=== PATIENT | male | born 1945 | race Caucasian/White ===

== ENCOUNTER 2018-01-09 19:43 | Emergency (ER) | payer MEDICARE, OTHER ==
[2018-01-09] MEDS ORDERED: Ketorolac 60 MG/2 ML SDV IM ONE (20:02)
--- NOTE | 2018-01-09 20:10 | EDM.PDOC ---
ED HPI GENERAL MEDICAL PROBLEM - General Chief Complaint: Back Pain or Injury Stated Complaint: SEVERE BACK PAIN Time Seen by Provider: 01/09/18 19:55 Source of Information: Reports: Patient History Limitations: Reports: No Limitations - History of Present Illness INITIAL COMMENTS - FREE TEXT/NARRATIVE: HISTORY AND PHYSICAL: History of present illness: Patient is a 72-year-old male who presents to the emergency room today with complaints of pain to the left gluteus that radiates down the back I. He states approximately 3 days ago he was loading a truck and the next morning he had pain in the left buttock that radiates down the posterior left thigh and stops above the knee. Denies any falls, trauma or injury. Has been using a heating pack and ibuprofen without much relief. Denies any urinary or fecal incontinence. Denies any numbness or tingling to his distal extremities. He has been ambulatory without difficulty. Review of systems: As per history of present illness and below otherwise all systems reviewed and negative. Past medical history: As per history of present illness and as reviewed below otherwise noncontributory. Surgical history: As per history of present illness and as reviewed below otherwise noncontributory. Social history: No reported history of drug or alcohol abuse. Family history: As per history of present illness and as reviewed below otherwise noncontributory. Physical exam: General: Well-developed and well-nourished 72-year-old male. Alert and oriented. Nontoxic appearing and in no acute distress. HEENT: Atraumatic, normocephalic, pupils equal and reactive bilaterally, negative for conjunctival pallor or scleral icterus, mucous membranes moist, throat clear, neck supple, nontender, trachea midline. No drooling or trismus noted. No meningeal signs Lungs: Clear to auscultation, breath sounds equal bilaterally, chest nontender. Heart: S1S2, regular rate and rhythm without overt murmur Abdomen: Soft, nondistended, nontender. Negative for masses or hepatosplenomegaly. Negative for costovertebral tenderness. Pelvis: Stable nontender. Genitourinary: Deferred. Rectal: Deferred. Skin: Intact, warm, dry. No lesions or rashes noted. C-spine/Back: Pinpoint vertebral tenderness upon palpation. No crepitus, step- offs or obvious deformities. Patient is ambulatory and able to walk on heels and toes. No urinary or fecal incontinence. Denies any numbness or tingling to his distal extremities. Extremities: Atraumatic, negative for cords or calf pain. Neurovascular unremarkable. Neuro: Awake, alert, oriented. Cranial nerves II through XII unremarkable. Cerebellum unremarkable. Motor and sensory unremarkable throughout. Exam nonfocal. Notes: Does not have a ride from the ER, will give Toradol IM. States he has no problems with NSAIDS. Prescription for Cataflam and Flexeril given. Medication education was provided. Signs and symptoms that would prompt him to return to the emergency room were reviewed and discussed. Patient is agreeable to plan of care. He denies any further questions or concerns at this time. Diagnostics: [] Therapeutics: Toradol Impression: Sciatica, left Plan: 1. Please take the medications as prescribed. Gentle stretching and heat. The flexeril (cyclobenzabrine) may cause drowsiness, so do not take when needing to drive or function outside of the house. 2. Follow-up with your primary caregiver in the next 1-2 days. Return to the ED as needed and as discussed. Definitive disposition and diagnosis as appropriate pending reevaluation and review of above. - Related Data Allergies Allergy/AdvReac Type Severity Reaction Status Date / Time indomethacin [From Indocin] Allergy Cannot Verified 01/09/18 19:45 Remember indomethacin sodium Allergy Cannot Verified 01/09/18 19:45 [From Indocin] Remember Penicillins Allergy Hives Verified 01/09/18 19:45 Home Meds: Home Meds Aspirin 81 mg PO DAILY 01/09/18 [History] Aspirin [Sallie Advanced] 1 tab PO DAILY 01/09/18 [History] Cholecalciferol (Vitamin D3) [D3-2000] 1 tab PO DAILY 01/09/18 [History] Eplerenone [Inspra] 50 mg PO BID 01/09/18 [History] Flaxseed Oil [Flaxseed] 1,400 mg PO DAILY 01/09/18 [History] Indapamide 1.25 mg PO DAILY 01/09/18 [History] Levothyroxine 137 mcg PO DAILY 01/09/18 [History] Magnesium 250 mg PO DAILY 01/09/18 [History] Melatonin 1 tab PO DAILY 01/09/18 [History] Potassium Bicarb/Potassium Chl [Potassium Chloride] 20 meq PO DAILY 01/09/18 [ History] Prevagen 1 tab PO DAILY 01/09/18 [History] Terazosin HCl [Terazosin] 10 mg PO DAILY 01/09/18 [History] levETIRAcetam [Spritam] 1,000 mg PO BID 01/09/18 [History] Past Medical History HEENT History: Reports: None Cardiovascular History: Reports: None Respiratory History: Reports: None Gastrointestinal History: Reports: None Genitourinary History: Reports: None Musculoskeletal History: Reports: None Neurological History: Reports: None Psychiatric History: Reports: None Endocrine/Metabolic History: Reports: None Hematologic History: Reports: None Immunologic History: Reports: None Oncologic (Cancer) History: Reports: None Dermatologic History: Reports: None - Infectious Disease History Infectious Disease History: Reports: Shingles - Past Surgical History Head Surgeries/Procedures: Reports: None HEENT Surgical History: Reports: None Cardiovascular Surgical History: Reports: None Respiratory Surgical History: Reports: None GI Surgical History: Reports: Hernia Repair/Other Male Surgical History: Reports: None Endocrine Surgical History: Reports: None Neurological Surgical History: Reports: None Musculoskeletal Surgical History: Reports: Other (See Below) Other Musculoskeletal Surgeries/Procedures:: neck fusion Oncologic Surgical History: Reports: None Dermatological Surgical History: Reports: None Social & Family History - Family History Family Medical History: Noncontributory - Tobacco Use Smoking Status *Q: Never Smoker Second Hand Smoke Exposure: No - Caffeine Use Caffeine Use: Reports: None - Recreational Drug Use Recreational Drug Use: No ED ROS GENERAL - Review of Systems Review Of Systems: ROS reveals no pertinent complaints other than HPI. ED EXAM,LOWER BACK PAIN/INJURY - Physical Exam Exam: See Below (See dictation) Course - Vital Signs Last Recorded V/S: Last Vital Signs Temp 97.8 F 01/09/18 19:56 Pulse 71 01/09/18 19:56 Resp 18 01/09/18 19:56 BP 179/96 H 01/09/18 19:56 Pulse Ox 98 01/09/18 19:56 - Orders/Labs/Meds Meds: Medications Discontinued Medications Generic Name Dose Route Start Last Admin Trade Name Freq PRN Reason Stop Dose Admin Ketorolac Tromethamine 60 mg 01/09/18 20:02 Toradol IM 01/09/18 20:03 ONETIME ONE Departure - Departure Time of Disposition: 20:10 Disposition: Home, Self-Care 01 Clinical Impression: Sciatica Qualifiers: Laterality: left Qualified Code(s): M54.32 - Sciatica, left side - Discharge Information Instructions: Sciatica, [id number] Referrals: PCP,None [Primary Care Provider] - Additional Instructions: The following information is given to patients seen in the emergency department who are being discharged to home. This information is to outline your options for follow-up care. We provide all patients seen in our emergency department with a follow-up referral. The need for follow-up, as well as the timing and circumstances, are variable depending upon the specifics of your emergency department visit. If you don't have a primary care physician on staff, we will provide you with a referral. We always advise you to contact your personal physician following an emergency department visit to inform them of the circumstance of the visit and for follow-up with them and/or the need for any referrals to a consulting specialist. The emergency department will also refer you to a specialist when appropriate. This referral assures that you have the opportunity for follow-up care with a specialist. All of these measure are taken in an effort to provide you with optimal care, which includes your follow-up. Under all circumstances we always encourage you to contact your private physician who remains a resource for coordinating your care. When calling for follow-up care, please make the office aware that this follow-up is from your recent emergency room visit. If for any reason you are refused follow-up, please contact the [facility] Emergency Department at and asked to speak to the emergency department charge nurse. [facility] [address] [place] [id number] 1. Please take the medications as prescribed. Gentle stretching and heat. The flexeril (cyclobenzabrine) may cause drowsiness, so do not take when needing to drive or function outside of the house. 2. Follow-up with your primary caregiver in the next 1-2 days. Return to the ED as needed and as discussed.
[2018-01-09 20:52] VITALS: BP 165/95
== END 2018-01-09 20:25 | disposition home or self-care (01) ==
LOC: MW.ED 19:43
DX: M54.32 Sciatica, left side (principal); Z79.899 Other long term (current) drug therapy; Z88.8 Allergy status to other drugs, medicaments and biological substances; Z88.0 Allergy status to penicillin; Z79.82 Long term (current) use of aspirin
CPT/HCPCS: 96372; 99283; J1885

== ENCOUNTER 2019-07-17 11:24 | Emergency (ER) | payer MEDICARE, OTHER ==
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
--- NOTE | 2019-07-17 12:50 | CR ---
Right shoulder: 3 views of the right shoulder were obtained. Comparison: Prior shoulder study. Spurring is noted off the glenoid. Mild joint space narrowing is also noted within the glenohumeral joint. Previous shoulder surgery is noted. No acute fracture, dislocation or other bony abnormality is seen. Impression: 1. Degenerative change within the glenohumeral joint as described above. 2. Previous surgery. 3. Nothing acute is seen. Diagnostic code #2 This report was dictated in [place] Standard Time
[2019-07-17 14:21] VITALS: BP 161/59; PULSE 45
== END 2019-07-17 14:05 | disposition home or self-care (01) ==
LOC: MW.ED 11:24
DX: S43.401A Unspecified sprain of right shoulder joint, initial encounter (principal); Z79.82 Long term (current) use of aspirin; Z79.899 Other long term (current) drug therapy; W00.0XXA Fall on same level due to ice and snow, initial encounter
CPT/HCPCS: 73030-26-RT; 73030-RT; 99282; 99283-25

== ENCOUNTER 2020-02-03 15:11 | Inpatient (IN) | payer MEDICARE, OTHER ==
[2020-02-03] MEDS ORDERED: Sodium Chloride 0.9% 2.5 ML Syringe FLUSH PRN (15:21)
[2020-02-03] MEDS ORDERED: Sodium Chloride 0.9% 10 ML Syringe FLUSH PRN (15:21)
[2020-02-03 16:34] LABS: CARBON DIOXIDE,CO2 27.3 mmol/L (21.0-32.0); POTASSIUM,K 3.3 mmol/L (3.5-5.1)
[2020-02-03] MEDS ORDERED: Furosemide 40 MG/4 ML VIAL IVPUSH ONE (16:47)
[2020-02-03] MEDS ORDERED: Potassium Chloride 10% 20 MEQ/15 ML Soln 30 ML UD Cup PO ONE (16:48)
[2020-02-03] MEDS ORDERED: Magnesium Sulfate/Water 2 GM in Premix Bag 1 BAG IV ONE (16:48)
--- NOTE | 2020-02-03 17:12 | EDM.PDOC ---
ED HPI GENERAL MEDICAL PROBLEM - General Chief Complaint: Respiratory Problem Stated Complaint: SHORTNESS OF BREATHE Time Seen by Provider: 02/03/20 15:12 Source of Information: Reports: Patient, Old Records History Limitations: Reports: No Limitations - History of Present Illness INITIAL COMMENTS - FREE TEXT/NARRATIVE: 75-year-old male with a past medical history of BPH, hypothyroidism presenting with chest discomfort and shortness of breath. Patient was directed to the emergency department by his chairperson anesthesiology. He reports a 2-week history of worsening resting dyspnea and intermittent chest discomfort along with new lower extremity edema. He was seen by his chairperson anesthesiology who was concerned about new onset systolic heart failure. The patient had an echocardiogram performed this morning which has not yet been read. He had chest x-rays obtained this morning which are concerning for possible pneumonia in the left lung base and also for mild CHF. ABIs were obtained of the ankles which were normal. The patient's chairperson anesthesiology was concerned that the patient needed diuresis so he directed the patient to the ER. Here in the emergency department, the patient complains of mild shortness of breath along with leg swelling. He is not having any chest discomfort at this time. He has no known history of myocardial infarction or congestive heart failure. No history of pulmonary disease. He denies fever, chills, cough, hemoptysis, unilateral lower extremity pain, recent vomiting. ROS: A 10-point review of systems was negative, except as noted in the HPI (or in the ROS section of this note). Past medical history: Reviewed, no additional pertinent history. Surgical history: Reviewed in system, no additional pertinent history. Social history: Reviewed in system, no additional pertinent history. Family history: Reviewed in system, no additional pertinent history. PHYSICAL EXAM Vital signs reviewed. Nursing notes reviewed. Constitutional: Awake, alert, non-distressed. Head: Normocephalic, atraumatic. Eyes: EOMI, conjunctiva normal, no discharge, no scleral icterus. Ears, Nose, Throat: External ears and nose normal, moist oral mucosa. Cardiovascular: Tachycardic, irregularly irregular 2+ radial pulse, capillary refill less than 2 seconds. Pitting edema of the bilateral lower extremities. Pulmonary: Mildly tachypneic, normal work of breathing, no accessory muscle use. Diminished lung sounds at bases. Speaking in full sentences. Abdomen/GI: Soft, nontender, nondistended, no guarding or rigidity, no masses. Musculoskeletal: No deformities. Integumentary: Appropriate color for ethnicity, warm, dry, no pallor or jaundice, no rash. Neurologic: Alert, answering questions appropriately, normal speech, no facial droop, moving all extremities well. Psychiatric: Appropriate mood and affect, normal thought process. - Related Data Allergies Allergy/AdvReac Type Severity Reaction Status Date / Time No Known Allergies Allergy Verified 02/03/20 15:24 Home Meds: Home Meds Aspirin 81 mg PO DAILY 01/09/18 [History] Aspirin [Sallie Advanced] 1 tab PO DAILY 01/09/18 [History] Cholecalciferol (Vitamin D3) [D3-2000] 1 tab PO DAILY 01/09/18 [History] Eplerenone [Inspra] 50 mg PO BID 01/09/18 [History] Flaxseed Oil [Flaxseed] 1,400 mg PO DAILY 01/09/18 [History] Indapamide 1.25 mg PO DAILY 01/09/18 [History] Levothyroxine 137 mcg PO DAILY 01/09/18 [History] Magnesium 250 mg PO DAILY 01/09/18 [History] Melatonin 1 tab PO DAILY 01/09/18 [History] Potassium Bicarb/Potassium Chl [Potassium Chloride] 20 meq PO DAILY 01/09/18 [History] Prevagen 1 tab PO DAILY 01/09/18 [History] Terazosin HCl [Terazosin] 10 mg PO DAILY 01/09/18 [History] levETIRAcetam [Spritam] 1,000 mg PO BID 01/09/18 [History] Past Medical History HEENT History: Reports: None Cardiovascular History: Reports: None Respiratory History: Reports: None Gastrointestinal History: Reports: None Genitourinary History: Reports: None Musculoskeletal History: Reports: None Neurological History: Reports: None Psychiatric History: Reports: None Endocrine/Metabolic History: Reports: None Hematologic History: Reports: None Immunologic History: Reports: None Oncologic (Cancer) History: Reports: None Dermatologic History: Reports: None - Infectious Disease History Infectious Disease History: Reports: Chicken Pox - Past Surgical History Head Surgeries/Procedures: Reports: None HEENT Surgical History: Reports: None Cardiovascular Surgical History: Reports: None Respiratory Surgical History: Reports: None GI Surgical History: Reports: Hernia Repair/Other Male Surgical History: Reports: None Endocrine Surgical History: Reports: None Neurological Surgical History: Reports: None Musculoskeletal Surgical History: Reports: Other (See Below) Other Musculoskeletal Surgeries/Procedures:: neck fusion Oncologic Surgical History: Reports: None Dermatological Surgical History: Reports: None Social & Family History - Family History Family Medical History: Noncontributory - Tobacco Use Smoking Status *Q: Never Smoker Second Hand Smoke Exposure: No - Caffeine Use Caffeine Use: Reports: None - Alcohol Use Days Per Week of Alcohol Use: 3 Number of Drinks Per Day: 1 Total Drinks Per Week: 3 - Recreational Drug Use Recreational Drug Use: No ED ROS GENERAL - Review of Systems Review Of Systems: See Below ED EXAM, GENERAL - Physical Exam Exam: See Below EKG INTERPRETATION EKG Interpretation Comments: 12-Lead ECG Interpretation Acquired: 4:05 PM Rhythm: Atrial fibrillation with rapid ventricular response Rate: 110 bpm Dieterich: Normal Intervals: Prolonged QT interval at 559 ms by manual calculation Ectopy: Unifocal PVCs Ischemic Changes: Mild, nondiagnostic ST segment depression in leads V5 and 6 less than 1 mm. RV Strain: No obvious RV strain pattern. ST Segments/T-Waves: No notable changes Course - Vital Signs Text/Narrative:: 75-year-old male with shortness of breath and intermittent chest pain for 2 weeks. Differential includes systolic heart failure, acute coronary syndrome, pneumonia, pulmonary embolism, pneumothorax, viral syndrome, anemia, arrhythmia, etc. Twelve-lead EKG shows atrial fibrillation with rapid ventricular response, ventricular response varying from 90-125. No complaints of palpitations or chest discomfort at this moment to require rate control. Reviewed chest x-rays from this morning, showing mild pulmonary edema. Labs include negative troponin, mild renal insufficiency with a creatinine of 1.4. Mild hypokalemia 3.3. BNP elevated at 902. Appears volume overloaded on exam with pitting lower extremity edema, diminished lung sounds at the bases. IV access established, given a dose of IV furosemide along with IV magnesium sulfate and p.o. potassium. Given resting tachycardia, increased work of breathing, tachypnea, will favor admission to the hospital for new onset systolic heart failure. I spoke with the hospitalist Dr. Jensen Whalen who agrees to admit. Last Recorded V/S: Last Vital Signs Temp 36.7 C 02/03/20 15:16 Pulse 70 02/03/20 17:03 Resp 17 02/03/20 17:03 BP 132/86 02/03/20 17:03 Pulse Ox 96 02/03/20 17:03 - Orders/Labs/Meds Orders: Active Orders 24 hr Category Date Time Status Admission Status [Patient Status] [ADT] Stat ADT 02/03/20 16:54 Active Cardiac Monitoring [RC] . DIRECTED Care 02/03/20 15:21 Active EKG 12 Lead [EKG Documentation Completion] [RC] STAT Care 02/03/20 15:21 Active Oxygen Therapy Adult [Oxygen Therapy, ED] [RC] Care 02/03/20 16:49 Active ASDIRECTED Pulse Oximetry [RC] ASDIRECTED Care 02/03/20 15:21 Active CORONAVIRUS COVID-19 PCR PHL Stat Lab 02/03/20 16:55 Ordered Magnesium Sulfate/Water [Magnesium Sulfate in Water Med 02/03/20 16:48 Active Premix] 2 gm Premix Bag 1 bag IV ONETIME Sodium Chloride 0.9% [Saline Flush] Med 02/03/20 15:21 Active 10 ml FLUSH ASDIRECTED PRN Sodium Chloride 0.9% [Saline Flush] Med 02/03/20 15:21 Active 2.5 ml FLUSH ASDIRECTED PRN Saline Lock Insert [OM.PC] Stat Oth 02/03/20 15:21 Ordered Medication Orders Magnesium Sulfate 2 gm/ Premix 50 mls @ 50 mls/hr IV ONETIME ONE Stop: 02/03/20 17:47 Last Admin: 02/03/20 17:03 Dose: 50 mls/hr Documented by: GROTALI Sodium Chloride (Saline Flush) 2.5 ml FLUSH ASDIRECTED PRN PRN Reason: Keep Vein Open Last Admin: 02/03/20 17:00 Dose: 2.5 ml Documented by: GROTALI Sodium Chloride (Saline Flush) 10 ml FLUSH ASDIRECTED PRN PRN Reason: Keep Vein Open Last Admin: 02/03/20 17:00 Dose: 10 ml Documented by: FLIP Labs: Laboratory Tests 02/03/20 02/03/20 02/03/20 Range/Units 15:35 15:35 15:35 WBC 10.76 (4.0-11.0) K/uL RBC 4.55 (4.50-5.90) M/uL Hgb 14.6 (13.0-17.0) g/dL Hct 42.8 (38.0-50.0) % MCV 94.1 (80.0-98.0) fL MCH 32.1 H (27.0-32.0) pg MCHC 34.1 (31.0-37.0) g/dL RDW Std Deviation 44.0 (28.0-62.0) fl RDW Coeff of Mike 13 (11.0-15.0) % Plt Count 201 (150-400) K/uL MPV 10.50 (7.40-12.00) fL Neut % (Auto) 77.5 (48.0-80.0) % Lymph % (Auto) 13.4 L (16.0-40.0) % [place] % (Auto) 7.5 (0.0-15.0) % Eos % (Auto) 1.3 (0.0-7.0) % Baso % (Auto) 0.3 (0.0-1.5) % Neut # (Auto) 8.3 H (1.4-5.7) K/uL Lymph # (Auto) 1.4 (0.6-2.4) K/uL [place] # (Auto) 0.8 (0.0-0.8) K/uL Eos # (Auto) 0.1 (0.0-0.7) K/uL Baso # (Auto) 0.0 (0.0-0.1) K/uL Nucleated RBC % 0.0 /100WBC Nucleated RBCs # 0 K/uL Sodium 142 (136-148) mmol/L Potassium 3.3 L (3.5-5.1) mmol/L Chloride 103 (98-107) mmol/L Carbon Dioxide 27.3 (21.0-32.0) mmol/L BUN 32 H (7.0-18.0) mg/dL Creatinine 1.4 H (0.8-1.3) mg/dL Est Cr Clr Drug Dosing 48.50 mL/min Estimated GFR (MDRD) 49.1 ml/min Glucose 110 H (74-106) mg/dL Calcium 9.1 (8.5-10.1) mg/dL Magnesium (1.8-2.4) mg/dL Total Bilirubin 1.3 H (0.2-1.0) mg/dL AST 35 (15-37) IU/L ALT 32 (14-63) IU/L Alkaline Phosphatase 75 (46-116) U/L Troponin I 0.052 (0.000-0.056) ng/mL B-Natriuretic Peptide 902 H (<100) PG/ML Total Protein 7.2 (6.4-8.2) g/dL Albumin 3.8 (3.4-5.0) g/dL Globulin 3.4 (2.6-4.0) g/dL Albumin/Globulin Ratio 1.1 (0.9-1.6) 02/03/20 Range/Units 15:35 WBC (4.0-11.0) K/uL RBC (4.50-5.90) M/uL Hgb (13.0-17.0) g/dL Hct (38.0-50.0) % MCV (80.0-98.0) fL MCH (27.0-32.0) pg MCHC (31.0-37.0) g/dL RDW Std Deviation (28.0-62.0) fl RDW Coeff of Mike (11.0-15.0) % Plt Count (150-400) K/uL MPV (7.40-12.00) fL Neut % (Auto) (48.0-80.0) % Lymph % (Auto) (16.0-40.0) % [place] % (Auto) (0.0-15.0) % Eos % (Auto) (0.0-7.0) % Baso % (Auto) (0.0-1.5) % Neut # (Auto) (1.4-5.7) K/uL Lymph # (Auto) (0.6-2.4) K/uL [place] # (Auto) (0.0-0.8) K/uL Eos # (Auto) (0.0-0.7) K/uL Baso # (Auto) (0.0-0.1) K/uL Nucleated RBC % /100WBC Nucleated RBCs # K/uL Sodium (136-148) mmol/L Potassium (3.5-5.1) mmol/L Chloride (98-107) mmol/L Carbon Dioxide (21.0-32.0) mmol/L BUN (7.0-18.0) mg/dL Creatinine (0.8-1.3) mg/dL Est Cr Clr Drug Dosing mL/min Estimated GFR (MDRD) ml/min Glucose (74-106) mg/dL Calcium (8.5-10.1) mg/dL Magnesium 1.8 (1.8-2.4) mg/dL Total Bilirubin (0.2-1.0) mg/dL AST (15-37) IU/L ALT (14-63) IU/L Alkaline Phosphatase (46-116) U/L Troponin I (0.000-0.056) ng/mL B-Natriuretic Peptide (<100) PG/ML Total Protein (6.4-8.2) g/dL Albumin (3.4-5.0) g/dL Globulin (2.6-4.0) g/dL Albumin/Globulin Ratio (0.9-1.6) Meds: Medications Generic Name Dose Route Start Last Admin Trade Name Freq PRN Reason Stop Dose Admin Magnesium Sulfate 2 gm/ Premix 50 mls @ 50 mls/hr 02/03/20 16:48 02/03/20 17:03 IV 02/03/20 17:47 50 mls/hr ONETIME ONE Administration Sodium Chloride 2.5 ml 02/03/20 15:21 02/03/20 17:00 Saline Flush FLUSH 2.5 ml ASDIRECTED PRN Administration Keep Vein Open Sodium Chloride 10 ml 02/03/20 15:21 02/03/20 17:00 Saline Flush FLUSH 10 ml ASDIRECTED PRN Administration Keep Vein Open Discontinued Medications Generic Name Dose Route Start Last Admin Trade Name Freq PRN Reason Stop Dose Admin Furosemide 40 mg 02/03/20 16:47 02/03/20 17:00 Lasix IVPUSH 02/03/20 16:48 40 mg NOW ONE Administration Potassium Chloride 60 meq 02/03/20 16:48 02/03/20 16:59 Potassium Chloride PO 02/03/20 16:49 60 meq ONETIME ONE Administration Departure - Departure Time of Disposition: 17:11 Disposition: Admitted As Inpatient 64 Condition: Good Clinical Impression: Congestive heart failure (CHF) - Discharge Information Referrals: PCP,None [Primary Care Provider] - Sepsis Event Note (ED) - Evaluation Sepsis Screening Result: No Definite Risk - Focused Exam Vital Signs: Vital Signs Temp Pulse Resp BP Pulse Ox 02/03/20 17:03 70 17 132/86 96 02/03/20 15:16 36.7 C 112 H 24 H 143/90 H 94 L - My Orders Last 24 Hours: My Active Orders 02/03/20 15:21 Cardiac Monitoring [RC] . DIRECTED EKG 12 Lead [EKG Documentation Completion] [RC] STAT Pulse Oximetry [RC] ASDIRECTED Sodium Chloride 0.9% [Saline Flush] 10 ml FLUSH ASDIRECTED PRN Sodium Chloride 0.9% [Saline Flush] 2.5 ml FLUSH ASDIRECTED PRN Saline Lock Insert [OM.PC] Stat 02/03/20 16:48 Magnesium Sulfate/Water [Magnesium Sulfate in Water Premix] 2 gm Premix Bag 1 bag IV ONETIME 02/03/20 16:49 Oxygen Therapy Adult [Oxygen Therapy, ED] [RC] ASDIRECTED 02/03/20 16:54 Admission Status [Patient Status] [ADT] Stat 02/03/20 16:55 CORONAVIRUS COVID-19 PCR PHL Stat - Assessment/Plan Last 24 Hours: My Active Orders 02/03/20 15:21 Cardiac Monitoring [RC] . DIRECTED EKG 12 Lead [EKG Documentation Completion] [RC] STAT Pulse Oximetry [RC] ASDIRECTED Sodium Chloride 0.9% [Saline Flush] 10 ml FLUSH ASDIRECTED PRN Sodium Chloride 0.9% [Saline Flush] 2.5 ml FLUSH ASDIRECTED PRN Saline Lock Insert [OM.PC] Stat 02/03/20 16:48 Magnesium Sulfate/Water [Magnesium Sulfate in Water Premix] 2 gm Premix Bag 1 bag IV ONETIME 02/03/20 16:49 Oxygen Therapy Adult [Oxygen Therapy, ED] [RC] ASDIRECTED 02/03/20 16:54 Admission Status [Patient Status] [ADT] Stat 02/03/20 16:55 CORONAVIRUS COVID-19 PCR PHL Stat
[2020-02-03] MEDS ORDERED: Acetaminophen 325 MG Tab PO PRN (17:59)
[2020-02-03] MEDS ORDERED: Heparin Sodium 5,000 Units/ML Vial SUBCUT SCH (18:00)
--- NOTE | 2020-02-03 18:05 | PCM.HP.2 ---
H&P History of Present Illness - General Date of Service: 02/03/20 Admit Problem/Dx: Admission Diagnosis/Problem Admission Diagnosis/Problem Heart failure Source of Information: Patient History Limitations: Reports: No Limitations - History of Present Illness Initial Comments - Free Text/Narative: 75-year-old male presents complaining of SOB and leg swelling for the past 2-3 weeks. He has a PMH of hypothyroidism and BPH. Patient reports that he had worsening shortness of breath today and was told by his raw finish mill operator to go to the ER as he may need medicine to help get fluid off. He has noted weight gain of about 13 lbs over the past 1 month. He also reports shortness of breath when lying down and will wake up gasping for air on occasion. Patient also reports occasional chest pain when he has shortness of breath. He reports having an ECHO and CXR this morning. ECHO currently pending. Patient denies having any fevers, blurry vision, sore throat, cough, chills, nausea, vomiting, diarrhea, numbness or tingling in extremities. In the ER, CMP revealed mild hypokalemia and creatinine of 1.4. Troponin was negative. BNP > 900. COVID19 test negative. EKG showed atrial fibrillation. Patient given dose of IV lasix 40 mg x1, IV KCl and IV magnesium. Patient admitted for further evaluation and treatment. - Related Data Allergies/Adverse Reactions: Allergies Allergy/AdvReac Type Severity Reaction Status Date / Time No Known Allergies Allergy Verified 02/03/20 18:53 Home Medications: Home Meds Aspirin 81 mg PO DAILY 01/09/18 [History] Aspirin [Sallie Advanced] 1 tab PO BEDTIME 01/09/18 [History] Cholecalciferol (Vitamin D3) [D3-2000] 1 tab PO DAILY 01/09/18 [History] Eplerenone [Inspra] 50 mg PO BID 01/09/18 [History] Flaxseed Oil [Flaxseed] 1,400 mg PO DAILY 01/09/18 [History] Indapamide 1.25 mg PO DAILY 01/09/18 [History] Levothyroxine 137 mcg PO DAILY 01/09/18 [History] Magnesium 250 mg PO DAILY 01/09/18 [History] Melatonin 1 tab PO DAILY 01/09/18 [History] Potassium Bicarb/Potassium Chl [Potassium Chloride] 20 meq PO DAILY 01/09/18 [History] Prevagen 1 tab PO DAILY 01/09/18 [History] Terazosin HCl [Terazosin] 10 mg PO DAILY 01/09/18 [History] levETIRAcetam [Spritam] 1,000 mg PO BID 01/09/18 [History] Past Medical History HEENT History: Reports: None Cardiovascular History: Reports: None Respiratory History: Reports: None Gastrointestinal History: Reports: None Genitourinary History: Reports: None Musculoskeletal History: Reports: None Neurological History: Reports: None Psychiatric History: Reports: None Endocrine/Metabolic History: Reports: None Hematologic History: Reports: None Immunologic History: Reports: None Oncologic (Cancer) History: Reports: None Dermatologic History: Reports: None - Infectious Disease History Infectious Disease History: Reports: Chicken Pox - Past Surgical History Head Surgeries/Procedures: Reports: None HEENT Surgical History: Reports: None Cardiovascular Surgical History: Reports: None Respiratory Surgical History: Reports: None GI Surgical History: Reports: Hernia Repair/Other Male Surgical History: Reports: None Endocrine Surgical History: Reports: None Neurological Surgical History: Reports: None Musculoskeletal Surgical History: Reports: Other (See Below) Other Musculoskeletal Surgeries/Procedures:: neck fusion Oncologic Surgical History: Reports: None Dermatological Surgical History: Reports: None Social & Family History - Family History Family Medical History: Noncontributory - Tobacco Use Smoking Status *Q: Never Smoker Second Hand Smoke Exposure: No - Caffeine Use Caffeine Use: Reports: None - Alcohol Use Days Per Week of Alcohol Use: 3 Number of Drinks Per Day: 1 Total Drinks Per Week: 3 - Recreational Drug Use Recreational Drug Use: No H&P Review of Systems - Review of Systems: Review Of Systems: Comprehensive ROS is negative, except as noted in HPI. Exam - Exam Exam: See Below - Vital Signs Vital Signs: Last Vital Signs Temp 36.7 C 02/03/20 15:16 Pulse 70 02/03/20 17:03 Resp 17 02/03/20 17:03 BP 132/86 02/03/20 17:03 Pulse Ox 96 02/03/20 17:03 Weight: 93.894 kg - Exam General: Alert, Oriented, Cooperative HEENT: Conjunctiva Clear, Hearing Intact, Posterior Pharynx Clear, Pupils Equal Neck: Supple, Trachea Midline Lungs: Normal Respiratory Effort, Other (mild crackles in bases b/l) GI/Abdominal Exam: Normal Bowel Sounds, Soft, Non-Tender, Distended Extremities: Other (1+ pitting edema b/l) Skin: Warm, Dry, Intact Neurological: Cranial Nerves Intact, Strength Equal Bilateral, Normal Speech, Normal Tone Neuro Extensive - Mental Status: Alert, Oriented x3, Normal Mood/Affect Psychiatric: Alert, Normal Affect, Normal Mood - Patient Data Lab Results Last 24 hrs: Laboratory Results - last 24 hr 02/03/20 02/03/20 02/03/20 Range/Units 15:35 15:35 15:35 WBC 10.76 (4.0-11.0) K/uL RBC 4.55 (4.50-5.90) M/uL Hgb 14.6 (13.0-17.0) g/dL Hct 42.8 (38.0-50.0) % MCV 94.1 (80.0-98.0) fL MCH 32.1 H (27.0-32.0) pg MCHC 34.1 (31.0-37.0) g/dL RDW Std Deviation 44.0 (28.0-62.0) fl RDW Coeff of Mike 13 (11.0-15.0) % Plt Count 201 (150-400) K/uL MPV 10.50 (7.40-12.00) fL Neut % (Auto) 77.5 (48.0-80.0) % Lymph % (Auto) 13.4 L (16.0-40.0) % [place] % (Auto) 7.5 (0.0-15.0) % Eos % (Auto) 1.3 (0.0-7.0) % Baso % (Auto) 0.3 (0.0-1.5) % Neut # (Auto) 8.3 H (1.4-5.7) K/uL Lymph # (Auto) 1.4 (0.6-2.4) K/uL [place] # (Auto) 0.8 (0.0-0.8) K/uL Eos # (Auto) 0.1 (0.0-0.7) K/uL Baso # (Auto) 0.0 (0.0-0.1) K/uL Nucleated RBC % 0.0 /100WBC Nucleated RBCs # 0 K/uL Sodium 142 (136-148) mmol/L Potassium 3.3 L (3.5-5.1) mmol/L Chloride 103 (98-107) mmol/L Carbon Dioxide 27.3 (21.0-32.0) mmol/L BUN 32 H (7.0-18.0) mg/dL Creatinine 1.4 H (0.8-1.3) mg/dL Est Cr Clr Drug Dosing 48.50 mL/min Estimated GFR (MDRD) 49.1 ml/min Glucose 110 H (74-106) mg/dL Calcium 9.1 (8.5-10.1) mg/dL Magnesium (1.8-2.4) mg/dL Total Bilirubin 1.3 H (0.2-1.0) mg/dL AST 35 (15-37) IU/L ALT 32 (14-63) IU/L Alkaline Phosphatase 75 (46-116) U/L Troponin I 0.052 (0.000-0.056) ng/mL B-Natriuretic Peptide 902 H (<100) PG/ML Total Protein 7.2 (6.4-8.2) g/dL Albumin 3.8 (3.4-5.0) g/dL Globulin 3.4 (2.6-4.0) g/dL Albumin/Globulin Ratio 1.1 (0.9-1.6) COVID-19 (QUINTIN) (NEGATIVE) 02/03/20 02/03/20 Range/Units 15:35 17:15 WBC (4.0-11.0) K/uL RBC (4.50-5.90) M/uL Hgb (13.0-17.0) g/dL Hct (38.0-50.0) % MCV (80.0-98.0) fL MCH (27.0-32.0) pg MCHC (31.0-37.0) g/dL RDW Std Deviation (28.0-62.0) fl RDW Coeff of Mike (11.0-15.0) % Plt Count (150-400) K/uL MPV (7.40-12.00) fL Neut % (Auto) (48.0-80.0) % Lymph % (Auto) (16.0-40.0) % [place] % (Auto) (0.0-15.0) % Eos % (Auto) (0.0-7.0) % Baso % (Auto) (0.0-1.5) % Neut # (Auto) (1.4-5.7) K/uL Lymph # (Auto) (0.6-2.4) K/uL [place] # (Auto) (0.0-0.8) K/uL Eos # (Auto) (0.0-0.7) K/uL Baso # (Auto) (0.0-0.1) K/uL Nucleated RBC % /100WBC Nucleated RBCs # K/uL Sodium (136-148) mmol/L Potassium (3.5-5.1) mmol/L Chloride (98-107) mmol/L Carbon Dioxide (21.0-32.0) mmol/L BUN (7.0-18.0) mg/dL Creatinine (0.8-1.3) mg/dL Est Cr Clr Drug Dosing mL/min Estimated GFR (MDRD) ml/min Glucose (74-106) mg/dL Calcium (8.5-10.1) mg/dL Magnesium 1.8 (1.8-2.4) mg/dL Total Bilirubin (0.2-1.0) mg/dL AST (15-37) IU/L ALT (14-63) IU/L Alkaline Phosphatase (46-116) U/L Troponin I (0.000-0.056) ng/mL B-Natriuretic Peptide (<100) PG/ML Total Protein (6.4-8.2) g/dL Albumin (3.4-5.0) g/dL Globulin (2.6-4.0) g/dL Albumin/Globulin Ratio (0.9-1.6) COVID-19 (QUINTIN) NEGATIVE (NEGATIVE) Result Diagrams: 02/03/20 15:35 02/03/20 15:35 Sepsis Event Note - Evaluation Sepsis Screening Result: No Definite Risk - Focused Exam Vital Signs: Vital Signs Temp Pulse Resp BP Pulse Ox 02/03/20 17:03 70 17 132/86 96 02/03/20 15:16 36.7 C 112 H 24 H 143/90 H 94 L Date Exam was Performed: 02/03/20 Time Exam was Performed: 19:14 Problem List Initiated/Reviewed/Updated: Yes Orders Last 24hrs: Active Orders 24 hr Category Date Time Status Admission Status [Patient Status] [ADT] Stat ADT 02/03/20 16:54 Active Cardiac Monitoring [RC] . DIRECTED Care 02/03/20 15:21 Active Daily Weight [Height and Weight] [RC] DAILY Care 02/03/20 18:03 Ordered EKG 12 Lead [EKG Documentation Completion] [RC] STAT Care 02/03/20 15:21 Active Intake and Output Strict [RC] ASDIRECTED Care 02/03/20 18:04 Ordered Oxygen Therapy Adult [Oxygen Therapy, ED] [RC] Care 02/03/20 16:49 Active ASDIRECTED Oxygen Therapy [RC] PRN Care 02/03/20 17:59 Ordered Pulse Oximetry [RC] ASDIRECTED Care 02/03/20 15:21 Active Up ad Emy [RC] ASDIRECTED Care 02/03/20 17:59 Ordered VTE/DVT Education [RC] PER UNIT ROUTINE Care 02/03/20 17:59 Ordered Vital Signs [RC] Q4H Care 02/03/20 17:59 Ordered Fluid Restriction [DIET] Diet 02/03/20 Lunch Ordered Heart Healthy Diet [DIET] Diet 02/03/20 Lunch Active Low Salt [Sodium Restricted Diet] [DIET] Diet 02/03/20 Lunch Ordered Acetaminophen [Tylenol] Med 02/03/20 17:59 Ordered 650 mg PO Q4H PRN Heparin Sodium Med 02/03/20 18:00 Ordered 5,000 units SUBCUT Q8H Sodium Chloride 0.9% [Saline Flush] Med 02/03/20 15:21 Active 10 ml FLUSH ASDIRECTED PRN Sodium Chloride 0.9% [Saline Flush] Med 02/03/20 15:21 Active 2.5 ml FLUSH ASDIRECTED PRN Saline Lock Insert [OM.PC] Stat Oth 02/03/20 15:21 Ordered Resuscitation Status Routine Resus Stat 02/03/20 17:59 Ordered Medication Orders Acetaminophen (Tylenol) 650 mg PO Q4H PRN PRN Reason: Pain (Mild 1-3)/fever Heparin Sodium (Porcine) (Heparin Sodium) 5,000 units SUBCUT Q8H SASHA Sodium Chloride (Saline Flush) 2.5 ml FLUSH ASDIRECTED PRN PRN Reason: Keep Vein Open Last Admin: 02/03/20 17:00 Dose: 2.5 ml Documented by: FLIP Sodium Chloride (Saline Flush) 10 ml FLUSH ASDIRECTED PRN PRN Reason: Keep Vein Open Last Admin: 02/03/20 17:00 Dose: 10 ml Documented by: FLIP Assessment/Plan Comment:: Assessment and Plan: 1. New-onset CHF exacerbation: - Admit to med/surg floor. CXR showed pulmonary edema. ECHO currently pending. Will diurese with IV lasix 40 mg BID. Will trend troponins q6h x3. Strict I's and O's, daily standing weights, fluid restriction < 2L per day and low salt diet < 2 g per day. 2. Atrial fibrillation, rate controlled: - Patient on telemetry. Will discuss starting anti-coagulation as CHADSVASC sc ore is at least 5. 3. Acute kidney injury: - Will continue to monitor. 4. Hypokalemia, mild: - Repleted in ER. Will recheck with AM labs and replete as necessary. 5. DVT prophylaxis: heparin for now. 6. Past medical history of hypothyroidism and BPH: - Continue home medications.
[2020-02-03] MEDS ORDERED: Diltiazem 25 MG/5 ML SDV IVPUSH PRN (19:46)
[2020-02-03] MEDS: levETIRAcetam 500 MG Tab PO SCH (21:18)
[2020-02-03] MEDS ORDERED: Melatonin 3 MG Tab PO PRN ×3 (21:25→22:19)
[2020-02-03] MEDS ORDERED: Aspirin 325 MG Tab.EC PO ONE (21:59)
--- NOTE | 2020-02-03 22:12 | PCM.SN.2 ---
- Free Text/Narrative Note: Patient's second troponin bumped to 0.063. Patient denies any chest pain. Reports shortness of breath has improved. Patient did have an episode of a.fib with RVR in the 150s. Will transfer to ICU for closer monitoring of heart rate.
[2020-02-04 04:04] LABS: CARBON DIOXIDE,CO2 32.2 mmol/L (21.0-32.0); POTASSIUM,K 3.1 mmol/L (3.5-5.1)
[2020-02-04] MEDS ORDERED: Potassium Chloride 20 MEQ Tab.ER PO ONE (06:51)
[2020-02-04] MEDS ORDERED: Acetaminophen/HYDROcodone 325-5 MG Tab PO PRN (07:59)
--- NOTE | 2020-02-04 08:58 | PCM.PN ---
- General Info Date of Service: 02/04/20 Subjective Update: Patient reports breathing and leg swelling much improved this morning. Tolerating diet well and urinating. - Patient Data Vitals - Most Recent: Last Vital Signs Temp 36.4 C 02/03/20 23:20 Pulse 89 02/04/20 01:00 Resp 21 H 02/04/20 08:00 BP 136/95 H 02/04/20 08:00 Pulse Ox 96 02/04/20 08:00 Weight - Most Recent: 90 kg I&O - Last 24 Hours: Intake & Output 02/03/20 02/04/20 02/04/20 22:59 06:59 14:59 Intake Total 700 Output Total 1600 Balance -900 Lab Results Last 24 Hours: Laboratory Results - last 24 hr 02/03/20 02/03/20 02/03/20 Range/Units 15:35 15:35 15:35 WBC 10.76 (4.0-11.0) K/uL RBC 4.55 (4.50-5.90) M/uL Hgb 14.6 (13.0-17.0) g/dL Hct 42.8 (38.0-50.0) % MCV 94.1 (80.0-98.0) fL MCH 32.1 H (27.0-32.0) pg MCHC 34.1 (31.0-37.0) g/dL RDW Std Deviation 44.0 (28.0-62.0) fl RDW Coeff of Mike 13 (11.0-15.0) % Plt Count 201 (150-400) K/uL MPV 10.50 (7.40-12.00) fL Neut % (Auto) 77.5 (48.0-80.0) % Lymph % (Auto) 13.4 L (16.0-40.0) % [place] % (Auto) 7.5 (0.0-15.0) % Eos % (Auto) 1.3 (0.0-7.0) % Baso % (Auto) 0.3 (0.0-1.5) % Neut # (Auto) 8.3 H (1.4-5.7) K/uL Lymph # (Auto) 1.4 (0.6-2.4) K/uL Reynolds # (Auto) 0.8 (0.0-0.8) K/uL Eos # (Auto) 0.1 (0.0-0.7) K/uL Baso # (Auto) 0.0 (0.0-0.1) K/uL Nucleated RBC % 0.0 /100WBC Nucleated RBCs # 0 K/uL Sodium 142 (136-148) mmol/L Potassium 3.3 L (3.5-5.1) mmol/L Chloride 103 (98-107) mmol/L Carbon Dioxide 27.3 (21.0-32.0) mmol/L BUN 32 H (7.0-18.0) mg/dL Creatinine 1.4 H (0.8-1.3) mg/dL Est Cr Clr Drug Dosing 48.50 mL/min Estimated GFR (MDRD) 49.1 ml/min Glucose 110 H (74-106) mg/dL Calcium 9.1 (8.5-10.1) mg/dL Phosphorus (2.6-4.7) mg/dL Magnesium (1.8-2.4) mg/dL Total Bilirubin 1.3 H (0.2-1.0) mg/dL AST 35 (15-37) IU/L ALT 32 (14-63) IU/L Alkaline Phosphatase 75 (46-116) U/L Troponin I 0.052 (0.000-0.056) ng/mL B-Natriuretic Peptide 902 H (<100) PG/ML Total Protein 7.2 (6.4-8.2) g/dL Albumin 3.8 (3.4-5.0) g/dL Globulin 3.4 (2.6-4.0) g/dL Albumin/Globulin Ratio 1.1 (0.9-1.6) TSH 3rd Generation (0.36-3.74) uIU/mL Urine Color Urine Appearance Urine pH (5.0-8.0) Ur Specific [place] (1.001-1.035) Urine Protein (NEGATIVE) mg/dL Urine Glucose (UA) (NEGATIVE) mg/dL Urine Ketones (NEGATIVE) mg/dL Urine Occult Blood (NEGATIVE) Urine Nitrite (NEGATIVE) Urine Bilirubin (NEGATIVE) Urine Urobilinogen (<2.0) EU/dL Ur Leukocyte Esterase (NEGATIVE) Urine RBC (0-2/HPF) Urine WBC (0-5/HPF) Ur Epithelial Cells (NONE-FEW) Amorphous Sediment (NEGATIVE) Urine Bacteria (NEGATIVE) Urine Mucus (NONE-MOD) COVID-19 (QUINTIN) (NEGATIVE) 02/03/20 02/03/20 02/03/20 Range/Units 15:35 17:15 20:22 WBC (4.0-11.0) K/uL RBC (4.50-5.90) M/uL Hgb (13.0-17.0) g/dL Hct (38.0-50.0) % MCV (80.0-98.0) fL MCH (27.0-32.0) pg MCHC (31.0-37.0) g/dL RDW Std Deviation (28.0-62.0) fl RDW Coeff of Mike (11.0-15.0) % Plt Count (150-400) K/uL MPV (7.40-12.00) fL Neut % (Auto) (48.0-80.0) % Lymph % (Auto) (16.0-40.0) % [place] % (Auto) (0.0-15.0) % Eos % (Auto) (0.0-7.0) % Baso % (Auto) (0.0-1.5) % Neut # (Auto) (1.4-5.7) K/uL Lymph # (Auto) (0.6-2.4) K/uL [place] # (Auto) (0.0-0.8) K/uL Eos # (Auto) (0.0-0.7) K/uL Baso # (Auto) (0.0-0.1) K/uL Nucleated RBC % /100WBC Nucleated RBCs # K/uL Sodium (136-148) mmol/L Potassium (3.5-5.1) mmol/L Chloride (98-107) mmol/L Carbon Dioxide (21.0-32.0) mmol/L BUN (7.0-18.0) mg/dL Creatinine (0.8-1.3) mg/dL Est Cr Clr Drug Dosing mL/min Estimated GFR (MDRD) ml/min Glucose (74-106) mg/dL Calcium (8.5-10.1) mg/dL Phosphorus (2.6-4.7) mg/dL Magnesium 1.8 (1.8-2.4) mg/dL Total Bilirubin (0.2-1.0) mg/dL AST (15-37) IU/L ALT (14-63) IU/L Alkaline Phosphatase (46-116) U/L Troponin I (0.000-0.056) ng/mL B-Natriuretic Peptide (<100) PG/ML Total Protein (6.4-8.2) g/dL Albumin (3.4-5.0) g/dL Globulin (2.6-4.0) g/dL Albumin/Globulin Ratio (0.9-1.6) TSH 3rd Generation (0.36-3.74) uIU/mL Urine Color YELLOW Urine Appearance CLEAR Urine pH 6.0 (5.0-8.0) Ur Specific [place] 1.015 (1.001-1.035) Urine Protein NEGATIVE (NEGATIVE) mg/dL Urine Glucose (UA) NEGATIVE (NEGATIVE) mg/dL Urine Ketones NEGATIVE (NEGATIVE) mg/dL Urine Occult Blood SMALL H (NEGATIVE) Urine Nitrite NEGATIVE (NEGATIVE) Urine Bilirubin NEGATIVE (NEGATIVE) Urine Urobilinogen 0.2 (<2.0) EU/dL Ur Leukocyte Esterase NEGATIVE (NEGATIVE) Urine RBC 0-2 (0-2/HPF) Urine WBC 0-1 (0-5/HPF) Ur Epithelial Cells NOT SEEN (NONE-FEW) Amorphous Sediment RARE (NEGATIVE) Urine Bacteria RARE (NEGATIVE) Urine Mucus RARE (NONE-MOD) COVID-19 (QUINTIN) NEGATIVE (NEGATIVE) 02/03/20 02/04/20 02/04/20 Range/Units 21:26 03:28 03:28 WBC 9.75 (4.0-11.0) K/uL RBC 4.45 L (4.50-5.90) M/uL Hgb 14.4 (13.0-17.0) g/dL Hct 41.9 (38.0-50.0) % MCV 94.2 (80.0-98.0) fL MCH 32.4 H (27.0-32.0) pg MCHC 34.4 (31.0-37.0) g/dL RDW Std Deviation 43.7 (28.0-62.0) fl RDW Coeff of Mike 13 (11.0-15.0) % Plt Count 210 (150-400) K/uL MPV 10.60 (7.40-12.00) fL Neut % (Auto) 69.8 (48.0-80.0) % Lymph % (Auto) 18.4 (16.0-40.0) % [place] % (Auto) 8.5 (0.0-15.0) % Eos % (Auto) 2.9 (0.0-7.0) % Baso % (Auto) 0.4 (0.0-1.5) % Neut # (Auto) 6.8 H (1.4-5.7) K/uL Lymph # (Auto) 1.8 (0.6-2.4) K/uL [place] # (Auto) 0.8 (0.0-0.8) K/uL Eos # (Auto) 0.3 (0.0-0.7) K/uL Baso # (Auto) 0.0 (0.0-0.1) K/uL Nucleated RBC % 0.0 /100WBC Nucleated RBCs # 0 K/uL Sodium 142 (136-148) mmol/L Potassium 3.1 L (3.5-5.1) mmol/L Chloride 103 (98-107) mmol/L Carbon Dioxide 32.2 H (21.0-32.0) mmol/L BUN 30 H (7.0-18.0) mg/dL Creatinine 1.4 H (0.8-1.3) mg/dL Est Cr Clr Drug Dosing 48.50 mL/min Estimated GFR (MDRD) 49.1 ml/min Glucose 93 (74-106) mg/dL Calcium 8.7 (8.5-10.1) mg/dL Phosphorus 4.2 (2.6-4.7) mg/dL Magnesium 2.1 (1.8-2.4) mg/dL Total Bilirubin 1.3 H (0.2-1.0) mg/dL AST 29 (15-37) IU/L ALT 31 (14-63) IU/L Alkaline Phosphatase 73 (46-116) U/L Troponin I 0.063 H* (0.000-0.056) ng/mL B-Natriuretic Peptide (<100) PG/ML Total Protein 6.9 (6.4-8.2) g/dL Albumin 3.5 (3.4-5.0) g/dL Globulin 3.4 (2.6-4.0) g/dL Albumin/Globulin Ratio 1.0 (0.9-1.6) TSH 3rd Generation 3.93 H (0.36-3.74) uIU/mL Urine Color Urine Appearance Urine pH (5.0-8.0) Ur Specific [place] (1.001-1.035) Urine Protein (NEGATIVE) mg/dL Urine Glucose (UA) (NEGATIVE) mg/dL Urine Ketones (NEGATIVE) mg/dL Urine Occult Blood (NEGATIVE) Urine Nitrite (NEGATIVE) Urine Bilirubin (NEGATIVE) Urine Urobilinogen (<2.0) EU/dL Ur Leukocyte Esterase (NEGATIVE) Urine RBC (0-2/HPF) Urine WBC (0-5/HPF) Ur Epithelial Cells (NONE-FEW) Amorphous Sediment (NEGATIVE) Urine Bacteria (NEGATIVE) Urine Mucus (NONE-MOD) COVID-19 (QUINTIN) (NEGATIVE) 02/04/20 Range/Units 03:28 WBC (4.0-11.0) K/uL RBC (4.50-5.90) M/uL Hgb (13.0-17.0) g/dL Hct (38.0-50.0) % MCV (80.0-98.0) fL MCH (27.0-32.0) pg MCHC (31.0-37.0) g/dL RDW Std Deviation (28.0-62.0) fl RDW Coeff of Mike (11.0-15.0) % Plt Count (150-400) K/uL MPV (7.40-12.00) fL Neut % (Auto) (48.0-80.0) % Lymph % (Auto) (16.0-40.0) % [place] % (Auto) (0.0-15.0) % Eos % (Auto) (0.0-7.0) % Baso % (Auto) (0.0-1.5) % Neut # (Auto) (1.4-5.7) K/uL Lymph # (Auto) (0.6-2.4) K/uL [place] # (Auto) (0.0-0.8) K/uL Eos # (Auto) (0.0-0.7) K/uL Baso # (Auto) (0.0-0.1) K/uL Nucleated RBC % /100WBC Nucleated RBCs # K/uL Sodium (136-148) mmol/L Potassium (3.5-5.1) mmol/L Chloride (98-107) mmol/L Carbon Dioxide (21.0-32.0) mmol/L BUN (7.0-18.0) mg/dL Creatinine (0.8-1.3) mg/dL Est Cr Clr Drug Dosing mL/min Estimated GFR (MDRD) ml/min Glucose (74-106) mg/dL Calcium (8.5-10.1) mg/dL Phosphorus (2.6-4.7) mg/dL Magnesium (1.8-2.4) mg/dL Total Bilirubin (0.2-1.0) mg/dL AST (15-37) IU/L ALT (14-63) IU/L Alkaline Phosphatase (46-116) U/L Troponin I 0.083 H* (0.000-0.056) ng/mL B-Natriuretic Peptide (<100) PG/ML Total Protein (6.4-8.2) g/dL Albumin (3.4-5.0) g/dL Globulin (2.6-4.0) g/dL Albumin/Globulin Ratio (0.9-1.6) TSH 3rd Generation (0.36-3.74) uIU/mL Urine Color Urine Appearance Urine pH (5.0-8.0) Ur Specific [place] (1.001-1.035) Urine Protein (NEGATIVE) mg/dL Urine Glucose (UA) (NEGATIVE) mg/dL Urine Ketones (NEGATIVE) mg/dL Urine Occult Blood (NEGATIVE) Urine Nitrite (NEGATIVE) Urine Bilirubin (NEGATIVE) Urine Urobilinogen (<2.0) EU/dL Ur Leukocyte Esterase (NEGATIVE) Urine RBC (0-2/HPF) Urine WBC (0-5/HPF) Ur Epithelial Cells (NONE-FEW) Amorphous Sediment (NEGATIVE) Urine Bacteria (NEGATIVE) Urine Mucus (NONE-MOD) COVID-19 (QUINTIN) (NEGATIVE) Med Orders - Current: Current Medications Acetaminophen (Tylenol) 650 mg PO Q4H PRN PRN Reason: Pain (Mild 1-3)/fever Hydrocodone Bitart/Acetaminophen ([place] 325-5 Mg) 1 tab PO Q6HR PRN PRN Reason: Pain Apixaban (Eliquis) 5 mg PO BID [facility] Aspirin (Aspirin) 81 mg PO DAILY [facility] Cholecalciferol (Vitamin D3) 50 mcg PO DAILY [facility] Diltiazem HCl (Diltiazem) 10 mg IVPUSH Q3H PRN PRN Reason: HR above 100 Furosemide (Lasix) 60 mg IVPUSH BID [facility] Gabapentin (Neurontin) 300 mg PO BEDTIME [facility] Indapamide (Indapamide) 1.25 mg PO DAILY [facility] Levetiracetam (Keppra) 1,000 mg PO BID [facility] Last Admin: 02/03/20 21:18 Dose: 1,000 mg Documented by: Levothyroxine Sodium (Levothyroxine) 112 mcg PO DAILY [facility] Levothyroxine Sodium (Levothyroxine) 25 mcg PO DAILY [facility] Losartan Potassium (Cozaar) 100 mg PO DAILY [facility] Magnesium Oxide (Magnesium Oxide) 400 mg PO DAILY [facility] Melatonin (Melatonin) 9 mg PO BEDTIME PRN PRN Reason: Sleep Last Admin: 02/03/20 22:39 Dose: 9 mg Documented by: Metoprolol Succinate (Toprol Xl) 25 mg PO BEDTIME [facility] Eplerenone [Inspra] (50 Mg) 1 each PO BID [facility] Potassium Chloride (Klor-Con M20) 40 meq PO DAILY [facility] Sodium Chloride (Saline Flush) 2.5 ml FLUSH ASDIRECTED PRN PRN Reason: Keep Vein Open Last Admin: 02/03/20 17:00 Dose: 2.5 ml Documented by: Sodium Chloride (Saline Flush) 10 ml FLUSH ASDIRECTED PRN PRN Reason: Keep Vein Open Last Admin: 02/03/20 17:00 Dose: 10 ml Documented by: Terazosin HCl (Hytrin) 10 mg PO DAILY [facility] Discontinued Medications Aspirin (Ecotrin) 325 mg PO ONETIME ONE Stop: 02/03/20 22:00 Last Admin: 02/03/20 22:15 Dose: 325 mg Documented by: Furosemide (Lasix) 40 mg IVPUSH NOW ONE Stop: 02/03/20 16:48 Last Admin: 02/03/20 17:00 Dose: 40 mg Documented by: Furosemide (Lasix) 40 mg IVPUSH BID [facility] Heparin Sodium (Porcine) (Heparin Sodium) 5,000 units SUBCUT Q8H [facility] Last Admin: 02/03/20 18:50 Dose: 5,000 units Documented by: Magnesium Sulfate 2 gm/ Premix 50 mls @ 50 mls/hr IV ONETIME ONE Stop: 02/03/20 17:47 Last Admin: 02/03/20 17:03 Dose: 50 mls/hr Documented by: Losartan Potassium (Cozaar) 12.5 mg PO DAILY [facility] Melatonin (Melatonin) 20 mg PO BEDTIME PRN PRN Reason: Sleep Melatonin (Melatonin) 18 mg PO BEDTIME PRN PRN Reason: Sleep Non-Formulary Medication (Flaxseed Oil) 1,400 mg PO DAILY [facility] Non-Formulary Medication (Prevagen) 1 tab PO DAILY [facility] Potassium Chloride (Potassium Chloride) 60 meq PO ONETIME ONE Stop: 02/03/20 16:49 Last Admin: 02/03/20 16:59 Dose: 60 meq Documented by: Potassium Chloride (Klor-Con M20) 20 meq PO ONETIME ONE Stop: 02/04/20 06:52 Last Admin: 02/04/20 07:17 Dose: 20 meq Documented by: - Exam General: Alert, Oriented, Cooperative, No Acute Distress Lungs: Clear to Auscultation, Normal Respiratory Effort Cardiovascular: Irregular Rhythm GI/Abdominal Exam: Normal Bowel Sounds, Soft, No Distention, Distended Extremities: Other (trace pitting edema b/l) Skin: Warm, Dry, Intact Sepsis Event Note - Evaluation Sepsis Screening Result: No Definite Risk - Focused Exam Vital Signs: Vital Signs Temp Pulse Resp BP Pulse Ox 02/04/20 08:00 21 H 136/95 H 96 02/04/20 07:00 21 H 147/95 H 95 02/04/20 06:00 15 146/96 H 96 02/04/20 05:00 19 147/91 H 97 02/04/20 04:00 21 H 146/85 H 94 L 02/04/20 03:00 20 139/86 95 02/04/20 02:00 21 H 146/93 H 95 02/04/20 01:00 89 20 153/96 H 97 02/04/20 00:00 76 18 145/91 H 97 02/03/20 23:20 36.4 C 88 21 H 142/94 H 95 Date Exam was Performed: 02/04/20 Time Exam was Performed: 11:46 - Problem List Review Problem List Initiated/Reviewed/Updated: Yes - My Orders Last 24 Hours: My Active Orders 02/03/20 Lunch Fluid Restriction [DIET] Heart Healthy Diet [DIET] Low Salt [Sodium Restricted Diet] [DIET] 02/03/20 17:59 Oxygen Therapy [RC] PRN Up ad Emy [RC] ASDIRECTED VTE/DVT Education [RC] PER UNIT ROUTINE Vital Signs [RC] Q1H Acetaminophen [Tylenol] 650 mg PO Q4H PRN Resuscitation Status Routine 02/03/20 18:03 Daily Weight [Height and Weight] [RC] DAILY 02/03/20 18:04 Intake and Output Strict [RC] Q12H 02/03/20 18:30 Telemetry Monitoring [Cardiac Monitoring] [RC] Q8H 02/03/20 19:21 Obtain Past Medical Record [OM.PC] Routine 02/03/20 21:00 Patient's Own Medication [Ptom] 1 each PO BID levETIRAcetam [Keppra] 1,000 mg PO BID 02/04/20 09:00 Levothyroxine 112 mcg PO DAILY Levothyroxine 25 mcg PO DAILY Terazosin [Hytrin] 10 mg PO DAILY - Plan Plan:: Assessment and Plan: 1. New-onset CHF exacerbation: - Per cardiology, will increase to IV lasix 60 mg BID. Patient stable, will downgrade to med/surg. - Strict I's and O's, daily standing weights, fluid restriction < 2L per day and low salt diet < 2 g per day. - CXR showed pulmonary edema. ECHO currently pending. 2. Atrial fibrillation, rate controlled: - Patient on telemetry. Per cardiology, start PO Eliquis 5 mg BID for anti- coagulation and metoprolol succinate 25 mg qd. 3. Elevated troponin likely secondary to #2, downtrending: - Troponin bumped to 0.063, 0.083 and repeat this morning was 0.061. Patient denies having any chest pain or SOB at this time. 4. Acute kidney injury: - Will continue to monitor. 5. Hypokalemia: - Patient given PO KCl this AM. Will continue to monitor. 6. DVT prophylaxis: patient on Eliquis. 7. Past medical history of hypothyroidism and BPH: - Continue home medications.
[2020-02-04] MEDS: Furosemide 40 MG/4 ML VIAL IVPUSH SCH ×2 (08:59→20:32)
[2020-02-04] MEDS ORDERED: Levothyroxine 112 MCG Tab PO SCH (09:00)
[2020-02-04] MEDS ORDERED: FLAXSEED OIL 1400 MG PO SCH (09:00)
[2020-02-04] MEDS ORDERED: Levothyroxine 25 MCG Tab PO SCH (09:00)
[2020-02-04] MEDS ORDERED: Furosemide 40 MG/4 ML VIAL IVPUSH SCH (09:00)
[2020-02-04] MEDS ORDERED: PREVAGEN PO SCH (09:00)
[2020-02-04] MEDS ORDERED: Losartan 50 MG Tab PO SCH (09:00)
[2020-02-04] MEDS ORDERED: Non-Formulary Medication 1 Each (Melatonin [Melatonin] 1 TAB) PO SCH (09:00)
[2020-02-04] MEDS: levETIRAcetam 500 MG Tab PO SCH ×2 (09:02→20:31)
[2020-02-04] MEDS: Potassium Chloride 20 MEQ Tab.ER PO SCH (09:03)
[2020-02-04] MEDS: Losartan 50 MG Tab PO SCH (09:03)
[2020-02-04] MEDS: Magnesium Oxide 400 MG Tab PO SCH (09:03)
[2020-02-04] MEDS: Apixaban 5 MG Tab PO SCH ×2 (09:04→20:32)
[2020-02-04] MEDS: Aspirin 81 MG Tab.Chew PO SCH (09:04)
[2020-02-04] MEDS: Cholecalciferol (Vitamin D3) 25 MCG Tab PO SCH (09:05)
[2020-02-04] MEDS: Eplerenone [Inspra] 50 MG PO SCH ×2 (09:14→20:33)
[2020-02-04] MEDS: Terazosin 5 MG Cap PO SCH (10:37)
[2020-02-04] MEDS ORDERED: Gabapentin 300 MG Cap PO SCH (21:00)
[2020-02-04] MEDS ORDERED: Metoprolol Succinate 25 MG Tab.ER PO SCH (21:00)
[2020-02-05 06:32] LABS: CARBON DIOXIDE,CO2 35.4 mmol/L (21.0-32.0); POTASSIUM,K 2.8 mmol/L (3.5-5.1)
[2020-02-05] MEDS ORDERED: Levothyroxine 112 MCG Tab PO SCH (07:30)
[2020-02-05] MEDS ORDERED: Levothyroxine 25 MCG Tab PO SCH (07:30)
[2020-02-05] MEDS: Furosemide 40 MG/4 ML VIAL IVPUSH SCH (08:25)
[2020-02-05] MEDS ORDERED: Potassium Chloride 20 MEQ Tab.ER PO ONE ×3 (08:26→13:31)
[2020-02-05] MEDS: Potassium Chloride 20 MEQ Tab.ER PO SCH (08:46)
[2020-02-05] MEDS: Losartan 50 MG Tab PO SCH (08:46)
[2020-02-05] MEDS: levETIRAcetam 500 MG Tab PO SCH (08:47)
[2020-02-05] MEDS: Aspirin 81 MG Tab.Chew PO SCH (08:47)
[2020-02-05] MEDS: Apixaban 5 MG Tab PO SCH (08:47)
[2020-02-05] MEDS: Magnesium Oxide 400 MG Tab PO SCH (08:47)
[2020-02-05] MEDS: Cholecalciferol (Vitamin D3) 25 MCG Tab PO SCH (08:48)
[2020-02-05] MEDS: Eplerenone [Inspra] 50 MG PO SCH (08:49)
[2020-02-05] MEDS: Terazosin 5 MG Cap PO SCH (09:54)
--- NOTE | 2020-02-05 11:04 | PCM.DCSUM1 ---
Discharge Summary - Hospital Course HPI Initial Comments: 75-year-old male presents complaining of SOB and leg swelling for the past 2-3 weeks. He has a PMH of hypothyroidism and BPH. Patient reports that he had worsening shortness of breath today and was told by his [employer]isher [employer] to go to the ER as he may need medicine to help get fluid off. He has noted weight gain of about 13 lbs over the past 1 month. He also reports shortness of breath when lying down and will wake up gasping for air on occasion. Patient also reports occasional chest pain when he has shortness of breath. He reports having an ECHO and CXR this morning. ECHO currently pending. Patient denies having any fevers, blurry vision, sore throat, cough, chills, nausea, vomiting, diarrhea, numbness or tingling in extremities. In the ER, CMP revealed mild hypokalemia and creatinine of 1.4. Troponin was negative. BNP > 900. COVID19 test negative. EKG showed atrial fibrillation. Patient given dose of IV lasix 40 mg x1, IV KCl and IV magnesium. Patient admitted for further evaluation and treatment. - Discharge Data Discharge Date: 02/06/20 Discharge Disposition: Home, Self-Care 01 Condition: Good - Referral to Home Health Primary Care Physician: PCP None - Patient Summary/Data Hospital Course: 75 yo male admitted for new onset congestive heart failure and atrial fibr illation with RVR. He was treated with IV lasix and prn IV diltiazem. He did have marked improvement in his dyspnea. Dr. Delgado was consulted and added PO metoprolol XL at night. Potassium was given for hypokalemia. He was started on Eliquis for stroke prevention. He was weened off supplemental oxygen. He was discharged home to have follow up with Dr. Delgado. - Patient Instructions Diet: Heart Healthy Diet, Low Sodium, Fluid Restriction Other/Special Instructions: Daily weights - Discharge Plan Prescriptions/Med Rec: Apixaban [Eliquis] 5 mg PO BID #60 tablet Furosemide [Lasix] 40 mg PO DAILY #30 tablet Metoprolol Succinate [Toprol XL] 25 mg PO BEDTIME #30 tab.er Home Medications: Home Meds Aspirin 81 mg PO DAILY 01/09/18 [History] Cholecalciferol (Vitamin D3) [D3-2000] 1 tab PO DAILY 01/09/18 [History] Eplerenone [Inspra] 50 mg PO BID 01/09/18 [History] Flaxseed Oil [Flaxseed] 1,400 mg PO DAILY 01/09/18 [History] Indapamide 1.25 mg PO DAILY 01/09/18 [History] Levothyroxine 137 mcg PO DAILY 01/09/18 [History] Magnesium 250 mg PO DAILY 01/09/18 [History] Melatonin 20 mg PO DAILY 01/09/18 [History] Prevagen 1 tab PO DAILY 01/09/18 [History] Terazosin HCl [Terazosin] 10 mg PO DAILY 01/09/18 [History] levETIRAcetam [Spritam] 1,000 mg PO BID 01/09/18 [History] Gabapentin [Neurontin] 1 cap PO BEDTIME 02/03/20 [History] Hydrocodone/Acetaminophen [Hydrocodone-Acetamin 5-325 mg] 1 tab PO Q6HR PRN 02/03/20 [History] Losartan [Cozaar] 1 tab PO DAILY 02/03/20 [History] Apixaban [Eliquis] 5 mg PO BID #60 tablet 02/05/20 [Rx] Furosemide [Lasix] 40 mg PO DAILY #30 tablet 02/05/20 [Rx] Metoprolol Succinate [Toprol XL] 25 mg PO BEDTIME #30 tab.er 02/05/20 [Rx] Potassium Chloride [Klor-Con M20] 20 meq PO BID tab.er 02/05/20 [Rx] Patient Handouts: Furosemide tablets, Metoprolol extended-release tablets, Heart Failure, Self Care, [id number], Fluid Restriction, Apixaban oral tablets Referrals: Chyna Woody MD [Physician] - Bryant Mccauley MD [Ordering Only Provider] - - Discharge Summary/Plan Comment DC Time >30 min.: No - Patient Data Vitals - Most Recent: Last Vital Signs Temp 37.0 C 02/05/20 08:00 Pulse 79 02/05/20 09:53 Resp 16 02/05/20 08:00 BP 114/72 02/05/20 09:54 Pulse Ox 91 L 02/05/20 08:00 Weight - Most Recent: 86.092 kg I&O - Last 24 hours: Intake & Output 02/04/20 02/05/20 02/05/20 22:59 06:59 14:59 Intake Total 650 760 Output Total 7226 6297 Balance -4545 -6306 Lab Results - Last 24 hrs: Laboratory Results - last 24 hr 02/05/20 02/05/20 02/05/20 Range/Units 05:55 05:55 05:55 WBC 9.96 (4.0-11.0) K/uL RBC 4.62 (4.50-5.90) M/uL Hgb 14.6 (13.0-17.0) g/dL Hct 43.7 (38.0-50.0) % MCV 94.6 (80.0-98.0) fL MCH 31.6 (27.0-32.0) pg MCHC 33.4 (31.0-37.0) g/dL RDW Std Deviation 43.8 (28.0-62.0) fl RDW Coeff of Mike 13 (11.0-15.0) % Plt Count 219 (150-400) K/uL MPV 10.30 (7.40-12.00) fL Neut % (Auto) 68.7 (48.0-80.0) % Lymph % (Auto) 17.7 (16.0-40.0) % [place] % (Auto) 10.4 (0.0-15.0) % Eos % (Auto) 2.7 (0.0-7.0) % Baso % (Auto) 0.5 (0.0-1.5) % Neut # (Auto) 6.8 H (1.4-5.7) K/uL Lymph # (Auto) 1.8 (0.6-2.4) K/uL [place] # (Auto) 1.0 H (0.0-0.8) K/uL Eos # (Auto) 0.3 (0.0-0.7) K/uL Baso # (Auto) 0.1 (0.0-0.1) K/uL Nucleated RBC % 0.0 /100WBC Nucleated RBCs # 0 K/uL Sodium 143 (136-148) mmol/L Potassium 2.8 L (3.5-5.1) mmol/L Chloride 100 (98-107) mmol/L Carbon Dioxide 35.4 H (21.0-32.0) mmol/L BUN 29 H (7.0-18.0) mg/dL Creatinine 1.6 H (0.8-1.3) mg/dL Est Cr Clr Drug Dosing 42.44 mL/min Estimated GFR (MDRD) 42.1 ml/min Glucose 91 (74-106) mg/dL Calcium 8.3 L (8.5-10.1) mg/dL Magnesium 1.9 (1.8-2.4) mg/dL Total Bilirubin 1.7 H (0.2-1.0) mg/dL AST 23 (15-37) IU/L ALT 24 (14-63) IU/L Alkaline Phosphatase 73 (46-116) U/L Total Protein 6.9 (6.4-8.2) g/dL Albumin 3.3 L (3.4-5.0) g/dL Globulin 3.6 (2.6-4.0) g/dL Albumin/Globulin Ratio 0.9 (0.9-1.6) Med Orders - Current: Current Medications Acetaminophen (Tylenol) 650 mg PO Q4H PRN PRN Reason: Pain (Mild 1-3)/fever Hydrocodone Bitart/Acetaminophen ([place] 325-5 Mg) 1 tab PO Q6HR PRN PRN Reason: Pain Apixaban (Eliquis) 5 mg PO BID [facility] Last Admin: 02/05/20 08:47 Dose: 5 mg Documented by: Aspirin (Aspirin) 81 mg PO DAILY [facility] Last Admin: 02/05/20 08:47 Dose: 81 mg Documented by: Cholecalciferol (Vitamin D3) 50 mcg PO DAILY [facility] Last Admin: 02/05/20 08:48 Dose: 50 mcg Documented by: Diltiazem HCl (Diltiazem) 10 mg IVPUSH Q3H PRN PRN Reason: HR above 100 Last Admin: 02/04/20 13:35 Dose: 10 mg Documented by: Furosemide (Lasix) 60 mg IVPUSH BID [facility] Last Admin: 02/05/20 08:25 Dose: Not Given Documented by: Gabapentin (Neurontin) 300 mg PO BEDTIME [facility] Last Admin: 02/04/20 20:31 Dose: 300 mg Documented by: Indapamide (Indapamide) 1.25 mg PO DAILY [facility] Last Admin: 02/05/20 08:48 Dose: 1.25 mg Documented by: Levetiracetam (Keppra) 1,000 mg PO BID [facility] Last Admin: 02/05/20 08:47 Dose: 1,000 mg Documented by: Levothyroxine Sodium (Levothyroxine) 112 mcg PO ACBREAKFAST [facility] Last Admin: 02/05/20 08:48 Dose: 112 mcg Documented by: Levothyroxine Sodium (Levothyroxine) 25 mcg PO ACBREAKFAST [facility] Last Admin: 02/05/20 08:47 Dose: 25 mcg Documented by: Losartan Potassium (Cozaar) 100 mg PO DAILY [facility] Last Admin: 02/05/20 08:46 Dose: 100 mg Documented by: Magnesium Oxide (Magnesium Oxide) 400 mg PO DAILY [facility] Last Admin: 02/05/20 08:47 Dose: 400 mg Documented by: Melatonin (Melatonin) 9 mg PO BEDTIME PRN PRN Reason: Sleep Last Admin: 02/03/20 22:39 Dose: 9 mg Documented by: Metoprolol Succinate (Toprol Xl) 25 mg PO BEDTIME [facility] Last Admin: 02/04/20 20:31 Dose: 25 mg Documented by: Eplerenone [Inspra] (50 Mg) 1 each PO BID [facility] Last Admin: 02/05/20 08:49 Dose: Not Given Documented by: Potassium Chloride (Klor-Con M20) 40 meq PO DAILY [facility] Last Admin: 02/05/20 08:46 Dose: 40 meq Documented by: Sodium Chloride (Saline Flush) 2.5 ml FLUSH ASDIRECTED PRN PRN Reason: Keep Vein Open Last Admin: 02/03/20 17:00 Dose: 2.5 ml Documented by: Sodium Chloride (Saline Flush) 10 ml FLUSH ASDIRECTED PRN PRN Reason: Keep Vein Open Last Admin: 02/03/20 17:00 Dose: 10 ml Documented by: Terazosin HCl (Hytrin) 10 mg PO DAILY [facility] Last Admin: 02/05/20 09:54 Dose: 10 mg Documented by: Discontinued Medications Aspirin (Ecotrin) 325 mg PO ONETIME ONE Stop: 02/03/20 22:00 Last Admin: 02/03/20 22:15 Dose: 325 mg Documented by: Furosemide (Lasix) 40 mg IVPUSH NOW ONE Stop: 02/03/20 16:48 Last Admin: 02/03/20 17:00 Dose: 40 mg Documented by: Furosemide (Lasix) 40 mg IVPUSH BID [facility] Heparin Sodium (Porcine) (Heparin Sodium) 5,000 units SUBCUT Q8H [facility] Last Admin: 02/03/20 18:50 Dose: 5,000 units Documented by: Magnesium Sulfate 2 gm/ Premix 50 mls @ 50 mls/hr IV ONETIME ONE Stop: 02/03/20 17:47 Last Admin: 02/03/20 17:03 Dose: 50 mls/hr Documented by: Levothyroxine Sodium (Levothyroxine) 112 mcg PO DAILY [facility] Last Admin: 02/04/20 09:05 Dose: 112 mcg Documented by: Levothyroxine Sodium (Levothyroxine) 25 mcg PO DAILY [facility] Last Admin: 02/04/20 09:04 Dose: 25 mcg Documented by: Losartan Potassium (Cozaar) 12.5 mg PO DAILY [facility] Melatonin (Melatonin) 20 mg PO BEDTIME PRN PRN Reason: Sleep Melatonin (Melatonin) 18 mg PO BEDTIME PRN PRN Reason: Sleep Non-Formulary Medication (Flaxseed Oil) 1,400 mg PO DAILY [facility] Non-Formulary Medication (Prevagen) 1 tab PO DAILY [facility] Potassium Chloride (Potassium Chloride) 60 meq PO ONETIME ONE Stop: 02/03/20 16:49 Last Admin: 02/03/20 16:59 Dose: 60 meq Documented by: Potassium Chloride (Klor-Con M20) 20 meq PO ONETIME ONE Stop: 02/04/20 06:52 Last Admin: 02/04/20 07:17 Dose: 20 meq Documented by: Potassium Chloride (Klor-Con M20) 20 meq PO ONETIME ONE Stop: 02/05/20 08:27 Last Admin: 02/05/20 08:46 Dose: 20 meq Documented by: Potassium Chloride (Klor-Con M20) 20 meq PO ONETIME ONE Stop: 02/05/20 10:57
[2020-02-05 12:53] VITALS: BP 128/77; PULSE 92
[2020-02-05 13:27] LABS: CARBON DIOXIDE,CO2 33.5 mmol/L (21.0-32.0); POTASSIUM,K 3.1 mmol/L (3.5-5.1)
--- NOTE | 2020-02-06 14:46 | CONS ---
DATE OF CONSULTATION: 02/04/2020 DATE OF : 1945 PRIMARY CARE PHYSICIAN: None PCP REASON FOR CONSULTATION: Heart failure. HISTORY OF PRESENT ILLNESS: This is a 75-year-old male with history of hypertension, high cholesterol, hypothyroidism, CAT using CPAP machine, BPH. I saw him 4 days ago because of shortness of breath. He also had a history of primary hyperaldosteronism. I saw him 4 days ago because of shortness of breath and new onset of atrial fibrillation. He was found to have decompensated heart failure. I started him on p.o. Lasix 40 mg once a day; however, today, he called into the office that his breathing has been getting worse. I recommended to him to come to the hospital. He got admitted and he was treated with IV diuretics with IV Lasix 40 mg twice a day. He already got 1 dose, and so far overnight he has made urine of 2000 mL so far, and he felt better in terms of breathing, and leg swelling went down. His echocardiogram also show mildly reduced LV ejection fraction possibly 40% to 45%. PAST MEDICAL HISTORY: Including hypertension, BPH, hypothyroidism, history of seizure. ALLERGIES: No known drug allergy. FAMILY HISTORY: Father had history of CAD. SOCIAL HISTORY: Never a smoker. Occasional alcohol use. No drug use. CURRENT MEDICATIONS: Diltiazem 10 mg IV p.r.n., Keppra 1000 mg b.i.d., Hytrin 10 mg p.o. daily, levothyroxine 112 mcg p.o. daily, levothyroxine 112 mcg once a day, eplerenone (Inspra) 50 mg b.i.d. PHYSICAL EXAMINATION: VITAL SIGNS: His blood pressure is initially 140/90, heart rate of 70 to 80, O2 saturation is 95 on 2 L, temperature is 98. HEENT: Mildly JVD positive. HEART: Normal S1, S2. No murmur. Totally irregular. LUNGS: Minimal crackles bilaterally. Decreased breath sounds. ABDOMEN: Soft, nontender. Bowel sounds are present. No hepatosplenomegaly. EXTREMITIES: Legs, very trace edema, improving. INVESTIGATIONS: CBC showed WBC of 10, hematocrit of 42, hemoglobin of 14, platelets 201. Sodium 142, potassium 3.3, chloride 103, bicarb 27, BUN 32, creatinine 1.4. Liver function tests normal. BNP 902 and TSH is 3.9. Troponin was 0.05, 0.06, 0.08. Echocardiogram, mildly reduced ejection fraction, LVEF 40% to 45%. ASSESSMENT AND PLAN: This is a 75-year-old male with history of hypertension, hyperlipidemia, primary hyperaldosteronism, BPH, sleep apnea using CPAP, presented to hospital with decompensated systolic heart failure. I would like to recommend to increase the Lasix to 60 mg IV b.i.d. With high blood pressure, we will start him on losartan 12.5 mg once a day, and will start on the beta-patricia for heart rate control and heart failure later this evening, Toprol-XL 12.5 mg once a day. Strict I's and O's, cardiac diet. He will need a stress test. He also needs to be on the blood thinner. I will also follow the patient the next day. JOHN / CALVIN /[id number]
== END 2020-02-05 15:45 | disposition home or self-care (01) | DRG 292 ==
LOC: MW.ED 15:11 → MW.MS 16:54 → MW.ICU 22:54 → MW.MS 02-04 13:29
PROVIDERS: ADMIT Internal Medicine; ATTEND Internal Medicine
DX: I50.9 Heart failure, unspecified (principal); I11.0 Hypertensive heart disease with heart failure; N17.9 Acute kidney failure, unspecified; I50.23 Acute on chronic systolic (congestive) heart failure; I48.91 Unspecified atrial fibrillation; E03.9 Hypothyroidism, unspecified; N40.0 Benign prostatic hyperplasia without lower urinary tract symptoms; E87.6 Hypokalemia; Z20.828 Contact with and (suspected) exposure to other viral communicable diseases; G47.33 Obstructive sleep apnea (adult) (pediatric); E26.9 Hyperaldosteronism, unspecified; E78.00 Pure hypercholesterolemia, unspecified; Z79.82 Long term (current) use of aspirin; Z79.899 Other long term (current) drug therapy; Z79.890 Hormone replacement therapy; Z99.81 Dependence on supplemental oxygen
CPT/HCPCS: 36415; 80048; 80053; 81001; 83735; 83880; 84100; 84443; 84484; 85025; 93005; 99283; 99285-25; A9270-GY; J1644; J1940; J3475; J3490; U0002

== ENCOUNTER 2020-03-11 04:41 | Observation (INO) | payer MEDICARE, OTHER ==
[2020-03-11] MEDS ORDERED: Sodium Chloride 0.9% 10 ML Syringe FLUSH PRN (04:45)
[2020-03-11] MEDS ORDERED: Sodium Chloride 0.9% 2.5 ML Syringe FLUSH PRN (04:45)
--- NOTE | 2020-03-11 05:06 | EDM.PDOC ---
ED HPI GENERAL MEDICAL PROBLEM - General Chief Complaint: Respiratory Problem Stated Complaint: SHORTNESS OF BREATH Time Seen by Provider: 03/11/20 04:44 Source of Information: Reports: Patient, Old Records History Limitations: Reports: No Limitations - History of Present Illness INITIAL COMMENTS - FREE TEXT/NARRATIVE: 75-year-old male with past medical history of congestive heart failure, atrial fibrillation on Eliquis, CAT on CPAP, hypertension, hypothyroidism presenting with shortness of breath. Patient woke up with shortness of breath around 2:00 this morning while trying to sleep. He states that he was in his normal state of health when he went to bed. He denies any chest discomfort, back pain, or abdominal pain. Denies any recent cough, fever, hemoptysis. Does complain of some lower extremity edema which she states is at his baseline. Denies any recent weight gain or increase in peripheral edema. Does complain of several weeks of dyspnea on exertion. Recent hospitalization in February 2020 for new onset congestive heart failure and atrial fibrillation with RVR, requiring diltiazem and IV diuresis. Myocardial perfusion study on 02/17/2020 showed enlarged LV cavity with LVEF 22%, possible old inferior wall infarction, no evidence of reversible ischemia. Patient denies history of venous thromboembolism, lower extremity pain or swelling, hemoptysis, recent surgery or immobilization or long travel, history of active malignancy, or hormonal medication/product usage. ROS: A 10-point review of systems was negative, except as noted in the HPI (or in the ROS section of this note). Past medical history: Reviewed, no additional pertinent history. Surgical history: Reviewed in system, no additional pertinent history. Social history: Reviewed in system, no additional pertinent history. Family history: Reviewed in system, no additional pertinent history. PHYSICAL EXAM Vital signs reviewed. Nursing notes reviewed. Constitutional: Awake, alert, non-distressed. Head: Normocephalic, atraumatic. Eyes: EOMI, conjunctiva normal, no discharge, no scleral icterus. Ears, Nose, Throat: External ears and nose normal, moist oral mucosa. Cardiovascular: Irregularly irregular, 2+ radial pulses bilaterally, capillary refill less than 2 seconds. 1+ edema to the bilateral lower extremities. Pulmonary: Mildly labored work of breathing, no accessory muscle use. CTA BL. Abdomen/GI: Soft, nontender, nondistended, no guarding or rigidity, no masses. Musculoskeletal: No deformities. Integumentary: Appropriate color for ethnicity, warm, dry, no pallor or jaundice, no rash. Neurologic: Alert, answering questions appropriately, normal speech, no facial droop, moving all extremities well. Psychiatric: Appropriate mood and affect, normal thought process. - Related Data Allergies Allergy/AdvReac Type Severity Reaction Status Date / Time No Known Allergies Allergy Verified 03/11/20 07:43 Home Meds: Home Meds Cholecalciferol (Vitamin D3) [D3-2000] 1 tab PO DAILY 01/09/18 [History] Eplerenone [Inspra] 50 mg PO BID 01/09/18 [History] Flaxseed Oil [Flaxseed] 1,400 mg PO DAILY 01/09/18 [History] Indapamide 1.25 mg PO DAILY 01/09/18 [History] Levothyroxine 137 mcg PO DAILY 01/09/18 [History] Magnesium 250 mg PO DAILY 01/09/18 [History] Melatonin 20 mg PO DAILY 01/09/18 [History] Prevagen 1 tab PO DAILY 01/09/18 [History] Terazosin HCl [Terazosin] 10 mg PO DAILY 01/09/18 [History] levETIRAcetam [Spritam] 1,000 mg PO BID 01/09/18 [History] Gabapentin [Neurontin] 1 cap PO BEDTIME 02/03/20 [History] Hydrocodone/Acetaminophen [Hydrocodone-Acetamin 5-325 mg] 1 tab PO Q6HR PRN 02/03/20 [History] Losartan [Cozaar] 1 tab PO DAILY 02/03/20 [History] Apixaban [Eliquis] 5 mg PO BID #60 tablet 02/05/20 [Rx] Furosemide [Lasix] 40 mg PO DAILY #30 tablet 02/05/20 [Rx] Metoprolol Succinate [Toprol XL] 25 mg PO BEDTIME #30 tab.er 02/05/20 [Rx] Potassium Chloride [Klor-Con M20] 20 meq PO BID tab.er 02/05/20 [Rx] Past Medical History HEENT History: Reports: None Cardiovascular History: Reports: None Respiratory History: Reports: Sleep Apnea Other Respiratory History: CPAP Gastrointestinal History: Reports: None Genitourinary History: Reports: BPH Musculoskeletal History: Reports: None Neurological History: Reports: Seizure Psychiatric History: Reports: None Endocrine/Metabolic History: Reports: None Insulin Pump Model and Rope Rider: None Hematologic History: Reports: None Immunologic History: Reports: None Oncologic (Cancer) History: Reports: None Dermatologic History: Reports: None - Infectious Disease History Infectious Disease History: Reports: None - Past Surgical History Head Surgeries/Procedures: Reports: None HEENT Surgical History: Reports: None Cardiovascular Surgical History: Reports: None Respiratory Surgical History: Reports: None GI Surgical History: Reports: Hernia Repair/Other Endocrine Surgical History: Reports: None Musculoskeletal Surgical History: Reports: Other (See Below) Other Musculoskeletal Surgeries/Procedures:: neck fusion Oncologic Surgical History: Reports: None Dermatological Surgical History: Reports: None Social & Family History - Family History Family Medical History: Noncontributory - Tobacco Use Smoking Status *Q: Never Smoker - Caffeine Use Caffeine Use: Reports: None - Recreational Drug Use Recreational Drug Use: No ED ROS GENERAL - Review of Systems Review Of Systems: See Below ED EXAM, GENERAL - Physical Exam Exam: See Below EKG INTERPRETATION EKG Interpretation Comments: 12-Lead ECG Interpretation Acquired: 4:38 AM Rhythm: Atrial fibrillation with rapid ventricular response Rate: 103/min Conger: Normal Intervals: Normal Ectopy: None Ischemic Changes: None apparent RV Strain: No obvious RV strain pattern. ST Segments/T-Waves: T wave inversions in lead aVL, previously seen Interpretation: Compared to 02/03/2020, no notable changes. No acute ischemia. Course - Vital Signs Text/Narrative:: Patient hemodynamically stable, afebrile, well-appearing, looks nontoxic. Differential diagnosis includes but is not limited to: CHF, ACS, PE, pneumonia, pneumothorax, asthma exacerbation, COPD exacerbation, pleural effusion, pericardial effusion, pericarditis, viral URI, influenza, bronchitis, airway foreign body, anxiety state, and many others. Twelve-lead ECG shows atrial fibrillation with RVR at a rate of 95-105. No acute ischemic pattern appreciated. Labs show elevated BNP along with prerenal acute kidney injury pattern. Negative troponin. Normal electrolytes and cell lines. 2 view chest x-ray series appears to show B-lines and cardiomegaly, no pulmonary infiltrate or pneumothorax. Low suspicion for acute coronary syndrome or pulmonary embolism given lack of ECG or biomarker evidence of coronary ischemia. No RV strain pattern, no chest discomfort. Suspect mild CHF exacerbation. Given 40 mg of IV furosemide, 1 L of lactated Ringer's, and 50 mg of p.o. metoprolol tartrate. We will plan to admit to observation status for ongoing work-up and treatment. I discussed with the hospitalist Dr. Mcneal who agrees to admit to observation. Last Recorded V/S: Last Vital Signs Temp 36.1 C 03/11/20 07:35 Pulse 89 03/11/20 07:35 Resp 18 03/11/20 07:35 BP 114/75 03/11/20 07:35 Pulse Ox 98 03/11/20 07:35 - Orders/Labs/Meds Orders: Active Orders 24 hr Category Date Time Status Sodium Chloride 0.9% [Saline Flush] Med 03/11/20 04:45 Active 10 ml FLUSH ASDIRECTED PRN Sodium Chloride 0.9% [Saline Flush] Med 03/11/20 04:45 Active 2.5 ml FLUSH ASDIRECTED PRN Saline Lock Insert [OM.PC] Stat Oth 03/11/20 04:45 Ordered Medication Orders Furosemide (Lasix) 40 mg IVPUSH BIDDIURETIC SASHA Metoprolol Succinate (Toprol Xl) 25 mg PO BEDTIME SASHA Sodium Chloride (Saline Flush) 2.5 ml FLUSH ASDIRECTED PRN PRN Reason: Keep Vein Open Sodium Chloride (Saline Flush) 10 ml FLUSH ASDIRECTED PRN PRN Reason: Keep Vein Open Labs: Laboratory Tests 03/11/20 03/11/20 03/11/20 Range/Units 04:45 04:45 04:45 WBC 8.32 (4.0-11.0) K/uL RBC 4.76 (4.50-5.90) M/uL Hgb 15.4 (13.0-17.0) g/dL Hct 46.1 (38.0-50.0) % MCV 96.8 (80.0-98.0) fL MCH 32.4 H (27.0-32.0) pg MCHC 33.4 (31.0-37.0) g/dL RDW Std Deviation 44.8 (28.0-62.0) fl RDW Coeff of Mike 13 (11.0-15.0) % Plt Count 164 (150-400) K/uL MPV 11.30 (7.40-12.00) fL Neut % (Auto) 77.1 (48.0-80.0) % Lymph % (Auto) 15.7 L (16.0-40.0) % Sully % (Auto) 5.0 (0.0-15.0) % Eos % (Auto) 1.7 (0.0-7.0) % Baso % (Auto) 0.5 (0.0-1.5) % Neut # (Auto) 6.4 H (1.4-5.7) K/uL Lymph # (Auto) 1.3 (0.6-2.4) K/uL Sully # (Auto) 0.4 (0.0-0.8) K/uL Eos # (Auto) 0.1 (0.0-0.7) K/uL Baso # (Auto) 0.0 (0.0-0.1) K/uL Nucleated RBC % 0.0 /100WBC Nucleated RBCs # 0 K/uL VBG pH (7.31-7.41) VBG pCO2 (35-45) mmHG VBG pO2 (30-40) mmHG VBG HCO3 (22-30) mEq/L VBG Total CO2 (41-51) mmol/L VBG Base Excess (-3.0-3.0) Sodium 142 (136-148) mmol/L Potassium 3.6 (3.5-5.1) mmol/L Chloride 101 (98-107) mmol/L Carbon Dioxide 29.9 (21.0-32.0) mmol/L BUN 61 H (7.0-18.0) mg/dL Creatinine 2.2 H (0.8-1.3) mg/dL Est Cr Clr Drug Dosing 30.86 mL/min Estimated GFR (MDRD) 29.2 ml/min Glucose 140 H (74-106) mg/dL Calcium 9.0 (8.5-10.1) mg/dL Phosphorus (2.6-4.7) mg/dL Magnesium (1.8-2.4) mg/dL Total Bilirubin 0.9 (0.2-1.0) mg/dL AST 48 H (15-37) IU/L ALT 39 (14-63) IU/L Alkaline Phosphatase 86 (46-116) U/L Troponin I < 0.050 (0.000-0.056) ng/mL B-Natriuretic Peptide 560 H (<100) PG/ML Total Protein 7.3 (6.4-8.2) g/dL Albumin 4.0 (3.4-5.0) g/dL Globulin 3.3 (2.6-4.0) g/dL Albumin/Globulin Ratio 1.2 (0.9-1.6) SARS Virus RNA (PCR) (NEGATIVE) 03/11/20 03/11/20 03/11/20 Range/Units 04:45 04:45 05:30 WBC (4.0-11.0) K/uL RBC (4.50-5.90) M/uL Hgb (13.0-17.0) g/dL Hct (38.0-50.0) % MCV (80.0-98.0) fL MCH (27.0-32.0) pg MCHC (31.0-37.0) g/dL RDW Std Deviation (28.0-62.0) fl RDW Coeff of Mike (11.0-15.0) % Plt Count (150-400) K/uL MPV (7.40-12.00) fL Neut % (Auto) (48.0-80.0) % Lymph % (Auto) (16.0-40.0) % Sully % (Auto) (0.0-15.0) % Eos % (Auto) (0.0-7.0) % Baso % (Auto) (0.0-1.5) % Neut # (Auto) (1.4-5.7) K/uL Lymph # (Auto) (0.6-2.4) K/uL Sully # (Auto) (0.0-0.8) K/uL Eos # (Auto) (0.0-0.7) K/uL Baso # (Auto) (0.0-0.1) K/uL Nucleated RBC % /100WBC Nucleated RBCs # K/uL VBG pH 7.39 (7.31-7.41) VBG pCO2 52 H (35-45) mmHG VBG pO2 22 L (30-40) mmHG VBG HCO3 31 H (22-30) mEq/L VBG Total CO2 28 L (41-51) mmol/L VBG Base Excess 4.9 H (-3.0-3.0) Sodium (136-148) mmol/L Potassium (3.5-5.1) mmol/L Chloride (98-107) mmol/L Carbon Dioxide (21.0-32.0) mmol/L BUN (7.0-18.0) mg/dL Creatinine (0.8-1.3) mg/dL Est Cr Clr Drug Dosing mL/min Estimated GFR (MDRD) ml/min Glucose (74-106) mg/dL Calcium (8.5-10.1) mg/dL Phosphorus 3.9 (2.6-4.7) mg/dL Magnesium 2.4 (1.8-2.4) mg/dL Total Bilirubin (0.2-1.0) mg/dL AST (15-37) IU/L ALT (14-63) IU/L Alkaline Phosphatase (46-116) U/L Troponin I (0.000-0.056) ng/mL B-Natriuretic Peptide (<100) PG/ML Total Protein (6.4-8.2) g/dL Albumin (3.4-5.0) g/dL Globulin (2.6-4.0) g/dL Albumin/Globulin Ratio (0.9-1.6) SARS Virus RNA (PCR) NEGATIVE (NEGATIVE) Meds: Medications Generic Name Dose Route Start Last Admin Trade Name Freq PRN Reason Stop Dose Admin Furosemide 40 mg 03/11/20 10:00 Lasix IVPUSH BIDDIURETIC SASHA Metoprolol Succinate 25 mg 03/11/20 21:00 Toprol Xl PO BEDTIME SASHA Sodium Chloride 2.5 ml 03/11/20 04:45 Saline Flush FLUSH ASDIRECTED PRN Keep Vein Open Sodium Chloride 10 ml 03/11/20 04:45 Saline Flush FLUSH ASDIRECTED PRN Keep Vein Open Discontinued Medications Generic Name Dose Route Start Last Admin Trade Name Freq PRN Reason Stop Dose Admin Furosemide 40 mg 03/11/20 05:50 03/11/20 05:56 Lasix IVPUSH 03/11/20 05:51 40 mg NOW ONE Administration Furosemide Confirm 03/11/20 05:50 03/11/20 05:57 Lasix Administered 03/11/20 05:51 Not Given Dose 40 mg .ROUTE .STK-MED ONE Lactated Ringer's 1,000 mls @ 999 mls/hr 03/11/20 05:32 03/11/20 05:56 Ringers, Lactated IV 03/11/20 06:32 999 mls/hr .BOLUS ONE Administration Furosemide 40 mg/ Sodium 54 mls @ 100 mls/hr 03/11/20 05:32 03/11/20 05:56 Chloride IV 03/11/20 06:04 Not Given ONETIME ONE Metoprolol Tartrate 50 mg 03/11/20 05:33 03/11/20 05:56 Lopressor PO 03/11/20 05:34 50 mg ONETIME ONE Administration Departure - Departure Time of Disposition: 05:35 Disposition: Refer to Observation Condition: Good Clinical Impression: Acute kidney injury Acute exacerbation of congestive heart failure Qualifiers: Heart failure type: systolic Qualified Code(s): I50.23 - Acute on chronic systolic (congestive) heart failure - Discharge Information Sepsis Event Note (ED) - Evaluation Sepsis Screening Result: No Definite Risk - Focused Exam Vital Signs: Vital Signs Temp Pulse Resp BP Pulse Ox 03/11/20 04:45 36.3 C 78 20 121/89 96 - My Orders Last 24 Hours: My Active Orders 03/11/20 04:45 Sodium Chloride 0.9% [Saline Flush] 10 ml FLUSH ASDIRECTED PRN Sodium Chloride 0.9% [Saline Flush] 2.5 ml FLUSH ASDIRECTED PRN Saline Lock Insert [OM.PC] Stat - Assessment/Plan Last 24 Hours: My Active Orders 03/11/20 04:45 Sodium Chloride 0.9% [Saline Flush] 10 ml FLUSH ASDIRECTED PRN Sodium Chloride 0.9% [Saline Flush] 2.5 ml FLUSH ASDIRECTED PRN Saline Lock Insert [OM.PC] Stat
[2020-03-11 05:16] LABS: BLOOD UREA NITROGEN,BUN 61 mg/dL (7.0-18.0); CARBON DIOXIDE,CO2 29.9 mmol/L (21.0-32.0); CHLORIDE,CL 101 mmol/L (98-107); GLUCOSE RANDOM 140 mg/dL (74-106); POTASSIUM,K 3.6 mmol/L (3.5-5.1); SODIUM,NA 142 mmol/L (136-148)
[2020-03-11] MEDS ORDERED: Lactated Ringers 1,000 ML IV ONE (05:32)
[2020-03-11] MEDS ORDERED: Furosemide 40 MG in Sodium Chloride 0.9% 50 ML IV ONE (05:32)
[2020-03-11] MEDS ORDERED: Metoprolol Tartrate 50 MG Tab PO ONE (05:33)
[2020-03-11] MEDS ORDERED: Furosemide 40 MG/4 ML VIAL IVPUSH ONE (05:50)
[2020-03-11] MEDS ORDERED: Furosemide 40 MG/4 ML VIAL ONE (05:50)
--- NOTE | 2020-03-11 07:28 | CR ---
INDICATION: Dyspnea. TECHNIQUE: Two-view chest. COMPARISON: 02/03/2020. IMPRESSION: Jovanna B lines at the bases with vascular prominence and cardiomegaly suggesting some interstitial edema. Pleural effusions are decreased since the previous exam with trace fluid at the posterior costophrenic sulci. No new consolidation. No pneumothorax. Dictated by Jamison Calabrese MD @ Mar 11 2020 7:26AM Signed by Dr. Jamison Calabrese @ Mar 11 2020 7:27AM
[2020-03-11] MEDS: Furosemide 40 MG/4 ML VIAL IVPUSH SCH ×2 (09:59→14:04)
[2020-03-11] MEDS ORDERED: Acetaminophen/HYDROcodone 325-5 MG Tab PO PRN (11:40)
--- NOTE | 2020-03-11 12:24 | PCM.HP.2 ---
H&P History of Present Illness - General Date of Service: 03/11/20 Admit Problem/Dx: Admission Diagnosis/Problem Admission Diagnosis/Problem Congestive heart failure - History of Present Illness Initial Comments - Free Text/Narative: 75-year-old male with past medical history of congestive heart failure, atrial f ibrillation on Eliquis, CAT on CPAP, hypertension, hypothyroidism presenting with shortness of breath. that woke him up from sleep at around 2:00 this morning while trying to sleep. sitting up made it slightly better. He states that he was in his normal state of health when he went to bed. He denies any chest discomfort, back pain, or abdominal pain. Denies any fever, hemoptysis. Does complain of some lower extremity edema which she states is at his baseline. Denies any recent weight gain or increase in peripheral edema. Does complain of several weeks of dyspnea on exertion and cough. Patient denies history of venous thromboembolism, lower extremity pain or swelling, hemoptysis, recent surgery or immobilization or long travel, history of active malignancy, or hormonal medication/product usage. Patient was recently admitted in February 2020 for new onset congestive heart failure and atrial fibrillation with RVR, requiring diltiazem and IV diuresis. Myocardial perfusion study on 02/17/2020 showed enlarged LV cavity with LVEF 22%, possible old inferior wall infarction, no evidence of reversible ischemia. Patient was supposed to get an angiogram but so far hasn't been able to schedule it. In the ER Twelve-lead ECG shows atrial fibrillation with RVR at a rate of 95- 105. No acute ischemic pattern appreciated. Labs show elevated BNP and acute kidney injury, troponin was Negative. 2 view chest x-ray series appears to show B-lines and cardiomegaly, no pulmonary infiltrate or pneumothorax. Received 40 mg of IV furosemide, 1 L of lactated Ringer's, and 50 mg of p.o. metoprolol tartrate. Patient was admitted for further management. - Related Data Allergies/Adverse Reactions: Allergies Allergy/AdvReac Type Severity Reaction Status Date / Time No Known Allergies Allergy Verified 03/11/20 07:43 Home Medications: Home Meds Cholecalciferol (Vitamin D3) [D3-2000] 1 tab PO DAILY 01/09/18 [History] Eplerenone [Inspra] 50 mg PO BID 01/09/18 [History] Flaxseed Oil [Flaxseed] 1,400 mg PO DAILY 01/09/18 [History] Indapamide 1.25 mg PO DAILY 01/09/18 [History] Levothyroxine 137 mcg PO DAILY 01/09/18 [History] Magnesium 250 mg PO DAILY 01/09/18 [History] Melatonin 20 mg PO DAILY 01/09/18 [History] Prevagen 1 tab PO DAILY 01/09/18 [History] Terazosin HCl [Terazosin] 10 mg PO DAILY 01/09/18 [History] levETIRAcetam [Spritam] 1,000 mg PO BID 01/09/18 [History] Gabapentin [Neurontin] 1 cap PO BEDTIME 02/03/20 [History] Hydrocodone/Acetaminophen [Hydrocodone-Acetamin 5-325 mg] 1 tab PO Q6HR PRN 02/03/20 [History] Losartan [Cozaar] 1 tab PO DAILY 02/03/20 [History] Apixaban [Eliquis] 5 mg PO BID #60 tablet 02/05/20 [Rx] Furosemide [Lasix] 40 mg PO DAILY #30 tablet 02/05/20 [Rx] Metoprolol Succinate [Toprol XL] 25 mg PO BEDTIME #30 tab.er 02/05/20 [Rx] Potassium Chloride [Klor-Con M20] 20 meq PO BID tab.er 02/05/20 [Rx] Past Medical History HEENT History: Reports: None Cardiovascular History: Reports: None Respiratory History: Reports: Sleep Apnea Other Respiratory History: CPAP Gastrointestinal History: Reports: None Genitourinary History: Reports: BPH Musculoskeletal History: Reports: None Neurological History: Reports: Seizure Psychiatric History: Reports: None Endocrine/Metabolic History: Reports: None Insulin Pump Model and Spinner Open End: None Hematologic History: Reports: None Immunologic History: Reports: None Oncologic (Cancer) History: Reports: None Dermatologic History: Reports: None - Infectious Disease History Infectious Disease History: Reports: None - Past Surgical History Head Surgeries/Procedures: Reports: None HEENT Surgical History: Reports: None Cardiovascular Surgical History: Reports: None Respiratory Surgical History: Reports: None GI Surgical History: Reports: Hernia Repair/Other Endocrine Surgical History: Reports: None Musculoskeletal Surgical History: Reports: Other (See Below) Other Musculoskeletal Surgeries/Procedures:: neck fusion Oncologic Surgical History: Reports: None Dermatological Surgical History: Reports: None Social & Family History - Family History Family Medical History: Noncontributory - Tobacco Use Smoking Status *Q: Never Smoker - Caffeine Use Caffeine Use: Reports: None - Recreational Drug Use Recreational Drug Use: No H&P Review of Systems - Review of Systems: Review Of Systems: See Below General: Reports: Fatigue. Denies: Fever, Chills, Malaise, Weakness Pulmonary: Reports: Shortness of Breath, Cough. Denies: Wheezing, Pleuritic Chest Pain, Sputum, Hemoptysis Cardiovascular: Reports: Dyspnea on Exertion, Orthopnea, PND, Edema. Denies: Chest Pain, Palpitations, Lightheadedness, Syncope, Blood Pressure Problem Gastrointestinal: Denies: Abdominal Pain, Anorexia, Black Stool, Bloody Stool Genitourinary: Denies: Frequency, Burning, Pain, Urgency Musculoskeletal: Denies: Neck Pain, Shoulder Pain, Arm Pain, Back Pain Skin: Denies: Cyanosis, Jaundice, Mottled, Pallor Psychiatric: Denies: Confusion, Depression, Mood Lability, Anxiety Neurological: Denies: Confusion, Dizziness, Headache, Numbness Hematologic/Lymphatic: Denies: Anemia, Easy Bleeding, Easy Bruising, Swollen Glands Exam - Exam Exam: See Below - Vital Signs Vital Signs: Last Vital Signs Temp 36.7 C 03/11/20 12:00 Pulse 72 03/11/20 12:00 Resp 14 03/11/20 12:00 BP 117/84 03/11/20 12:00 Pulse Ox 96 03/11/20 12:00 Weight: 91.943 kg - Exam Quality Assessment: Supplemental Oxygen General: Alert, Oriented HEENT: Conjunctiva Clear Neck: Supple Lungs: Normal Respiratory Effort, Crackles, Rales Cardiovascular: Regular Rate, Normal S1, Normal S2, Irregular Rhythm GI/Abdominal Exam: Normal Bowel Sounds, Soft, Non-Tender, No Organomegaly Extremities: Normal Inspection, Normal Range of Motion, Pedal Edema (1+) - Patient Data Lab Results Last 24 hrs: Laboratory Results - last 24 hr 03/11/20 03/11/20 03/11/20 Range/Units 04:45 04:45 04:45 WBC 8.32 (4.0-11.0) K/uL RBC 4.76 (4.50-5.90) M/uL Hgb 15.4 (13.0-17.0) g/dL Hct 46.1 (38.0-50.0) % MCV 96.8 (80.0-98.0) fL MCH 32.4 H (27.0-32.0) pg MCHC 33.4 (31.0-37.0) g/dL RDW Std Deviation 44.8 (28.0-62.0) fl RDW Coeff of Mike 13 (11.0-15.0) % Plt Count 164 (150-400) K/uL MPV 11.30 (7.40-12.00) fL Neut % (Auto) 77.1 (48.0-80.0) % Lymph % (Auto) 15.7 L (16.0-40.0) % Terrell % (Auto) 5.0 (0.0-15.0) % Eos % (Auto) 1.7 (0.0-7.0) % Baso % (Auto) 0.5 (0.0-1.5) % Neut # (Auto) 6.4 H (1.4-5.7) K/uL Lymph # (Auto) 1.3 (0.6-2.4) K/uL Terrell # (Auto) 0.4 (0.0-0.8) K/uL Eos # (Auto) 0.1 (0.0-0.7) K/uL Baso # (Auto) 0.0 (0.0-0.1) K/uL Nucleated RBC % 0.0 /100WBC Nucleated RBCs # 0 K/uL VBG pH (7.31-7.41) VBG pCO2 (35-45) mmHG VBG pO2 (30-40) mmHG VBG HCO3 (22-30) mEq/L VBG Total CO2 (41-51) mmol/L VBG Base Excess (-3.0-3.0) Sodium 142 (136-148) mmol/L Potassium 3.6 (3.5-5.1) mmol/L Chloride 101 (98-107) mmol/L Carbon Dioxide 29.9 (21.0-32.0) mmol/L BUN 61 H (7.0-18.0) mg/dL Creatinine 2.2 H (0.8-1.3) mg/dL Est Cr Clr Drug Dosing 30.86 mL/min Estimated GFR (MDRD) 29.2 ml/min Glucose 140 H (74-106) mg/dL Calcium 9.0 (8.5-10.1) mg/dL Phosphorus (2.6-4.7) mg/dL Magnesium (1.8-2.4) mg/dL Total Bilirubin 0.9 (0.2-1.0) mg/dL AST 48 H (15-37) IU/L ALT 39 (14-63) IU/L Alkaline Phosphatase 86 (46-116) U/L Troponin I < 0.050 (0.000-0.056) ng/mL B-Natriuretic Peptide 560 H (<100) PG/ML Total Protein 7.3 (6.4-8.2) g/dL Albumin 4.0 (3.4-5.0) g/dL Globulin 3.3 (2.6-4.0) g/dL Albumin/Globulin Ratio 1.2 (0.9-1.6) SARS Virus RNA (PCR) (NEGATIVE) 03/11/20 03/11/20 03/11/20 Range/Units 04:45 04:45 05:30 WBC (4.0-11.0) K/uL RBC (4.50-5.90) M/uL Hgb (13.0-17.0) g/dL Hct (38.0-50.0) % MCV (80.0-98.0) fL MCH (27.0-32.0) pg MCHC (31.0-37.0) g/dL RDW Std Deviation (28.0-62.0) fl RDW Coeff of Mike (11.0-15.0) % Plt Count (150-400) K/uL MPV (7.40-12.00) fL Neut % (Auto) (48.0-80.0) % Lymph % (Auto) (16.0-40.0) % Terrell % (Auto) (0.0-15.0) % Eos % (Auto) (0.0-7.0) % Baso % (Auto) (0.0-1.5) % Neut # (Auto) (1.4-5.7) K/uL Lymph # (Auto) (0.6-2.4) K/uL Terrell # (Auto) (0.0-0.8) K/uL Eos # (Auto) (0.0-0.7) K/uL Baso # (Auto) (0.0-0.1) K/uL Nucleated RBC % /100WBC Nucleated RBCs # K/uL VBG pH 7.39 (7.31-7.41) VBG pCO2 52 H (35-45) mmHG VBG pO2 22 L (30-40) mmHG VBG HCO3 31 H (22-30) mEq/L VBG Total CO2 28 L (41-51) mmol/L VBG Base Excess 4.9 H (-3.0-3.0) Sodium (136-148) mmol/L Potassium (3.5-5.1) mmol/L Chloride (98-107) mmol/L Carbon Dioxide (21.0-32.0) mmol/L BUN (7.0-18.0) mg/dL Creatinine (0.8-1.3) mg/dL Est Cr Clr Drug Dosing mL/min Estimated GFR (MDRD) ml/min Glucose (74-106) mg/dL Calcium (8.5-10.1) mg/dL Phosphorus 3.9 (2.6-4.7) mg/dL Magnesium 2.4 (1.8-2.4) mg/dL Total Bilirubin (0.2-1.0) mg/dL AST (15-37) IU/L ALT (14-63) IU/L Alkaline Phosphatase (46-116) U/L Troponin I (0.000-0.056) ng/mL B-Natriuretic Peptide (<100) PG/ML Total Protein (6.4-8.2) g/dL Albumin (3.4-5.0) g/dL Globulin (2.6-4.0) g/dL Albumin/Globulin Ratio (0.9-1.6) SARS Virus RNA (PCR) NEGATIVE (NEGATIVE) Result Diagrams: 03/11/20 04:45 03/11/20 04:45 Sepsis Event Note - Evaluation Sepsis Screening Result: No Definite Risk - Focused Exam Vital Signs: Vital Signs Temp Pulse Pulse Resp BP BP Pulse Ox 03/11/20 12:00 36.7 C 72 14 117/84 96 03/11/20 07:35 36.1 C 89 18 114/75 98 03/11/20 05:56 82 121/71 03/11/20 05:45 35.9 C L 75 18 /71 99 03/11/20 04:45 36.3 C 78 20 121/89 96 - Problem List (1) Acute exacerbation of congestive heart failure SNOMED Code(s): 003729063, 15538402468521 ICD Code: I50.9 - HEART FAILURE, UNSPECIFIED Status: Acute Current Visit: Yes Qualifiers: Heart failure type: systolic Qualified Code(s): I50.23 - Acute on chronic systolic (congestive) heart failure (2) Acute kidney injury SNOMED Code(s): 82079519, 68606630 ICD Code: N17.9 - ACUTE KIDNEY FAILURE, UNSPECIFIED Status: Acute Current Visit: Yes (3) CAT (obstructive sleep apnea) SNOMED Code(s): 10384715 ICD Code: G47.33 - OBSTRUCTIVE SLEEP APNEA (ADULT) (PEDIATRIC) Status: Acute Current Visit: Yes Problem List Initiated/Reviewed/Updated: Yes Orders Last 24hrs: Active Orders 24 hr Category Date Time Status Patient Status [ADT] Routine ADT 03/11/20 05:35 Active Ambulate [RC] ASDIRECTED Care 03/11/20 06:03 Active Antiembolic Devices [RC] PER UNIT ROUTINE Care 03/11/20 06:03 Active Daily Weight [Height and Weight] [RC] DAILY Care 03/11/20 11:40 Active Intake and Output Strict [RC] Q12H Care 03/11/20 11:40 Active Oxygen Therapy Adult [Oxygen Therapy] [RC] ASDIRECTED Care 03/11/20 06:02 Active Telemetry Monitoring [Cardiac Monitoring] [RC] . Care 03/11/20 05:34 Active DIRECTED Vital Signs [RC] Q4H Care 03/11/20 08:00 Active Fluid Restriction [DIET] Diet 03/11/20 Dinner Active Heart Healthy Diet [DIET] Diet 03/11/20 Breakfast Active Echo Comp wo Cont [US] Routine Exams 03/11/20 06:08 Ordered BASIC METABOLIC PANEL,BMP [CHEM] Routine Lab 03/11/20 17:00 Ordered Acetaminophen/HYDROcodone [[place] 325-5 MG] Med 03/11/20 11:40 Active 1 tab PO Q6HR PRN Apixaban [Eliquis] Med 03/11/20 21:00 Active 5 mg PO BID Furosemide [Lasix] Med 03/11/20 10:00 Active 40 mg IVPUSH BIDDIURETIC Gabapentin [Neurontin] Med 03/11/20 21:00 Active 300 mg PO BEDTIME Levothyroxine Med 03/12/20 07:30 Active 137 mcg PO ACBREAKFAST Metoprolol Succinate [Toprol XL] Med 03/11/20 21:00 Active 25 mg PO BEDTIME Sodium Chloride 0.9% [Saline Flush] Med 03/11/20 04:45 Active 10 ml FLUSH ASDIRECTED PRN Sodium Chloride 0.9% [Saline Flush] Med 03/11/20 04:45 Active 2.5 ml FLUSH ASDIRECTED PRN Terazosin [Hytrin] Med 03/12/20 09:00 Active 10 mg PO DAILY levETIRAcetam [Keppra] Med 03/11/20 21:00 Active 1,000 mg PO BID SCD [Sequential Compression Device] [OM.PC] Routine Oth 03/11/20 06:03 Ordered Saline Lock Insert [OM.PC] Stat Oth 03/11/20 04:45 Ordered Medication Orders Hydrocodone Bitart/Acetaminophen ([place] 325-5 Mg) 1 tab PO Q6HR PRN PRN Reason: Pain Apixaban (Eliquis) 5 mg PO BID SASHA Furosemide (Lasix) 40 mg IVPUSH BIDDIURETIC SASHA Last Admin: 03/11/20 09:59 Dose: 40 mg Documented by: SEMICHR Gabapentin (Neurontin) 300 mg PO BEDTIME SASHA Levetiracetam (Keppra) 1,000 mg PO BID SASHA Levothyroxine Sodium 112 mcg/ (Levothyroxine Sodium 25 mcg) 137 mcg PO ACBREAKFAST SASHA Metoprolol Succinate (Toprol Xl) 25 mg PO BEDTIME SASHA Sodium Chloride (Saline Flush) 2.5 ml FLUSH ASDIRECTED PRN PRN Reason: Keep Vein Open Sodium Chloride (Saline Flush) 10 ml FLUSH ASDIRECTED PRN PRN Reason: Keep Vein Open Terazosin HCl (Hytrin) 10 mg PO DAILY [facility] Assessment/Plan Comment:: 75 y/o M admitted for Acute over chronic heart failure, LENO Received Lasix in ER Cont IV Lasix, Cont home Meds Fluid restriction Ins and outs Received IV fluids in ER for LENO, recheck BMP in evening Monitor and replete electrolytes cont to trend troponin Cont tele SCD for Dvt ppx Cont AC for A-fib
[2020-03-11] MEDS ORDERED: Potassium Chloride 10% 20 MEQ/15 ML Soln 30 ML UD Cup PO ONE (13:05)
[2020-03-11] MEDS ORDERED: LORazepam 2 MG/ML SDV IVPUSH ONE (16:00)
[2020-03-11 17:23] LABS: CARBON DIOXIDE,CO2 30.3 mmol/L (21.0-32.0); POTASSIUM,K 3.6 mmol/L (3.5-5.1)
[2020-03-11] MEDS: Metoprolol Succinate 25 MG Tab.ER PO SCH (20:15)
[2020-03-11] MEDS: levETIRAcetam 500 MG Tab PO SCH (20:15)
[2020-03-11] MEDS: Apixaban 5 MG Tab PO SCH (20:15)
[2020-03-11] MEDS: Gabapentin 300 MG Cap PO SCH (20:15)
[2020-03-11] MEDS ORDERED: Melatonin 3 MG Tab PO ONE (22:59)
[2020-03-12 06:34] LABS: CARBON DIOXIDE,CO2 30.6 mmol/L (21.0-32.0); POTASSIUM,K 4.2 mmol/L (3.5-5.1)
[2020-03-12] MEDS: Furosemide 40 MG/4 ML VIAL IVPUSH SCH ×2 (08:29→13:44)
[2020-03-12] MEDS: Apixaban 5 MG Tab PO SCH ×2 (08:29→20:40)
[2020-03-12] MEDS: levETIRAcetam 500 MG Tab PO SCH ×2 (08:29→20:39)
[2020-03-12] MEDS ORDERED: Levothyroxine 112 MCG Tab PO SCH (09:00)
[2020-03-12] MEDS: Terazosin 5 MG Cap PO SCH (09:18)
--- NOTE | 2020-03-12 11:49 | PCM.PN ---
<Joshua Post - Last Filed: 03/12/20 11:44> - General Info Date of Service: 03/12/20 Subjective Update: Patient states that he did not sleep well overnight. Patient still states that he has shortness of breath but denies chest pain. No fever, no chill, no nausea. Patient would like to go home today but was advised to stay for one more night. - Review of Systems General: Reports: Weakness, Fatigue. Denies: Fever, Chills HEENT: Denies: Headaches Pulmonary: Reports: Shortness of Breath. Denies: Pleuritic Chest Pain, Cough Cardiovascular: Reports: Dyspnea on Exertion, Orthopnea, Edema. Denies: Chest Pain, Palpitations Gastrointestinal: Denies: Abdominal Pain, Diarrhea, Nausea Neurological: Denies: Confusion, Dizziness, Headache - Patient Data Vitals - Most Recent: Last Vital Signs Temp 98.7 F 03/12/20 07:15 Pulse 66 03/12/20 07:15 Resp 17 03/12/20 07:15 BP 120/75 03/12/20 09:18 Pulse Ox 91 L 03/12/20 07:15 Weight - Most Recent: 90.991 kg I&O - Last 24 Hours: Intake & Output 03/11/20 03/12/20 03/12/20 22:59 06:59 14:59 Intake Total 530 420 Output Total 1050 520 Balance -520 -100 Lab Results Last 24 Hours: Laboratory Results - last 24 hr 03/11/20 03/12/20 03/12/20 Range/Units 17:02 05:30 05:30 WBC 7.77 (4.0-11.0) K/uL RBC 4.76 (4.50-5.90) M/uL Hgb 15.3 (13.0-17.0) g/dL Hct 46.1 (38.0-50.0) % MCV 96.8 (80.0-98.0) fL MCH 32.1 H (27.0-32.0) pg MCHC 33.2 (31.0-37.0) g/dL RDW Std Deviation 45.0 (28.0-62.0) fl RDW Coeff of Mike 13 (11.0-15.0) % Plt Count 144 L (150-400) K/uL MPV 11.20 (7.40-12.00) fL Neut % (Auto) 66.5 (48.0-80.0) % Lymph % (Auto) 25.0 (16.0-40.0) % Cocke % (Auto) 6.2 (0.0-15.0) % Eos % (Auto) 1.8 (0.0-7.0) % Baso % (Auto) 0.5 (0.0-1.5) % Neut # (Auto) 5.2 (1.4-5.7) K/uL Lymph # (Auto) 1.9 (0.6-2.4) K/uL Cocke # (Auto) 0.5 (0.0-0.8) K/uL Eos # (Auto) 0.1 (0.0-0.7) K/uL Baso # (Auto) 0.0 (0.0-0.1) K/uL Nucleated RBC % 0.0 /100WBC Nucleated RBCs # 0 K/uL Sodium 141 144 (136-148) mmol/L Potassium 3.6 4.2 (3.5-5.1) mmol/L Chloride 102 103 (98-107) mmol/L Carbon Dioxide 30.3 30.6 (21.0-32.0) mmol/L BUN 61 H 61 H (7.0-18.0) mg/dL Creatinine 2.1 H 2.1 H (0.8-1.3) mg/dL Est Cr Clr Drug Dosing 32.33 32.33 mL/min Estimated GFR (MDRD) 30.8 30.8 ml/min Glucose 102 115 H (74-106) mg/dL Calcium 8.9 9.7 (8.5-10.1) mg/dL Phosphorus 4.0 (2.6-4.7) mg/dL Magnesium 2.4 (1.8-2.4) mg/dL Med Orders - Current: Current Medications Hydrocodone Bitart/Acetaminophen ([place] 325-5 Mg) 1 tab PO Q6HR PRN PRN Reason: Pain Apixaban (Eliquis) 5 mg PO BID [facility] Last Admin: 03/12/20 08:29 Dose: 5 mg Documented by: Furosemide (Lasix) 60 mg IVPUSH BIDDIURETIC [facility] Gabapentin (Neurontin) 300 mg PO BEDTIME [facility] Last Admin: 03/11/20 20:15 Dose: 300 mg Documented by: Levetiracetam (Keppra) 1,000 mg PO BID [facility] Last Admin: 03/12/20 08:29 Dose: 1,000 mg Documented by: Levothyroxine Sodium 112 mcg/ (Levothyroxine Sodium 25 mcg) 137 mcg PO ACBREAKFAST [facility] Last Admin: 03/12/20 07:34 Dose: 137 mcg Documented by: Metoprolol Succinate (Toprol Xl) 25 mg PO BEDTIME [facility] Last Admin: 03/11/20 20:15 Dose: 25 mg Documented by: Sodium Chloride (Saline Flush) 2.5 ml FLUSH ASDIRECTED PRN PRN Reason: Keep Vein Open Sodium Chloride (Saline Flush) 10 ml FLUSH ASDIRECTED PRN PRN Reason: Keep Vein Open Terazosin HCl (Hytrin) 10 mg PO DAILY [facility] Last Admin: 03/12/20 09:18 Dose: 10 mg Documented by: Discontinued Medications Furosemide (Lasix) 40 mg IVPUSH NOW ONE Stop: 03/11/20 05:51 Last Admin: 03/11/20 05:56 Dose: 40 mg Documented by: Furosemide (Lasix) Confirm Administered Dose 40 mg .ROUTE .STK-MED ONE Stop: 03/11/20 05:51 Last Admin: 03/11/20 05:57 Dose: Not Given Documented by: Furosemide (Lasix) 40 mg IVPUSH BIDDIURETIC [facility] Last Admin: 03/12/20 08:29 Dose: 40 mg Documented by: Lactated Ringer's (Ringers, Lactated) 1,000 mls @ 999 mls/hr IV .BOLUS ONE Stop: 03/11/20 06:32 Last Admin: 03/11/20 05:56 Dose: 999 mls/hr Documented by: Furosemide 40 mg/ Sodium (Chloride) 54 mls @ 100 mls/hr IV ONETIME ONE Stop: 03/11/20 06:04 Last Admin: 03/11/20 05:56 Dose: Not Given Documented by: Lorazepam (Ativan) 1 mg IVPUSH ONETIME ONE Stop: 03/11/20 16:01 Last Admin: 03/11/20 16:23 Dose: 1 mg Documented by: Melatonin (Melatonin) 9 mg PO ONETIME ONE Stop: 03/11/20 23:00 Last Admin: 03/11/20 23:11 Dose: 9 mg Documented by: Metoprolol Tartrate (Lopressor) 50 mg PO ONETIME ONE Stop: 03/11/20 05:34 Last Admin: 03/11/20 05:56 Dose: 50 mg Documented by: Potassium Chloride (Potassium Chloride) 20 meq PO ONETIME ONE Stop: 03/11/20 13:06 Last Admin: 03/11/20 14:04 Dose: 20 meq Documented by: - Exam General: Alert, Oriented HEENT: EOMI Lungs: Crackles (More prominent in right lower lobe). No: Normal Respiratory Effort Cardiovascular: Regular Rate, Irregular Rhythm GI/Abdominal Exam: Soft, Non-Tender, No Distention Extremities: Normal Range of Motion, Pedal Edema Sepsis Event Note - Evaluation Sepsis Screening Result: No Definite Risk - Focused Exam Vital Signs: Vital Signs Temp Pulse Resp BP BP Pulse Ox 03/12/20 09:18 120/75 03/12/20 07:15 98.7 F 66 17 120/75 91 L 03/12/20 04:08 97.9 F 81 16 125/78 93 L - Problem List Review Problem List Initiated/Reviewed/Updated: Yes - My Orders Last 24 Hours: My Active Orders 03/12/20 11:08 Code Status [Resuscitation Status] Routine 03/13/20 05:11 BASIC METABOLIC PANEL,BMP [CHEM] AM CBC WITH AUTO DIFF [HEME] AM MAGNESIUM [CHEM] AM - Plan Plan:: Assessment/Plan: CHF: 60mg BID IV Lasix, Fluid restricted diet (1800ml), Strict I&O, Telemetry, Mg above 2, K+ above 4, AM BMP's. Will trend BNP every other day to assess CHF. Repeat echo as LVEF was noted to be 22%. A-FIB Eliquis 5mg BID, Metoprolol 25mg daily Hypothyroidism- 137mcg Levothyroxine daily HTN: Metoprolol 25mg daily CAT: CPAP, RT to adjust settings as needed as patient is not aware of his current home settings <Zahraa Mcneal - Last Filed: 03/14/20 12:43> - General Info Subjective Update: I have seen and evaluated the patient and agree with the residents note unless specified in my note - Patient Data Vitals - Most Recent: Last Vital Signs Temp 36.9 C 09/09/20 08:00 Pulse 90 03/14/20 10:29 Resp 18 03/14/20 08:00 BP 119/80 03/14/20 10:30 Pulse Ox 93 L 03/14/20 08:00 I&O - Last 24 Hours: Intake & Output 03/13/20 03/14/20 03/14/20 22:59 06:59 14:59 Intake Total 400 1800 Output Total 800 950 Balance -400 850 Lab Results Last 24 Hours: Laboratory Results - last 24 hr 03/13/20 03/14/20 03/14/20 Range/Units 13:06 06:14 06:14 WBC 7.41 (4.0-11.0) K/uL RBC 4.71 (4.50-5.90) M/uL Hgb 14.9 (13.0-17.0) g/dL Hct 44.8 (38.0-50.0) % MCV 95.1 (80.0-98.0) fL MCH 31.6 (27.0-32.0) pg MCHC 33.3 (31.0-37.0) g/dL RDW Std Deviation 43.4 (28.0-62.0) fl RDW Coeff of Mike 13 (11.0-15.0) % Plt Count 143 L (150-400) K/uL MPV 10.60 (7.40-12.00) fL Neut % (Auto) 61.7 (48.0-80.0) % Lymph % (Auto) 27.1 (16.0-40.0) % Cocke % (Auto) 7.3 (0.0-15.0) % Eos % (Auto) 3.4 (0.0-7.0) % Baso % (Auto) 0.5 (0.0-1.5) % Neut # (Auto) 4.6 (1.4-5.7) K/uL Lymph # (Auto) 2.0 (0.6-2.4) K/uL Cocke # (Auto) 0.5 (0.0-0.8) K/uL Eos # (Auto) 0.3 (0.0-0.7) K/uL Baso # (Auto) 0.0 (0.0-0.1) K/uL Nucleated RBC % 0.0 /100WBC Nucleated RBCs # 0 K/uL Sodium 145 145 (136-148) mmol/L Potassium 3.4 L 2.9 L (3.5-5.1) mmol/L Chloride 102 102 (98-107) mmol/L Carbon Dioxide 34.3 H 36.6 H (21.0-32.0) mmol/L BUN 50 H 41 H (7.0-18.0) mg/dL Creatinine 1.7 H 1.6 H (0.8-1.3) mg/dL Est Cr Clr Drug Dosing 39.94 42.44 mL/min Estimated GFR (MDRD) 39.3 42.1 ml/min Glucose 103 96 (74-106) mg/dL Calcium 9.4 9.3 (8.5-10.1) mg/dL Magnesium 2.0 (1.8-2.4) mg/dL Med Orders - Current: Current Medications Hydrocodone Bitart/Acetaminophen ([place] 325-5 Mg) 1 tab PO Q6HR PRN PRN Reason: Pain Furosemide (Lasix) 60 mg IVPUSH BIDDIURETIC [facility] Last Admin: 03/14/20 08:22 Dose: 60 mg Documented by: Gabapentin (Neurontin) 300 mg PO BEDTIME [facility] Last Admin: 03/13/20 21:39 Dose: 300 mg Documented by: Sodium Chloride (Normal Saline) 250 mls @ 50 mls/hr IV ASDIRECTED [facility] Potassium Chloride 40 meq/ (Premix) 100 mls @ 25 mls/hr IV ONETIME ONE Stop: 03/14/20 14:48 Last Admin: 03/14/20 12:15 Dose: 25 mls/hr Documented by: Levetiracetam (Keppra) 1,000 mg PO BID [facility] Last Admin: 03/14/20 08:23 Dose: 1,000 mg Documented by: Levothyroxine Sodium 112 mcg/ (Levothyroxine Sodium 25 mcg) 137 mcg PO ACBREAKFAST [facility] Last Admin: 03/14/20 06:44 Dose: 137 mcg Documented by: Losartan Potassium (Cozaar) 25 mg PO DAILY [facility] Last Admin: 03/14/20 08:21 Dose: 25 mg Documented by: Metoprolol Succinate (Toprol Xl) 50 mg PO DAILY [facility] Last Admin: 03/14/20 10:29 Dose: 50 mg Documented by: Potassium Chloride (Klor-Con M20) 20 meq PO BID [facility] Last Admin: 03/14/20 10:31 Dose: Not Given Documented by: Sodium Chloride (Saline Flush) 2.5 ml FLUSH ASDIRECTED PRN PRN Reason: Keep Vein Open Sodium Chloride (Saline Flush) 10 ml FLUSH ASDIRECTED PRN PRN Reason: Keep Vein Open Terazosin HCl (Hytrin) 10 mg PO DAILY [facility] Last Admin: 03/14/20 10:30 Dose: 10 mg Documented by: Discontinued Medications Apixaban (Eliquis) 5 mg PO BID [facility] Last Admin: 03/13/20 08:42 Dose: 5 mg Documented by: Apixaban (Eliquis) 5 mg PO ONETIME ONE Stop: 03/13/20 19:26 Furosemide (Lasix) 40 mg IVPUSH NOW ONE Stop: 03/11/20 05:51 Last Admin: 03/11/20 05:56 Dose: 40 mg Documented by: Furosemide (Lasix) Confirm Administered Dose 40 mg .ROUTE .STK-MED ONE Stop: 03/11/20 05:51 Last Admin: 03/11/20 05:57 Dose: Not Given Documented by: Furosemide (Lasix) 40 mg IVPUSH BIDDIURETIC [facility] Last Admin: 03/12/20 08:29 Dose: 40 mg Documented by: Furosemide (Lasix) 40 mg IVPUSH DAILY ONE Stop: 03/14/20 12:01 Last Admin: 03/14/20 12:12 Dose: 40 mg Documented by: Lactated Ringer's (Ringers, Lactated) 1,000 mls @ 999 mls/hr IV .BOLUS ONE Stop: 03/11/20 06:32 Last Admin: 03/11/20 05:56 Dose: 999 mls/hr Documented by: Furosemide 40 mg/ Sodium (Chloride) 54 mls @ 100 mls/hr IV ONETIME ONE Stop: 03/11/20 06:04 Last Admin: 03/11/20 05:56 Dose: Not Given Documented by: Potassium Chloride 40 meq/ (Premix) 100 mls @ 25 mls/hr IV ONETIME ONE Stop: 03/13/20 12:44 Last Admin: 03/13/20 09:43 Dose: 25 mls/hr Documented by: Sodium Chloride (Normal Saline) 500 mls @ 50 mls/hr IV ASDIRECTED [facility] Furosemide 40 mg/ Sodium (Chloride) 54 mls @ 100 mls/hr IV ONETIME ONE Stop: 03/14/20 12:32 Lorazepam (Ativan) 1 mg IVPUSH ONETIME ONE Stop: 03/11/20 16:01 Last Admin: 03/11/20 16:23 Dose: 1 mg Documented by: Melatonin (Melatonin) 9 mg PO ONETIME ONE Stop: 03/11/20 23:00 Last Admin: 03/11/20 23:11 Dose: 9 mg Documented by: Metoprolol Succinate (Toprol Xl) 25 mg PO BEDTIME [facility] Last Admin: 03/13/20 21:39 Dose: 25 mg Documented by: Metoprolol Succinate (Toprol Xl) 25 mg PO BID [facility] Metoprolol Tartrate (Lopressor) 50 mg PO ONETIME ONE Stop: 03/11/20 05:34 Last Admin: 03/11/20 05:56 Dose: 50 mg Documented by: Potassium Chloride (Potassium Chloride) 20 meq PO ONETIME ONE Stop: 03/11/20 13:06 Last Admin: 03/11/20 14:04 Dose: 20 meq Documented by: Potassium Chloride (Klor-Con M20) 40 meq PO ONETIME ONE Stop: 03/13/20 07:36 Last Admin: 03/13/20 08:42 Dose: 40 meq Documented by: Potassium Chloride (Klor-Con M20) 40 meq PO ONETIME ONE Stop: 03/14/20 07:58 Last Admin: 03/14/20 08:22 Dose: 40 meq Documented by: Sepsis Event Note - Focused Exam Vital Signs: Vital Signs Temp Pulse Pulse Resp BP BP Pulse Ox 03/14/20 10:30 119/80 03/14/20 10:29 90 119/88 03/14/20 08:21 119/88 03/14/20 08:00 36.9 C 90 18 116/88 93 L 03/14/20 04:00 36.4 C 77 18 126/90 93 L - Problem List & Annotations (1) Acute exacerbation of congestive heart failure SNOMED Code(s): 333027434, 25391283809044 Code(s): I50.9 - HEART FAILURE, UNSPECIFIED Status: Acute Current Visit: Yes Qualifiers: Heart failure type: systolic Qualified Code(s): I50.23 - Acute on chronic systolic (congestive) heart failure (2) Acute kidney injury SNOMED Code(s): 92132436, 46975271 Code(s): N17.9 - ACUTE KIDNEY FAILURE, UNSPECIFIED Status: Acute Current Visit: Yes (3) CAT (obstructive sleep apnea) SNOMED Code(s): 03290483 Code(s): G47.33 - OBSTRUCTIVE SLEEP APNEA (ADULT) (PEDIATRIC) Status: Acute Current Visit: Yes
[2020-03-12] MEDS: Metoprolol Succinate 25 MG Tab.ER PO SCH (20:40)
[2020-03-12] MEDS: Gabapentin 300 MG Cap PO SCH (20:40)
[2020-03-13 05:59] LABS: CARBON DIOXIDE,CO2 33.9 mmol/L (21.0-32.0); POTASSIUM,K 2.6 mmol/L (3.5-5.1)
[2020-03-13] MEDS ORDERED: Potassium Chloride 20 MEQ Tab.ER PO ONE (07:35)
[2020-03-13] MEDS: levETIRAcetam 500 MG Tab PO SCH ×2 (08:42→21:39)
[2020-03-13] MEDS: Apixaban 5 MG Tab PO SCH (08:42)
[2020-03-13] MEDS ORDERED: Potassium Chloride Riders 40 MEQ in Premix Bag 1 BAG IV ONE (08:45)
[2020-03-13] MEDS ORDERED: Sodium Chloride 0.9% 500 ML IV SCH (09:00)
[2020-03-13] MEDS ORDERED: Sodium Chloride 0.9% 250 ML IV SCH (09:00)
[2020-03-13] MEDS: Terazosin 5 MG Cap PO SCH (11:14)
[2020-03-13] MEDS: Furosemide 40 MG/4 ML VIAL IVPUSH SCH ×2 (11:17→16:59)
[2020-03-13 13:30] LABS: CARBON DIOXIDE,CO2 34.3 mmol/L (21.0-32.0); POTASSIUM,K 3.4 mmol/L (3.5-5.1)
--- NOTE | 2020-03-13 16:41 | PCM.PN ---
<Joshua Post - Last Filed: 03/13/20 17:22> - General Info Date of Service: 03/13/20 - Review of Systems General: Denies: Fever, Weakness HEENT: Denies: Dysphasia, Visual Changes Pulmonary: Denies: Shortness of Breath, Pleuritic Chest Pain, Cough Cardiovascular: Denies: Chest Pain, Lightheadedness Gastrointestinal: Denies: Abdominal Pain, Decreased Appetite, Diarrhea Musculoskeletal: Denies: Back Pain Neurological: Denies: Confusion, Dizziness, Headache - Patient Data Vitals - Most Recent: Last Vital Signs Temp 97.2 F 03/13/20 16:00 Pulse 64 03/13/20 16:00 Resp 20 03/13/20 16:00 BP 125/86 03/13/20 16:00 Pulse Ox 95 03/13/20 16:00 Weight - Most Recent: 88.768 kg I&O - Last 24 Hours: Intake & Output 03/13/20 03/13/20 03/13/20 06:59 14:59 22:59 Intake Total 700 Output Total 840 Balance -140 Lab Results Last 24 Hours: Laboratory Results - last 24 hr 03/13/20 03/13/20 03/13/20 Range/Units 04:57 04:57 04:57 WBC 6.95 (4.0-11.0) K/uL RBC 4.57 (4.50-5.90) M/uL Hgb 14.7 (13.0-17.0) g/dL Hct 43.2 (38.0-50.0) % MCV 94.5 (80.0-98.0) fL MCH 32.2 H (27.0-32.0) pg MCHC 34.0 (31.0-37.0) g/dL RDW Std Deviation 43.2 (28.0-62.0) fl RDW Coeff of Mike 13 (11.0-15.0) % Plt Count 137 L (150-400) K/uL MPV 11.20 (7.40-12.00) fL Neut % (Auto) 67.9 (48.0-80.0) % Lymph % (Auto) 23.7 (16.0-40.0) % [place] % (Auto) 5.8 (0.0-15.0) % Eos % (Auto) 2.3 (0.0-7.0) % Baso % (Auto) 0.3 (0.0-1.5) % Neut # (Auto) 4.7 (1.4-5.7) K/uL Lymph # (Auto) 1.7 (0.6-2.4) K/uL [place] # (Auto) 0.4 (0.0-0.8) K/uL Eos # (Auto) 0.2 (0.0-0.7) K/uL Baso # (Auto) 0.0 (0.0-0.1) K/uL Nucleated RBC % 0.0 /100WBC Nucleated RBCs # 0 K/uL Sodium 145 (136-148) mmol/L Potassium 2.6 L (3.5-5.1) mmol/L Chloride 101 (98-107) mmol/L Carbon Dioxide 33.9 H (21.0-32.0) mmol/L BUN 49 H (7.0-18.0) mg/dL Creatinine 1.8 H (0.8-1.3) mg/dL Est Cr Clr Drug Dosing 37.72 mL/min Estimated GFR (MDRD) 36.8 ml/min Glucose 100 (74-106) mg/dL Calcium 9.2 (8.5-10.1) mg/dL Magnesium 2.0 (1.8-2.4) mg/dL B-Natriuretic Peptide 1312 H (<100) PG/ML 03/13/20 Range/Units 13:06 WBC (4.0-11.0) K/uL RBC (4.50-5.90) M/uL Hgb (13.0-17.0) g/dL Hct (38.0-50.0) % MCV (80.0-98.0) fL MCH (27.0-32.0) pg MCHC (31.0-37.0) g/dL RDW Std Deviation (28.0-62.0) fl RDW Coeff of Mike (11.0-15.0) % Plt Count (150-400) K/uL MPV (7.40-12.00) fL Neut % (Auto) (48.0-80.0) % Lymph % (Auto) (16.0-40.0) % [place] % (Auto) (0.0-15.0) % Eos % (Auto) (0.0-7.0) % Baso % (Auto) (0.0-1.5) % Neut # (Auto) (1.4-5.7) K/uL Lymph # (Auto) (0.6-2.4) K/uL [place] # (Auto) (0.0-0.8) K/uL Eos # (Auto) (0.0-0.7) K/uL Baso # (Auto) (0.0-0.1) K/uL Nucleated RBC % /100WBC Nucleated RBCs # K/uL Sodium 145 (136-148) mmol/L Potassium 3.4 L (3.5-5.1) mmol/L Chloride 102 (98-107) mmol/L Carbon Dioxide 34.3 H (21.0-32.0) mmol/L BUN 50 H (7.0-18.0) mg/dL Creatinine 1.7 H (0.8-1.3) mg/dL Est Cr Clr Drug Dosing 39.94 mL/min Estimated GFR (MDRD) 39.3 ml/min Glucose 103 (74-106) mg/dL Calcium 9.4 (8.5-10.1) mg/dL Magnesium (1.8-2.4) mg/dL B-Natriuretic Peptide (<100) PG/ML Med Orders - Current: Current Medications Hydrocodone Bitart/Acetaminophen ([place] 325-5 Mg) 1 tab PO Q6HR PRN PRN Reason: Pain Apixaban (Eliquis) 5 mg PO BID [facility] Last Admin: 03/13/20 08:42 Dose: 5 mg Documented by: Furosemide (Lasix) 60 mg IVPUSH BIDDIURETIC [facility] Last Admin: 03/13/20 11:17 Dose: 60 mg Documented by: Gabapentin (Neurontin) 300 mg PO BEDTIME [facility] Last Admin: 03/12/20 20:40 Dose: 300 mg Documented by: Sodium Chloride (Normal Saline) 250 mls @ 50 mls/hr IV ASDIRECTED [facility] Levetiracetam (Keppra) 1,000 mg PO BID [facility] Last Admin: 03/13/20 08:42 Dose: 1,000 mg Documented by: Levothyroxine Sodium 112 mcg/ (Levothyroxine Sodium 25 mcg) 137 mcg PO ACBREAKFAST [facility] Last Admin: 03/13/20 06:31 Dose: 137 mcg Documented by: Metoprolol Succinate (Toprol Xl) 25 mg PO BEDTIME [facility] Last Admin: 03/12/20 20:40 Dose: 25 mg Documented by: Potassium Chloride (Klor-Con M20) 20 meq PO BID [facility] Sodium Chloride (Saline Flush) 2.5 ml FLUSH ASDIRECTED PRN PRN Reason: Keep Vein Open Sodium Chloride (Saline Flush) 10 ml FLUSH ASDIRECTED PRN PRN Reason: Keep Vein Open Terazosin HCl (Hytrin) 10 mg PO DAILY [facility] Last Admin: 03/13/20 11:14 Dose: 10 mg Documented by: Discontinued Medications Furosemide (Lasix) 40 mg IVPUSH NOW ONE Stop: 03/11/20 05:51 Last Admin: 03/11/20 05:56 Dose: 40 mg Documented by: Furosemide (Lasix) Confirm Administered Dose 40 mg .ROUTE .STK-MED ONE Stop: 03/11/20 05:51 Last Admin: 03/11/20 05:57 Dose: Not Given Documented by: Furosemide (Lasix) 40 mg IVPUSH BIDDIURETIC [facility] Last Admin: 03/12/20 08:29 Dose: 40 mg Documented by: Lactated Ringer's (Ringers, Lactated) 1,000 mls @ 999 mls/hr IV .BOLUS ONE Stop: 03/11/20 06:32 Last Admin: 03/11/20 05:56 Dose: 999 mls/hr Documented by: Furosemide 40 mg/ Sodium (Chloride) 54 mls @ 100 mls/hr IV ONETIME ONE Stop: 03/11/20 06:04 Last Admin: 03/11/20 05:56 Dose: Not Given Documented by: Potassium Chloride 40 meq/ (Premix) 100 mls @ 25 mls/hr IV ONETIME ONE Stop: 03/13/20 12:44 Last Admin: 03/13/20 09:43 Dose: 25 mls/hr Documented by: Sodium Chloride (Normal Saline) 500 mls @ 50 mls/hr IV ASDIRECTED [facility] Lorazepam (Ativan) 1 mg IVPUSH ONETIME ONE Stop: 03/11/20 16:01 Last Admin: 03/11/20 16:23 Dose: 1 mg Documented by: Melatonin (Melatonin) 9 mg PO ONETIME ONE Stop: 03/11/20 23:00 Last Admin: 03/11/20 23:11 Dose: 9 mg Documented by: Metoprolol Tartrate (Lopressor) 50 mg PO ONETIME ONE Stop: 03/11/20 05:34 Last Admin: 03/11/20 05:56 Dose: 50 mg Documented by: Potassium Chloride (Potassium Chloride) 20 meq PO ONETIME ONE Stop: 03/11/20 13:06 Last Admin: 03/11/20 14:04 Dose: 20 meq Documented by: Potassium Chloride (Klor-Con M20) 40 meq PO ONETIME ONE Stop: 03/13/20 07:36 Last Admin: 03/13/20 08:42 Dose: 40 meq Documented by: - Exam General: Alert, Oriented, Cooperative HEENT: EOMI Lungs: Decreased Breath Sounds, Crackles. No: Wheezing Cardiovascular: Regular Rate, Irregular Rhythm GI/Abdominal Exam: Soft, Non-Tender, No Distention Extremities: Normal Range of Motion, Pedal Edema Sepsis Event Note - Evaluation Sepsis Screening Result: No Definite Risk - Focused Exam Vital Signs: Vital Signs Temp Pulse Resp BP BP Pulse Ox 03/13/20 16:00 97.2 F 64 20 125/86 95 03/13/20 11:14 131/89 03/13/20 11:00 98.1 F 114 H 16 131/81 93 L - Problem List Review Problem List Initiated/Reviewed/Updated: Yes - My Orders Last 24 Hours: My Active Orders 03/13/20 09:00 Sodium Chloride 0.9% [Normal Saline] 250 ml IV ASDIRECTED 03/13/20 21:00 Potassium Chloride [Klor-Con M20] 20 meq PO BID 03/14/20 05:11 BASIC METABOLIC PANEL,BMP [CHEM] Routine CBC WITH AUTO DIFF [HEME] Routine MAGNESIUM [CHEM] Routine - Plan Plan:: Assessment/Plan: CHF: 60mg BID IV Lasix, Fluid restricted diet (1800ml), Strict I&O, Telemetry, Mg above 2, K+ above 4, AM BMP's. Will trend BNP every other day to assess CHF. Patient is schedule for a coronary angiogram 03-16-2020. Patient status has improved with diuresis. Losartan resumed at 25mg daily. Will increase as necessary as patients Systolic BP have been in the 120-130 range. A-FIB Eliquis 5mg BID, Metoprolol 25mg daily Hypothyroidism- 137mcg Levothyroxine daily HTN: Metoprolol 25mg daily, Losartan 25mg daily CAT: Patient is not comfortable using CPAP. States that he feels comfortable with N/C oxygen and sleeping in a recliner at night. <Zahraa Mcneal - Last Filed: 03/14/20 12:57> - Patient Data Vitals - Most Recent: Last Vital Signs Temp 36.9 C 03/14/20 08:00 Pulse 90 03/14/20 10:29 Resp 18 03/14/20 08:00 BP 119/80 03/14/20 10:30 Pulse Ox 93 L 03/14/20 08:00 I&O - Last 24 Hours: Intake & Output 03/13/20 03/14/20 03/14/20 22:59 06:59 14:59 Intake Total 400 1800 Output Total 800 950 Balance -400 850 Lab Results Last 24 Hours: Laboratory Results - last 24 hr 03/13/20 03/14/20 03/14/20 Range/Units 13:06 06:14 06:14 WBC 7.41 (4.0-11.0) K/uL RBC 4.71 (4.50-5.90) M/uL Hgb 14.9 (13.0-17.0) g/dL Hct 44.8 (38.0-50.0) % MCV 95.1 (80.0-98.0) fL MCH 31.6 (27.0-32.0) pg MCHC 33.3 (31.0-37.0) g/dL RDW Std Deviation 43.4 (28.0-62.0) fl RDW Coeff of Mike 13 (11.0-15.0) % Plt Count 143 L (150-400) K/uL MPV 10.60 (7.40-12.00) fL Neut % (Auto) 61.7 (48.0-80.0) % Lymph % (Auto) 27.1 (16.0-40.0) % [place] % (Auto) 7.3 (0.0-15.0) % Eos % (Auto) 3.4 (0.0-7.0) % Baso % (Auto) 0.5 (0.0-1.5) % Neut # (Auto) 4.6 (1.4-5.7) K/uL Lymph # (Auto) 2.0 (0.6-2.4) K/uL [place] # (Auto) 0.5 (0.0-0.8) K/uL Eos # (Auto) 0.3 (0.0-0.7) K/uL Baso # (Auto) 0.0 (0.0-0.1) K/uL Nucleated RBC % 0.0 /100WBC Nucleated RBCs # 0 K/uL Sodium 145 145 (136-148) mmol/L Potassium 3.4 L 2.9 L (3.5-5.1) mmol/L Chloride 102 102 (98-107) mmol/L Carbon Dioxide 34.3 H 36.6 H (21.0-32.0) mmol/L BUN 50 H 41 H (7.0-18.0) mg/dL Creatinine 1.7 H 1.6 H (0.8-1.3) mg/dL Est Cr Clr Drug Dosing 39.94 42.44 mL/min Estimated GFR (MDRD) 39.3 42.1 ml/min Glucose 103 96 (74-106) mg/dL Calcium 9.4 9.3 (8.5-10.1) mg/dL Magnesium 2.0 (1.8-2.4) mg/dL Med Orders - Current: Current Medications Hydrocodone Bitart/Acetaminophen ([place] 325-5 Mg) 1 tab PO Q6HR PRN PRN Reason: Pain Furosemide (Lasix) 60 mg IVPUSH BIDDIURETIC [facility] Last Admin: 03/14/20 08:22 Dose: 60 mg Documented by: Gabapentin (Neurontin) 300 mg PO BEDTIME [facility] Last Admin: 03/13/20 21:39 Dose: 300 mg Documented by: Sodium Chloride (Normal Saline) 250 mls @ 50 mls/hr IV ASDIRECTED [facility] Potassium Chloride 40 meq/ (Premix) 100 mls @ 25 mls/hr IV ONETIME ONE Stop: 03/14/20 14:48 Last Admin: 03/14/20 12:15 Dose: 25 mls/hr Documented by: Levetiracetam (Keppra) 1,000 mg PO BID [facility] Last Admin: 03/14/20 08:23 Dose: 1,000 mg Documented by: Levothyroxine Sodium 112 mcg/ (Levothyroxine Sodium 25 mcg) 137 mcg PO ACBREAKFAST [facility] Last Admin: 03/14/20 06:44 Dose: 137 mcg Documented by: Losartan Potassium (Cozaar) 25 mg PO DAILY [facility] Last Admin: 03/14/20 08:21 Dose: 25 mg Documented by: Metoprolol Succinate (Toprol Xl) 50 mg PO DAILY [facility] Last Admin: 03/14/20 10:29 Dose: 50 mg Documented by: Potassium Chloride (Klor-Con M20) 20 meq PO BID [facility] Last Admin: 03/14/20 10:31 Dose: Not Given Documented by: Sodium Chloride (Saline Flush) 2.5 ml FLUSH ASDIRECTED PRN PRN Reason: Keep Vein Open Sodium Chloride (Saline Flush) 10 ml FLUSH ASDIRECTED PRN PRN Reason: Keep Vein Open Terazosin HCl (Hytrin) 10 mg PO DAILY [facility] Last Admin: 03/14/20 10:30 Dose: 10 mg Documented by: Discontinued Medications Apixaban (Eliquis) 5 mg PO BID [facility] Last Admin: 03/13/20 08:42 Dose: 5 mg Documented by: Apixaban (Eliquis) 5 mg PO ONETIME ONE Stop: 03/13/20 19:26 Furosemide (Lasix) 40 mg IVPUSH NOW ONE Stop: 03/11/20 05:51 Last Admin: 03/11/20 05:56 Dose: 40 mg Documented by: Furosemide (Lasix) Confirm Administered Dose 40 mg .ROUTE .STK-MED ONE Stop: 03/11/20 05:51 Last Admin: 03/11/20 05:57 Dose: Not Given Documented by: Furosemide (Lasix) 40 mg IVPUSH BIDDIURETIC [facility] Last Admin: 03/12/20 08:29 Dose: 40 mg Documented by: Furosemide (Lasix) 40 mg IVPUSH DAILY ONE Stop: 03/14/20 12:01 Last Admin: 03/14/20 12:12 Dose: 40 mg Documented by: Lactated Ringer's (Ringers, Lactated) 1,000 mls @ 999 mls/hr IV .BOLUS ONE Stop: 03/11/20 06:32 Last Admin: 03/11/20 05:56 Dose: 999 mls/hr Documented by: Furosemide 40 mg/ Sodium (Chloride) 54 mls @ 100 mls/hr IV ONETIME ONE Stop: 03/11/20 06:04 Last Admin: 03/11/20 05:56 Dose: Not Given Documented by: Potassium Chloride 40 meq/ (Premix) 100 mls @ 25 mls/hr IV ONETIME ONE Stop: 03/13/20 12:44 Last Admin: 03/13/20 09:43 Dose: 25 mls/hr Documented by: Sodium Chloride (Normal Saline) 500 mls @ 50 mls/hr IV ASDIRECTED [facility] Furosemide 40 mg/ Sodium (Chloride) 54 mls @ 100 mls/hr IV ONETIME ONE Stop: 03/14/20 12:32 Lorazepam (Ativan) 1 mg IVPUSH ONETIME ONE Stop: 03/11/20 16:01 Last Admin: 03/11/20 16:23 Dose: 1 mg Documented by: Melatonin (Melatonin) 9 mg PO ONETIME ONE Stop: 03/11/20 23:00 Last Admin: 03/11/20 23:11 Dose: 9 mg Documented by: Metoprolol Succinate (Toprol Xl) 25 mg PO BEDTIME [facility] Last Admin: 03/13/20 21:39 Dose: 25 mg Documented by: Metoprolol Succinate (Toprol Xl) 25 mg PO BID [facility] Metoprolol Tartrate (Lopressor) 50 mg PO ONETIME ONE Stop: 03/11/20 05:34 Last Admin: 03/11/20 05:56 Dose: 50 mg Documented by: Potassium Chloride (Potassium Chloride) 20 meq PO ONETIME ONE Stop: 03/11/20 13:06 Last Admin: 03/11/20 14:04 Dose: 20 meq Documented by: Potassium Chloride (Klor-Con M20) 40 meq PO ONETIME ONE Stop: 03/13/20 07:36 Last Admin: 03/13/20 08:42 Dose: 40 meq Documented by: Potassium Chloride (Klor-Con M20) 40 meq PO ONETIME ONE Stop: 03/14/20 07:58 Last Admin: 03/14/20 08:22 Dose: 40 meq Documented by: Sepsis Event Note - Focused Exam Vital Signs: Vital Signs Temp Pulse Pulse Resp BP BP Pulse Ox 03/14/20 10:30 119/80 03/14/20 10:29 90 119/88 03/14/20 08:21 119/88 03/14/20 08:00 36.9 C 90 18 116/88 93 L 03/14/20 04:00 36.4 C 77 18 126/90 93 L - Problem List & Annotations (1) Acute exacerbation of congestive heart failure SNOMED Code(s): 513578436, 69489191427019 Code(s): I50.9 - HEART FAILURE, UNSPECIFIED Status: Acute Current Visit: Yes Qualifiers: Heart failure type: systolic Qualified Code(s): I50.23 - Acute on chronic systolic (congestive) heart failure (2) Acute kidney injury SNOMED Code(s): 02112064, 92415169 Code(s): N17.9 - ACUTE KIDNEY FAILURE, UNSPECIFIED Status: Acute Current Visit: Yes (3) CAT (obstructive sleep apnea) SNOMED Code(s): 52369784 Code(s): G47.33 - OBSTRUCTIVE SLEEP APNEA (ADULT) (PEDIATRIC) Status: Acute Current Visit: Yes - Plan Plan:: I have seen and evaluated the patient and agree with the residents note unless specified in my note
--- NOTE | 2020-03-13 17:29 | PCM.SN.2 ---
<Joshua Post - Last Filed: 03/13/20 17:24> - Free Text/Narrative Note: Attempt was made to transfer patient for an urgent Coronary Angiogram as patient has new onset CHF, alternating Tachycardia and bradycardia episodes, A-Fib history. Attempts were made to transfer patient to [facility] but they did not have available beds. Another attempt was made to transfer to [facility] but patient was not accepted by cardiology as they did not feel patients status warranted an immediate transfer. Recommendation was made to continue to diuresis patient and schedule angiogram as an outpatient GABE. <Zahraa Mcneal - Last Filed: 03/14/20 12:56> - Free Text/Narrative Note: I have seen and evaluated the patient and agree with the residents note unless specified in my note
[2020-03-13] MEDS ORDERED: Apixaban 5 MG Tab PO ONE (19:25)
[2020-03-13] MEDS: Losartan 50 MG Tab PO SCH (19:49)
[2020-03-13] MEDS: Metoprolol Succinate 25 MG Tab.ER PO SCH (21:39)
[2020-03-13] MEDS: Gabapentin 300 MG Cap PO SCH (21:39)
[2020-03-13] MEDS: Potassium Chloride 20 MEQ Tab.ER PO SCH (21:39)
[2020-03-14 06:57] LABS: CARBON DIOXIDE,CO2 36.6 mmol/L (21.0-32.0); POTASSIUM,K 2.9 mmol/L (3.5-5.1)
[2020-03-14] MEDS ORDERED: Potassium Chloride 20 MEQ Tab.ER PO ONE (07:57)
[2020-03-14] MEDS: Losartan 50 MG Tab PO SCH (08:21)
[2020-03-14] MEDS: Furosemide 40 MG/4 ML VIAL IVPUSH SCH ×2 (08:22→15:06)
[2020-03-14] MEDS: levETIRAcetam 500 MG Tab PO SCH (08:23)
[2020-03-14] MEDS ORDERED: Metoprolol Succinate 50 MG Tab.ER PO SCH (09:00)
[2020-03-14] MEDS ORDERED: Metoprolol Succinate 25 MG Tab.ER PO SCH (09:00)
[2020-03-14] MEDS: Terazosin 5 MG Cap PO SCH (10:30)
[2020-03-14] MEDS: Potassium Chloride 20 MEQ Tab.ER PO SCH (10:31)
[2020-03-14] MEDS ORDERED: Potassium Chloride Riders 40 MEQ in Premix Bag 1 BAG IV ONE (10:49)
[2020-03-14] MEDS ORDERED: Furosemide 40 MG/4 ML VIAL IVPUSH ONE (12:00)
[2020-03-14] MEDS ORDERED: Furosemide 40 MG in Sodium Chloride 0.9% 50 ML IV ONE (12:00)
--- NOTE | 2020-03-14 12:48 | PCM.DCSUM1 ---
Discharge Summary - Hospital Course Free Text/Narrative:: 75-year-old male admitted to the medical floor for CHF exacerbation. Patient has a past medical history of congestive heart failure, atrial fibrillation on Eliquis, CAT on CPAP, hypertension, hypothyroidism. Patient was admitted in February 2020 for new onset congestive heart failure and atrial fibrillation with RVR. Patient had an echo during admission which revealed a LVEF of 15% and a BNP of 1312. Patient was treated with aggressive IV lasix, placed on a Fluid restricted diet (1800ml), continued on losartan, metoprolol, eliquis. Patient has been scheduled for a coronary angiogram on 03-16-2020. Patient status has improved with diuresis. Denies SOB, chest pain, chest pressure, nausea, fever, chills on discharge. On discharge patient advised to resume all home medications. Patient should be on 50mg Metoprolol daily. Losartan dose reduced to 50mg daily as patient was having hypotensive episodes during admission. PCP may titrate up if needed. Eliquis held prior to angiogram procedure and patient may resume eliquis after angiogram. - Discharge Data Discharge Date: 03/14/20 Discharge Disposition: Home, Self-Care 01 Condition: Stable - Referral to Home Health Primary Care Physician: Bryant Mccauley MD - Patient Instructions Diet: Usual Diet as Tolerated Fluid Restriction: 1500 mL Driving: Do Not Drive Showering/Bathing: May Shower Notify Provider of: Fever, Increased Pain, Swelling and Redness, Nausea and/or Vomiting Other/Special Instructions: Patient to resume all home medications. Losartan dose reduced to 50mg due to patient having bouts of hypotension duiring admission, can increase based on primary care recommendation. Metoprolol dose should be 50mg Daily. Eliquis to be held until angiogram procedure on 03-16-2020. Patient may resume eliquis as previouslly prescribed after procedure. - Discharge Plan Prescriptions/Med Rec: Losartan [Cozaar] 25 mg PO DAILY 90 Days #90 tablet Eplerenone [Inspra] 50 mg PO BID 90 Days #180 Potassium Chloride [Klor-Con M20] 20 meq PO BID 90 Days #180 tab.er Furosemide [Lasix] 40 mg PO BID 90 Days #180 tablet Metoprolol Succinate [Toprol XL 50mg] 50 mg PO DAILY 90 Days #90 tab.er Home Medications: Home Meds Cholecalciferol (Vitamin D3) [D3-2000] 1 tab PO DAILY 01/09/18 [History] Flaxseed Oil [Flaxseed] 1,400 mg PO DAILY 01/09/18 [History] Levothyroxine 137 mcg PO DAILY 01/09/18 [History] Magnesium 250 mg PO DAILY 01/09/18 [History] Melatonin 20 mg PO BEDTIME 01/09/18 [History] Prevagen 1 tab PO DAILY 01/09/18 [History] Terazosin HCl [Terazosin] 10 mg PO DAILY 01/09/18 [History] levETIRAcetam [Spritam] 1,000 mg PO BID 01/09/18 [History] Gabapentin [Neurontin] 1 cap PO BEDTIME 02/03/20 [History] Apixaban [Eliquis] 5 mg PO BID #60 tablet 02/05/20 [Rx] Eplerenone [Inspra] 50 mg PO BID 90 Days #180 03/14/20 [Rx] Furosemide [Lasix] 40 mg PO BID 90 Days #180 tablet 03/14/20 [Rx] Losartan [Cozaar] 25 mg PO DAILY 90 Days #90 tablet 03/14/20 [Rx] Metoprolol Succinate [Toprol XL 50mg] 50 mg PO DAILY 90 Days #90 tab.er 03/14/20 [Rx] Potassium Chloride [Klor-Con M20] 20 meq PO BID 90 Days #180 tab.er 03/14/20 [Rx] Patient Handouts: Acute Kidney Injury, Adult, Furosemide tablets, Metoprolol extended-release tablets, Losartan tablets, Heart Failure, Self Care, [id number], Potassium Phosphate oral tablets, Eplerenone tablets, Nonspecific Chest Pain, Adult, [id number], Living With Heart Failure Referrals: Chyna Woody MD [Physician] - 04/11/20 9:00 am Bryant Mccauley MD [Primary Care Provider] - 03/21/20 7:45 am - Discharge Summary/Plan Comment DC Time >30 min.: Yes (reviewed medications and follow up care) - General Info Date of Service: 03/14/20 Subjective Update: Patient denies SOB, chest pain, orthopnea, fever, chills, nausea. States that his legs are less swollen. - Review of Systems General: Denies: Fever, Weakness HEENT: Denies: Dysphasia, Headaches Pulmonary: Denies: Shortness of Breath, Pleuritic Chest Pain, Cough Cardiovascular: Reports: Dyspnea on Exertion, Edema. Denies: Chest Pain, Palpitations Gastrointestinal: Denies: Abdominal Pain, Decreased Appetite, Diarrhea Musculoskeletal: Denies: Back Pain Neurological: Denies: Confusion, Dizziness - Patient Data Vitals - Most Recent: Last Vital Signs Temp 98.4 F 03/14/20 08:00 Pulse 90 03/14/20 10:29 Resp 18 03/14/20 08:00 BP 119/80 03/14/20 10:30 Pulse Ox 93 L 03/14/20 08:00 Weight - Most Recent: 194 lb 9.6 oz I&O - Last 24 hours: Intake & Output 03/13/20 03/14/20 03/14/20 22:59 06:59 14:59 Intake Total 400 1800 Output Total 800 950 Balance -400 850 Lab Results - Last 24 hrs: Laboratory Results - last 24 hr 03/13/20 03/14/20 03/14/20 Range/Units 13:06 06:14 06:14 WBC 7.41 (4.0-11.0) K/uL RBC 4.71 (4.50-5.90) M/uL Hgb 14.9 (13.0-17.0) g/dL Hct 44.8 (38.0-50.0) % MCV 95.1 (80.0-98.0) fL MCH 31.6 (27.0-32.0) pg MCHC 33.3 (31.0-37.0) g/dL RDW Std Deviation 43.4 (28.0-62.0) fl RDW Coeff of Mike 13 (11.0-15.0) % Plt Count 143 L (150-400) K/uL MPV 10.60 (7.40-12.00) fL Neut % (Auto) 61.7 (48.0-80.0) % Lymph % (Auto) 27.1 (16.0-40.0) % [place] % (Auto) 7.3 (0.0-15.0) % Eos % (Auto) 3.4 (0.0-7.0) % Baso % (Auto) 0.5 (0.0-1.5) % Neut # (Auto) 4.6 (1.4-5.7) K/uL Lymph # (Auto) 2.0 (0.6-2.4) K/uL [place] # (Auto) 0.5 (0.0-0.8) K/uL Eos # (Auto) 0.3 (0.0-0.7) K/uL Baso # (Auto) 0.0 (0.0-0.1) K/uL Nucleated RBC % 0.0 /100WBC Nucleated RBCs # 0 K/uL Sodium 145 145 (136-148) mmol/L Potassium 3.4 L 2.9 L (3.5-5.1) mmol/L Chloride 102 102 (98-107) mmol/L Carbon Dioxide 34.3 H 36.6 H (21.0-32.0) mmol/L BUN 50 H 41 H (7.0-18.0) mg/dL Creatinine 1.7 H 1.6 H (0.8-1.3) mg/dL Est Cr Clr Drug Dosing 39.94 42.44 mL/min Estimated GFR (MDRD) 39.3 42.1 ml/min Glucose 103 96 (74-106) mg/dL Calcium 9.4 9.3 (8.5-10.1) mg/dL Magnesium 2.0 (1.8-2.4) mg/dL Med Orders - Current: Current Medications Hydrocodone Bitart/Acetaminophen ([place] 325-5 Mg) 1 tab PO Q6HR PRN PRN Reason: Pain Furosemide (Lasix) 60 mg IVPUSH BIDDIURETIC [facility] Last Admin: 03/14/20 08:22 Dose: 60 mg Documented by: Gabapentin (Neurontin) 300 mg PO BEDTIME [facility] Last Admin: 03/13/20 21:39 Dose: 300 mg Documented by: Sodium Chloride (Normal Saline) 250 mls @ 50 mls/hr IV ASDIRECTED [facility] Potassium Chloride 40 meq/ (Premix) 100 mls @ 25 mls/hr IV ONETIME ONE Stop: 03/14/20 14:48 Last Admin: 03/14/20 12:15 Dose: 25 mls/hr Documented by: Levetiracetam (Keppra) 1,000 mg PO BID [facility] Last Admin: 03/14/20 08:23 Dose: 1,000 mg Documented by: Levothyroxine Sodium 112 mcg/ (Levothyroxine Sodium 25 mcg) 137 mcg PO ACBREAKFAST [facility] Last Admin: 03/14/20 06:44 Dose: 137 mcg Documented by: Losartan Potassium (Cozaar) 25 mg PO DAILY [facility] Last Admin: 03/14/20 08:21 Dose: 25 mg Documented by: Metoprolol Succinate (Toprol Xl) 50 mg PO DAILY [facility] Last Admin: 03/14/20 10:29 Dose: 50 mg Documented by: Potassium Chloride (Klor-Con M20) 20 meq PO BID [facility] Last Admin: 03/14/20 10:31 Dose: Not Given Documented by: Sodium Chloride (Saline Flush) 2.5 ml FLUSH ASDIRECTED PRN PRN Reason: Keep Vein Open Sodium Chloride (Saline Flush) 10 ml FLUSH ASDIRECTED PRN PRN Reason: Keep Vein Open Terazosin HCl (Hytrin) 10 mg PO DAILY [facility] Last Admin: 03/14/20 10:30 Dose: 10 mg Documented by: Discontinued Medications Apixaban (Eliquis) 5 mg PO BID [facility] Last Admin: 03/13/20 08:42 Dose: 5 mg Documented by: Apixaban (Eliquis) 5 mg PO ONETIME ONE Stop: 03/13/20 19:26 Furosemide (Lasix) 40 mg IVPUSH NOW ONE Stop: 03/11/20 05:51 Last Admin: 03/11/20 05:56 Dose: 40 mg Documented by: Furosemide (Lasix) Confirm Administered Dose 40 mg .ROUTE .STK-MED ONE Stop: 03/11/20 05:51 Last Admin: 03/11/20 05:57 Dose: Not Given Documented by: Furosemide (Lasix) 40 mg IVPUSH BIDDIURETIC [facility] Last Admin: 03/12/20 08:29 Dose: 40 mg Documented by: Furosemide (Lasix) 40 mg IVPUSH DAILY ONE Stop: 03/14/20 12:01 Last Admin: 03/14/20 12:12 Dose: 40 mg Documented by: Lactated Ringer's (Ringers, Lactated) 1,000 mls @ 999 mls/hr IV .BOLUS ONE Stop: 03/11/20 06:32 Last Admin: 03/11/20 05:56 Dose: 999 mls/hr Documented by: Furosemide 40 mg/ Sodium (Chloride) 54 mls @ 100 mls/hr IV ONETIME ONE Stop: 03/11/20 06:04 Last Admin: 03/11/20 05:56 Dose: Not Given Documented by: Potassium Chloride 40 meq/ (Premix) 100 mls @ 25 mls/hr IV ONETIME ONE Stop: 03/13/20 12:44 Last Admin: 03/13/20 09:43 Dose: 25 mls/hr Documented by: Sodium Chloride (Normal Saline) 500 mls @ 50 mls/hr IV ASDIRECTED [facility] Furosemide 40 mg/ Sodium (Chloride) 54 mls @ 100 mls/hr IV ONETIME ONE Stop: 03/14/20 12:32 Lorazepam (Ativan) 1 mg IVPUSH ONETIME ONE Stop: 03/11/20 16:01 Last Admin: 03/11/20 16:23 Dose: 1 mg Documented by: Melatonin (Melatonin) 9 mg PO ONETIME ONE Stop: 03/11/20 23:00 Last Admin: 03/11/20 23:11 Dose: 9 mg Documented by: Metoprolol Succinate (Toprol Xl) 25 mg PO BEDTIME [facility] Last Admin: 03/13/20 21:39 Dose: 25 mg Documented by: Metoprolol Succinate (Toprol Xl) 25 mg PO BID [facility] Metoprolol Tartrate (Lopressor) 50 mg PO ONETIME ONE Stop: 03/11/20 05:34 Last Admin: 03/11/20 05:56 Dose: 50 mg Documented by: Potassium Chloride (Potassium Chloride) 20 meq PO ONETIME ONE Stop: 03/11/20 13:06 Last Admin: 03/11/20 14:04 Dose: 20 meq Documented by: Potassium Chloride (Klor-Con M20) 40 meq PO ONETIME ONE Stop: 03/13/20 07:36 Last Admin: 03/13/20 08:42 Dose: 40 meq Documented by: Potassium Chloride (Klor-Con M20) 40 meq PO ONETIME ONE Stop: 03/14/20 07:58 Last Admin: 03/14/20 08:22 Dose: 40 meq Documented by: - Exam General: Reports: Alert, Oriented, Cooperative HEENT: Reports: EOMI Lungs: Reports: Clear to Auscultation, Normal Respiratory Effort. Denies: Crackles, Wheezing Cardiovascular: Reports: Regular Rate, Irregular Rhythm GI/Abdominal Exam: Soft, Non-Tender, No Distention Back Exam: Reports: Normal Inspection Extremities: Normal Range of Motion Skin: Reports: Warm, Dry Neurological: Reports: Normal Gait, Normal Speech Psy/Mental Status: Reports: Alert
[2020-03-14 16:59] VITALS: BP 120/73; PULSE 82
--- NOTE | 2020-03-15 11:58 | ECHO ---
EXAM DATE: 03/11/20 PATIENT'S AGE: 75 The ECHO report has been scanned into [facility] and can be seen in this patient's EMR (Electronic Medical Record) under the REPORTS section. The report has also been scanned into PACS. SELVIN
== END 2020-03-14 17:12 | disposition home or self-care (01) ==
LOC: MW.ED 04:41 → MW.MS 05:35
PROVIDERS: ADMIT Student in an Organized Health Care Education/Training Program; ATTEND Student in an Organized Health Care Education/Training Program
DX: I11.0 Hypertensive heart disease with heart failure (principal); I50.23 Acute on chronic systolic (congestive) heart failure; N17.9 Acute kidney failure, unspecified; I48.91 Unspecified atrial fibrillation; G47.33 Obstructive sleep apnea (adult) (pediatric); E03.9 Hypothyroidism, unspecified; Z79.890 Hormone replacement therapy; Z79.899 Other long term (current) drug therapy; Z99.89 Dependence on other enabling machines and devices; Z20.828 Contact with and (suspected) exposure to other viral communicable diseases
CPT/HCPCS: 36415; 71046; 80048; 80053; 82803; 83735; 83880; 84100; 84484; 85025; 93005; 93306; 94660; 96361; 96374; 96375; 96376; 99285; A9270; G0378; J1940; J2060; J3480; J7120; U0002; 99283

== ENCOUNTER 2020-04-07 13:56 | Emergency (ER) | payer MEDICARE ==
[2020-04-07] MEDS ORDERED: Lidocaine 1% with EPINEPHrine 1:100,000 20 ML MDV ONE (14:03)
--- NOTE | 2020-04-07 14:07 | EDM.PDOC ---
ED HPI GENERAL MEDICAL PROBLEM - General Chief Complaint: ENT Problem Stated Complaint: UNCONTROLLED NOSE BLEED Time Seen by Provider: 04/07/20 14:02 Source of Information: Reports: Patient History Limitations: Reports: No Limitations - History of Present Illness INITIAL COMMENTS - FREE TEXT/NARRATIVE: 75M presents for R nare epistaxis. Patient notes that he started blood thinner elaquis about 2-months ago for new onset afib. This afternoon roughly 2-hr [employer], he noted atraumatic R nare bleeding. He feels blood running down nose and throat. Has attempted manual pressure without relief. He called EMS 2/2 large amount of bleeding. They also attempted manual pressure withotu relief. He denies SOB, dizziness, lightheadedness. - Related Data Allergies Allergy/AdvReac Type Severity Reaction Status Date / Time No Known Allergies Allergy Verified 04/07/20 14:09 Home Meds: Home Meds Cholecalciferol (Vitamin D3) [D3-2000] 1 tab PO DAILY 01/09/18 [History] Flaxseed Oil [Flaxseed] 1,400 mg PO DAILY 01/09/18 [History] Levothyroxine 137 mcg PO DAILY 01/09/18 [History] Magnesium 250 mg PO DAILY 01/09/18 [History] Melatonin 20 mg PO BEDTIME 01/09/18 [History] Prevagen 1 tab PO DAILY 01/09/18 [History] Terazosin HCl [Terazosin] 10 mg PO DAILY 01/09/18 [History] levETIRAcetam [Spritam] 1,000 mg PO BID 01/09/18 [History] Gabapentin [Neurontin] 1 cap PO BEDTIME 02/03/20 [History] Apixaban [Eliquis] 5 mg PO BID #60 tablet 02/05/20 [Rx] Eplerenone [Inspra] 50 mg PO BID 90 Days #180 03/14/20 [Rx] Furosemide [Lasix] 40 mg PO BID 90 Days #180 tablet 03/14/20 [Rx] Losartan [Cozaar] 25 mg PO DAILY 90 Days #90 tablet 03/14/20 [Rx] Metoprolol Succinate [Toprol XL 50mg] 50 mg PO DAILY 90 Days #90 tab.er 03/14/20 [Rx] Potassium Chloride [Klor-Con M20] 20 meq PO BID 90 Days #180 tab.er 03/14/20 [Rx] Past Medical History HEENT History: Reports: None Cardiovascular History: Reports: None Respiratory History: Reports: Sleep Apnea Other Respiratory History: CPAP Gastrointestinal History: Reports: None Genitourinary History: Reports: BPH Musculoskeletal History: Reports: None Neurological History: Reports: Seizure Psychiatric History: Reports: None Endocrine/Metabolic History: Reports: None Insulin Pump Model and Counselor Aide: None Hematologic History: Reports: None Immunologic History: Reports: None Oncologic (Cancer) History: Reports: None Dermatologic History: Reports: None - Infectious Disease History Infectious Disease History: Reports: None - Past Surgical History Head Surgeries/Procedures: Reports: None HEENT Surgical History: Reports: None Cardiovascular Surgical History: Reports: None Respiratory Surgical History: Reports: None GI Surgical History: Reports: Hernia Repair/Other Endocrine Surgical History: Reports: None Musculoskeletal Surgical History: Reports: Other (See Below) Other Musculoskeletal Surgeries/Procedures:: neck fusion Oncologic Surgical History: Reports: None Dermatological Surgical History: Reports: None Social & Family History - Family History Family Medical History: Noncontributory - Caffeine Use Caffeine Use: Reports: None ED ROS GENERAL - Review of Systems Review Of Systems: Comprehensive ROS is negative, except as noted in HPI. ED EXAM, GENERAL - Physical Exam Exam: See Below Exam Limited By: No Limitations General Appearance: Alert, WD/WN, No Apparent Distress Ears: Normal External Exam Nose: Other (large amount of oozing bleeding from R nare) Throat/Mouth: Other (large amount of blood in oropharynx) Head: Atraumatic, Normocephalic Neck: Normal Inspection Respiratory/Chest: No Respiratory Distress, No Accessory Muscle Use Cardiovascular: Normal Peripheral Pulses Extremities: Normal Inspection Neurological: Alert Psychiatric: Normal Affect, Normal Mood Skin Exam: Warm, Dry, Intact, Normal Color Course - Vital Signs Last Recorded V/S: Last Vital Signs Temp 97.8 F 04/07/20 14:07 Pulse 104 H 04/07/20 14:07 Resp 16 04/07/20 14:07 BP 125/74 04/07/20 14:07 Pulse Ox 98 04/07/20 14:07 - Orders/Labs/Meds Labs: Laboratory Tests 04/07/20 04/07/20 Range/Units 14:11 14:11 WBC 6.12 (4.0-11.0) K/uL RBC 4.22 L (4.50-5.90) M/uL Hgb 13.3 (13.0-17.0) g/dL Hct 40.9 (38.0-50.0) % MCV 96.9 (80.0-98.0) fL MCH 31.5 (27.0-32.0) pg MCHC 32.5 (31.0-37.0) g/dL RDW Std Deviation 46.1 (28.0-62.0) fl RDW Coeff of Mike 13 (11.0-15.0) % Plt Count 153 (150-400) K/uL MPV 10.50 (7.40-12.00) fL Nucleated RBC % 0.0 /100WBC Nucleated RBCs # 0 K/uL INR 1.40 APTT 31.0 (18.6-31.3) SEC Meds: Medications Discontinued Medications Generic Name Dose Route Start Last Admin Trade Name Freq PRN Reason Stop Dose Admin Lidocaine/Epinephrine 20 ml 04/07/20 14:03 04/07/20 14:31 Xylocaine 1% With Epinephrine 1:100,000 .XX 04/07/20 14:04 20 ml ONETIME ONE Administration Tranexamic Acid 1,000 mg 04/07/20 14:03 04/07/20 14:34 Cyklokapron TOP 04/07/20 14:13 1,000 mg ONETIME ONE Administration - Re-Assessments/Exams Free Text/Narrative Re-Assessment/Exam: 04/07/20 14:[address] rhino rocket, will get CBC and coag to ensure no gross abnormality 04/07/20 14:34 Rhino rocket placed without complications; will f/u labs and will monitor for repeat bleeding 04/07/20 14:41 Labs unremarkable; will obs to 1500 and d/c home w/ ENT f/u Departure - Departure Time of Disposition: 15:00 Disposition: Home, Self-Care 01 Condition: Good Clinical Impression: Epistaxis - Discharge Information Forms: ED Department Discharge Additional Instructions: The following information is given to patients seen in the emergency department who are being discharged to home. This information is to outline your options for follow-up care. We provide all patients seen in our emergency department with a follow-up referral. The need for follow-up, as well as the timing and circumstances, are variable depending upon the specifics of your emergency department visit. If you don't have a primary care physician on staff, we will provide you with a referral. We always advise you to contact your personal physician following an emergency department visit to inform them of the circumstance of the visit and for follow-up with them and/or the need for any referrals to a consulting specialist. The emergency department will also refer you to a specialist when appropriate. This referral assures that you have the opportunity for follow-up care with a specialist. All of these measure are taken in an effort to provide you with optimal care, which includes your follow-up. Under all circumstances we always encourage you to contact your private physician who remains a resource for coordinating your care. When calling for follow-up care, please make the office aware that this follow-up is from your recent emergency room visit. If for any reason you are refused follow-up, please contact the [facility] Emergency Department at and asked to speak to the emergency department charge nurse. Please follow up with an [id number] doctor for nasal packing removal and reassessment. It is important that you do not leave in the nasal packing for >3 days as there is a risk of developing a severe infection if it is left in [facility] [phone] [place] [address] Dr. Deny Lewis [phone] [facility] [address] [place] [address] Sepsis Event Note (ED) - Focused Exam Vital Signs: Vital Signs Temp Pulse Resp BP Pulse Ox 04/07/20 14:07 97.8 F 104 H 16 125/74 98
[2020-04-07 14:47] VITALS: BP 113/75; PULSE 81
== END 2020-04-07 15:16 | disposition home or self-care (01) ==
LOC: MW.ED 13:56
DX: R04.0 Epistaxis (principal); R56.9 Unspecified convulsions; I48.91 Unspecified atrial fibrillation; Z79.899 Other long term (current) drug therapy; Z79.01 Long term (current) use of anticoagulants
CPT/HCPCS: 30901; 30903; 36415; 85027; 85610; 85730; 99282; 99284-25

== ENCOUNTER 2020-06-25 18:04 | Inpatient (IN) | payer MEDICARE ==
[2020-06-25] MEDS ORDERED: Sodium Chloride 0.9% 10 ML Syringe FLUSH PRN (18:31)
[2020-06-25] MEDS ORDERED: Sodium Chloride 0.9% 2.5 ML Syringe FLUSH PRN (18:31)
--- NOTE | 2020-06-25 18:34 | PCM.SN.2 ---
- Free Text/Narrative Note: EKG obtained at 1830 on 06/25/2020 demonstrates A. fib with a rate of 83 some nonspecific diffuse T wave abnormalities but no acute ischemia QTC is normal at 470
--- NOTE | 2020-06-25 18:43 | EDM.PDOC ---
ED HPI GENERAL MEDICAL PROBLEM - General Chief Complaint: General Stated Complaint: SICK Time Seen by Provider: 06/25/20 18:05 Source of Information: Reports: Patient History Limitations: Reports: No Limitations - History of Present Illness INITIAL COMMENTS - FREE TEXT/NARRATIVE: HISTORY AND PHYSICAL: History of present illness: Patient is a 75-year-old male who presents to the emergency room with complaints of weakness, shortness of breath, back pain and feeling unsteady on his feet. He has been a patient of Dr Woody (cardiology) over the past 2 months for increased shortness of breath. He states over the past 2 months he has also had frequent falls due to being "unsteady of his feet, last fall was 2 days ago. He fell backwards and he hit his back and hit the back of his head. He denies any loss of consciousness or blacking/passing out. 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 Patient denies any fever, chills, headache, change in vision, syncope or near syncope. Denies any chest pain or cough. Denies any abdominal pain, nausea, vomiting, diarrhea, constipation or dysuria. Has not noted any blood in urine or stool. Patient has been eating and drinking appropriately. Past medical history of congestive heart failure, atrial fibrillation on Eliquis, CAT on CPAP, hypertension and hypothyroidism. Review of systems: As per history of present illness and below otherwise all systems reviewed and negative. Past medical history: As per history of present illness and as reviewed below otherwise noncontributory. Surgical history: As per history of present illness and as reviewed below otherwise noncontributory. Social history: See social history for further information Family history: As per history of present illness and as reviewed below otherwise noncontributory. Physical exam: General: Chronically ill appearing 75 year old male. Alert and orientated x 3. Nontoxic in appearance and in no acute distress. Vital signs have been reviewed by me. Nursing notes were reviewed. HEENT: Nontender, no obvious injury or crepitus. Normocephalic, pupils equal and reactive bilaterally, negative for conjunctival pallor or scleral icterus, mucous membranes moist, TMs normal bilaterally, throat clear, neck supple, nontender, trachea midline. No drooling or trismus noted. No meningeal signs. Speech is clear. Answers questions appropriately. No hot potato voice noted. Lungs: Slightly diminished to auscultation, breath sounds equal bilaterally, chest nontender. Normal work of breathing, no accessory muscles used. Heart: S1S2, regular rate and rhythm without overt murmur Abdomen: Soft, nondistended, nontender. Negative for masses or costovertebral tenderness. Pelvis: Stable nontender. C-spine/Back: No pinpoint vertebral tenderness upon palpation. No crepitus, step-offs or obvious deformities. Paraspinous muscular tenderness to cervical spine bilaterally. He does have some skin breakdown above coccyx area (SEE SKIN/RECTAL). Patient is ambulatory into the emergency room with standby assist. Denies any urinary or fecal incontinence (has urgency incontinence at times). Denies any numbness, tingling or saddle paresthesia. No concerns of serious infection, fracture or cord compression, or cauda equina syndrome. Rectal: This was done with consent and a manager intensive care unit at the bedside. Good rectal tone. Negative Hemoccult stool. Skin: Various bruising and healing abrasions throughout the body. intact, warm, dry. No lesions or rashes noted. Hematologic: No petechiae or purpra. Mucosa appropriate color and normal nail bed color and refill. Extremities: Moves all extremities per self without difficulty or deficits, SEE SKIN and BACK for details. +1/+2 pitting edema to bilateral LE. Strong pedal pulses bilaterally. +CMS. Neurovascular unremarkable. Neuro: Awake, alert, oriented. Cranial nerves II through XII unremarkable. Cerebellum unremarkable. Motor and sensory unremarkable throughout. Exam nonfocal. Psychiatric: Mood and affect are appropriate. Normal thought process. Answering questions appropriately. Notes: Myocardial perfusion study on 02/17/2020 showed enlarged LV cavity with LVEF 22%, possible inferior wall infarct, no evidence of reversible ischemia. Patient's blood pressure is low; he does have a history of CHF with lower extremity swelling. Even with this history, I feel he needs some fluids to facilitate blood pressure. Chest x-ray shows cardiomegaly, stable. No acute airspace disease. EKG shows atrial fibrillation with rate of 83. No concern for STEMI. Negative troponin. Elevated BNP of 2325. BUN and Creatinine are elevated 56/2.4; does have a history of renal insufficiency although hasn't been this high. Pelvis x-ray shows no fractures. Patient has been up to the bathroom to have a bowel movement, transfer with standby assistance. Awaiting CT results. Head CT shows age-related changes of the brain without acute intracranial abnormality. C-spine shows moderate to severe degenerative changes of the cervical spine without acute osseous abnormality. Chest CT demonstrates of a new right basilar effusion with adjacent compressive atelectasis with partial visualization of ascites within the upper quadrants of the abdomen. These findings may represent sequela of liver disease. Correlate with history of clinical symptoms and laboratory testing. Dr Whalen was consulted on this patient, he is agreeable to keeping patient for further care and management. Will place on telemetry. Diagnostics: CBC, CMP, Lactate, EKG, Troponin, CXR, Pelvis 1-view, CT head/c-spine, Chest CT, [employer]: LR @125, Lasix Impression: Frequent falls History of Atrial Fibrillation LENO Congestive heart failure, exacerbation Plan: Inpatient admission to Med/Surg with telemetry Definitive disposition and diagnosis as appropriate pending reevaluation and review of above. Back pain Pain Score (Numeric/FACES): 10 - Related Data Allergies Allergy/AdvReac Type Severity Reaction Status Date / Time No Known Allergies Allergy Verified 06/25/20 18:28 Home Meds: Home Meds Cholecalciferol (Vitamin D3) [D3-2000] 1 tab PO DAILY 01/09/18 [History] Flaxseed Oil [Flaxseed] 1,400 mg PO DAILY 01/09/18 [History] Levothyroxine 137 mcg PO DAILY 01/09/18 [History] Magnesium 250 mg PO DAILY 01/09/18 [History] Melatonin 20 mg PO BEDTIME 01/09/18 [History] Prevagen 1 tab PO DAILY 01/09/18 [History] Terazosin HCl [Terazosin] 10 mg PO DAILY 01/09/18 [History] levETIRAcetam [Spritam] 1,000 mg PO BID 01/09/18 [History] Gabapentin [Neurontin] 1 cap PO BEDTIME 02/03/20 [History] Apixaban [Eliquis] 5 mg PO BID #60 tablet 02/05/20 [Rx] Eplerenone [Inspra] 50 mg PO BID 90 Days #180 03/14/20 [Rx] Furosemide [Lasix] 40 mg PO BID 90 Days #180 tablet 03/14/20 [Rx] Losartan [Cozaar] 25 mg PO DAILY 90 Days #90 tablet 03/14/20 [Rx] Metoprolol Succinate [Toprol XL 50mg] 50 mg PO DAILY 90 Days #90 tab.er 03/14/20 [Rx] Potassium Chloride [Klor-Con M20] 20 meq PO BID 90 Days #180 tab.er 03/14/20 [Rx] Past Medical History HEENT History: Reports: None Cardiovascular History: Reports: None Respiratory History: Reports: Sleep Apnea Other Respiratory History: CPAP Gastrointestinal History: Reports: None Genitourinary History: Reports: BPH Musculoskeletal History: Reports: None Neurological History: Reports: Seizure Psychiatric History: Reports: None Endocrine/Metabolic History: Reports: None Insulin Pump Model and Corporate Account Executive: None Hematologic History: Reports: None Immunologic History: Reports: None Oncologic (Cancer) History: Reports: None Dermatologic History: Reports: None - Infectious Disease History Infectious Disease History: Reports: None - Past Surgical History Head Surgeries/Procedures: Reports: None HEENT Surgical History: Reports: None Cardiovascular Surgical History: Reports: None Respiratory Surgical History: Reports: None GI Surgical History: Reports: Hernia Repair/Other Male Surgical History: Reports: None Endocrine Surgical History: Reports: None Neurological Surgical History: Reports: None Musculoskeletal Surgical History: Reports: Other (See Below) Other Musculoskeletal Surgeries/Procedures:: neck fusion Oncologic Surgical History: Reports: None Dermatological Surgical History: Reports: None Social & Family History - Family History Family Medical History: No Pertinent Family History - Tobacco Use Tobacco Use Status *Q: Never Tobacco User Second Hand Smoke Exposure: Yes - Caffeine Use Caffeine Use: Reports: Coffee - Recreational Drug Use Recreational Drug Use: No ED ROS GENERAL - Review of Systems Review Of Systems: Comprehensive ROS is negative, except as noted in HPI. ED EXAM, GENERAL - Physical Exam Exam: See Below (See dictation) Course - Vital Signs Last Recorded V/S: Last Vital Signs Temp 97.3 F 06/25/20 18:29 Pulse 84 06/25/20 20:49 Resp 16 06/25/20 20:49 BP 104/73 06/25/20 20:49 Pulse Ox 96 06/25/20 20:49 - Orders/Labs/Meds Orders: Active Orders 24 hr Category Date Time Status Cardiac Monitoring [RC] . DIRECTED Care 06/25/20 18:31 Active EKG Documentation Completion [RC] STAT Care 06/25/20 18:31 Active UA RFX BENJAMIN AND CULT IF INDIC [URIN] Stat Lab 06/25/20 19:18 Ordered Lactated Ringers [Ringers, Lactated] 1,000 ml Med 06/25/20 18:45 Active IV ASDIRECTED Sodium Chloride 0.9% [Saline Flush] Med 06/25/20 18:31 Active 10 ml FLUSH ASDIRECTED PRN Sodium Chloride 0.9% [Saline Flush] Med 06/25/20 18:31 Active 2.5 ml FLUSH ASDIRECTED PRN Saline Lock Insert [OM.PC] Stat Oth 06/25/20 18:31 Ordered Medication Orders Lactated Ringer's (Ringers, Lactated) 1,000 mls @ 125 mls/hr IV ASDIRECTED SASHA Last Admin: 06/25/20 18:41 Dose: 125 mls/hr Documented by: CHRISTY Sodium Chloride (Saline Flush) 10 ml FLUSH ASDIRECTED PRN PRN Reason: Keep Vein Open Last Admin: 06/25/20 18:42 Dose: 10 ml Documented by: CHRISTY Sodium Chloride (Saline Flush) 2.5 ml FLUSH ASDIRECTED PRN PRN Reason: Keep Vein Open Last Admin: 06/25/20 18:42 Dose: 2.5 ml Documented by: CHRISTY Labs: Laboratory Tests 06/25/20 06/25/20 06/25/20 Range/Units 18:30 18:30 18:30 WBC 8.01 (4.0-11.0) K/uL RBC 4.47 L (4.50-5.90) M/uL Hgb 14.0 (13.0-17.0) g/dL Hct 44.1 (38.0-50.0) % MCV 98.7 H (80.0-98.0) fL MCH 31.3 (27.0-32.0) pg MCHC 31.7 (31.0-37.0) g/dL RDW Std Deviation 55.0 (28.0-62.0) fl RDW Coeff of Mike 15 (11.0-15.0) % Plt Count 173 (150-400) K/uL MPV 11.50 (7.40-12.00) fL Neut % (Auto) 67.6 (48.0-80.0) % Lymph % (Auto) 23.0 (16.0-40.0) % O'Brien % (Auto) 7.6 (0.0-15.0) % Eos % (Auto) 1.6 (0.0-7.0) % Baso % (Auto) 0.2 (0.0-1.5) % Neut # (Auto) 5.4 (1.4-5.7) K/uL Lymph # (Auto) 1.8 (0.6-2.4) K/uL O'Brien # (Auto) 0.6 (0.0-0.8) K/uL Eos # (Auto) 0.1 (0.0-0.7) K/uL Baso # (Auto) 0.0 (0.0-0.1) K/uL Nucleated RBC % 0.0 /100WBC Nucleated RBCs # 0 K/uL Lactate 1.9 (0.20-2.00) mmol/L Sodium 144 (136-148) mmol/L Potassium 4.7 (3.5-5.1) mmol/L Chloride 104 (98-107) mmol/L Carbon Dioxide 29.3 (21.0-32.0) mmol/L BUN 56 H (7.0-18.0) mg/dL Creatinine 2.4 H (0.8-1.3) mg/dL Est Cr Clr Drug Dosing 28.29 mL/min Estimated GFR (MDRD) 26.4 ml/min Glucose 80 (74-106) mg/dL Calcium 9.4 (8.5-10.1) mg/dL Total Bilirubin 1.1 H (0.2-1.0) mg/dL AST 20 (15-37) IU/L ALT 19 (14-63) IU/L Alkaline Phosphatase 95 (46-116) U/L Troponin I < 0.050 (0.000-0.056) ng/mL B-Natriuretic Peptide (<100) PG/ML Total Protein 7.5 (6.4-8.2) g/dL Albumin 3.5 (3.4-5.0) g/dL Globulin 4.0 (2.6-4.0) g/dL Albumin/Globulin Ratio 0.9 (0.9-1.6) SARS-CoV-2 RNA (QUINTIN) (NEGATIVE) 06/25/20 06/25/20 Range/Units 18:30 18:35 WBC (4.0-11.0) K/uL RBC (4.50-5.90) M/uL Hgb (13.0-17.0) g/dL Hct (38.0-50.0) % MCV (80.0-98.0) fL MCH (27.0-32.0) pg MCHC (31.0-37.0) g/dL RDW Std Deviation (28.0-62.0) fl RDW Coeff of Mike (11.0-15.0) % Plt Count (150-400) K/uL MPV (7.40-12.00) fL Neut % (Auto) (48.0-80.0) % Lymph % (Auto) (16.0-40.0) % O'Brien % (Auto) (0.0-15.0) % Eos % (Auto) (0.0-7.0) % Baso % (Auto) (0.0-1.5) % Neut # (Auto) (1.4-5.7) K/uL Lymph # (Auto) (0.6-2.4) K/uL O'Brien # (Auto) (0.0-0.8) K/uL Eos # (Auto) (0.0-0.7) K/uL Baso # (Auto) (0.0-0.1) K/uL Nucleated RBC % /100WBC Nucleated RBCs # K/uL Lactate (0.20-2.00) mmol/L Sodium (136-148) mmol/L Potassium (3.5-5.1) mmol/L Chloride (98-107) mmol/L Carbon Dioxide (21.0-32.0) mmol/L BUN (7.0-18.0) mg/dL Creatinine (0.8-1.3) mg/dL Est Cr Clr Drug Dosing mL/min Estimated GFR (MDRD) ml/min Glucose (74-106) mg/dL Calcium (8.5-10.1) mg/dL Total Bilirubin (0.2-1.0) mg/dL AST (15-37) IU/L ALT (14-63) IU/L Alkaline Phosphatase (46-116) U/L Troponin I (0.000-0.056) ng/mL B-Natriuretic Peptide 2325 H (<100) PG/ML Total Protein (6.4-8.2) g/dL Albumin (3.4-5.0) g/dL Globulin (2.6-4.0) g/dL Albumin/Globulin Ratio (0.9-1.6) SARS-CoV-2 RNA (QUINTIN) NEGATIVE (NEGATIVE) Meds: Medications Generic Name Dose Route Start Last Admin Trade Name Freq PRN Reason Stop Dose Admin Lactated Ringer's 1,000 mls @ 125 mls/hr 06/25/20 18:45 06/25/20 18:41 Ringers, Lactated IV 125 mls/hr ASDIRECTED SASHA Administration Sodium Chloride 10 ml 06/25/20 18:31 06/25/20 18:42 Saline Flush FLUSH 10 ml ASDIRECTED PRN Administration Keep Vein Open Sodium Chloride 2.5 ml 06/25/20 18:31 06/25/20 18:42 Saline Flush FLUSH 2.5 ml ASDIRECTED PRN Administration Keep Vein Open Discontinued Medications Generic Name Dose Route Start Last Admin Trade Name Freq PRN Reason Stop Dose Admin Furosemide 40 mg 06/25/20 19:47 06/25/20 20:46 Lasix IVPUSH 06/25/20 19:48 40 mg NOW ONE Administration Morphine Sulfate 2 mg 06/25/20 19:28 06/25/20 20:20 Morphine IVPUSH 06/25/20 19:29 2 mg ONETIME ONE Administration Departure - Departure Time of Disposition: 21:35 Disposition: Admitted As Inpatient 64 Clinical Impression: LENO (acute kidney injury), Frequent falls, History of atrial fibrillation Acute exacerbation of congestive heart failure Qualifiers: Heart failure type: systolic Qualified Code(s): I50.23 - Acute on chronic systolic (congestive) heart failure - Discharge Information Sepsis Event Note (ED) - Evaluation Sepsis Screening Result: No Definite Risk - Focused Exam Vital Signs: Vital Signs Temp Pulse Resp BP Pulse Ox 06/25/20 20:08 75 16 100/79 96 06/25/20 19:32 82 16 90/63 96 06/25/20 18:54 82 17 102/69 96 06/25/20 18:29 97.3 F 87 18 97/69 98 - My Orders Last 24 Hours: My Active Orders 06/25/20 18:31 Cardiac Monitoring [RC] . DIRECTED EKG Documentation Completion [RC] STAT Sodium Chloride 0.9% [Saline Flush] 10 ml FLUSH ASDIRECTED PRN Sodium Chloride 0.9% [Saline Flush] 2.5 ml FLUSH ASDIRECTED PRN Saline Lock Insert [OM.PC] Stat 06/25/20 18:45 Lactated Ringers [Ringers, Lactated] 1,000 ml IV ASDIRECTED 06/25/20 19:18 UA RFX BENJAMIN AND CULT IF INDIC [URIN] Stat - Assessment/Plan Last 24 Hours: My Active Orders 06/25/20 18:31 Cardiac Monitoring [RC] . DIRECTED EKG Documentation Completion [RC] STAT Sodium Chloride 0.9% [Saline Flush] 10 ml FLUSH ASDIRECTED PRN Sodium Chloride 0.9% [Saline Flush] 2.5 ml FLUSH ASDIRECTED PRN Saline Lock Insert [OM.PC] Stat 06/25/20 18:45 Lactated Ringers [Ringers, Lactated] 1,000 ml IV ASDIRECTED 06/25/20 19:18 UA RFX BENJAMIN AND CULT IF INDIC [URIN] Stat
[2020-06-25] MEDS ORDERED: Lactated Ringers 1,000 ML IV SCH (18:45)
--- NOTE | 2020-06-25 19:08 | CR ---
HISTORY: Shortness of breath. COMPARISON: 03/11/2020. TECHNIQUE: Chest one-view portable semi upright. FINDINGS: Cardiac enlargement. This is similar to previous. Pulmonary vasculature is distinct. There is no acute airspace disease. There is no pneumothorax. The central airway is normal. There is no deep sulcus sign. There is no displaced rib fracture. IMPRESSION: 1. Cardiomegaly, stable. 2. There is no acute airspace disease. Dictated by Ismael Pal MD @ Jun 25 2020 7:05PM Signed by Dr. Ismael Pal @ Jun 25 2020 7:07PM
[2020-06-25 19:12] LABS: BLOOD UREA NITROGEN,BUN 56 mg/dL (7.0-18.0); CARBON DIOXIDE,CO2 29.3 mmol/L (21.0-32.0); CHLORIDE,CL 104 mmol/L (98-107); GLUCOSE RANDOM 80 mg/dL (74-106); POTASSIUM,K 4.7 mmol/L (3.5-5.1); SODIUM,NA 144 mmol/L (136-148)
--- NOTE | 2020-06-25 19:13 | CR ---
INDICATION: Pain. Recent fall. TECHNIQUE: AP radiograph of the pelvis, two views. COMPARISON: None FINDINGS: Bones: Alignment is normal. No fractures or bone lesions. Joint spaces: Unremarkable. Soft tissues: Surgical clips in the pelvis suggest a prior ventral wall abdominal hernia repair. IMPRESSION: No fracture is identified in the pelvis or proximal femora. Dictated by Ismael Pal MD @ Jun 25 2020 7:09PM Signed by Dr. Ismael Pal @ Jun 25 2020 7:11PM
[2020-06-25] MEDS ORDERED: Morphine 2 MG/ML SYRINGE IVPUSH ONE (19:28)
[2020-06-25] MEDS ORDERED: Furosemide 40 MG/4 ML VIAL IVPUSH ONE (19:47)
--- NOTE | 2020-06-25 20:41 | CT ---
Indication: Frequent fall, hitting head Technique: Volumetric multidetector CT images of the head were obtained without the administration of low osmolar intravenous contrast. Comparison: CT head July 03, 2014 Findings: There is no intra-axial or extra-axial fluid collection. There is no mass effect or midline shift. There is age-related cortical atrophy with mild sulcal widening and ex vacuo dilatation of the lateral ventricles. There are chronic small vessel disease changes in the subcortical and periventricular white matter without lost wadsworth-white differentiation. The orbits and their contents are grossly within normal limits. The bony calvarium is grossly intact. The paranasal sinuses are clear. The mastoid air cells are well aerated. Impression: 1. Age-related changes of the brain without acute intracranial abnormality. Please note that all CT scans at this facility use dose modulation, iterative reconstruction, and/or weight-based dosing when appropriate to reduce radiation dose to as low as reasonably achievable. Dictated by Darryn Garner MD @ Jun 25 2020 8:37PM Signed by Dr. Darryn Garner @ Jun 25 2020 8:40PM
--- NOTE | 2020-06-25 20:54 | CT ---
Indication: Frequent falls Technique: Volumetric multidetector CT images of the cervical spine were obtained without the administration of IV contrast. Comparison: None available. Findings: The cervical vertebral body heights are maintained with likely prior cervical fusion congenital versus surgical at the C5-C6 level. There is straightening of the normal cervical lordosis with minimal anterolisthesis of C2 on C3, C3 on C4 and C4 on C5. There is moderate to severe degenerative disc disease with disc height loss and marginal osteophyte formation. There is moderate degenerative change at the atlantoaxial joint. There is moderate to severe facet arthrosis with marginal osteophyte formation. The paraspinous soft tissues are grossly within normal limits. Impression: Moderate to severe degenerative changes of the cervical spine without acute osseous abnormality. Please note that all CT scans at this facility use dose modulation, iterative reconstruction, and/or weight-based dosing when appropriate to reduce radiation dose to as low as reasonably achievable. Dictated by Darryn Garner MD @ Jun 25 2020 8:37PM Signed by Dr. Darryn Garner @ Jun 25 2020 8:52PM
--- NOTE | 2020-06-25 21:00 | CT ---
Indication: Frequent falls, shortness of breath Technique: Volumetric multidetector CT images of the chest were obtained without the administration of IV contrast. Comparison: CT chest without contrast April 17, 2020 Findings: The thoracic inlet and thyroid gland are unremarkable. The thoracic aorta is nonaneurysmal. Again seen are reactive mediastinal and hilar lymph nodes. The trachea and bronchi are well aerated without significant bronchiectasis. There is a right basilar pleural effusion with adjacent compressive atelectasis. Additional trace left basilar pleural is appreciated basilar atelectasis. There is mild biapical pleural thickening. There is demonstration of a nodular airspace opacity within the peripheral right lower lobe not seen on recent comparison which may represent a small focus of atelectasis and/or infiltrate. The partially visualized upper abdomen demonstrates ascites fluid with moderate hepatomegaly similar to previous exam. The thoracic vertebral body heights are grossly maintained with moderate degenerative disc disease and flowing anterior osteophytosis. There is no significant spondylolisthesis or displaced fracture. Impression: Demonstration of a new right basilar effusion with adjacent compressive atelectasis with partial visualization of ascites within the upper quadrants of the abdomen. These findings may represent sequela of liver disease. Correlate with history of clinical symptoms and laboratory testing. Please note that all CT scans at this facility use dose modulation, iterative reconstruction, and/or weight-based dosing when appropriate to reduce radiation dose to as low as reasonably achievable. Dictated by Darryn Garner MD @ Jun 25 2020 8:52PM Signed by Dr. Darryn Garner @ Jun 25 2020 8:59PM
--- NOTE | 2020-06-26 00:03 | PCM.HP.2 ---
H&P History of Present Illness - General Date of Service: 06/25/20 Admit Problem/Dx: Admission Diagnosis/Problem Admission Diagnosis/Problem CHF, Congestive heart failure - History of Present Illness Initial Comments - Free Text/Narative: 75-year-old male with past medical history of congestive heart failure with EF of 15%., atrial fibrillation on Eliquis, CAT on CPAP, hypertension, hypothyroidism who presents with several days worsening of shortness of breath. Patient reports increasing leg swelling and orthopnea. Today his noted his lips were blue and she called Dr. Delgado who told them to go to the ED. In the ED he was noted to require 5 L NC to keep sats above 90%. Labs work showed a Creatinine of 2.4 and BNP of 2325 which is elevated from 1300 last month. Back pain Pain Score (Numeric/FACES): 10 - Related Data Allergies/Adverse Reactions: Allergies Allergy/AdvReac Type Severity Reaction Status Date / Time No Known Allergies Allergy Verified 06/25/20 23:33 Home Medications: Home Meds Cholecalciferol (Vitamin D3) [D3-2000] 1 tab PO DAILY 01/09/18 [History] Flaxseed Oil [Flaxseed] 1,400 mg PO DAILY 01/09/18 [History] Levothyroxine 137 mcg PO DAILY 01/09/18 [History] Magnesium 250 mg PO DAILY 01/09/18 [History] Melatonin 20 mg PO BEDTIME 01/09/18 [History] Prevagen 1 tab PO DAILY 01/09/18 [History] Terazosin HCl [Terazosin] 10 mg PO DAILY 01/09/18 [History] levETIRAcetam [Spritam] 1,000 mg PO BID 01/09/18 [History] Gabapentin [Neurontin] 1 cap PO BEDTIME 02/03/20 [History] Apixaban [Eliquis] 5 mg PO BID #60 tablet 02/05/20 [Rx] Eplerenone [Inspra] 50 mg PO BID 90 Days #180 03/14/20 [Rx] Furosemide [Lasix] 40 mg PO BID 90 Days #180 tablet 03/14/20 [Rx] Losartan [Cozaar] 25 mg PO DAILY 90 Days #90 tablet 03/14/20 [Rx] Metoprolol Succinate [Toprol XL 50mg] 50 mg PO DAILY 90 Days #90 tab.er 03/14/20 [Rx] Potassium Chloride [Klor-Con M20] 20 meq PO BID 90 Days #180 tab.er 03/14/20 [Rx] Past Medical History HEENT History: Reports: None Cardiovascular History: Reports: Afib, Heart Failure, High Cholesterol, Hypertension Respiratory History: Reports: Sleep Apnea Other Respiratory History: CPAP Gastrointestinal History: Reports: None Genitourinary History: Reports: BPH Musculoskeletal History: Reports: None Neurological History: Reports: Seizure Psychiatric History: Reports: None Endocrine/Metabolic History: Reports: Hypothyroidism Insulin Pump Model and Well Reactivator Operator: None Hematologic History: Reports: None Immunologic History: Reports: None Oncologic (Cancer) History: Reports: None Dermatologic History: Reports: None - Infectious Disease History Infectious Disease History: Reports: None - Past Surgical History Head Surgeries/Procedures: Reports: None HEENT Surgical History: Reports: None Cardiovascular Surgical History: Reports: None Respiratory Surgical History: Reports: None GI Surgical History: Reports: Hernia Repair/Other Male Surgical History: Reports: None Endocrine Surgical History: Reports: None Neurological Surgical History: Reports: None Musculoskeletal Surgical History: Reports: Other (See Below) Other Musculoskeletal Surgeries/Procedures:: neck fusion Oncologic Surgical History: Reports: None Dermatological Surgical History: Reports: None Social & Family History - Family History Family Medical History: No Pertinent Family History - Tobacco Use Tobacco Use Status *Q: Never Tobacco User Second Hand Smoke Exposure: No - Caffeine Use Caffeine Use: Reports: Coffee - Recreational Drug Use Recreational Drug Use: No H&P Review of Systems - Review of Systems: Review Of Systems: Comprehensive ROS is negative, except as noted in HPI. Exam - Exam Exam: See Below - Vital Signs Vital Signs: Last Vital Signs Temp 36.3 C 06/25/20 22:18 Pulse 63 06/25/20 22:18 Resp 22 H 06/25/20 22:18 BP 120/70 06/25/20 22:18 Pulse Ox 97 06/25/20 22:18 Weight: 86.183 kg - Exam General: Alert, Oriented HEENT: Mucosa Moist & [place] Lungs: Clear to Auscultation, Normal Respiratory Effort Cardiovascular: Regular Rate, Irregular Rhythm GI/Abdominal Exam: Normal Bowel Sounds, Soft, Non-Tender Extremities: Non-Tender, Pedal Edema (+1) Skin: Warm, Dry, Intact Neurological: No: Focal Deficit - Patient Data Lab Results Last 24 hrs: Laboratory Results - last 24 hr 06/25/20 06/25/20 06/25/20 Range/Units 18:30 18:30 18:30 WBC 8.01 (4.0-11.0) K/uL RBC 4.47 L (4.50-5.90) M/uL Hgb 14.0 (13.0-17.0) g/dL Hct 44.1 (38.0-50.0) % MCV 98.7 H (80.0-98.0) fL MCH 31.3 (27.0-32.0) pg MCHC 31.7 (31.0-37.0) g/dL RDW Std Deviation 55.0 (28.0-62.0) fl RDW Coeff of Mike 15 (11.0-15.0) % Plt Count 173 (150-400) K/uL MPV 11.50 (7.40-12.00) fL Neut % (Auto) 67.6 (48.0-80.0) % Lymph % (Auto) 23.0 (16.0-40.0) % [place] % (Auto) 7.6 (0.0-15.0) % Eos % (Auto) 1.6 (0.0-7.0) % Baso % (Auto) 0.2 (0.0-1.5) % Neut # (Auto) 5.4 (1.4-5.7) K/uL Lymph # (Auto) 1.8 (0.6-2.4) K/uL [place] # (Auto) 0.6 (0.0-0.8) K/uL Eos # (Auto) 0.1 (0.0-0.7) K/uL Baso # (Auto) 0.0 (0.0-0.1) K/uL Nucleated RBC % 0.0 /100WBC Nucleated RBCs # 0 K/uL Lactate 1.9 (0.20-2.00) mmol/L Sodium 144 (136-148) mmol/L Potassium 4.7 (3.5-5.1) mmol/L Chloride 104 (98-107) mmol/L Carbon Dioxide 29.3 (21.0-32.0) mmol/L BUN 56 H (7.0-18.0) mg/dL Creatinine 2.4 H (0.8-1.3) mg/dL Est Cr Clr Drug Dosing 28.29 mL/min Estimated GFR (MDRD) 26.4 ml/min Glucose 80 (74-106) mg/dL Calcium 9.4 (8.5-10.1) mg/dL Total Bilirubin 1.1 H (0.2-1.0) mg/dL AST 20 (15-37) IU/L ALT 19 (14-63) IU/L Alkaline Phosphatase 95 (46-116) U/L Troponin I < 0.050 (0.000-0.056) ng/mL B-Natriuretic Peptide (<100) PG/ML Total Protein 7.5 (6.4-8.2) g/dL Albumin 3.5 (3.4-5.0) g/dL Globulin 4.0 (2.6-4.0) g/dL Albumin/Globulin Ratio 0.9 (0.9-1.6) SARS-CoV-2 RNA (QUINTIN) (NEGATIVE) 06/25/20 06/25/20 Range/Units 18:30 18:35 WBC (4.0-11.0) K/uL RBC (4.50-5.90) M/uL Hgb (13.0-17.0) g/dL Hct (38.0-50.0) % MCV (80.0-98.0) fL MCH (27.0-32.0) pg MCHC (31.0-37.0) g/dL RDW Std Deviation (28.0-62.0) fl RDW Coeff of Mike (11.0-15.0) % Plt Count (150-400) K/uL MPV (7.40-12.00) fL Neut % (Auto) (48.0-80.0) % Lymph % (Auto) (16.0-40.0) % [place] % (Auto) (0.0-15.0) % Eos % (Auto) (0.0-7.0) % Baso % (Auto) (0.0-1.5) % Neut # (Auto) (1.4-5.7) K/uL Lymph # (Auto) (0.6-2.4) K/uL [place] # (Auto) (0.0-0.8) K/uL Eos # (Auto) (0.0-0.7) K/uL Baso # (Auto) (0.0-0.1) K/uL Nucleated RBC % /100WBC Nucleated RBCs # K/uL Lactate (0.20-2.00) mmol/L Sodium (136-148) mmol/L Potassium (3.5-5.1) mmol/L Chloride (98-107) mmol/L Carbon Dioxide (21.0-32.0) mmol/L BUN (7.0-18.0) mg/dL Creatinine (0.8-1.3) mg/dL Est Cr Clr Drug Dosing mL/min Estimated GFR (MDRD) ml/min Glucose (74-106) mg/dL Calcium (8.5-10.1) mg/dL Total Bilirubin (0.2-1.0) mg/dL AST (15-37) IU/L ALT (14-63) IU/L Alkaline Phosphatase (46-116) U/L Troponin I (0.000-0.056) ng/mL B-Natriuretic Peptide 2325 H (<100) PG/ML Total Protein (6.4-8.2) g/dL Albumin (3.4-5.0) g/dL Globulin (2.6-4.0) g/dL Albumin/Globulin Ratio (0.9-1.6) SARS-CoV-2 RNA (QUINTIN) NEGATIVE (NEGATIVE) Result Diagrams: 06/25/20 18:30 06/25/20 18:30 Sepsis Event Note - Evaluation Sepsis Screening Result: No Definite Risk - Focused Exam Vital Signs: Vital Signs Temp Pulse Resp BP Pulse Ox 06/25/20 22:18 36.3 C 63 22 H 120/70 97 06/25/20 22:00 82 16 110/72 96 06/25/20 21:20 37.1 C 84 16 115/75 96 06/25/20 20:49 84 16 104/73 96 06/25/20 20:30 82 16 103/71 96 06/25/20 20:08 75 16 100/79 96 06/25/20 19:32 82 16 90/63 96 06/25/20 18:54 82 17 102/69 96 06/25/20 18:29 36.3 C 87 18 97/69 98 Problem List Initiated/Reviewed/Updated: Yes Orders Last 24hrs: Active Orders 24 hr Category Date Time Status Admission Status [Patient Status] [ADT] Stat ADT 06/25/20 20:30 Active CPAP Noctural Home [RT BiPAP/CPAP] [RC] ASDIRECTED Care 06/25/20 23:53 Ordered Cardiac Monitoring [RC] . DIRECTED Care 06/25/20 18:31 Active Height and Weight [RC] DAILY Care 06/25/20 23:51 Active Intake and Output [RC] QSHIFT Care 06/25/20 23:51 Active Oxygen Therapy [RC] PRN Care 06/25/20 23:51 Active Telemetry Monitoring [Cardiac Monitoring] [RC] Q8H Care 06/25/20 21:46 Active VTE/DVT Education [RC] PER UNIT ROUTINE Care 06/25/20 23:51 Active Vital Signs [RC] Q4H Care 06/25/20 23:51 Active 2 Gram Sodium Diet [DIET] Diet 06/25/20 Breakfast Active BASIC METABOLIC PANEL,BMP [CHEM] AM Lab 06/26/20 05:11 Ordered CBC WITH AUTO DIFF [HEME] AM Lab 06/26/20 05:11 Ordered UA RFX BENJAMIN AND CULT IF INDIC [URIN] Stat Lab 06/25/20 19:18 Ordered Acetaminophen [TylenoL] Med 06/25/20 23:51 Ordered 650 mg PO Q4H PRN Apixaban [Eliquis] Med 06/26/20 09:00 Ordered 5 mg PO BID Furosemide [Lasix] Med 06/25/20 23:45 Active 40 mg IVPUSH BID Gabapentin [Neurontin] Med 06/26/20 21:00 Ordered DOSE mg PO BEDTIME Levothyroxine Med 06/26/20 09:00 Ordered 137 mcg PO DAILY Melatonin [Melatonin] Med 06/26/20 21:00 Ordered 20 mg PO BEDTIME Sodium Chloride 0.9% [Saline Flush] Med 06/25/20 18:31 Active 10 ml FLUSH ASDIRECTED PRN Sodium Chloride 0.9% [Saline Flush] Med 06/25/20 18:31 Active 2.5 ml FLUSH ASDIRECTED PRN levETIRAcetam [Spritam] Med 06/26/20 09:00 Ordered 1,000 mg PO BID oxyCODONE Med 06/25/20 23:51 Ordered 5 mg PO Q6H PRN Saline Lock Insert [OM.PC] Stat Oth 06/25/20 18:31 Ordered Resuscitation Status Routine Resus Stat 06/25/20 23:51 Ordered Medication Orders Apixaban (Eliquis) 5 mg PO BID SASHA Furosemide (Lasix) 40 mg IVPUSH BID SASHA Gabapentin (Neurontin) mg PO BEDTIME SASHA Levothyroxine Sodium (Levothyroxine) 137 mcg PO DAILY SASHA Non-Formulary Medication (Melatonin [Melatonin]) 20 mg PO BEDTIME SASHA Non-Formulary Medication (Levetiracetam [Spritam]) 1,000 mg PO BID SASHA Sodium Chloride (Saline Flush) 10 ml FLUSH ASDIRECTED PRN PRN Reason: Keep Vein Open Last Admin: 06/25/20 18:42 Dose: 10 ml Documented by: [id number] Sodium Chloride (Saline Flush) 2.5 ml FLUSH ASDIRECTED PRN PRN Reason: Keep Vein Open Last Admin: 06/25/20 18:42 Dose: 2.5 ml Documented by: [id number] Assessment/Plan Comment:: 75-year-old male with past medical history of congestive heart failure, atrial fibrillation on Eliquis, CAT on CPAP, hypertension, hypothyroidism admitted for systolic CHF exacerbation and acute on chronic kidney disease. We will diuresis with IV Lasix and continue supplemental oxygen via NC. We will resume home medications except for losartan.
[2020-06-26] MEDS: Furosemide 40 MG/4 ML VIAL IVPUSH SCH ×3 (01:02→20:24)
[2020-06-26] MEDS: oxyCODONE 5 MG Tab PO PRN ×2 (01:08→09:00)
[2020-06-26 07:00] LABS: CARBON DIOXIDE,CO2 27.8 mmol/L (21.0-32.0); POTASSIUM,K 3.8 mmol/L (3.5-5.1)
[2020-06-26] MEDS: Levothyroxine 25 MCG Tab PO SCH (08:12)
[2020-06-26] MEDS: Levothyroxine 112 MCG Tab PO SCH (08:12)
[2020-06-26] MEDS: levETIRAcetam 500 MG Tab PO SCH ×2 (08:12→20:24)
[2020-06-26] MEDS: Apixaban 5 MG Tab PO SCH ×2 (08:12→20:24)
[2020-06-26] MEDS: Carvedilol 25 MG Tab PO SCH ×3 (11:42→20:59)
--- NOTE | 2020-06-26 11:50 | PCM.PN ---
- General Info Date of Service: 06/26/20 Subjective Update: Patient is a 75-year-old gentleman, admitted for CHF exacerbation with previous history of CHF with an ejection fraction of 15%. There were no overnight events, states that he is feeling better this morning. Due to the Lasix has been using the bathroom quite frequently, but states that the edema in his legs has improved and he is finding it easier to breathe. Functional Status: Reports: Tolerating Diet, New Symptoms - Review of Systems General: Reports: No Symptoms HEENT: Reports: No Symptoms Pulmonary: Reports: Shortness of Breath Cardiovascular: Reports: Dyspnea on Exertion, Edema Gastrointestinal: Reports: No Symptoms Genitourinary: Reports: No Symptoms Musculoskeletal: Reports: No Symptoms Skin: Reports: No Symptoms Neurological: Reports: No Symptoms Psychiatric: Reports: No Symptoms - Patient Data Vitals - Most Recent: Last Vital Signs Temp 98.6 F 06/26/20 11:41 Pulse 68 06/26/20 11:41 Resp 16 06/26/20 11:41 BP 105/73 06/26/20 11:41 Pulse Ox 91 L 06/26/20 11:41 Weight - Most Recent: 200 lb 9.93 oz I&O - Last 24 Hours: Intake & Output 06/25/20 06/26/20 06/26/20 22:59 06:59 14:59 Intake Total 50 Output Total 1200 Balance -1150 Lab Results Last 24 Hours: Laboratory Results - last 24 hr 06/25/20 06/25/20 06/25/20 Range/Units 18:30 18:30 18:30 WBC 8.01 (4.0-11.0) K/uL RBC 4.47 L (4.50-5.90) M/uL Hgb 14.0 (13.0-17.0) g/dL Hct 44.1 (38.0-50.0) % MCV 98.7 H (80.0-98.0) fL MCH 31.3 (27.0-32.0) pg MCHC 31.7 (31.0-37.0) g/dL RDW Std Deviation 55.0 (28.0-62.0) fl RDW Coeff of Mike 15 (11.0-15.0) % Plt Count 173 (150-400) K/uL MPV 11.50 (7.40-12.00) fL Neut % (Auto) 67.6 (48.0-80.0) % Lymph % (Auto) 23.0 (16.0-40.0) % [place] % (Auto) 7.6 (0.0-15.0) % Eos % (Auto) 1.6 (0.0-7.0) % Baso % (Auto) 0.2 (0.0-1.5) % Neut # (Auto) 5.4 (1.4-5.7) K/uL Lymph # (Auto) 1.8 (0.6-2.4) K/uL [place]icher # (Auto) 0.6 (0.0-0.8) K/uL Eos # (Auto) 0.1 (0.0-0.7) K/uL Baso # (Auto) 0.0 (0.0-0.1) K/uL Nucleated RBC % 0.0 /100WBC Nucleated RBCs # 0 K/uL Lactate 1.9 (0.20-2.00) mmol/L Sodium 144 (136-148) mmol/L Potassium 4.7 (3.5-5.1) mmol/L Chloride 104 (98-107) mmol/L Carbon Dioxide 29.3 (21.0-32.0) mmol/L BUN 56 H (7.0-18.0) mg/dL Creatinine 2.4 H (0.8-1.3) mg/dL Est Cr Clr Drug Dosing 28.29 mL/min Estimated GFR (MDRD) 26.4 ml/min Glucose 80 (74-106) mg/dL Calcium 9.4 (8.5-10.1) mg/dL Total Bilirubin 1.1 H (0.2-1.0) mg/dL AST 20 (15-37) IU/L ALT 19 (14-63) IU/L Alkaline Phosphatase 95 (46-116) U/L Troponin I < 0.050 (0.000-0.056) ng/mL B-Natriuretic Peptide (<100) PG/ML Total Protein 7.5 (6.4-8.2) g/dL Albumin 3.5 (3.4-5.0) g/dL Globulin 4.0 (2.6-4.0) g/dL Albumin/Globulin Ratio 0.9 (0.9-1.6) Urine Color Urine Appearance Urine pH (5.0-8.0) Ur Specific [place] (1.001-1.035) Urine Protein (NEGATIVE) mg/dL Urine Glucose (UA) (NEGATIVE) mg/dL Urine Ketones (NEGATIVE) mg/dL Urine Occult Blood (NEGATIVE) Urine Nitrite (NEGATIVE) Urine Bilirubin (NEGATIVE) Urine Urobilinogen (<2.0) EU/dL Ur Leukocyte Esterase (NEGATIVE) SARS-CoV-2 RNA (QUINTIN) (NEGATIVE) 06/25/20 06/25/20 06/26/20 Range/Units 18:30 18:35 03:40 WBC (4.0-11.0) K/uL RBC (4.50-5.90) M/uL Hgb (13.0-17.0) g/dL Hct (38.0-50.0) % MCV (80.0-98.0) fL MCH (27.0-32.0) pg MCHC (31.0-37.0) g/dL RDW Std Deviation (28.0-62.0) fl RDW Coeff of Mike (11.0-15.0) % Plt Count (150-400) K/uL MPV (7.40-12.00) fL Neut % (Auto) (48.0-80.0) % Lymph % (Auto) (16.0-40.0) % [place] % (Auto) (0.0-15.0) % Eos % (Auto) (0.0-7.0) % Baso % (Auto) (0.0-1.5) % Neut # (Auto) (1.4-5.7) K/uL Lymph # (Auto) (0.6-2.4) K/uL [place] # (Auto) (0.0-0.8) K/uL Eos # (Auto) (0.0-0.7) K/uL Baso # (Auto) (0.0-0.1) K/uL Nucleated RBC % /100WBC Nucleated RBCs # K/uL Lactate (0.20-2.00) mmol/L Sodium (136-148) mmol/L Potassium (3.5-5.1) mmol/L Chloride (98-107) mmol/L Carbon Dioxide (21.0-32.0) mmol/L BUN (7.0-18.0) mg/dL Creatinine (0.8-1.3) mg/dL Est Cr Clr Drug Dosing mL/min Estimated GFR (MDRD) ml/min Glucose (74-106) mg/dL Calcium (8.5-10.1) mg/dL Total Bilirubin (0.2-1.0) mg/dL AST (15-37) IU/L ALT (14-63) IU/L Alkaline Phosphatase (46-116) U/L Troponin I (0.000-0.056) ng/mL B-Natriuretic Peptide 2325 H (<100) PG/ML Total Protein (6.4-8.2) g/dL Albumin (3.4-5.0) g/dL Globulin (2.6-4.0) g/dL Albumin/Globulin Ratio (0.9-1.6) Urine Color YELLOW Urine Appearance CLEAR Urine pH 6.0 (5.0-8.0) Ur Specific [place] 1.015 (1.001-1.035) Urine Protein NEGATIVE (NEGATIVE) mg/dL Urine Glucose (UA) NEGATIVE (NEGATIVE) mg/dL Urine Ketones NEGATIVE (NEGATIVE) mg/dL Urine Occult Blood NEGATIVE (NEGATIVE) Urine Nitrite NEGATIVE (NEGATIVE) Urine Bilirubin NEGATIVE (NEGATIVE) Urine Urobilinogen 0.2 (<2.0) EU/dL Ur Leukocyte Esterase NEGATIVE (NEGATIVE) SARS-CoV-2 RNA (QUINTIN) NEGATIVE (NEGATIVE) 06/26/20 06/26/20 Range/Units 05:51 05:51 WBC 6.81 (4.0-11.0) K/uL RBC 4.20 L (4.50-5.90) M/uL Hgb 13.1 (13.0-17.0) g/dL Hct 40.9 (38.0-50.0) % MCV 97.4 (80.0-98.0) fL MCH 31.2 (27.0-32.0) pg MCHC 32.0 (31.0-37.0) g/dL RDW Std Deviation 53.1 (28.0-62.0) fl RDW Coeff of Mike 15 (11.0-15.0) % Plt Count 157 (150-400) K/uL MPV 11.00 (7.40-12.00) fL Neut % (Auto) 71.3 (48.0-80.0) % Lymph % (Auto) 19.5 (16.0-40.0) % Sch[place]icher % (Auto) 7.9 (0.0-15.0) % Eos % (Auto) 1.0 (0.0-7.0) % Baso % (Auto) 0.3 (0.0-1.5) % Neut # (Auto) 4.9 (1.4-5.7) K/uL Lymph # (Auto) 1.3 (0.6-2.4) K/uL [place]icher # (Auto) 0.5 (0.0-0.8) K/uL Eos # (Auto) 0.1 (0.0-0.7) K/uL Baso # (Auto) 0.0 (0.0-0.1) K/uL Nucleated RBC % 0.0 /100WBC Nucleated RBCs # 0 K/uL Lactate (0.20-2.00) mmol/L Sodium 145 (136-148) mmol/L Potassium 3.8 (3.5-5.1) mmol/L Chloride 105 (98-107) mmol/L Carbon Dioxide 27.8 (21.0-32.0) mmol/L BUN 54 H (7.0-18.0) mg/dL Creatinine 2.3 H (0.8-1.3) mg/dL Est Cr Clr Drug Dosing 29.52 mL/min Estimated GFR (MDRD) 27.7 ml/min Glucose 101 (74-106) mg/dL Calcium 9.2 (8.5-10.1) mg/dL Total Bilirubin (0.2-1.0) mg/dL AST (15-37) IU/L ALT (14-63) IU/L Alkaline Phosphatase (46-116) U/L Troponin I (0.000-0.056) ng/mL B-Natriuretic Peptide (<100) PG/ML Total Protein (6.4-8.2) g/dL Albumin (3.4-5.0) g/dL Globulin (2.6-4.0) g/dL Albumin/Globulin Ratio (0.9-1.6) Urine Color Urine Appearance Urine pH (5.0-8.0) Ur Specific [place] (1.001-1.035) Urine Protein (NEGATIVE) mg/dL Urine Glucose (UA) (NEGATIVE) mg/dL Urine Ketones (NEGATIVE) mg/dL Urine Occult Blood (NEGATIVE) Urine Nitrite (NEGATIVE) Urine Bilirubin (NEGATIVE) Urine Urobilinogen (<2.0) EU/dL Ur Leukocyte Esterase (NEGATIVE) SARS-CoV-2 RNA (QUINTIN) (NEGATIVE) Med Orders - Current: Current Medications Acetaminophen (Tylenol) 650 mg PO Q4H PRN PRN Reason: Pain (Mild 1-3)/fever Apixaban (Eliquis) 5 mg PO BID [facility] Last Admin: 06/26/20 08:12 Dose: 5 mg Documented by: Carvedilol (Coreg) 25 mg PO BID [facility] Last Admin: 06/26/20 11:42 Dose: Not Given Documented by: Furosemide (Lasix) 40 mg IVPUSH BID [facility] Last Admin: 06/26/20 08:12 Dose: 40 mg Documented by: Gabapentin (Neurontin) 300 mg PO BEDTIME [facility] Levetiracetam (Keppra) 1,000 mg PO BID [facility] Last Admin: 06/26/20 08:12 Dose: 1,000 mg Documented by: Levothyroxine Sodium (Levothyroxine) 112 mcg PO ACBRK [facility] Last Admin: 06/26/20 08:12 Dose: 112 mcg Documented by: Levothyroxine Sodium (Levothyroxine) 25 mcg PO ACBREAKFAST [facility] Last Admin: 06/26/20 08:12 Dose: 25 mcg Documented by: Melatonin (Melatonin) 18 mg PO BEDTIME [facility] Oxycodone HCl (Oxycodone) 5 mg PO Q6H PRN PRN Reason: Pain (moderate 4-6) Last Admin: 06/26/20 09:00 Dose: 5 mg Documented by: Sodium Chloride (Saline Flush) 10 ml FLUSH ASDIRECTED PRN PRN Reason: Keep Vein Open Last Admin: 06/25/20 18:42 Dose: 10 ml Documented by: Sodium Chloride (Saline Flush) 2.5 ml FLUSH ASDIRECTED PRN PRN Reason: Keep Vein Open Last Admin: 06/25/20 18:42 Dose: 2.5 ml Documented by: Discontinued Medications Furosemide (Lasix) 40 mg IVPUSH NOW ONE Stop: 06/25/20 19:48 Last Admin: 06/25/20 20:46 Dose: 40 mg Documented by: Lactated Ringer's (Ringers, Lactated) 1,000 mls @ 125 mls/hr IV ASDIRECTED SASHA Last Admin: 06/25/20 18:41 Dose: 125 mls/hr Documented by: Morphine Sulfate (Morphine) 2 mg IVPUSH ONETIME ONE Stop: 06/25/20 19:29 Last Admin: 06/25/20 20:20 Dose: 2 mg Documented by: - Exam Quality Assessment: Supplemental Oxygen, DVT Prophylaxis General: Alert, Oriented, Cooperative HEENT: Pupils Equal, Pupils Reactive, EOMI, Mucous Membr. Moist/[place] Neck: Supple, Trachea Midline, No JVD Lungs: Decreased Breath Sounds, Crackles Cardiovascular: Other (known A.fib ) GI/Abdominal Exam: Normal Bowel Sounds, Soft, Non-Tender Extremities: Normal Inspection, Normal Range of Motion, Non-Tender, No Pedal Edema, Normal Capillary Refill Peripheral Pulses: 2+: Radial (L), Radial (R), Posterior Tibial (L), Posterior Tibial (R) Skin: Warm, Dry, Intact Neurological: No New Focal Deficit Psy/Mental Status: Alert, Normal Affect, Normal Mood Sepsis Event Note - Evaluation Sepsis Screening Result: No Definite Risk - Focused Exam Vital Signs: Vital Signs Temp Pulse Resp BP Pulse Ox 06/26/20 11:41 98.6 F 68 16 105/73 91 L 06/26/20 08:00 97.1 F 75 22 H 115/77 96 06/26/20 03:50 98.8 F 83 22 H 116/86 96 06/26/20 00:22 97.1 F 88 20 121/79 99 - Problem List & Annotations (1) Acute exacerbation of congestive heart failure SNOMED Code(s): 060994027, 82086169890600 Code(s): I50.9 - HEART FAILURE, UNSPECIFIED Status: Acute Current Visit: Yes Qualifiers: Heart failure type: systolic Qualified Code(s): I50.23 - Acute on chronic systolic (congestive) heart failure (2) Acute kidney injury SNOMED Code(s): 77503312, 02105259 Code(s): N17.9 - ACUTE KIDNEY FAILURE, UNSPECIFIED Status: Acute Current Visit: Yes - Problem List Review Problem List Initiated/Reviewed/Updated: Yes - Plan Plan:: Patient is a alesha 75-year-old gentleman admitted for an acute exacerbation of previous congestive heart failure and acute on chronic kidney disease. 1. Acute exacerbation of congestive heart failure: Improved, previously known ejection fraction of 15%, continue with Lasix, oxygen supplementation which is currently been weaned to 1 L 2. Acute on chronic kidney disease: Fluid supplementation Monitor CMP daily with a.m. labs Avoid nephrotoxic agents 3. History of A. fib: On Eliquis Continue to monitor on telemetry 4. Past medical history of obstructive sleep apnea, hypertension, hypothyroidism; resume all home medications except held losartan due to kidney injury.
[2020-06-26] MEDS: hydrOXYzine HCl 25 MG Tab PO PRN (16:55)
[2020-06-26] MEDS: Sertraline 50 MG Tab PO SCH (16:55)
[2020-06-26] MEDS: Gabapentin 300 MG Cap PO SCH (20:24)
[2020-06-26] MEDS: QUEtiapine 25 MG Tab PO SCH (20:24)
[2020-06-26] MEDS: Melatonin 3 MG Tab PO SCH (20:57)
[2020-06-26] MEDS: Aluminum Hydroxide/Magnesium Hydroxide/Simethicone Susp 30 ML Cup PO PRN (22:05)
[2020-06-27] MEDS: Levothyroxine 25 MCG Tab PO SCH (06:33)
[2020-06-27] MEDS: Levothyroxine 112 MCG Tab PO SCH (06:33)
[2020-06-27 06:45] LABS: CARBON DIOXIDE,CO2 31.2 mmol/L (21.0-32.0); POTASSIUM,K 3.6 mmol/L (3.5-5.1)
[2020-06-27] MEDS: Apixaban 5 MG Tab PO SCH ×3 (08:32→20:38)
[2020-06-27] MEDS: levETIRAcetam 500 MG Tab PO SCH ×3 (08:32→20:38)
[2020-06-27] MEDS: Sertraline 50 MG Tab PO SCH (08:32)
[2020-06-27] MEDS: Carvedilol 25 MG Tab PO SCH ×3 (08:33→19:59)
[2020-06-27] MEDS: Furosemide 40 MG/4 ML VIAL IVPUSH SCH ×3 (08:33→20:39)
[2020-06-27] MEDS: Lidocaine 5% 700 MG Patch TOP SCH (10:56)
[2020-06-27] MEDS: Losartan 50 MG Tab PO SCH (10:56)
[2020-06-27] MEDS ORDERED: Potassium Chloride 10% 20 MEQ/15 ML Soln 30 ML UD Cup PO ONE ×2 (12:36→16:15)
--- NOTE | 2020-06-27 14:00 | PCM.PN ---
<Chayo Morel - Last Filed: 06/27/20 13:54> - General Info Date of Service: 06/27/20 Subjective Update: Patient is a 75-year-old gentleman, admitted for CHF exacerbation with previous history of CHF with an ejection fraction of 15%. There were no overnight events, states that he is feeling better this morning but tired due to the Lasix causing for him to need to use the bathroom more frequently. Otherwise can appreciate that the edema in his legs has improved and he is finding it easier to breathe. Functional Status: Reports: Tolerating Diet. Denies: New Symptoms - Review of Systems General: Reports: No Symptoms HEENT: Reports: No Symptoms Pulmonary: Reports: Shortness of Breath Cardiovascular: Reports: Dyspnea on Exertion Gastrointestinal: Reports: No Symptoms Genitourinary: Reports: No Symptoms Musculoskeletal: Reports: No Symptoms Skin: Reports: No Symptoms Neurological: Reports: No Symptoms Psychiatric: Reports: No Symptoms - Patient Data Vitals - Most Recent: Last Vital Signs Temp 97.8 F 06/27/20 10:53 Pulse 68 06/27/20 10:53 Resp 18 06/27/20 10:53 BP 109/65 06/27/20 10:56 Pulse Ox 98 06/27/20 10:53 Weight - Most Recent: 90.038 kg I&O - Last 24 Hours: Intake & Output 06/26/20 06/27/20 06/27/20 22:59 06:59 14:59 Intake Total 450 300 Output Total 1000 695 Balance -550 -395 Lab Results Last 24 Hours: Laboratory Results - last 24 hr 06/27/20 06/27/20 06/27/20 Range/Units 06:05 06:05 06:05 WBC 6.98 (4.0-11.0) K/uL RBC 4.38 L (4.50-5.90) M/uL Hgb 13.7 (13.0-17.0) g/dL Hct 43.1 (38.0-50.0) % MCV 98.4 H (80.0-98.0) fL MCH 31.3 (27.0-32.0) pg MCHC 31.8 (31.0-37.0) g/dL RDW Std Deviation 53.7 (28.0-62.0) fl RDW Coeff of Mike 15 (11.0-15.0) % Plt Count 162 (150-400) K/uL MPV 11.10 (7.40-12.00) fL Neut % (Auto) 63.5 (48.0-80.0) % Lymph % (Auto) 23.5 (16.0-40.0) % Mccracken % (Auto) 10.7 (0.0-15.0) % Eos % (Auto) 2.0 (0.0-7.0) % Baso % (Auto) 0.3 (0.0-1.5) % Neut # (Auto) 4.4 (1.4-5.7) K/uL Lymph # (Auto) 1.6 (0.6-2.4) K/uL M[place]racken # (Auto) 0.8 (0.0-0.8) K/uL Eos # (Auto) 0.1 (0.0-0.7) K/uL Baso # (Auto) 0.0 (0.0-0.1) K/uL Nucleated RBC % 0.0 /100WBC Nucleated RBCs # 0 K/uL Sodium 145 (136-148) mmol/L Potassium 3.6 (3.5-5.1) mmol/L Chloride 105 (98-107) mmol/L Carbon Dioxide 31.2 (21.0-32.0) mmol/L BUN 57 H (7.0-18.0) mg/dL Creatinine 2.2 H (0.8-1.3) mg/dL Est Cr Clr Drug Dosing 30.86 mL/min Estimated GFR (MDRD) 29.2 ml/min Glucose 113 H (74-106) mg/dL Calcium 9.3 (8.5-10.1) mg/dL Magnesium 2.2 (1.8-2.4) mg/dL Total Bilirubin 1.3 H (0.2-1.0) mg/dL AST 21 (15-37) IU/L ALT 14 (14-63) IU/L Alkaline Phosphatase 85 (46-116) U/L Total Protein 7.2 (6.4-8.2) g/dL Albumin 3.4 (3.4-5.0) g/dL Globulin 3.8 (2.6-4.0) g/dL Albumin/Globulin Ratio 0.9 (0.9-1.6) Med Orders - Current: Current Medications Acetaminophen (Tylenol) 650 mg PO Q4H PRN PRN Reason: Pain (Mild 1-3)/fever Al Hydroxide/Mg Hydroxide (Mag-Al Plus) 5 ml PO Q6H PRN PRN Reason: Heartburn Last Admin: 06/26/20 22:05 Dose: 5 ml Documented by: Apixaban (Eliquis) 5 mg PO BID [facility] Last Admin: 06/27/20 08:32 Dose: 5 mg Documented by: Carvedilol (Coreg) 25 mg PO BID [facility] Last Admin: 06/27/20 08:33 Dose: 25 mg Documented by: Furosemide (Lasix) 40 mg IVPUSH BID [facility] Last Admin: 06/27/20 08:33 Dose: 40 mg Documented by: Gabapentin (Neurontin) 300 mg PO BEDTIME [facility] Last Admin: 06/26/20 20:24 Dose: 300 mg Documented by: Hydroxyzine HCl (Atarax) 25 mg PO TID PRN PRN Reason: Anxiety Last Admin: 06/26/20 16:55 Dose: 25 mg Documented by: Levetiracetam (Keppra) 1,000 mg PO BID [facility] Last Admin: 06/27/20 08:32 Dose: 1,000 mg Documented by: Levothyroxine Sodium (Levothyroxine) 112 mcg PO ACBRK [facility] Last Admin: 06/27/20 06:33 Dose: 112 mcg Documented by: Levothyroxine Sodium (Levothyroxine) 25 mcg PO ACBREAKFAST [facility] Last Admin: 06/27/20 06:33 Dose: 25 mcg Documented by: Lidocaine (Lidoderm 5%) 700 mg TOP DAILY [facility] Last Admin: 06/27/20 10:56 Dose: 700 mg Documented by: Losartan Potassium (Cozaar) 100 mg PO DAILY [facility] Last Admin: 06/27/20 10:56 Dose: 100 mg Documented by: Melatonin (Melatonin) 18 mg PO BEDTIME [facility] Last Admin: 06/26/20 20:57 Dose: 18 mg Documented by: Oxycodone HCl (Oxycodone) 5 mg PO Q6H PRN PRN Reason: Pain (moderate 4-6) Last Admin: 06/26/20 09:00 Dose: 5 mg Documented by: Quetiapine Fumarate (Seroquel) 25 mg PO BEDTIME [facility] Last Admin: 06/26/20 20:24 Dose: 25 mg Documented by: Sertraline HCl (Zoloft) 50 mg PO DAILY [facility] Last Admin: 06/27/20 08:32 Dose: 50 mg Documented by: Sodium Chloride (Saline Flush) 10 ml FLUSH ASDIRECTED PRN PRN Reason: Keep Vein Open Last Admin: 06/25/20 18:42 Dose: 10 ml Documented by: Sodium Chloride (Saline Flush) 2.5 ml FLUSH ASDIRECTED PRN PRN Reason: Keep Vein Open Last Admin: 06/25/20 18:42 Dose: 2.5 ml Documented by: Discontinued Medications Furosemide (Lasix) 40 mg IVPUSH NOW ONE Stop: 06/25/20 19:48 Last Admin: 06/25/20 20:46 Dose: 40 mg Documented by: Lactated Ringer's (Ringers, Lactated) 1,000 mls @ 125 mls/hr IV ASDIRECTED [facility] Last Admin: 06/25/20 18:41 Dose: 125 mls/hr Documented by: Morphine Sulfate (Morphine) 2 mg IVPUSH ONETIME ONE Stop: 06/25/20 19:29 Last Admin: 06/25/20 20:20 Dose: 2 mg Documented by: Potassium Chloride (Potassium Chloride) 40 meq PO ONETIME ONE Stop: 06/27/20 12:37 - Exam Quality Assessment: Supplemental Oxygen, DVT Prophylaxis General: Alert, Oriented, Cooperative, No Acute Distress HEENT: Pupils Equal, Pupils Reactive, EOMI, Mucous Membr. Moist/[place] Neck: Supple, No JVD Lungs: Clear to Auscultation, Normal Respiratory Effort Cardiovascular: Regular Rate, Regular Rhythm GI/Abdominal Exam: Normal Bowel Sounds, Soft, Non-Tender, No Organomegaly, No Distention, No Abnormal Bruit, No Mass (Male) Exam: No Hernia, Normal Inspection, Normal Prostate, Circumcised Extremities: Normal Inspection, Normal Range of Motion, Non-Tender, Normal Capillary Refill, Pedal Edema. No: Leg Pain Peripheral Pulses: 2+: Radial (L), Radial (R), Dorsalis Pedis (L), Dorsalis Pedis (R) Skin: Warm, Dry, Intact Wound/Incisions: Healing Well Neurological: No New Focal Deficit Psy/Mental Status: Alert, Normal Affect, Normal Mood Sepsis Event Note - Evaluation Sepsis Screening Result: No Definite Risk - Focused Exam Vital Signs: Vital Signs Temp Pulse Pulse Resp BP BP Pulse Ox 06/27/20 10:56 109/65 06/27/20 10:53 97.8 F 68 18 109/65 98 06/27/20 08:33 66 111/71 06/27/20 08:00 97.8 F 66 17 111/71 97 06/27/20 04:00 97.8 F 68 17 129/62 93 L - Problem List & Annotations (1) Acute exacerbation of congestive heart failure SNOMED Code(s): 661942406, 50223662154687 Code(s): I50.9 - HEART FAILURE, UNSPECIFIED Status: Acute Current Visit: Yes Qualifiers: Heart failure type: systolic Qualified Code(s): I50.23 - Acute on chronic systolic (congestive) heart failure (2) Acute kidney injury SNOMED Code(s): 55345698, 69844351 Code(s): N17.9 - ACUTE KIDNEY FAILURE, UNSPECIFIED Status: Acute Current Visit: Yes - Problem List Review Problem List Initiated/Reviewed/Updated: Yes - My Orders Last 24 Hours: My Active Orders 06/28/20 05:11 CBC WITH AUTO DIFF [HEME] AM CMP [COMPREHENSIVE METABOLIC PN,CMP] [CHEM] AM 06/29/20 05:11 CBC WITH AUTO DIFF [HEME] AM CMP [COMPREHENSIVE METABOLIC PN,CMP] [CHEM] AM 06/30/20 05:11 CBC WITH AUTO DIFF [HEME] AM CMP [COMPREHENSIVE METABOLIC PN,CMP] [CHEM] AM 07/01/20 05:11 CBC WITH AUTO DIFF [HEME] AM CMP [COMPREHENSIVE METABOLIC PN,CMP] [CHEM] AM - Plan Plan:: Patient is a alesha 75-year-old gentleman admitted for an acute exacerbation of previous congestive heart failure and acute on chronic kidney disease. 1. Acute exacerbation of congestive heart failure: Improved, previously known ejection fraction of 15%, continue with Lasix 40mg IV BID, oxygen supplementation as needed, with continuous pulse ox. -2D echo ordered -IS 2. Acute on chronic kidney disease: Fluid supplementation Monitor CMP daily with a.m. labs Avoid nephrotoxic agents 3. History of A. fib: On Eliquis Continue to monitor on telemetry 4. Sacral ulcer: -Lidocaine patch for 12 hrs -Tagoderm 5. Deconditioning: -PT consult 6. Past medical history of obstructive sleep apnea, hypertension, hypothyroidism; resume all home medications; Restarted Losartan <Zahraa Mcneal - Last Filed: 06/29/20 10:16> - Patient Data Vitals - Most Recent: Last Vital Signs Temp 36.2 C 06/29/20 07:50 Pulse 73 06/29/20 08:31 Resp 18 06/29/20 07:50 BP 122/76 06/29/20 08:32 Pulse Ox 97 06/29/20 07:50 I&O - Last 24 Hours: Intake & Output 06/28/20 06/29/20 06/29/20 22:59 06:59 14:59 Intake Total 700 600 Output Total 500 705 Balance 200 -105 Lab Results Last 24 Hours: Laboratory Results - last 24 hr 06/28/20 06/29/20 06/29/20 Range/Units 05:22 06:22 06:22 WBC 6.71 (4.0-11.0) K/uL RBC 4.18 L (4.50-5.90) M/uL Hgb 12.8 L (13.0-17.0) g/dL Hct 41.1 (38.0-50.0) % MCV 98.3 H (80.0-98.0) fL MCH 30.6 (27.0-32.0) pg MCHC 31.1 (31.0-37.0) g/dL RDW Std Deviation 53.4 (28.0-62.0) fl RDW Coeff of Mike 15 (11.0-15.0) % Plt Count 163 (150-400) K/uL MPV 10.90 (7.40-12.00) fL Neut % (Auto) 65.3 (48.0-80.0) % Lymph % (Auto) 22.5 (16.0-40.0) % Mccracken % (Auto) 8.2 (0.0-15.0) % Eos % (Auto) 3.4 (0.0-7.0) % Baso % (Auto) 0.6 (0.0-1.5) % Neut # (Auto) 4.4 (1.4-5.7) K/uL Lymph # (Auto) 1.5 (0.6-2.4) K/uL M[place]racken # (Auto) 0.6 (0.0-0.8) K/uL Eos # (Auto) 0.2 (0.0-0.7) K/uL Baso # (Auto) 0.0 (0.0-0.1) K/uL Nucleated RBC % 0.0 /100WBC Nucleated RBCs # 0 K/uL Sodium 144 (136-148) mmol/L Potassium 3.0 L (3.5-5.1) mmol/L Chloride 104 (98-107) mmol/L Carbon Dioxide 30.2 (21.0-32.0) mmol/L BUN 48 H (7.0-18.0) mg/dL Creatinine 1.9 H (0.8-1.3) mg/dL Est Cr Clr Drug Dosing 35.74 mL/min Estimated GFR (MDRD) 34.5 ml/min Glucose 113 H (74-106) mg/dL Calcium 8.8 (8.5-10.1) mg/dL Magnesium 2.4 (1.8-2.4) mg/dL Total Bilirubin 1.2 H (0.2-1.0) mg/dL AST 20 (15-37) IU/L ALT 15 (14-63) IU/L Alkaline Phosphatase 80 (46-116) U/L Total Protein 6.6 (6.4-8.2) g/dL Albumin 3.1 L (3.4-5.0) g/dL Globulin 3.5 (2.6-4.0) g/dL Albumin/Globulin Ratio 0.9 (0.9-1.6) Med Orders - Current: Current Medications Acetaminophen (Tylenol) 650 mg PO Q4H PRN PRN Reason: Pain (Mild 1-3)/fever Al Hydroxide/Mg Hydroxide (Mag-Al Plus) 5 ml PO Q6H PRN PRN Reason: Heartburn Last Admin: 06/27/20 20:45 Dose: 5 ml Documented by: Albuterol/Ipratropium (Combivent Respimat) 0 gm INH Q4HRRT PRN PRN Reason: Dyspnea Apixaban (Eliquis) 5 mg PO BID [facility] Last Admin: 06/29/20 08:33 Dose: 5 mg Documented by: Carvedilol (Coreg) 25 mg PO BID [facility] Last Admin: 06/29/20 08:31 Dose: 25 mg Documented by: Furosemide (Lasix) 40 mg IVPUSH BID [facility] Last Admin: 06/29/20 08:35 Dose: 40 mg Documented by: Gabapentin (Neurontin) 300 mg PO BEDTIME [facility] Last Admin: 06/28/20 20:00 Dose: 300 mg Documented by: Hydroxyzine HCl (Atarax) 25 mg PO TID PRN PRN Reason: Anxiety Last Admin: 06/28/20 20:00 Dose: 25 mg Documented by: Potassium Chloride 40 meq/ (Sodium Chloride) 270 mls @ 67.5 mls/hr IV ONETIME ONE Stop: 06/29/20 14:14 Levofloxacin/Dextrose 750 mg/ (Premix) 150 mls @ 100 mls/hr IV Q24H [facility] Levetiracetam (Keppra) 1,000 mg PO BID [facility] Last Admin: 06/29/20 08:34 Dose: 1,000 mg Documented by: Levothyroxine Sodium (Levothyroxine) 112 mcg PO ACBRK [facility] Last Admin: 06/29/20 06:45 Dose: Not Given Documented by: Levothyroxine Sodium (Levothyroxine) 25 mcg PO ACBREAKFAST [facility] Last Admin: 06/29/20 06:46 Dose: Not Given Documented by: Lidocaine (Lidoderm 5%) 700 mg TOP DAILY [facility] Last Admin: 06/28/20 09:02 Dose: 700 mg Documented by: Losartan Potassium (Cozaar) 25 mg PO DAILY [facility] Last Admin: 06/29/20 08:32 Dose: 25 mg Documented by: Melatonin (Melatonin) 18 mg PO BEDTIME [facility] Last Admin: 06/28/20 19:59 Dose: 18 mg Documented by: Oxycodone HCl (Oxycodone) 5 mg PO Q6H PRN PRN Reason: Pain (moderate 4-6) Last Admin: 06/29/20 08:44 Dose: 5 mg Documented by: Quetiapine Fumarate (Seroquel) 25 mg PO BEDTIME [facility] Last Admin: 06/28/20 20:00 Dose: 25 mg Documented by: Sertraline HCl (Zoloft) 50 mg PO DAILY [facility] Last Admin: 06/29/20 08:34 Dose: 50 mg Documented by: Sodium Chloride (Saline Flush) 10 ml FLUSH ASDIRECTED PRN PRN Reason: Keep Vein Open Last Admin: 06/25/20 18:42 Dose: 10 ml Documented by: Sodium Chloride (Saline Flush) 2.5 ml FLUSH ASDIRECTED PRN PRN Reason: Keep Vein Open Last Admin: 06/25/20 18:42 Dose: 2.5 ml Documented by: Discontinued Medications Furosemide (Lasix) 40 mg IVPUSH NOW ONE Stop: 06/25/20 19:48 Last Admin: 06/25/20 20:46 Dose: 40 mg Documented by: Furosemide (Lasix) 40 mg IVPUSH BID [facility] Last Admin: 06/28/20 08:57 Dose: 40 mg Documented by: Furosemide (Lasix) 20 mg IVPUSH BID [facility] Last Admin: 06/28/20 11:25 Dose: Not Given Documented by: Lactated Ringer's (Ringers, Lactated) 1,000 mls @ 125 mls/hr IV ASDIRECTED [facility] Last Admin: 06/25/20 18:41 Dose: 125 mls/hr Documented by: Losartan Potassium (Cozaar) 100 mg PO DAILY [facility] Last Admin: 06/28/20 08:53 Dose: 100 mg Documented by: Morphine Sulfate (Morphine) 2 mg IVPUSH ONETIME ONE Stop: 06/25/20 19:29 Last Admin: 06/25/20 20:20 Dose: 2 mg Documented by: Potassium Chloride (Potassium Chloride) 40 meq PO ONETIME ONE Stop: 06/27/20 12:37 Last Admin: 06/27/20 16:24 Dose: Not Given Documented by: Potassium Chloride (Potassium Chloride) 40 meq PO ONETIME ONE Stop: 06/27/20 16:16 Last Admin: 06/27/20 16:24 Dose: 40 meq Documented by: Potassium Chloride (Klor-Con M20) 40 meq PO ONETIME ONE Stop: 06/28/20 10:01 Last Admin: 06/28/20 10:53 Dose: 40 meq Documented by: Sepsis Event Note - Focused Exam Vital Signs: Vital Signs Temp Pulse Pulse Resp BP BP BP 06/29/20 08:32 122/76 06/29/20 08:31 73 122/76 06/29/20 07:50 36.2 C 75 18 116/80 06/29/20 04:37 36.6 C 55 L 20 112/72 06/29/20 04:31 06/28/20 22:58 36.2 C 73 18 90/67 Pulse Ox Pulse Ox 06/29/20 08:32 06/29/20 08:31 06/29/20 07:50 97 06/29/20 04:37 93 L 06/29/20 04:31 93 L 06/28/20 22:58 93 L - Plan Plan:: I have seen and evaluated the patient and agree with the residents note unless specified in my note
[2020-06-27] MEDS: oxyCODONE 5 MG Tab PO PRN (18:16)
[2020-06-27] MEDS: hydrOXYzine HCl 25 MG Tab PO PRN (18:16)
[2020-06-27] MEDS: Melatonin 3 MG Tab PO SCH ×2 (19:53→20:39)
[2020-06-27] MEDS: Gabapentin 300 MG Cap PO SCH ×2 (19:58→20:39)
[2020-06-27] MEDS: QUEtiapine 25 MG Tab PO SCH ×2 (19:58→20:39)
[2020-06-27] MEDS: Aluminum Hydroxide/Magnesium Hydroxide/Simethicone Susp 30 ML Cup PO PRN (20:45)
[2020-06-28 05:51] LABS: CARBON DIOXIDE,CO2 30.7 mmol/L (21.0-32.0); POTASSIUM,K 3.4 mmol/L (3.5-5.1)
[2020-06-28] MEDS: Levothyroxine 25 MCG Tab PO SCH (06:29)
[2020-06-28] MEDS: Levothyroxine 112 MCG Tab PO SCH ×2 (06:29→06:30)
[2020-06-28] MEDS: Losartan 50 MG Tab PO SCH (08:53)
[2020-06-28] MEDS: Carvedilol 25 MG Tab PO SCH ×2 (08:55→20:00)
[2020-06-28] MEDS: levETIRAcetam 500 MG Tab PO SCH ×2 (08:55→19:59)
[2020-06-28] MEDS: Sertraline 50 MG Tab PO SCH (08:56)
[2020-06-28] MEDS: Furosemide 40 MG/4 ML VIAL IVPUSH SCH ×2 (08:57→20:07)
[2020-06-28] MEDS: Apixaban 5 MG Tab PO SCH ×2 (08:57→20:00)
[2020-06-28] MEDS: Lidocaine 5% 700 MG Patch TOP SCH (09:02)
[2020-06-28] MEDS ORDERED: Potassium Chloride 10% 20 MEQ/15 ML Soln 30 ML UD Cup PO ONE (09:18)
--- NOTE | 2020-06-28 09:34 | PCM.PN ---
<Chayo Morel - Last Filed: 06/28/20 09:28> - General Info Date of Service: 06/28/20 Subjective Update: Patient is a 75-year-old gentleman, admitted for CHF exacerbation with previous history of CHF with an ejection fraction of 15%. There were no overnight events, states that he is feeling better this morning but tired due to the Lasix causing for him to need to use the bathroom more frequently. Otherwise can appreciate that the edema in his legs has improved and he is finding it easier to breathe. Does continue to have sacral pain, but states the lidocaine and Tegaderm has helped. Patient was seen and examined at bedside, is feeling much improved, all questions and concerns were addressed. Functional Status: Reports: Pain Controlled, Tolerating Diet, Ambulating, Incentive Spirometry - Review of Systems General: Reports: Weakness HEENT: Reports: No Symptoms Pulmonary: Reports: Shortness of Breath Cardiovascular: Reports: Dyspnea on Exertion Gastrointestinal: Reports: No Symptoms Genitourinary: Reports: No Symptoms Musculoskeletal: Reports: No Symptoms Skin: Reports: No Symptoms Neurological: Reports: No Symptoms Psychiatric: Reports: No Symptoms, Anxiety - Patient Data Vitals - Most Recent: Last Vital Signs Temp 97.3 F 06/28/20 07:33 Pulse 70 06/28/20 08:55 Resp 18 06/28/20 07:33 BP 123/67 06/28/20 08:55 Pulse Ox 94 L 06/28/20 07:33 Weight - Most Recent: 90.5 kg I&O - Last 24 Hours: Intake & Output 06/27/20 06/28/20 06/28/20 22:59 06:59 14:59 Intake Total 1194 360 Output Total 1075 725 Balance 119 -365 Lab Results Last 24 Hours: Laboratory Results - last 24 hr 06/28/20 06/28/20 Range/Units 05:22 05:22 WBC 6.87 (4.0-11.0) K/uL RBC 4.30 L (4.50-5.90) M/uL Hgb 13.3 (13.0-17.0) g/dL Hct 41.9 (38.0-50.0) % MCV 97.4 (80.0-98.0) fL MCH 30.9 (27.0-32.0) pg MCHC 31.7 (31.0-37.0) g/dL RDW Std Deviation 52.9 (28.0-62.0) fl RDW Coeff of Mike 15 (11.0-15.0) % Plt Count 157 (150-400) K/uL MPV 10.60 (7.40-12.00) fL Neut % (Auto) 66.0 (48.0-80.0) % Lymph % (Auto) 22.0 (16.0-40.0) % [place] % (Auto) 9.6 (0.0-15.0) % Eos % (Auto) 2.3 (0.0-7.0) % Baso % (Auto) 0.1 (0.0-1.5) % Neut # (Auto) 4.5 (1.4-5.7) K/uL Lymph # (Auto) 1.5 (0.6-2.4) K/uL [place] # (Auto) 0.7 (0.0-0.8) K/uL Eos # (Auto) 0.2 (0.0-0.7) K/uL Baso # (Auto) 0.0 (0.0-0.1) K/uL Nucleated RBC % 0.0 /100WBC Nucleated RBCs # 0 K/uL Sodium 145 (136-148) mmol/L Potassium 3.4 L (3.5-5.1) mmol/L Chloride 106 (98-107) mmol/L Carbon Dioxide 30.7 (21.0-32.0) mmol/L BUN 54 H (7.0-18.0) mg/dL Creatinine 2.1 H (0.8-1.3) mg/dL Est Cr Clr Drug Dosing 32.33 mL/min Estimated GFR (MDRD) 30.8 ml/min Glucose 99 (74-106) mg/dL Calcium 9.2 (8.5-10.1) mg/dL Total Bilirubin 1.3 H (0.2-1.0) mg/dL AST 19 (15-37) IU/L ALT 15 (14-63) IU/L Alkaline Phosphatase 81 (46-116) U/L Total Protein 6.9 (6.4-8.2) g/dL Albumin 3.3 L (3.4-5.0) g/dL Globulin 3.6 (2.6-4.0) g/dL Albumin/Globulin Ratio 0.9 (0.9-1.6) Med Orders - Current: Current Medications Acetaminophen (Tylenol) 650 mg PO Q4H PRN PRN Reason: Pain (Mild 1-3)/fever Al Hydroxide/Mg Hydroxide (Mag-Al Plus) 5 ml PO Q6H PRN PRN Reason: Heartburn Last Admin: 06/27/20 20:45 Dose: 5 ml Documented by: Apixaban (Eliquis) 5 mg PO BID [facility] Last Admin: 06/28/20 08:57 Dose: 5 mg Documented by: Carvedilol (Coreg) 25 mg PO BID [facility] Last Admin: 06/28/20 08:55 Dose: 25 mg Documented by: Furosemide (Lasix) 40 mg IVPUSH BID [facility] Last Admin: 06/28/20 08:57 Dose: 40 mg Documented by: Gabapentin (Neurontin) 300 mg PO BEDTIME [facility] Last Admin: 06/27/20 20:39 Dose: Not Given Documented by: Hydroxyzine HCl (Atarax) 25 mg PO TID PRN PRN Reason: Anxiety Last Admin: 06/27/20 18:16 Dose: 25 mg Documented by: Levetiracetam (Keppra) 1,000 mg PO BID [facility] Last Admin: 06/28/20 08:55 Dose: 1,000 mg Documented by: Levothyroxine Sodium (Levothyroxine) 112 mcg PO ACBRK [facility] Last Admin: 06/28/20 06:30 Dose: 112 mcg Documented by: Levothyroxine Sodium (Levothyroxine) 25 mcg PO ACBREAKFAST [facility] Last Admin: 06/28/20 06:29 Dose: 25 mcg Documented by: Lidocaine (Lidoderm 5%) 700 mg TOP DAILY [facility] Last Admin: 06/28/20 09:02 Dose: 700 mg Documented by: Losartan Potassium (Cozaar) 100 mg PO DAILY [facility] Last Admin: 06/28/20 08:53 Dose: 100 mg Documented by: Melatonin (Melatonin) 18 mg PO BEDTIME [facility] Last Admin: 06/27/20 20:39 Dose: Not Given Documented by: Oxycodone HCl (Oxycodone) 5 mg PO Q6H PRN PRN Reason: Pain (moderate 4-6) Last Admin: 06/27/20 18:16 Dose: 5 mg Documented by: Quetiapine Fumarate (Seroquel) 25 mg PO BEDTIME [facility] Last Admin: 06/27/20 20:39 Dose: Not Given Documented by: Sertraline HCl (Zoloft) 50 mg PO DAILY [facility] Last Admin: 06/28/20 08:56 Dose: 50 mg Documented by: Sodium Chloride (Saline Flush) 10 ml FLUSH ASDIRECTED PRN PRN Reason: Keep Vein Open Last Admin: 06/25/20 18:42 Dose: 10 ml Documented by: Sodium Chloride (Saline Flush) 2.5 ml FLUSH ASDIRECTED PRN PRN Reason: Keep Vein Open Last Admin: 06/25/20 18:42 Dose: 2.5 ml Documented by: Discontinued Medications Furosemide (Lasix) 40 mg IVPUSH NOW ONE Stop: 06/25/20 19:48 Last Admin: 06/25/20 20:46 Dose: 40 mg Documented by: Lactated Ringer's (Ringers, Lactated) 1,000 mls @ 125 mls/hr IV ASDIRECTED [facility] Last Admin: 06/25/20 18:41 Dose: 125 mls/hr Documented by: Morphine Sulfate (Morphine) 2 mg IVPUSH ONETIME ONE Stop: 06/25/20 19:29 Last Admin: 06/25/20 20:20 Dose: 2 mg Documented by: Potassium Chloride (Potassium Chloride) 40 meq PO ONETIME ONE Stop: 06/27/20 12:37 Last Admin: 06/27/20 16:24 Dose: Not Given Documented by: Potassium Chloride (Potassium Chloride) 40 meq PO ONETIME ONE Stop: 06/27/20 16:16 Last Admin: 06/27/20 16:24 Dose: 40 meq Documented by: Potassium Chloride (Potassium Chloride) 40 meq PO ONETIME ONE Stop: 06/28/20 09:19 - Exam Quality Assessment: Supplemental Oxygen, DVT Prophylaxis, Skin Breakdown General: Alert, Oriented, Cooperative, No Acute Distress HEENT: Pupils Equal, Pupils Reactive, EOMI, Mucous Membr. Moist/[place] Neck: Supple, Trachea Midline Lungs: Clear to Auscultation, Normal Respiratory Effort Cardiovascular: Irregular Rhythm (known a.fib ) GI/Abdominal Exam: Normal Bowel Sounds, Soft, Non-Tender Back Exam: Full Range of Motion, Other (sacral ulcer stage 1, better with tegaderm) Extremities: Normal Inspection, Normal Range of Motion, No Pedal Edema, Normal Capillary Refill Peripheral Pulses: 2+: Radial (L), Radial (R), Dorsalis Pedis (L), Dorsalis Pedis (R) Skin: Warm, Dry, Intact Wound/Incisions: Healing Well, Dressing Dry and Intact Neurological: No New Focal Deficit Psy/Mental Status: Alert, Normal Affect, Normal Mood Sepsis Event Note - Evaluation Sepsis Screening Result: No Definite Risk - Focused Exam Vital Signs: Vital Signs Temp Pulse Pulse Resp BP BP Pulse Ox 06/28/20 08:55 70 123/67 06/28/20 08:53 123/67 06/28/20 07:33 97.3 F 70 18 123/67 94 L 06/28/20 05:00 06/28/20 03:46 97.0 F 77 18 116/82 92 L 06/28/20 00:00 97.3 F 70 20 96/71 97 Pulse Ox 06/28/20 08:55 06/28/20 08:53 06/28/20 07:33 06/28/20 05:00 92 L 06/28/20 03:46 06/28/20 00:00 - Problem List & Annotations (1) Acute exacerbation of congestive heart failure SNOMED Code(s): 256376583, 76383485434932 Code(s): I50.9 - HEART FAILURE, UNSPECIFIED Status: Acute Current Visit: Yes Qualifiers: Heart failure type: systolic Qualified Code(s): I50.23 - Acute on chronic systolic (congestive) heart failure (2) Acute kidney injury SNOMED Code(s): 65451173, 34439472 Code(s): N17.9 - ACUTE KIDNEY FAILURE, UNSPECIFIED Status: Acute Current Visit: Yes - Problem List Review Problem List Initiated/Reviewed/Updated: Yes - My Orders Last 24 Hours: My Active Orders 06/28/20 Breakfast 2 Gram Sodium Diet [DIET] 06/28/20 09:19 Chest 1V Frontal [CR] Routine 06/29/20 05:11 CBC WITH AUTO DIFF [HEME] AM CMP [COMPREHENSIVE METABOLIC PN,CMP] [CHEM] AM 06/30/20 05:11 CBC WITH AUTO DIFF [HEME] AM CMP [COMPREHENSIVE METABOLIC PN,CMP] [CHEM] AM 07/01/20 05:11 CBC WITH AUTO DIFF [HEME] AM CMP [COMPREHENSIVE METABOLIC PN,CMP] [CHEM] AM - Plan Plan:: Patient is a alesha 75-year-old gentleman admitted for an acute exacerbation of previous congestive heart failure and acute on chronic kidney disease. 1. Acute exacerbation of congestive heart failure: Improved, previously known ejection fraction of 15%, continue with Lasix 40mg IV BID, fluid restriction of 1.8 L/day oxygen supplementation as needed, with continuous pulse ox. -2D echo ordered, results pending -IS -Patient has dyspnea on exertion, therefore will get chest x-ray 2. Mild hypokalemia: Replete 40 mEq p.o. Monitor with morning CMP 3. Acute on chronic kidney disease: -Improved, BUN 54, creatinine 2.1 Continue with fluid supplementation Monitor CMP daily with a.m. labs Avoid nephrotoxic agents 4. History of A. fib: -Stable On Eliquis Continue to monitor on telemetry 5. Sacral ulcer: Improved -Lidocaine patch for 12 hrs -Tagoderm -We will get cushion/deodorant to help relieve pressure off sacral region 6. Deconditioning: -PT consult -PT will come work with patient today -We will consider home health consult to assist with physical therapy/strengthening, medication regimen, and address home safety 7. Past medical history of obstructive sleep apnea, hypertension, hypothyroidism; resume all home medications; Restarted Losartan 8. Disposition: 2 to 3 days, will try to arrange for physical therapy and home health, may need to consider home oxygen therapy as needed, close follow-up with Dr. Jamison in cardiology for follow-up and ICD placement. <Zahraa Mcneal - Last Filed: 06/29/20 10:14> - Patient Data Vitals - Most Recent: Last Vital Signs Temp 36.2 C 06/29/20 07:50 Pulse 73 06/29/20 08:31 Resp 18 06/29/20 07:50 BP 122/76 06/29/20 08:32 Pulse Ox 97 06/29/20 07:50 I&O - Last 24 Hours: Intake & Output 06/28/20 06/29/20 06/29/20 22:59 06:59 14:59 Intake Total 700 600 Output Total 500 705 Balance 200 -105 Lab Results Last 24 Hours: Laboratory Results - last 24 hr 06/28/20 06/29/2006/29/20 Range/Units 05:22 06:22 06:22 WBC 6.71 (4.0-11.0) K/uL RBC 4.18 L (4.50-5.90) M/uL Hgb 12.8 L (13.0-17.0) g/dL Hct 41.1 (38.0-50.0) % MCV 98.3 H (80.0-98.0) fL MCH 30.6 (27.0-32.0) pg MCHC 31.1 (31.0-37.0) g/dL RDW Std Deviation 53.4 (28.0-62.0) fl RDW Coeff of Mike 15 (11.0-15.0) % Plt Count 163 (150-400) K/uL MPV 10.90 (7.40-12.00) fL Neut % (Auto) 65.3 (48.0-80.0) % Lymph % (Auto) 22.5 (16.0-40.0) % [place] % (Auto) 8.2 (0.0-15.0) % Eos % (Auto) 3.4 (0.0-7.0) % Baso % (Auto) 0.6 (0.0-1.5) % Neut # (Auto) 4.4 (1.4-5.7) K/uL Lymph # (Auto) 1.5 (0.6-2.4) K/uL [place] # (Auto) 0.6 (0.0-0.8) K/uL Eos # (Auto) 0.2 (0.0-0.7) K/uL Baso # (Auto) 0.0 (0.0-0.1) K/uL Nucleated RBC % 0.0 /100WBC Nucleated RBCs # 0 K/uL Sodium 144 (136-148) mmol/L Potassium 3.0 L (3.5-5.1) mmol/L Chloride 104 (98-107) mmol/L Carbon Dioxide 30.2 (21.0-32.0) mmol/L BUN 48 H (7.0-18.0) mg/dL Creatinine 1.9 H (0.8-1.3) mg/dL Est Cr Clr Drug Dosing 35.74 mL/min Estimated GFR (MDRD) 34.5 ml/min Glucose 113 H (74-106) mg/dL Calcium 8.8 (8.5-10.1) mg/dL Magnesium 2.4 (1.8-2.4) mg/dL Total Bilirubin 1.2 H (0.2-1.0) mg/dL AST 20 (15-37) IU/L ALT 15 (14-63) IU/L Alkaline Phosphatase 80 (46-116) U/L Total Protein 6.6 (6.4-8.2) g/dL Albumin 3.1 L (3.4-5.0) g/dL Globulin 3.5 (2.6-4.0) g/dL Albumin/Globulin Ratio 0.9 (0.9-1.6) Med Orders - Current: Current Medications Acetaminophen (Tylenol) 650 mg PO Q4H PRN PRN Reason: Pain (Mild 1-3)/fever Al Hydroxide/Mg Hydroxide (Mag-Al Plus) 5 ml PO Q6H PRN PRN Reason: Heartburn Last Admin: 06/27/20 20:45 Dose: 5 ml Documented by: Albuterol/Ipratropium (Combivent Respimat) 0 gm INH Q4HRRT PRN PRN Reason: Dyspnea Apixaban (Eliquis) 5 mg PO BID [facility] Last Admin: 06/29/20 08:33 Dose: 5 mg Documented by: Carvedilol (Coreg) 25 mg PO BID [facility] Last Admin: 06/29/20 08:31 Dose: 25 mg Documented by: Furosemide (Lasix) 40 mg IVPUSH BID [facility] Last Admin: 06/29/20 08:35 Dose: 40 mg Documented by: Gabapentin (Neurontin) 300 mg PO BEDTIME [facility] Last Admin: 06/28/20 20:00 Dose: 300 mg Documented by: Hydroxyzine HCl (Atarax) 25 mg PO TID PRN PRN Reason: Anxiety Last Admin: 06/28/20 20:00 Dose: 25 mg Documented by: Potassium Chloride 40 meq/ (Sodium Chloride) 270 mls @ 67.5 mls/hr IV ONETIME ONE Stop: 06/29/20 14:14 Levofloxacin/Dextrose 750 mg/ (Premix) 150 mls @ 100 mls/hr IV Q24H [facility] Levetiracetam (Keppra) 1,000 mg PO BID [facility] Last Admin: 06/29/20 08:34 Dose: 1,000 mg Documented by: Levothyroxine Sodium (Levothyroxine) 112 mcg PO ACBRK [facility] Last Admin: 06/29/20 06:45 Dose: Not Given Documented by: Levothyroxine Sodium (Levothyroxine) 25 mcg PO ACBREAKFAST [facility] Last Admin: 06/29/20 06:46 Dose: Not Given Documented by: Lidocaine (Lidoderm 5%) 700 mg TOP DAILY [facility] Last Admin: 06/28/20 09:02 Dose: 700 mg Documented by: Losartan Potassium (Cozaar) 25 mg PO DAILY [facility] Last Admin: 06/29/20 08:32 Dose: 25 mg Documented by: Melatonin (Melatonin) 18 mg PO BEDTIME [facility] Last Admin: 06/28/20 19:59 Dose: 18 mg Documented by: Oxycodone HCl (Oxycodone) 5 mg PO Q6H PRN PRN Reason: Pain (moderate 4-6) Last Admin: 06/29/20 08:44 Dose: 5 mg Documented by: Quetiapine Fumarate (Seroquel) 25 mg PO BEDTIME [facility] Last Admin: 06/28/20 20:00 Dose: 25 mg Documented by: Sertraline HCl (Zoloft) 50 mg PO DAILY [facility] Last Admin: 06/29/20 08:34 Dose: 50 mg Documented by: Sodium Chloride (Saline Flush) 10 ml FLUSH ASDIRECTED PRN PRN Reason: Keep Vein Open Last Admin: 06/25/20 18:42 Dose: 10 ml Documented by: Sodium Chloride (Saline Flush) 2.5 ml FLUSH ASDIRECTED PRN PRN Reason: Keep Vein Open Last Admin: 06/25/20 18:42 Dose: 2.5 ml Documented by: Discontinued Medications Furosemide (Lasix) 40 mg IVPUSH NOW ONE Stop: 06/25/20 19:48 Last Admin: 06/25/20 20:46 Dose: 40 mg Documented by: Furosemide (Lasix) 40 mg IVPUSH BID [facility] Last Admin: 06/28/20 08:57 Dose: 40 mg Documented by: Furosemide (Lasix) 20 mg IVPUSH BID [facility] Last Admin: 06/28/20 11:25 Dose: Not Given Documented by: Lactated Ringer's (Ringers, Lactated) 1,000 mls @ 125 mls/hr IV ASDIRECTED [facility] Last Admin: 06/25/20 18:41 Dose: 125 mls/hr Documented by: Losartan Potassium (Cozaar) 100 mg PO DAILY [facility] Last Admin: 06/28/20 08:53 Dose: 100 mg Documented by: Morphine Sulfate (Morphine) 2 mg IVPUSH ONETIME ONE Stop: 06/25/20 19:29 Last Admin: 06/25/20 20:20 Dose: 2 mg Documented by: Potassium Chloride (Potassium Chloride) 40 meq PO ONETIME ONE Stop: 06/27/20 12:37 Last Admin: 06/27/20 16:24 Dose: Not Given Documented by: Potassium Chloride (Potassium Chloride) 40 meq PO ONETIME ONE Stop: 06/27/20 16:16 Last Admin: 06/27/20 16:24 Dose: 40 meq Documented by: Potassium Chloride (Klor-Con M20) 40 meq PO ONETIME ONE Stop: 06/28/20 10:01 Last Admin: 06/28/20 10:53 Dose: 40 meq Documented by: Sepsis Event Note - Focused Exam Vital Signs: Vital Signs Temp Pulse Pulse Resp BP BP BP 06/29/20 08:32 122/76 06/29/20 08:31 73 122/76 06/29/20 07:50 36.2 C 75 18 116/80 06/29/20 04:37 36.6 C 55 L 20 112/72 06/29/20 04:31 06/28/20 22:58 36.2 C 73 18 90/67 Pulse Ox Pulse Ox 06/29/20 08:32 06/29/20 08:31 06/29/20 07:50 97 06/29/20 04:37 93 L 06/29/20 04:31 93 L 06/28/20 22:58 93 L - Plan Plan:: I have seen and evaluated the patient and agree with the residents note unless specified in my note
[2020-06-28] MEDS ORDERED: Potassium Chloride 20 MEQ Tab.ER PO ONE (10:00)
--- NOTE | 2020-06-28 10:35 | CR ---
INDICATION: Dyspnea on exertion TECHNIQUE: Chest 1 views COMPARISON: CT chest June 25, 2020 FINDINGS: Cardiovascular and mediastinum: Heart size and vasculature are normal in caliber and appearance. Lungs and pleural spaces: Possible acute infiltrate in the infrahilar right lower lobe. Remainder of the lungs and pleural spaces are clear. Bones and soft tissues: No significant findings. IMPRESSION: Possible right lower lobe pneumonia. No other finding to explain dyspnea. Dictated by Isaak Lorenzana MD @ Jun 28 2020 10:29AM Signed by Dr. Isaak Lorenzana @ Jun 28 2020 10:34AM
[2020-06-28] MEDS ORDERED: Albuterol/Ipratropium 4 GM Inhalation Spray INH PRN (11:15)
[2020-06-28] MEDS ORDERED: Furosemide 20 MG/2 ML VIAL IVPUSH SCH (11:15)
[2020-06-28] MEDS: oxyCODONE 5 MG Tab PO PRN (19:59)
[2020-06-28] MEDS: Melatonin 3 MG Tab PO SCH (19:59)
[2020-06-28] MEDS: hydrOXYzine HCl 25 MG Tab PO PRN (20:00)
[2020-06-28] MEDS: QUEtiapine 25 MG Tab PO SCH (20:00)
[2020-06-28] MEDS: Gabapentin 300 MG Cap PO SCH (20:00)
[2020-06-29] MEDS: Levothyroxine 112 MCG Tab PO SCH ×2 (06:22→06:45)
[2020-06-29] MEDS: Levothyroxine 25 MCG Tab PO SCH ×2 (06:22→06:46)
[2020-06-29 07:17] LABS: CARBON DIOXIDE,CO2 30.2 mmol/L (21.0-32.0)
[2020-06-29] MEDS: Carvedilol 25 MG Tab PO SCH ×2 (08:31→20:22)
[2020-06-29] MEDS: Losartan 50 MG Tab PO SCH (08:32)
[2020-06-29] MEDS: Apixaban 5 MG Tab PO SCH ×2 (08:33→20:22)
[2020-06-29] MEDS: levETIRAcetam 500 MG Tab PO SCH ×2 (08:34→20:22)
[2020-06-29] MEDS: Sertraline 50 MG Tab PO SCH (08:34)
[2020-06-29] MEDS: Furosemide 40 MG/4 ML VIAL IVPUSH SCH ×2 (08:35→20:21)
[2020-06-29] MEDS: oxyCODONE 5 MG Tab PO PRN ×2 (08:44→15:24)
[2020-06-29] MEDS ORDERED: Potassium Chloride 20 MEQ Tab.ER PO ONE ×2 (09:50→10:45)
[2020-06-29] MEDS ORDERED: Sodium Chloride 0.9% with KCl 500 ML IV SCH (10:00)
[2020-06-29] MEDS: Lidocaine 5% 700 MG Patch TOP SCH ×2 (10:23→20:23)
[2020-06-29] MEDS: Levofloxacin/Dextrose 5%-Water 750 MG in Premix Bag 1 BAG IV SCH (11:05)
[2020-06-29] MEDS: Acetaminophen 325 MG Tab PO PRN (12:23)
[2020-06-29] MEDS: hydrOXYzine HCl 25 MG Tab PO PRN (15:17)
--- NOTE | 2020-06-29 15:39 | PCM.PN ---
<Chayo Morel - Last Filed: 06/29/20 15:40> - General Info Date of Service: 06/29/20 Admission Dx/Problem (Free Text): Admission Diagnosis/Problem Admission Diagnosis/Problem CHF, Congestive heart failure Subjective Update: Patient is a 75-year-old gentleman, admitted for CHF exacerbation with previous history of CHF with an ejection fraction of 15%. There were no overnight events. Patient was seen and examined at bedside, is feeling much improved, but still feels weak and understands that he is in not good shape and will need to work with physical therapy prior to discharge. All questions and concerns were addressed at bedside. Functional Status: Reports: Pain Controlled, Tolerating Diet, Urinating, Incentive Spirometry - Review of Systems General: Reports: Weakness HEENT: Reports: No Symptoms Pulmonary: Reports: Shortness of Breath Cardiovascular: Reports: Dyspnea on Exertion Gastrointestinal: Reports: No Symptoms Genitourinary: Reports: No Symptoms Musculoskeletal: Reports: No Symptoms Skin: Reports: No Symptoms Neurological: Reports: No Symptoms Psychiatric: Reports: No Symptoms - Patient Data Vitals - Most Recent: Last Vital Signs Temp 97.5 F 06/29/20 11:00 Pulse 60 06/29/20 11:00 Resp 20 06/29/20 11:00 BP 101/70 06/29/20 11:00 Pulse Ox 95 06/29/20 11:18 Weight - Most Recent: 90.52 kg I&O - Last 24 Hours: Intake & Output 06/29/20 06/29/20 06/29/20 06:59 14:59 22:59 Intake Total 600 360 Output Total 705 Balance -105 360 Lab Results Last 24 Hours: Laboratory Results - last 24 hr 06/29/20 06/29/20 Range/Units 06:22 06:22 WBC 6.71 (4.0-11.0) K/uL RBC 4.18 L (4.50-5.90) M/uL Hgb 12.8 L (13.0-17.0) g/dL Hct 41.1 (38.0-50.0) % MCV 98.3 H (80.0-98.0) fL MCH 30.6 (27.0-32.0) pg MCHC 31.1 (31.0-37.0) g/dL RDW Std Deviation 53.4 (28.0-62.0) fl RDW Coeff of Mike 15 (11.0-15.0) % Plt Count 163 (150-400) K/uL MPV 10.90 (7.40-12.00) fL Neut % (Auto) 65.3 (48.0-80.0) % Lymph % (Auto) 22.5 (16.0-40.0) % [place] % (Auto) 8.2 (0.0-15.0) % Eos % (Auto) 3.4 (0.0-7.0) % Baso % (Auto) 0.6 (0.0-1.5) % Neut # (Auto) 4.4 (1.4-5.7) K/uL Lymph # (Auto) 1.5 (0.6-2.4) K/uL [place] # (Auto) 0.6 (0.0-0.8) K/uL Eos # (Auto) 0.2 (0.0-0.7) K/uL Baso # (Auto) 0.0 (0.0-0.1) K/uL Nucleated RBC % 0.0 /100WBC Nucleated RBCs # 0 K/uL Sodium 144 (136-148) mmol/L Potassium 3.0 L (3.5-5.1) mmol/L Chloride 104 (98-107) mmol/L Carbon Dioxide 30.2 (21.0-32.0) mmol/L BUN 48 H (7.0-18.0) mg/dL Creatinine 1.9 H (0.8-1.3) mg/dL Est Cr Clr Drug Dosing 35.74 mL/min Estimated GFR (MDRD) 34.5 ml/min Glucose 113 H (74-106) mg/dL Calcium 8.8 (8.5-10.1) mg/dL Total Bilirubin 1.2 H (0.2-1.0) mg/dL AST 20 (15-37) IU/L ALT 15 (14-63) IU/L Alkaline Phosphatase 80 (46-116) U/L Total Protein 6.6 (6.4-8.2) g/dL Albumin 3.1 L (3.4-5.0) g/dL Globulin 3.5 (2.6-4.0) g/dL Albumin/Globulin Ratio 0.9 (0.9-1.6) Med Orders - Current: Current Medications Acetaminophen (Tylenol) 650 mg PO Q4H PRN PRN Reason: Pain (Mild 1-3)/fever Last Admin: 06/29/20 12:23 Dose: 650 mg Documented by: Al Hydroxide/Mg Hydroxide (Mag-Al Plus) 5 ml PO Q6H PRN PRN Reason: Heartburn Last Admin: 06/27/20 20:45 Dose: 5 ml Documented by: Albuterol/Ipratropium (Combivent Respimat) 0 gm INH Q4HRRT PRN PRN Reason: Dyspnea Last Admin: 06/29/20 15:18 Dose: 1 puff Documented by: Apixaban (Eliquis) 5 mg PO BID [facility] Last Admin: 06/29/20 08:33 Dose: 5 mg Documented by: Carvedilol (Coreg) 25 mg PO BID [facility] Last Admin: 06/29/20 08:31 Dose: 25 mg Documented by: Furosemide (Lasix) 40 mg IVPUSH BID [facility] Last Admin: 06/29/20 08:35 Dose: 40 mg Documented by: Gabapentin (Neurontin) 300 mg PO BEDTIME [facility] Last Admin: 06/28/20 20:00 Dose: 300 mg Documented by: Hydroxyzine HCl (Atarax) 25 mg PO TID PRN PRN Reason: Anxiety Last Admin: 06/29/20 15:17 Dose: 25 mg Documented by: Levofloxacin/Dextrose 750 mg/ (Premix) 150 mls @ 100 mls/hr IV Q48H [facility] Last Admin: 06/29/20 11:05 Dose: 100 mls/hr Documented by: Levetiracetam (Keppra) 1,000 mg PO BID [facility] Last Admin: 06/29/20 08:34 Dose: 1,000 mg Documented by: Levothyroxine Sodium (Levothyroxine) 112 mcg PO ACBRK [facility] Last Admin: 06/29/20 06:45 Dose: Not Given Documented by: Levothyroxine Sodium (Levothyroxine) 25 mcg PO ACBREAKFAST [facility] Last Admin: 06/29/20 06:46 Dose: Not Given Documented by: Lidocaine (Lidoderm 5%) 700 mg TOP Q24H [facility] Losartan Potassium (Cozaar) 25 mg PO DAILY [facility] Last Admin: 06/29/20 08:32 Dose: 25 mg Documented by: Melatonin (Melatonin) 18 mg PO BEDTIME [facility] Last Admin: 06/28/20 19:59 Dose: 18 mg Documented by: Oxycodone HCl (Oxycodone) 5 mg PO Q6H PRN PRN Reason: Pain (moderate 4-6) Last Admin: 06/29/20 15:24 Dose: 5 mg Documented by: Quetiapine Fumarate (Seroquel) 25 mg PO BEDTIME [facility] Last Admin: 06/28/20 20:00 Dose: 25 mg Documented by: Sertraline HCl (Zoloft) 50 mg PO DAILY [facility] Last Admin: 06/29/20 08:34 Dose: 50 mg Documented by: Sodium Chloride (Saline Flush) 10 ml FLUSH ASDIRECTED PRN PRN Reason: Keep Vein Open Last Admin: 06/25/20 18:42 Dose: 10 ml Documented by: Sodium Chloride (Saline Flush) 2.5 ml FLUSH ASDIRECTED PRN PRN Reason: Keep Vein Open Last Admin: 06/25/20 18:42 Dose: 2.5 ml Documented by: Discontinued Medications Furosemide (Lasix) 40 mg IVPUSH NOW ONE Stop: 06/25/20 19:48 Last Admin: 06/25/20 20:46 Dose: 40 mg Documented by: Furosemide (Lasix) 40 mg IVPUSH BID [facility] Last Admin: 06/28/20 08:57 Dose: 40 mg Documented by: Furosemide (Lasix) 20 mg IVPUSH BID [facility] Last Admin: 06/28/20 11:25 Dose: Not Given Documented by: Lactated Ringer's (Ringers, Lactated) 1,000 mls @ 125 mls/hr IV ASDIRECTED [facility] Last Admin: 06/25/20 18:41 Dose: 125 mls/hr Documented by: Potassium Chloride 40 meq/ (Sodium Chloride) 270 mls @ 67.5 mls/hr IV ONETIME ONE Stop: 06/29/20 14:14 Last Admin: 06/29/20 11:07 Dose: 67.5 mls/hr Documented by: Lidocaine (Lidoderm 5%) 700 mg TOP DAILY [facility] Last Admin: 06/29/20 10:23 Dose: Not Given Documented by: Losartan Potassium (Cozaar) 100 mg PO DAILY [facility] Last Admin: 06/28/20 08:53 Dose: 100 mg Documented by: Morphine Sulfate (Morphine) 2 mg IVPUSH ONETIME ONE Stop: 06/25/20 19:29 Last Admin: 06/25/20 20:20 Dose: 2 mg Documented by: Potassium Chloride (Potassium Chloride) 40 meq PO ONETIME ONE Stop: 06/27/20 12:37 Last Admin: 06/27/20 16:24 Dose: Not Given Documented by: Potassium Chloride (Potassium Chloride) 40 meq PO ONETIME ONE Stop: 06/27/20 16:16 Last Admin: 06/27/20 16:24 Dose: 40 meq Documented by: Potassium Chloride (Klor-Con M20) 40 meq PO ONETIME ONE Stop: 06/28/20 10:01 Last Admin: 06/28/20 10:53 Dose: 40 meq Documented by: Potassium Chloride (Klor-Con M20) 40 meq PO ONETIME ONE Stop: 06/29/20 10:46 Last Admin: 06/29/20 10:43 Dose: 40 meq Documented by: - Exam Quality Assessment: Supplemental Oxygen, DVT Prophylaxis General: Alert, Oriented, Cooperative, No Acute Distress HEENT: Pupils Equal, Pupils Reactive, EOMI, Mucous Membr. Moist/[place] Neck: Supple, Trachea Midline, No JVD Lungs: Clear to Auscultation, Normal Respiratory Effort Cardiovascular: Regular Rate, Regular Rhythm GI/Abdominal Exam: Normal Bowel Sounds, Soft, Non-Tender, No Organomegaly, No Distention, No Abnormal Bruit, No Mass, Pelvis Stable Back Exam: Other (sacral ulder improved) Extremities: Normal Inspection, Normal Range of Motion, No Pedal Edema, Normal Capillary Refill Skin: Warm, Intact Wound/Incisions: Dressing Dry and Intact Neurological: No New Focal Deficit Psy/Mental Status: Alert, Normal Affect, Normal Mood Sepsis Event Note - Evaluation Sepsis Screening Result: No Definite Risk - Focused Exam Vital Signs: Vital Signs Temp Pulse Pulse Resp BP BP BP 06/29/20 11:18 06/29/20 11:00 97.5 F 60 20 101/70 06/29/20 08:32 122/76 06/29/20 08:31 73 122/76 06/29/20 07:50 97.1 F 75 18 116/80 06/29/20 04:37 97.9 F 55 L 20 112/72 06/29/20 04:31 Pulse Ox Pulse Ox 06/29/20 11:18 95 06/29/20 11:00 86 L 06/29/20 08:32 06/29/20 08:31 06/29/20 07:50 97 06/29/20 04:37 93 L 06/29/20 04:31 93 L - Problem List & Annotations (1) Acute exacerbation of congestive heart failure SNOMED Code(s): 603713157, 97772525176286 Code(s): I50.9 - HEART FAILURE, UNSPECIFIED Status: Acute Current Visit: Yes Qualifiers: Heart failure type: systolic Qualified Code(s): I50.23 - Acute on chronic systolic (congestive) heart failure (2) Acute kidney injury SNOMED Code(s): 28924848, 15245703 Code(s): N17.9 - ACUTE KIDNEY FAILURE, UNSPECIFIED Status: Acute Current Visit: Yes - Problem List Review Problem List Initiated/Reviewed/Updated: Yes - My Orders Last 24 Hours: My Active Orders 06/29/20 10:15 Levofloxacin/Dextrose 5%-Water [Levaquin in D5W 750 MG/150 ML] 750 mg Premix Bag 1 bag IV Q48H 06/30/20 05:11 CBC WITH AUTO DIFF [HEME] AM CMP [COMPREHENSIVE METABOLIC PN,CMP] [CHEM] AM 07/01/20 05:11 CBC WITH AUTO DIFF [HEME] AM CMP [COMPREHENSIVE METABOLIC PN,CMP] [CHEM] AM - Plan Plan:: Patient is a alesha 75-year-old gentleman admitted for an acute exacerbation of previous congestive heart failure and acute on chronic kidney disease. 1. Acute exacerbation of congestive heart failure: Improved, previously known ejection fraction of 15%, continue with Lasix 40mg IV BID, fluid restriction of 1.8 L/day oxygen supplementation as needed, with continuous pulse ox. -2D echo ordered, results pending -IS 2. Possible pneumonia: Normal white blood cell count, afebrile, dyspnea on exertion therefore got chest x-ray which indicated a possible right lower lobe pneumonia. We will start Levaquin, renally dosed due to acute on chronic kidney disease. 3. Mild hypokalemia: -3.0 Replete 40 mEq p.o. and 40 IV; total 80 mEq Monitor with morning CMP 3. Acute on chronic kidney disease: -Improved, BUN 48, creatinine 1.9 Continue with fluid supplementation Monitor CMP daily with a.m. labs Avoid nephrotoxic agents 4. History of A. fib: -Stable, no telemetry changes On Eliquis Continue to monitor on telemetry 5. Sacral ulcer: Improved -Lidocaine patch for 12 hrs -Tagoderm -We will get cushion/deodorant to help relieve pressure off sacral region 6. Deconditioning: -PT consult -PT will come work with patient today -We will consider home health consult to assist with physical therapy/strengthening, medication regimen, and address home safety 7. Past medical history of obstructive sleep apnea, hypertension, hypothyroidism; resume all home medications; Restarted Losartan 8. Disposition: 2 to 3 days, will try to arrange for physical therapy and home health, may need to consider home oxygen therapy as needed, close follow-up with Dr. Jamison in cardiology for follow-up and ICD placement. I have seen and evaluated the patient and agree with the residents note unless specified in my note <Zahraa Mcneal - Last Filed: 06/30/20 13:19> - Patient Data Vitals - Most Recent: Last Vital Signs Temp 36.3 C 06/30/20 11:50 Pulse 87 06/30/20 11:50 Resp 20 06/30/20 11:50 BP 97/64 06/30/20 11:50 Pulse Ox 98 06/30/20 11:50 I&O - Last 24 Hours: Intake & Output 06/29/20 06/30/20 06/30/20 22:59 06:59 14:59 Intake Total 1086 880 Output Total 700 500 Balance 386 380 Lab Results Last 24 Hours: Laboratory Results - last 24 hr 06/30/20 06/30/20 Range/Units 06:05 06:05 WBC 7.34 (4.0-11.0) K/uL RBC 4.35 L (4.50-5.90) M/uL Hgb 13.4 (13.0-17.0) g/dL Hct 42.9 (38.0-50.0) % MCV 98.6 H (80.0-98.0) fL MCH 30.8 (27.0-32.0) pg MCHC 31.2 (31.0-37.0) g/dL RDW Std Deviation 54.3 (28.0-62.0) fl RDW Coeff of Mike 15 (11.0-15.0) % Plt Count 171 (150-400) K/uL MPV 10.80 (7.40-12.00) fL Neut % (Auto) 64.6 (48.0-80.0) % Lymph % (Auto) 22.9 (16.0-40.0) % [place] % (Auto) 10.1 (0.0-15.0) % Eos % (Auto) 2.3 (0.0-7.0) % Baso % (Auto) 0.1 (0.0-1.5) % Neut # (Auto) 4.7 (1.4-5.7) K/uL Lymph # (Auto) 1.7 (0.6-2.4) K/uL [place] # (Auto) 0.7 (0.0-0.8) K/uL Eos # (Auto) 0.2 (0.0-0.7) K/uL Baso # (Auto) 0.0 (0.0-0.1) K/uL Nucleated RBC % 0.0 /100WBC Nucleated RBCs # 0 K/uL Sodium 143 (136-148) mmol/L Potassium 3.7 (3.5-5.1) mmol/L Chloride 104 (98-107) mmol/L Carbon Dioxide 29.8 (21.0-32.0) mmol/L BUN 45 H (7.0-18.0) mg/dL Creatinine 1.9 H (0.8-1.3) mg/dL Est Cr Clr Drug Dosing 35.74 mL/min Estimated GFR (MDRD) 34.5 ml/min Glucose 88 (74-106) mg/dL Calcium 9.1 (8.5-10.1) mg/dL Magnesium 2.3 (1.8-2.4) mg/dL Total Bilirubin 1.6 H (0.2-1.0) mg/dL AST 20 (15-37) IU/L ALT 13 L (14-63) IU/L Alkaline Phosphatase 84 (46-116) U/L Total Protein 6.8 (6.4-8.2) g/dL Albumin 3.2 L (3.4-5.0) g/dL Globulin 3.6 (2.6-4.0) g/dL Albumin/Globulin Ratio 0.9 (0.9-1.6) Med Orders - Current: Current Medications Acetaminophen (Tylenol) 650 mg PO Q4H PRN PRN Reason: Pain (Mild 1-3)/fever Last Admin: 06/29/20 12:23 Dose: 650 mg Documented by: Al Hydroxide/Mg Hydroxide (Mag-Al Plus) 5 ml PO Q6H PRN PRN Reason: Heartburn Last Admin: 06/27/20 20:45 Dose: 5 ml Documented by: Albuterol/Ipratropium (Combivent Respimat) 0 gm INH Q4HRRT PRN PRN Reason: Dyspnea Last Admin: 06/29/20 15:18 Dose: 1 puff Documented by: Apixaban (Eliquis) 5 mg PO BID [facility] Last Admin: 06/30/20 09:09 Dose: 5 mg Documented by: Carvedilol (Coreg) 12.5 mg PO BID [facility] Furosemide (Lasix) 40 mg IVPUSH BID [facility] Last Admin: 06/30/20 09:10 Dose: 40 mg Documented by: Furosemide (Lasix) 40 mg IVPUSH NOW ONE Stop: 06/30/20 13:07 Gabapentin (Neurontin) 300 mg PO BEDTIME [facility] Last Admin: 06/29/20 20:22 Dose: 300 mg Documented by: Hydroxyzine HCl (Atarax) 25 mg PO TID PRN PRN Reason: Anxiety Last Admin: 06/29/20 15:17 Dose: 25 mg Documented by: Levofloxacin/Dextrose 750 mg/ (Premix) 150 mls @ 100 mls/hr IV Q48H [facility] Last Admin: 06/29/20 11:05 Dose: 100 mls/hr Documented by: Levetiracetam (Keppra) 1,000 mg PO BID [facility] Last Admin: 06/30/20 09:10 Dose: 1,000 mg Documented by: Levothyroxine Sodium (Levothyroxine) 112 mcg PO ACBRK [facility] Last Admin: 06/30/20 08:16 Dose: Not Given Documented by: Levothyroxine Sodium (Levothyroxine) 25 mcg PO ACBREAKFAST [facility] Last Admin: 06/30/20 08:16 Dose: Not Given Documented by: Lidocaine (Lidoderm 5%) 700 mg TOP Q24H [facility] Last Admin: 06/29/20 20:23 Dose: 700 mg Documented by: Losartan Potassium (Cozaar) 25 mg PO DAILY [facility] Last Admin: 06/30/20 09:09 Dose: 25 mg Documented by: Melatonin (Melatonin) 18 mg PO BEDTIME [facility] Last Admin: 06/29/20 20:22 Dose: 18 mg Documented by: Metolazone (Zaroxolyn) 5 mg PO BIDDIURETIC [facility] Oxycodone HCl (Oxycodone) 5 mg PO Q6H PRN PRN Reason: Pain (moderate 4-6) Last Admin: 06/29/20 15:24 Dose: 5 mg Documented by: Quetiapine Fumarate (Seroquel) 25 mg PO BEDTIME [facility] Last Admin: 06/29/20 20:22 Dose: 25 mg Documented by: Sertraline HCl (Zoloft) 50 mg PO DAILY [facility] Last Admin: 06/30/20 09:09 Dose: 50 mg Documented by: Sodium Chloride (Saline Flush) 10 ml FLUSH ASDIRECTED PRN PRN Reason: Keep Vein Open Last Admin: 06/25/20 18:42 Dose: 10 ml Documented by: Sodium Chloride (Saline Flush) 2.5 ml FLUSH ASDIRECTED PRN PRN Reason: Keep Vein Open Last Admin: 06/25/20 18:42 Dose: 2.5 ml Documented by: Discontinued Medications Carvedilol (Coreg) 25 mg PO BID [facility] Last Admin: 06/30/20 09:09 Dose: 25 mg Documented by: Furosemide (Lasix) 40 mg IVPUSH NOW ONE Stop: 06/25/20 19:48 Last Admin: 06/25/20 20:46 Dose: 40 mg Documented by: Furosemide (Lasix) 40 mg IVPUSH BID [facility] Last Admin: 06/28/20 08:57 Dose: 40 mg Documented by: Furosemide (Lasix) 20 mg IVPUSH BID [facility] Last Admin: 06/28/20 11:25 Dose: Not Given Documented by: Lactated Ringer's (Ringers, Lactated) 1,000 mls @ 125 mls/hr IV ASDIRECTED [facility] Last Admin: 06/25/20 18:41 Dose: 125 mls/hr Documented by: Potassium Chloride 40 meq/ (Sodium Chloride) 270 mls @ 67.5 mls/hr IV ONETIME ONE Stop: 06/29/20 14:14 Last Admin: 06/29/20 11:07 Dose: 67.5 mls/hr Documented by: Lidocaine (Lidoderm 5%) 700 mg TOP DAILY [facility] Last Admin: 06/29/20 10:23 Dose: Not Given Documented by: Losartan Potassium (Cozaar) 100 mg PO DAILY [facility] Last Admin: 06/28/20 08:53 Dose: 100 mg Documented by: Morphine Sulfate (Morphine) 2 mg IVPUSH ONETIME ONE Stop: 06/25/20 19:29 Last Admin: 06/25/20 20:20 Dose: 2 mg Documented by: Potassium Chloride (Potassium Chloride) 40 meq PO ONETIME ONE Stop: 06/27/20 12:37 Last Admin: 06/27/20 16:24 Dose: Not Given Documented by: Potassium Chloride (Potassium Chloride) 40 meq PO ONETIME ONE Stop: 06/27/20 16:16 Last Admin: 06/27/20 16:24 Dose: 40 meq Documented by: Potassium Chloride (Klor-Con M20) 40 meq PO ONETIME ONE Stop: 06/28/20 10:01 Last Admin: 06/28/20 10:53 Dose: 40 meq Documented by: Potassium Chloride (Klor-Con M20) 40 meq PO ONETIME ONE Stop: 06/29/20 10:46 Last Admin: 06/29/20 10:43 Dose: 40 meq Documented by: Sepsis Event Note - Focused Exam Vital Signs: Vital Signs Temp Pulse Pulse Resp BP BP Pulse Ox 06/30/20 11:50 36.3 C 87 20 97/64 98 06/30/20 11:45 80 L 06/30/20 09:09 70 113/80 06/30/20 08:37 36.3 C 70 18 113/80 98 06/30/20 04:23 06/30/20 03:27 36.3 C 74 20 114/68 96 Pulse Ox 06/30/20 11:50 06/30/20 11:45 06/30/20 09:09 06/30/20 08:37 06/30/20 04:23 96 06/30/20 03:27 - Problem List & Annotations (1) Pneumonia SNOMED Code(s): 075326605 Code(s): J18.9 - PNEUMONIA, UNSPECIFIED ORGANISM Status: Acute Current Visit: Yes (2) Acute exacerbation of congestive heart failure SNOMED Code(s): 732633794, 22802479208217 Code(s): I50.9 - HEART FAILURE, UNSPECIFIED Status: Acute Current Visit: Yes Qualifiers: Heart failure type: systolic Qualified Code(s): I50.23 - Acute on chronic systolic (congestive) heart failure (3) Acute kidney injury SNOMED Code(s): 81666635, 72930247 Code(s): N17.9 - ACUTE KIDNEY FAILURE, UNSPECIFIED Status: Acute Current Visit: Yes (4) Frequent falls SNOMED Code(s): 347781417 Code(s): R29.6 - REPEATED FALLS Status: Acute Current Visit: Yes (5) History of atrial fibrillation SNOMED Code(s): 178334375 Code(s): Z86.79 - PERSONAL HISTORY OF OTHER DISEASES OF THE CIRCULATORY SYSTEM Status: Acute Current Visit: Yes (6) Congestive heart failure (CHF) SNOMED Code(s): 06461062 Code(s): I50.9 - HEART FAILURE, UNSPECIFIED Status: Acute Current Visit: No - My Orders Last 24 Hours: My Active Orders 06/30/20 13:06 Furosemide [Lasix] 40 mg IVPUSH NOW ONE 06/30/20 14:00 metOLazone [Zaroxolyn] 5 mg PO BIDDIURETIC 06/30/20 21:00 carvediloL [Coreg] 12.5 mg PO BID - Plan Plan:: I have seen and evaluated the patient and agree with the residents note unless specified in my note
[2020-06-29] MEDS: Melatonin 3 MG Tab PO SCH (20:22)
[2020-06-29] MEDS: Gabapentin 300 MG Cap PO SCH (20:22)
[2020-06-29] MEDS: QUEtiapine 25 MG Tab PO SCH (20:22)
[2020-06-30] MEDS: Levothyroxine 112 MCG Tab PO SCH ×2 (06:11→08:16)
[2020-06-30] MEDS: Levothyroxine 25 MCG Tab PO SCH ×2 (06:11→08:16)
[2020-06-30 06:54] LABS: CARBON DIOXIDE,CO2 29.8 mmol/L (21.0-32.0); POTASSIUM,K 3.7 mmol/L (3.5-5.1)
[2020-06-30] MEDS: Losartan 50 MG Tab PO SCH (09:09)
[2020-06-30] MEDS: Sertraline 50 MG Tab PO SCH (09:09)
[2020-06-30] MEDS: Carvedilol 25 MG Tab PO SCH ×2 (09:09→21:00)
[2020-06-30] MEDS: Apixaban 5 MG Tab PO SCH ×2 (09:09→21:00)
[2020-06-30] MEDS: Furosemide 40 MG/4 ML VIAL IVPUSH SCH ×2 (09:10→20:59)
[2020-06-30] MEDS: levETIRAcetam 500 MG Tab PO SCH ×2 (09:10→20:59)
[2020-06-30] MEDS ORDERED: Furosemide 40 MG/4 ML VIAL IVPUSH ONE (13:06)
--- NOTE | 2020-06-30 13:15 | PCM.PN ---
- General Info Date of Service: 06/30/20 Admission Dx/Problem (Free Text): Admission Diagnosis/Problem Admission Diagnosis/Problem CHF, Congestive heart failure Subjective Update: Patient is a 75-year-old gentleman, admitted for CHF exacerbation with previous history of CHF with an ejection fraction of 15%. BP at night have been soft, coreg was held, patient is not making as much urine, in positive balanve, feels very weak. Functional Status: Reports: Tolerating Diet, Urinating. Denies: Ambulating - Review of Systems General: Reports: Weakness, Fatigue. Denies: Fever, Malaise Pulmonary: Reports: Shortness of Breath. Denies: Pleuritic Chest Pain, Cough, Sputum Cardiovascular: Reports: Dyspnea on Exertion, Orthopnea. Denies: Chest Pain, Pa lpitations Gastrointestinal: Denies: Abdominal Pain, Constipation, Decreased Appetite Genitourinary: Denies: Dysuria, Frequency, Burning, Pain, Urgency Musculoskeletal: Denies: Neck Pain, Shoulder Pain, Arm Pain - Patient Data Vitals - Most Recent: Last Vital Signs Temp 36.3 C 06/30/20 11:50 Pulse 87 06/30/20 11:50 Resp 20 06/30/20 11:50 BP 97/64 06/30/20 11:50 Pulse Ox 98 06/30/20 11:50 Weight - Most Recent: 91 kg I&O - Last 24 Hours: Intake & Output 06/29/20 06/30/20 06/30/20 22:59 06:59 14:59 Intake Total 1086 880 Output Total 700 500 Balance 386 380 Lab Results Last 24 Hours: Laboratory Results - last 24 hr 06/30/20 06/30/20 Range/Units 06:05 06:05 WBC 7.34 (4.0-11.0) K/uL RBC 4.35 L (4.50-5.90) M/uL Hgb 13.4 (13.0-17.0) g/dL Hct 42.9 (38.0-50.0) % MCV 98.6 H (80.0-98.0) fL MCH 30.8 (27.0-32.0) pg MCHC 31.2 (31.0-37.0) g/dL RDW Std Deviation 54.3 (28.0-62.0) fl RDW Coeff of Mike 15 (11.0-15.0) % Plt Count 171 (150-400) K/uL MPV 10.80 (7.40-12.00) fL Neut % (Auto) 64.6 (48.0-80.0) % Lymph % (Auto) 22.9 (16.0-40.0) % Person % (Auto) 10.1 (0.0-15.0) % Eos % (Auto) 2.3 (0.0-7.0) % Baso % (Auto) 0.1 (0.0-1.5) % Neut # (Auto) 4.7 (1.4-5.7) K/uL Lymph # (Auto) 1.7 (0.6-2.4) K/uL Person # (Auto) 0.7 (0.0-0.8) K/uL Eos # (Auto) 0.2 (0.0-0.7) K/uL Baso # (Auto) 0.0 (0.0-0.1) K/uL Nucleated RBC % 0.0 /100WBC Nucleated RBCs # 0 K/uL Sodium 143 (136-148) mmol/L Potassium 3.7 (3.5-5.1) mmol/L Chloride 104 (98-107) mmol/L Carbon Dioxide 29.8 (21.0-32.0) mmol/L BUN 45 H (7.0-18.0) mg/dL Creatinine 1.9 H (0.8-1.3) mg/dL Est Cr Clr Drug Dosing 35.74 mL/min Estimated GFR (MDRD) 34.5 ml/min Glucose 88 (74-106) mg/dL Calcium 9.1 (8.5-10.1) mg/dL Magnesium 2.3 (1.8-2.4) mg/dL Total Bilirubin 1.6 H (0.2-1.0) mg/dL AST 20 (15-37) IU/L ALT 13 L (14-63) IU/L Alkaline Phosphatase 84 (46-116) U/L Total Protein 6.8 (6.4-8.2) g/dL Albumin 3.2 L (3.4-5.0) g/dL Globulin 3.6 (2.6-4.0) g/dL Albumin/Globulin Ratio 0.9 (0.9-1.6) Med Orders - Current: Current Medications Acetaminophen (Tylenol) 650 mg PO Q4H PRN PRN Reason: Pain (Mild 1-3)/fever Last Admin: 06/29/20 12:23 Dose: 650 mg Documented by: Al Hydroxide/Mg Hydroxide (Mag-Al Plus) 5 ml PO Q6H PRN PRN Reason: Heartburn Last Admin: 06/27/20 20:45 Dose: 5 ml Documented by: Albuterol/Ipratropium (Combivent Respimat) 0 gm INH Q4HRRT PRN PRN Reason: Dyspnea Last Admin: 06/29/20 15:18 Dose: 1 puff Documented by: Apixaban (Eliquis) 5 mg PO BID [facility] Last Admin: 06/30/20 09:09 Dose: 5 mg Documented by: Carvedilol (Coreg) 12.5 mg PO BID SASHA Furosemide (Lasix) 40 mg IVPUSH BID [facility] Last Admin: 06/30/20 09:10 Dose: 40 mg Documented by: Furosemide (Lasix) 40 mg IVPUSH NOW ONE Stop: 06/30/20 13:07 Gabapentin (Neurontin) 300 mg PO BEDTIME [facility] Last Admin: 06/29/20 20:22 Dose: 300 mg Documented by: Hydroxyzine HCl (Atarax) 25 mg PO TID PRN PRN Reason: Anxiety Last Admin: 06/29/20 15:17 Dose: 25 mg Documented by: Levofloxacin/Dextrose 750 mg/ (Premix) 150 mls @ 100 mls/hr IV Q48H [facility] Last Admin: 06/29/20 11:05 Dose: 100 mls/hr Documented by: Levetiracetam (Keppra) 1,000 mg PO BID [facility] Last Admin: 06/30/20 09:10 Dose: 1,000 mg Documented by: Levothyroxine Sodium (Levothyroxine) 112 mcg PO ACBRK SASHA Last Admin: 06/30/20 08:16 Dose: Not Given Documented by: Levothyroxine Sodium (Levothyroxine) 25 mcg PO ACBREAKFAST [facility] Last Admin: 06/30/20 08:16 Dose: Not Given Documented by: Lidocaine (Lidoderm 5%) 700 mg TOP Q24H [facility] Last Admin: 06/29/20 20:23 Dose: 700 mg Documented by: Losartan Potassium (Cozaar) 25 mg PO DAILY [facility] Last Admin: 06/30/20 09:09 Dose: 25 mg Documented by: Melatonin (Melatonin) 18 mg PO BEDTIME [facility] Last Admin: 06/29/20 20:22 Dose: 18 mg Documented by: Metolazone (Zaroxolyn) 5 mg PO BIDDIURETIC [facility] Oxycodone HCl (Oxycodone) 5 mg PO Q6H PRN PRN Reason: Pain (moderate 4-6) Last Admin: 06/29/20 15:24 Dose: 5 mg Documented by: Quetiapine Fumarate (Seroquel) 25 mg PO BEDTIME [facility] Last Admin: 06/29/20 20:22 Dose: 25 mg Documented by: Sertraline HCl (Zoloft) 50 mg PO DAILY [facility] Last Admin: 06/30/20 09:09 Dose: 50 mg Documented by: Sodium Chloride (Saline Flush) 10 ml FLUSH ASDIRECTED PRN PRN Reason: Keep Vein Open Last Admin: 06/25/20 18:42 Dose: 10 ml Documented by: Sodium Chloride (Saline Flush) 2.5 ml FLUSH ASDIRECTED PRN PRN Reason: Keep Vein Open Last Admin: 06/25/20 18:42 Dose: 2.5 ml Documented by: Discontinued Medications Carvedilol (Coreg) 25 mg PO BID [facility] Last Admin: 06/30/20 09:09 Dose: 25 mg Documented by: Furosemide (Lasix) 40 mg IVPUSH NOW ONE Stop: 06/25/20 19:48 Last Admin: 06/25/20 20:46 Dose: 40 mg Documented by: Furosemide (Lasix) 40 mg IVPUSH BID [facility] Last Admin: 06/28/20 08:57 Dose: 40 mg Documented by: Furosemide (Lasix) 20 mg IVPUSH BID [facility] Last Admin: 06/28/20 11:25 Dose: Not Given Documented by: Lactated Ringer's (Ringers, Lactated) 1,000 mls @ 125 mls/hr IV ASDIRECTED [facility] Last Admin: 06/25/20 18:41 Dose: 125 mls/hr Documented by: Potassium Chloride 40 meq/ (Sodium Chloride) 270 mls @ 67.5 mls/hr IV ONETIME ONE Stop: 06/29/20 14:14 Last Admin: 06/29/20 11:07 Dose: 67.5 mls/hr Documented by: Lidocaine (Lidoderm 5%) 700 mg TOP DAILY [facility] Last Admin: 06/29/20 10:23 Dose: Not Given Documented by: Losartan Potassium (Cozaar) 100 mg PO DAILY [facility] Last Admin: 06/28/20 08:53 Dose: 100 mg Documented by: Morphine Sulfate (Morphine) 2 mg IVPUSH ONETIME ONE Stop: 06/25/20 19:29 Last Admin: 06/25/20 20:20 Dose: 2 mg Documented by: Potassium Chloride (Potassium Chloride) 40 meq PO ONETIME ONE Stop: 06/27/20 12:37 Last Admin: 06/27/20 16:24 Dose: Not Given Documented by: Potassium Chloride (Potassium Chloride) 40 meq PO ONETIME ONE Stop: 06/27/20 16:16 Last Admin: 06/27/20 16:24 Dose: 40 meq Documented by: Potassium Chloride (Klor-Con M20) 40 meq PO ONETIME ONE Stop: 06/28/20 10:01 Last Admin: 06/28/20 10:53 Dose: 40 meq Documented by: Potassium Chloride (Klor-Con M20) 40 meq PO ONETIME ONE Stop: 06/29/20 10:46 Last Admin: 06/29/20 10:43 Dose: 40 meq Documented by: - Exam Quality Assessment: Supplemental Oxygen General: Oriented, Cooperative, Mild Distress Neck: Supple, Trachea Midline Lungs: Normal Respiratory Effort, Decreased Breath Sounds, Crackles, Rales Cardiovascular: Regular Rate, Regular Rhythm GI/Abdominal Exam: Normal Bowel Sounds, Soft, Non-Tender Extremities: Normal Inspection, Normal Range of Motion, Pedal Edema (1+) Sepsis Event Note - Evaluation Sepsis Screening Result: No Definite Risk - Focused Exam Vital Signs: Vital Signs Temp Pulse Pulse Resp BP BP Pulse Ox 06/30/20 11:50 36.3 C 87 20 97/64 98 06/30/20 11:45 80 L 06/30/20 09:09 70 113/80 06/30/20 08:37 36.3 C 70 18 113/80 98 06/30/20 04:23 06/30/20 03:27 36.3 C 74 20 114/68 96 Pulse Ox 06/30/20 11:50 06/30/20 11:45 06/30/20 09:09 06/30/20 08:37 06/30/20 04:23 96 06/30/20 03:27 - Problem List & Annotations (1) Pneumonia SNOMED Code(s): 021691196 Code(s): J18.9 - PNEUMONIA, UNSPECIFIED ORGANISM Status: Acute Current Visit: Yes (2) Acute exacerbation of congestive heart failure SNOMED Code(s): 068906947, 50510469966695 Code(s): I50.9 - HEART FAILURE, UNSPECIFIED Status: Acute Current Visit: Yes Qualifiers: Heart failure type: systolic Qualified Code(s): I50.23 - Acute on chronic systolic (congestive) heart failure (3) Acute kidney injury SNOMED Code(s): 05421195, 59343722 Code(s): N17.9 - ACUTE KIDNEY FAILURE, UNSPECIFIED Status: Acute Current Visit: Yes (4) Frequent falls SNOMED Code(s): 663895944 Code(s): R29.6 - REPEATED FALLS Status: Acute Current Visit: Yes (5) History of atrial fibrillation SNOMED Code(s): 096706650 Code(s): Z86.79 - PERSONAL HISTORY OF OTHER DISEASES OF THE CIRCULATORY SYSTEM Status: Acute Current Visit: Yes (6) Congestive heart failure (CHF) SNOMED Code(s): 74169030 Code(s): I50.9 - HEART FAILURE, UNSPECIFIED Status: Acute Current Visit: No - Problem List Review Problem List Initiated/Reviewed/Updated: Yes - My Orders Last 24 Hours: My Active Orders 06/30/20 13:06 Furosemide [Lasix] 40 mg IVPUSH NOW ONE 06/30/20 14:00 metOLazone [Zaroxolyn] 5 mg PO BIDDIURETIC 06/30/20 21:00 carvediloL [Coreg] 12.5 mg PO BID - Plan Plan:: Patient is a alesha 75-year-old gentleman admitted for an acute exacerbation of previous congestive heart failure and acute on chronic kidney disease. 1. Acute exacerbation of congestive heart failure: Improved, previously known ejection fraction of 15%, continue with Lasix 40mg IV BID, will give additinal dose today, start metolazone, fluid restriction of 1.5 L/day oxygen supplementation as needed, with continuous pulse ox. -2D echo ordered, results pending -IS 2. Possible pneumonia: chest x-ray shows a possible right lower lobe pneumonia. cont Levaquin, renally dosed due to acute on chronic kidney disease. 3. Mild hypokalemia: -resolved, give 20meg to keep K at 4 Monitor with morning CMP 3. Acute on chronic kidney disease: -Improved, BUN 48, creatinine 1.9 stable Monitor CMP daily with a.m. labs Avoid nephrotoxic agents 4. History of A. fib: -Stable, no telemetry changes On Eliquis, decrease dose of coreg Continue to monitor on telemetry 5. Sacral ulcer: Improved -Lidocaine patch for 12 hrs -Tagoderm -We will get cushion/deodorant to help relieve pressure off sacral region 6. Deconditioning: -PT consult, currently desaturating upon ambulation so PT held off today -We will consider home health consult to assist with physical therapy/strengthening, medication regimen, and address home safety 7. Past medical history of obstructive sleep apnea, hypertension, hypothyroidism; resume all home medications; Restarted Losartan 8. Disposition: 2 to 3 days, will try to arrange for physical therapy and home health, may need to consider home oxygen therapy as needed, close follow-up with Dr. Reveles in cardiology for follow-up and ICD placement. I have seen and evaluated the patient and agree with the residents note unless specified in my note
[2020-06-30] MEDS: Metolazone 5 MG Tab PO SCH (14:03)
[2020-06-30] MEDS: Acetaminophen 325 MG Tab PO PRN (15:26)
[2020-06-30] MEDS: Gabapentin 300 MG Cap PO SCH (21:00)
[2020-06-30] MEDS: QUEtiapine 25 MG Tab PO SCH (21:00)
[2020-06-30] MEDS: Melatonin 3 MG Tab PO SCH (21:02)
[2020-06-30] MEDS: Lidocaine 5% 700 MG Patch TOP SCH (21:03)
[2020-07-01] MEDS: Levothyroxine 25 MCG Tab PO SCH (06:29)
[2020-07-01] MEDS: Levothyroxine 112 MCG Tab PO SCH (06:29)
[2020-07-01 06:35] LABS: CARBON DIOXIDE,CO2 33.6 mmol/L (21.0-32.0); POTASSIUM,K 2.7 mmol/L (3.5-5.1)
[2020-07-01] MEDS: Metolazone 5 MG Tab PO SCH ×2 (08:03→13:43)
[2020-07-01] MEDS: Carvedilol 25 MG Tab PO SCH ×2 (08:04→22:32)
[2020-07-01] MEDS: Losartan 50 MG Tab PO SCH (08:05)
[2020-07-01] MEDS: levETIRAcetam 500 MG Tab PO SCH ×2 (08:06→22:32)
[2020-07-01] MEDS: Apixaban 5 MG Tab PO SCH ×2 (08:06→22:33)
[2020-07-01] MEDS: Sertraline 50 MG Tab PO SCH (08:07)
[2020-07-01] MEDS: oxyCODONE 5 MG Tab PO PRN (08:07)
[2020-07-01] MEDS: Furosemide 40 MG/4 ML VIAL IVPUSH SCH ×2 (08:16→22:35)
--- NOTE | 2020-07-01 09:15 | PCM.PN ---
<Chayo Morel - Last Filed: 07/01/20 13:52> - General Info Date of Service: 07/01/20 Admission Dx/Problem (Free Text): Admission Diagnosis/Problem Admission Diagnosis/Problem CHF, Congestive heart failure Subjective Update: Patient is a 75-year-old gentleman, admitted for CHF exacerbation with previous history of CHF with an ejection fraction of 15%. BP at night have been soft, coreg was held, otherwise there is no overnight events. Patient has been urinating frequently throughout the night therefore feels tired this morning. This morning he states he feels slightly improved. Denies any fever, chills, cough, leg pain, shortness of breath. Has been able to tolerate p.o., have a bowel movement and void appropriately. Functional Status: Reports: Tolerating Diet, Ambulating, Urinating - Review of Systems General: Reports: Weakness HEENT: Reports: No Symptoms Pulmonary: Reports: No Symptoms Cardiovascular: Reports: Dyspnea on Exertion Gastrointestinal: Reports: No Symptoms Genitourinary: Reports: No Symptoms Musculoskeletal: Reports: Back Pain Neurological: Reports: No Symptoms Psychiatric: Reports: No Symptoms - Patient Data Vitals - Most Recent: Last Vital Signs Temp 98.1 F 07/01/20 07:56 Pulse 78 07/01/20 08:04 Resp 16 07/01/20 07:56 BP 122/68 07/01/20 08:05 Pulse Ox 98 07/01/20 07:56 Weight - Most Recent: 90.038 kg I&O - Last 24 Hours: Intake & Output 06/30/20 07/01/20 07/01/20 22:59 06:59 14:59 Intake Total 1017 760 Output Total 1060 2720 Balance -43 -1960 Lab Results Last 24 Hours: Laboratory Results - last 24 hr 07/01/20 07/01/20 Range/Units 05:50 05:50 WBC 7.80 (4.0-11.0) K/uL RBC 4.34 L (4.50-5.90) M/uL Hgb 13.5 (13.0-17.0) g/dL Hct 42.3 (38.0-50.0) % MCV 97.5 (80.0-98.0) fL MCH 31.1 (27.0-32.0) pg MCHC 31.9 (31.0-37.0) g/dL RDW Std Deviation 52.6 (28.0-62.0) fl RDW Coeff of Mike 15 (11.0-15.0) % Plt Count 184 (150-400) K/uL MPV 10.50 (7.40-12.00) fL Neut % (Auto) 69.2 (48.0-80.0) % Lymph % (Auto) 18.1 (16.0-40.0) % Bacon % (Auto) 10.1 (0.0-15.0) % Eos % (Auto) 2.1 (0.0-7.0) % Baso % (Auto) 0.5 (0.0-1.5) % Neut # (Auto) 5.4 (1.4-5.7) K/uL Lymph # (Auto) 1.4 (0.6-2.4) K/uL Bacon # (Auto) 0.8 (0.0-0.8) K/uL Eos # (Auto) 0.2 (0.0-0.7) K/uL Baso # (Auto) 0.0 (0.0-0.1) K/uL Nucleated RBC % 0.0 /100WBC Nucleated RBCs # 0 K/uL Sodium 141 (136-148) mmol/L Potassium 2.7 L (3.5-5.1) mmol/L Chloride 101 (98-107) mmol/L Carbon Dioxide 33.6 H (21.0-32.0) mmol/L BUN 43 H (7.0-18.0) mg/dL Creatinine 1.7 H (0.8-1.3) mg/dL Est Cr Clr Drug Dosing 39.94 mL/min Estimated GFR (MDRD) 39.3 ml/min Glucose 84 (74-106) mg/dL Calcium 9.4 (8.5-10.1) mg/dL Phosphorus 3.6 (2.6-4.7) mg/dL Magnesium 2.2 (1.8-2.4) mg/dL Total Bilirubin 1.9 H (0.2-1.0) mg/dL AST 19 (15-37) IU/L ALT 13 L (14-63) IU/L Alkaline Phosphatase 88 (46-116) U/L Total Protein 7.0 (6.4-8.2) g/dL Albumin 3.3 L (3.4-5.0) g/dL Globulin 3.7 (2.6-4.0) g/dL Albumin/Globulin Ratio 0.9 (0.9-1.6) Med Orders - Current: Current Medications Acetaminophen (Tylenol) 650 mg PO Q4H PRN PRN Reason: Pain (Mild 1-3)/fever Last Admin: 06/30/20 15:26 Dose: 650 mg Documented by: Al Hydroxide/Mg Hydroxide (Mag-Al Plus) 5 ml PO Q6H PRN PRN Reason: Heartburn Last Admin: 06/27/20 20:45 Dose: 5 ml Documented by: Albuterol/Ipratropium (Combivent Respimat) 0 gm INH Q4HRRT PRN PRN Reason: Dyspnea Last Admin: 06/29/20 15:18 Dose: 1 puff Documented by: Apixaban (Eliquis) 5 mg PO BID [facility] Last Admin: 07/01/20 08:06 Dose: 5 mg Documented by: Carvedilol (Coreg) 12.5 mg PO BID [facility] Last Admin: 07/01/20 08:04 Dose: 12.5 mg Documented by: Furosemide (Lasix) 40 mg IVPUSH BID [facility] Last Admin: 07/01/20 08:16 Dose: 40 mg Documented by: Gabapentin (Neurontin) 300 mg PO BEDTIME [facility] Last Admin: 06/30/20 21:00 Dose: 300 mg Documented by: Hydroxyzine HCl (Atarax) 25 mg PO TID PRN PRN Reason: Anxiety Last Admin: 06/29/20 15:17 Dose: 25 mg Documented by: Levofloxacin/Dextrose 750 mg/ (Premix) 150 mls @ 100 mls/hr IV Q48H [facility] Last Admin: 06/29/20 11:05 Dose: 100 mls/hr Documented by: Levetiracetam (Keppra) 1,000 mg PO BID [facility] Last Admin: 07/01/20 08:06 Dose: 1,000 mg Documented by: Levothyroxine Sodium (Levothyroxine) 112 mcg PO ACBRK [facility] Last Admin: 07/01/20 06:29 Dose: 112 mcg Documented by: Levothyroxine Sodium (Levothyroxine) 25 mcg PO ACBREAKFAST [facility] Last Admin: 07/01/20 06:29 Dose: 25 mcg Documented by: Lidocaine (Lidoderm 5%) 700 mg TOP Q24H [facility] Last Admin: 06/30/20 21:03 Dose: 700 mg Documented by: Losartan Potassium (Cozaar) 25 mg PO DAILY [facility] Last Admin: 07/01/20 08:05 Dose: 25 mg Documented by: Melatonin (Melatonin) 18 mg PO BEDTIME [facility] Last Admin: 06/30/20 21:02 Dose: 18 mg Documented by: Metolazone (Zaroxolyn) 5 mg PO BIDDIURETIC [facility] Last Admin: 07/01/20 08:03 Dose: 5 mg Documented by: Oxycodone HCl (Oxycodone) 5 mg PO Q6H PRN PRN Reason: Pain (moderate 4-6) Last Admin: 07/01/20 08:07 Dose: 5 mg Documented by: Quetiapine Fumarate (Seroquel) 25 mg PO BEDTIME [facility] Last Admin: 06/30/20 21:00 Dose: 25 mg Documented by: Sertraline HCl (Zoloft) 50 mg PO DAILY [facility] Last Admin: 07/01/20 08:07 Dose: 50 mg Documented by: Sodium Chloride (Saline Flush) 10 ml FLUSH ASDIRECTED PRN PRN Reason: Keep Vein Open Last Admin: 06/25/20 18:42 Dose: 10 ml Documented by: Sodium Chloride (Saline Flush) 2.5 ml FLUSH ASDIRECTED PRN PRN Reason: Keep Vein Open Last Admin: 06/25/20 18:42 Dose: 2.5 ml Documented by: Discontinued Medications Carvedilol (Coreg) 25 mg PO BID [facility] Last Admin: 06/30/20 09:09 Dose: 25 mg Documented by: Furosemide (Lasix) 40 mg IVPUSH NOW ONE Stop: 06/25/20 19:48 Last Admin: 06/25/20 20:46 Dose: 40 mg Documented by: Furosemide (Lasix) 40 mg IVPUSH BID [facility] Last Admin: 06/28/20 08:57 Dose: 40 mg Documented by: Furosemide (Lasix) 20 mg IVPUSH BID [facility] Last Admin: 06/28/20 11:25 Dose: Not Given Documented by: Furosemide (Lasix) 40 mg IVPUSH NOW ONE Stop: 06/30/20 13:07 Last Admin: 06/30/20 14:03 Dose: 40 mg Documented by: Lactated Ringer's (Ringers, Lactated) 1,000 mls @ 125 mls/hr IV ASDIRECTED [facility] Last Admin: 06/25/20 18:41 Dose: 125 mls/hr Documented by: Potassium Chloride 40 meq/ (Sodium Chloride) 270 mls @ 67.5 mls/hr IV ONETIME ONE Stop: 06/29/20 14:14 Last Admin: 06/29/20 11:07 Dose: 67.5 mls/hr Documented by: Lidocaine (Lidoderm 5%) 700 mg TOP DAILY [facility] Last Admin: 06/29/20 10:23 Dose: Not Given Documented by: Losartan Potassium (Cozaar) 100 mg PO DAILY [facility] Last Admin: 06/28/20 08:53 Dose: 100 mg Documented by: Morphine Sulfate (Morphine) 2 mg IVPUSH ONETIME ONE Stop: 06/25/20 19:29 Last Admin: 06/25/20 20:20 Dose: 2 mg Documented by: Potassium Chloride (Potassium Chloride) 40 meq PO ONETIME ONE Stop: 06/27/20 12:37 Last Admin: 06/27/20 16:24 Dose: Not Given Documented by: Potassium Chloride (Potassium Chloride) 40 meq PO ONETIME ONE Stop: 06/27/20 16:16 Last Admin: 06/27/20 16:24 Dose: 40 meq Documented by: Potassium Chloride (Klor-Con M20) 40 meq PO ONETIME ONE Stop: 06/28/20 10:01 Last Admin: 06/28/20 10:53 Dose: 40 meq Documented by: Potassium Chloride (Klor-Con M20) 40 meq PO ONETIME ONE Stop: 06/29/20 10:46 Last Admin: 06/29/20 10:43 Dose: 40 meq Documented by: - Exam Quality Assessment: Supplemental Oxygen, DVT Prophylaxis General: Alert, Oriented, Cooperative, No Acute Distress HEENT: Pupils Equal, Pupils Reactive, EOMI, Mucous Membr. Moist/[place] Neck: Supple, No JVD Lungs: Clear to Auscultation, Normal Respiratory Effort Cardiovascular: Regular Rate, Regular Rhythm GI/Abdominal Exam: Normal Bowel Sounds, Soft, Non-Tender, No Organomegaly, No Distention, No Mass Back Exam: Full Range of Motion, Other (Sacral ulcer, improved) Extremities: Normal Range of Motion, Non-Tender, Normal Capillary Refill, Pedal Edema (1+) Peripheral Pulses: 2+: Radial (L), Radial (R), Dorsalis Pedis (L), Dorsalis Pedis (R) Skin: Warm, Dry, Intact Wound/Incisions: Healing Well Neurological: No New Focal Deficit Psy/Mental Status: Alert, Normal Affect, Normal Mood Sepsis Event Note - Evaluation Sepsis Screening Result: No Definite Risk - Focused Exam Vital Signs: Vital Signs Temp Pulse Pulse Resp BP BP Pulse Ox 07/01/20 08:05 122/68 07/01/20 08:04 78 122/68 07/01/20 07:56 98.1 F 76 16 122/86 98 07/01/20 03:23 97.0 F 64 19 124/68 97 07/01/20 00:29 97.4 F 72 16 119/81 96 - Problem List & Annotations (1) Acute exacerbation of congestive heart failure SNOMED Code(s): 538783462, 59478572805341 Code(s): I50.9 - HEART FAILURE, UNSPECIFIED Status: Acute Qualifiers: Heart failure type: systolic Qualified Code(s): I50.23 - Acute on chronic systolic (congestive) heart failure (2) Acute kidney injury SNOMED Code(s): 52647135, 31753558 Code(s): N17.9 - ACUTE KIDNEY FAILURE, UNSPECIFIED Status: Acute - Problem List Review Problem List Initiated/Reviewed/Updated: Yes - My Orders Last 24 Hours: My Active Orders 07/02/20 05:11 MAGNESIUM [CHEM] AM 07/03/20 05:11 MAGNESIUM [CHEM] AM - Plan Plan:: Plan:: Patient is a alesha 75-year-old gentleman admitted for an acute exacerbation of previously known congestive heart failure and acute on chronic kidney disease with possible pneumonia. 1. Acute exacerbation of congestive heart failure: Improved, previously known ejection fraction of 15%, continue with Lasix 40mg IV TId today, metolazone, fluid restriction of 1.5 L/day oxygen supplementation as needed, with continuous pulse ox. -2D echo ordered, results pending -IS 2. Possible pneumonia: chest x-ray shows a possible right lower lobe pneumonia. cont Levaquin, renally dosed due to acute on chronic kidney disease. 3. Mild hypokalemia: -2.7 give 40 mEq p.o. and 60 mEq IV; with goal of keeping potassium at 4. Will recheck at 15:00 and supplement as needed. Monitor with morning CMP 3. Acute on chronic kidney disease: -Improved, BUN 43, creatinine 1.7 Monitor CMP daily with a.m. labs Avoid nephrotoxic agents 4. History of A. fib: -Stable, no telemetry changes On Eliquis, decrease dose of coreg Continue to monitor on telemetry 5. Sacral ulcer: Improved -Lidocaine patch for 12 hrs -Tagoderm -We will get cushion to help relieve pressure off sacral region 6. Deconditioning: -PT consult, currently desaturating upon ambulation so PT held off today -We will consider home health consult to assist with physical therapy/strengthening, medication regimen, and address home safety 7. Past medical history of obstructive sleep apnea, hypertension, hypothyroidism; resume all home medications; Restarted Losartan 8. Disposition: 2 to 3 days, will try to arrange for physical therapy and home health, may need to consider home oxygen therapy as needed, close follow-up with Dr. Reveles in cardiology for follow-up and ICD placement. I have seen and evaluated the patient and agree with the residents note unless specified in my note <Zahraa Mcneal - Last Filed: 07/10/20 18:07> - Patient Data Vitals - Most Recent: Last Vital Signs Temp 35.8 C L 07/10/20 12:32 Pulse 106 H 07/10/20 12:32 Resp 16 07/10/20 12:32 BP 112/73 07/10/20 12:32 Pulse Ox 93 L 07/10/20 12:32 I&O - Last 24 Hours: Intake & Output 07/10/20 07/10/20 07/10/20 06:59 14:59 22:59 Intake Total 1000 780 Output Total 1200 400 Balance -200 380 Lab Results Last 24 Hours: Laboratory Results - last 24 hr 07/10/20 07/10/20 Range/Units 04:44 04:44 WBC 6.89 (4.0-11.0) K/uL RBC 4.60 (4.50-5.90) M/uL Hgb 14.1 (13.0-17.0) g/dL Hct 44.1 (38.0-50.0) % MCV 95.9 (80.0-98.0) fL MCH 30.7 (27.0-32.0) pg MCHC 32.0 (31.0-37.0) g/dL RDW Std Deviation 51.3 (28.0-62.0) fl RDW Coeff of Mike 15 (11.0-15.0) % Plt Count 181 (150-400) K/uL MPV 10.60 (7.40-12.00) fL Neut % (Auto) 62.7 (48.0-80.0) % Lymph % (Auto) 28.2 (16.0-40.0) % Bacon % (Auto) 6.0 (0.0-15.0) % Eos % (Auto) 2.5 (0.0-7.0) % Baso % (Auto) 0.6 (0.0-1.5) % Neut # (Auto) 4.3 (1.4-5.7) K/uL Lymph # (Auto) 1.9 (0.6-2.4) K/uL Bacon # (Auto) 0.4 (0.0-0.8) K/uL Eos # (Auto) 0.2 (0.0-0.7) K/uL Baso # (Auto) 0.0 (0.0-0.1) K/uL Nucleated RBC % 0.0 /100WBC Nucleated RBCs # 0 K/uL Sodium 135 L (136-148) mmol/L Potassium 3.5 (3.5-5.1) mmol/L Chloride 98 (98-107) mmol/L Carbon Dioxide 32.4 H (21.0-32.0) mmol/L BUN 66 H (7.0-18.0) mg/dL Creatinine 2.1 H (0.8-1.3) mg/dL Est Cr Clr Drug Dosing 32.33 mL/min Estimated GFR (MDRD) 30.8 ml/min Glucose 99 (74-106) mg/dL Calcium 9.5 (8.5-10.1) mg/dL Magnesium 1.8 (1.8-2.4) mg/dL Med Orders - Current: Current Medications Discontinued Medications Acetaminophen (Tylenol) 650 mg PO Q4H PRN PRN Reason: Pain (Mild 1-3)/fever Last Admin: 12/29/20 23:45 Dose: 650 mg Documented by: Hydrocodone Bitart/Acetaminophen ([place] 325-5 Mg) 1 tab PO Q8H PRN PRN Reason: Pain Last Admin: 07/09/20 14:10 Dose: 1 tab Documented by: Hydrocodone Bitart/Acetaminophen ([place] 325-5 Mg) 1 tab PO Q4H PRN PRN Reason: Pain (moderate 4-6) Al Hydroxide/Mg Hydroxide (Mag-Al Plus) 5 ml PO Q6H PRN PRN Reason: Heartburn Last Admin: 07/04/20 10:31 Dose: 5 ml Documented by: Albuterol/Ipratropium (Combivent Respimat) 0 gm INH Q4HRRT PRN PRN Reason: Dyspnea Last Admin: 06/29/20 15:18 Dose: 1 puff Documented by: Apixaban (Eliquis) 5 mg PO BID [facility] Last Admin: 07/10/20 08:28 Dose: 5 mg Documented by: Bumetanide (Bumex) 1 mg PO BIDDIURETIC [facility] Bumetanide (Bumex) 2 mg PO BIDDIURETIC [facility] Last Admin: 07/10/20 08:29 Dose: 2 mg Documented by: Bumetanide (Bumex) 2 mg PO ONETIME ONE Stop: 07/10/20 09:26 Last Admin: 07/10/20 10:26 Dose: 2 mg Documented by: Carvedilol (Coreg) 25 mg PO BID [facility] Last Admin: 06/30/20 09:09 Dose: 25 mg Documented by: Carvedilol (Coreg) 12.5 mg PO BID [facility] Last Admin: 07/05/20 08:29 Dose: 12.5 mg Documented by: Carvedilol (Coreg) 12.5 mg PO BID [facility] Last Admin: 07/10/20 08:28 Dose: 12.5 mg Documented by: Furosemide (Lasix) 40 mg IVPUSH NOW ONE Stop: 06/25/20 19:48 Last Admin: 06/25/20 20:46 Dose: 40 mg Documented by: Furosemide (Lasix) 40 mg IVPUSH BID [facility] Last Admin: 06/28/20 08:57 Dose: 40 mg Documented by: Furosemide (Lasix) 20 mg IVPUSH BID [facility] Last Admin: 06/28/20 11:25 Dose: Not Given Documented by: Furosemide (Lasix) 40 mg IVPUSH BID [facility] Last Admin: 07/02/20 08:04 Dose: Not Given Documented by: Furosemide (Lasix) 40 mg IVPUSH NOW ONE Stop: 06/30/20 13:07 Last Admin: 06/30/20 14:03 Dose: 40 mg Documented by: Furosemide (Lasix) 40 mg IVPUSH NOW ONE Stop: 07/01/20 13:58 Last Admin: 07/01/20 14:09 Dose: Not Given Documented by: Furosemide (Lasix) 20 mg IVPUSH ONETIME ONE Stop: 07/01/20 13:59 Last Admin: 07/01/20 14:08 Dose: 20 mg Documented by: Furosemide (Lasix) 40 mg IVPUSH NOW ONE Stop: 07/02/20 17:32 Last Admin: 07/02/20 18:24 Dose: 40 mg Documented by: Furosemide (Lasix) 40 mg IVPUSH NOW ONE Stop: 07/06/20 06:01 Last Admin: 07/06/20 06:05 Dose: 40 mg Documented by: Furosemide (Lasix) 40 mg IVPUSH NOW ONE Stop: 07/05/20 17:39 Last Admin: 07/05/20 18:04 Dose: 40 mg Documented by: Gabapentin (Neurontin) 300 mg PO BEDTIME [facility] Last Admin: 07/09/20 20:15 Dose: 300 mg Documented by: Hydroxyzine HCl (Atarax) 25 mg PO TID PRN PRN Reason: Anxiety Last Admin: 07/10/20 06:38 Dose: 25 mg Documented by: Lactated Ringer's (Ringers, Lactated) 1,000 mls @ 125 mls/hr IV ASDIRECTED [facility] Last Admin: 06/25/20 18:41 Dose: 125 mls/hr Documented by: Potassium Chloride 40 meq/ (Sodium Chloride) 270 mls @ 67.5 mls/hr IV ONETIME ONE Stop: 06/29/20 14:14 Last Admin: 06/29/20 11:07 Dose: 67.5 mls/hr Documented by: Levofloxacin/Dextrose 750 mg/ (Premix) 150 mls @ 100 mls/hr IV Q48H [facility] Last Admin: 07/01/20 10:08 Dose: 100 mls/hr Documented by: Potassium Chloride 60 meq/ (Sodium Chloride) 530 mls @ 88.333 mls/hr IV ONETIME ONE Stop: 07/01/20 15:44 Last Admin: 07/01/20 10:04 Dose: 88.333 mls/hr Documented by: Potassium Chloride/Sodium Chloride (Normal Saline With 40 Meq Kcl) 250 mls @ 250 mls/hr IV ASDIRECTED [facility] Potassium Chloride 40 meq/ (Premix) 100 mls @ 25 mls/hr IV ONETIME ONE Stop: 07/01/20 20:29 Last Admin: 07/01/20 17:05 Dose: 25 mls/hr Documented by: Potassium Chloride 40 meq/ (Sodium Chloride) 270 mls @ 67.5 mls/hr IV 07/02/20@0730 [facility] Stop: 07/02/20 11:29 Last Admin: 07/02/20 08:13 Dose: 67.5 mls/hr Documented by: Potassium Chloride 40 meq/ (Sodium Chloride) 270 mls @ 67.5 mls/hr IV ONETIME ONE Stop: 07/02/20 15:59 Last Admin: 07/02/20 12:27 Dose: 67.5 mls/hr Documented by: Magnesium Sulfate (Magnesium Sulfate In Water Premix) 2 gm in 50 mls @ 25 mls/hr IV NOW ONE Stop: 07/03/20 07:14 Last Admin: 07/03/20 06:23 Dose: 25 mls/hr Documented by: Potassium Chloride 40 meq/ (Sodium Chloride) 270 mls @ 67.5 mls/hr IV ONETIME ONE Stop: 07/03/20 11:59 Last Admin: 07/03/20 08:35 Dose: 67.5 mls/hr Documented by: Potassium Chloride 40 meq/ (Sodium Chloride) 270 mls @ 67.52 mls/hr IV ONETIME ONE Stop: 07/03/20 15:14 Last Admin: 07/03/20 12:15 Dose: Not Given Documented by: Potassium Chloride 40 meq/ (Sodium Chloride) 270 mls @ 67.5 mls/hr IV ONETIME ONE Stop: 07/04/20 12:29 Last Admin: 07/04/20 10:13 Dose: 67.5 mls/hr Documented by: Sodium Chloride (Normal Saline) 500 mls @ 70 mls/hr IV ASDIRECTED ONE Stop: 07/10/20 02:38 Last Admin: 07/09/20 20:22 Dose: 70 mls/hr Documented by: Magnesium Sulfate (Magnesium Sulfate In Water Premix) 2 gm in 50 mls @ 50 mls/hr IV ONETIME ONE Stop: 07/10/20 12:14 Last Admin: 07/10/20 11:24 Dose: 50 mls/hr Documented by: Levetiracetam (Keppra) 1,000 mg PO BID [facility] Last Admin: 07/10/20 08:27 Dose: 1,000 mg Documented by: Levofloxacin (Levaquin) 750 mg PO Q24H [facility] Stop: 07/04/20 10:01 Last Admin: 07/04/20 10:17 Dose: 750 mg Documented by: Levothyroxine Sodium (Levothyroxine) 112 mcg PO ACBRK [facility] Last Admin: 07/10/20 06:38 Dose: 112 mcg Documented by: Levothyroxine Sodium (Levothyroxine) 25 mcg PO ACBREAKFAST [facility] Last Admin: 07/10/20 07:43 Dose: 25 mcg Documented by: Lidocaine (Lidoderm 5%) 700 mg TOP DAILY [facility] Last Admin: 06/29/20 10:23 Dose: Not Given Documented by: Lidocaine (Lidoderm 5%) 700 mg TOP Q24H [facility] Last Admin: 07/03/20 21:52 Dose: 700 mg Documented by: Lidocaine (Lidoderm 5%) 700 mg TRDERM Q24H [facility] Last Admin: 07/04/20 16:27 Dose: Not Given Documented by: Lidocaine (Lidoderm 5%) 700 mg TRDERM Q24H [facility] Last Admin: 07/10/20 03:14 Dose: Not Given Documented by: Lidocaine (Lidoderm 5%) 700 mg TOP Q24H [facility] Last Admin: 07/06/20 14:08 Dose: Not Given Documented by: Losartan Potassium (Cozaar) 100 mg PO DAILY [facility] Last Admin: 06/28/20 08:53 Dose: 100 mg Documented by: Losartan Potassium (Cozaar) 25 mg PO DAILY [facility] Last Admin: 07/10/20 08:28 Dose: 25 mg Documented by: Magnesium Oxide (Magnesium Oxide) 400 mg PO ONETIME ONE Stop: 07/02/20 10:58 Last Admin: 07/02/20 11:34 Dose: 400 mg Documented by: Melatonin (Melatonin) 18 mg PO BEDTIME [facility] Last Admin: 07/09/20 20:24 Dose: 18 mg Documented by: Metolazone (Zaroxolyn) 5 mg PO BIDDIURETIC [facility] Last Admin: 07/02/20 08:02 Dose: 5 mg Documented by: Metolazone (Zaroxolyn) 5 mg PO TUTHSA@0900 [facility] Last Admin: 07/03/20 07:59 Dose: Not Given Documented by: Metolazone (Zaroxolyn) 5 mg PO TUTHSA@0900 [facility] Last Admin: 07/10/20 08:28 Dose: 5 mg Documented by: Miscellaneous Information (Remove Patch) 1 ea TOP Q24H [facility] Last Admin: 07/10/20 13:24 Dose: Not Given Documented by: Morphine Sulfate (Morphine) 2 mg IVPUSH ONETIME ONE Stop: 06/25/20 19:29 Last Admin: 06/25/20 20:20 Dose: 2 mg Documented by: Oxycodone HCl (Oxycodone) 5 mg PO Q6H PRN PRN Reason: Pain (moderate 4-6) Last Admin: 07/02/20 08:11 Dose: 5 mg Documented by: Eplerenone 50 Mg 1 each PO BID [facility] Last Admin: 07/07/20 08:22 Dose: 1 each Documented by: Eplerenone 50mg Tab 0.5 each PO BID [facility] Last Admin: 07/07/20 14:17 Dose: Not Given Documented by: Eplerenone 50mg Tab 0.5 each PO BID [facility] Last Admin: 07/10/20 08:34 Dose: 0.5 each Documented by: Polyethylene Glycol (Miralax) 17 gm PO ONETIME ONE Stop: 07/04/20 16:15 Last Admin: 07/04/20 16:43 Dose: 17 gm Documented by: Potassium Chloride (Potassium Chloride) 40 meq PO ONETIME ONE Stop: 06/27/20 12:37 Last Admin: 06/27/20 16:24 Dose: Not Given Documented by: Potassium Chloride (Potassium Chloride) 40 meq PO ONETIME ONE Stop: 06/27/20 16:16 Last Admin: 06/27/20 16:24 Dose: 40 meq Documented by: Potassium Chloride (Klor-Con M20) 40 meq PO ONETIME ONE Stop: 06/28/20 10:01 Last Admin: 06/28/20 10:53 Dose: 40 meq Documented by: Potassium Chloride (Klor-Con M20) 40 meq PO ONETIME ONE Stop: 06/29/20 10:46 Last Admin: 06/29/20 10:43 Dose: 40 meq Documented by: Potassium Chloride (Klor-Con M20) 40 meq PO ONETIME ONE Stop: 07/01/20 09:31 Last Admin: 07/01/20 10:02 Dose: 40 meq Documented by: Potassium Chloride (Potassium Chloride) 60 meq PO ONETIME ONE Stop: 07/01/20 15:46 Last Admin: 07/01/20 16:31 Dose: 60 meq Documented by: Potassium Chloride (Klor-Con M20) 60 meq PO ONETIME ONE Stop: 07/02/20 06:43 Last Admin: 07/02/20 07:12 Dose: 60 meq Documented by: Potassium Chloride (Klor-Con 10) 60 meq PO ONETIME ONE Stop: 07/02/20 16:15 Last Admin: 07/02/20 17:10 Dose: 60 meq Documented by: Potassium Chloride (Klor-Con 10) 60 meq PO ONETIME ONE Stop: 07/02/20 17:33 Last Admin: 07/02/20 18:24 Dose: 60 meq Documented by: Potassium Chloride (Klor-Con 10) 60 meq PO ONETIME ONE Stop: 07/03/20 05:00 Last Admin: 07/03/20 10:21 Dose: Not Given Documented by: Potassium Chloride (Klor-Con M20) 60 meq PO ONETIME ONE Stop: 07/03/20 06:31 Last Admin: 07/03/20 06:23 Dose: 60 meq Documented by: Potassium Chloride (Klor-Con M20) 60 meq PO ONETIME ONE Stop: 07/03/20 08:31 Last Admin: 07/03/20 08:41 Dose: 60 meq Documented by: Potassium Chloride (Klor-Con 10) 60 meq PO ONETIME ONE Stop: 07/03/20 11:14 Last Admin: 07/03/20 12:14 Dose: Not Given Documented by: Potassium Chloride (Klor-Con 10) 40 meq PO ONETIME ONE Stop: 07/03/20 19:11 Last Admin: 07/03/20 19:22 Dose: 40 meq Documented by: Potassium Chloride (Klor-Con 10) 60 meq PO ONETIME ONE Stop: 07/04/20 08:22 Last Admin: 07/04/20 12:53 Dose: Not Given Documented by: Potassium Chloride (Klor-Con M20) 40 meq PO BID [facility] Last Admin: 07/08/20 08:59 Dose: 40 meq Documented by: Potassium Chloride (Klor-Con M20) 60 meq PO ONETIME ONE Stop: 07/04/20 12:46 Last Admin: 07/04/20 12:54 Dose: 60 meq Documented by: Potassium Chloride (Klor-Con M20) 40 meq PO ONETIME ONE Stop: 07/04/20 17:14 Last Admin: 07/04/20 17:58 Dose: 40 meq Documented by: Potassium Chloride (Klor-Con M20) 40 meq PO ONETIME ONE Stop: 07/06/20 14:21 Last Admin: 07/06/20 16:53 Dose: 40 meq Documented by: Potassium Chloride (Klor-Con M20) 60 meq PO BID [facility] Last Admin: 07/10/20 08:29 Dose: 60 meq Documented by: Potassium Chloride (Klor-Con M20) 20 meq PO ONETIME ONE Stop: 07/08/20 11:41 Last Admin: 07/08/20 12:01 Dose: 20 meq Documented by: Quetiapine Fumarate (Seroquel) 25 mg PO BEDTIME [facility] Last Admin: 07/09/20 20:20 Dose: 25 mg Documented by: Sertraline HCl (Zoloft) 50 mg PO DAILY [facility] Last Admin: 07/10/20 08:28 Dose: 50 mg Documented by: Sodium Chloride (Saline Flush) 10 ml FLUSH ASDIRECTED PRN PRN Reason: Keep Vein Open Last Admin: 06/25/20 18:42 Dose: 10 ml Documented by: Sodium Chloride (Saline Flush) 2.5 ml FLUSH ASDIRECTED PRN PRN Reason: Keep Vein Open Last Admin: 06/25/20 18:42 Dose: 2.5 ml Documented by: Torsemide (Demadex) 50 mg PO DAILY [facility] Last Admin: 07/05/20 08:27 Dose: 50 mg Documented by: Sepsis Event Note - Focused Exam Vital Signs: Vital Signs Temp Pulse Pulse Resp BP BP Pulse Ox 07/10/20 12:32 35.8 C L 106 H 16 112/73 93 L 07/10/20 08:28 80 108/72 07/10/20 08:00 36.6 C 80 18 108/72 95 - Problem List & Annotations (1) Pneumonia SNOMED Code(s): 790740956 Code(s): J18.9 - PNEUMONIA, UNSPECIFIED ORGANISM Status: Acute (2) Acute exacerbation of congestive heart failure SNOMED Code(s): 004206090, 76620128546825 Code(s): I50.9 - HEART FAILURE, UNSPECIFIED Status: Acute Qualifiers: Heart failure type: systolic Qualified Code(s): I50.23 - Acute on chronic systolic (congestive) heart failure (3) Acute kidney injury SNOMED Code(s): 93799061, 68458234 Code(s): N17.9 - ACUTE KIDNEY FAILURE, UNSPECIFIED Status: Acute (4) Frequent falls SNOMED Code(s): 301688057 Code(s): R29.6 - REPEATED FALLS Status: Acute (5) History of atrial fibrillation SNOMED Code(s): 945062617 Code(s): Z86.79 - PERSONAL HISTORY OF OTHER DISEASES OF THE CIRCULATORY SYSTEM Status: Acute (6) Congestive heart failure (CHF) SNOMED Code(s): 43064215 Code(s): I50.9 - HEART FAILURE, UNSPECIFIED Status: Acute - Plan Plan:: I have seen and evaluated the patient. I have discussed findings and treatment plan with resident. I agree with the assessment and plan in the following note.
[2020-07-01] MEDS ORDERED: Potassium Chloride 20 MEQ Tab.ER PO ONE (09:30)
[2020-07-01] MEDS: Levofloxacin/Dextrose 5%-Water 750 MG in Premix Bag 1 BAG IV SCH (10:08)
[2020-07-01] MEDS ORDERED: Furosemide 40 MG/4 ML VIAL IVPUSH ONE (13:57)
[2020-07-01] MEDS ORDERED: Furosemide 20 MG/2 ML VIAL IVPUSH ONE (13:58)
[2020-07-01] MEDS ORDERED: Potassium Chloride 10% 20 MEQ/15 ML Soln 30 ML UD Cup PO ONE (15:45)
[2020-07-01] MEDS ORDERED: SODIUM CHLORIDE 0.9% IV SCH (16:00)
[2020-07-01] MEDS ORDERED: KCL IV SCH (16:00)
[2020-07-01] MEDS ORDERED: Potassium Chloride Riders 40 MEQ in Premix Bag 1 BAG IV ONE (16:30)
[2020-07-01] MEDS: Melatonin 3 MG Tab PO SCH (22:31)
[2020-07-01] MEDS: QUEtiapine 25 MG Tab PO SCH (22:32)
[2020-07-01] MEDS: Gabapentin 300 MG Cap PO SCH (22:33)
[2020-07-01] MEDS: Lidocaine 5% 700 MG Patch TOP SCH (22:33)
[2020-07-02 06:27] LABS: CARBON DIOXIDE,CO2 34.7 mmol/L (21.0-32.0)
[2020-07-02 06:29] LABS: POTASSIUM,K 2.1 mmol/L (3.5-5.1)
[2020-07-02] MEDS: Levothyroxine 25 MCG Tab PO SCH (06:42)
[2020-07-02] MEDS: Levothyroxine 112 MCG Tab PO SCH (06:42)
[2020-07-02] MEDS ORDERED: Potassium Chloride 20 MEQ Tab.ER PO ONE (06:42)
[2020-07-02] MEDS ORDERED: Potassium Chloride Riders 20 MEQ in Premix Bag 1 BAG IV ONE (06:45)
[2020-07-02] MEDS: Sertraline 50 MG Tab PO SCH (08:02)
[2020-07-02] MEDS: Metolazone 5 MG Tab PO SCH (08:02)
[2020-07-02] MEDS: Apixaban 5 MG Tab PO SCH ×2 (08:03→21:11)
[2020-07-02] MEDS: levETIRAcetam 500 MG Tab PO SCH ×2 (08:03→21:10)
[2020-07-02] MEDS: Losartan 50 MG Tab PO SCH (08:03)
[2020-07-02] MEDS: Furosemide 40 MG/4 ML VIAL IVPUSH SCH (08:04)
[2020-07-02] MEDS: oxyCODONE 5 MG Tab PO PRN (08:11)
[2020-07-02] MEDS: Carvedilol 25 MG Tab PO SCH ×2 (08:11→21:13)
[2020-07-02] MEDS ORDERED: Potassium Chloride Riders 40 MEQ in Premix Bag 1 BAG IV ONE (08:45)
[2020-07-02] MEDS ORDERED: Potassium Chloride 20 MEQ Tab.ER PO SCH (09:00)
[2020-07-02] MEDS ORDERED: Magnesium Oxide 400 MG Tab PO ONE (10:57)
[2020-07-02] MEDS: Torsemide 20 MG Tab PO SCH (11:34)
--- NOTE | 2020-07-02 15:20 | PCM.PN ---
<Chayo Morel - Last Filed: 07/02/20 15:14> - General Info Date of Service: 07/02/20 Subjective Update: Patient is a 75-year-old female admitted for CHF exacerbation and deconditioning. It has been 1 week since admission, there were no overnight events, patient states he is feeling tired this morning Because he was up most of the night urinating. Held Coreg and Lasix this morning; due to soft blood pressures and critical hypokalemia. No telemetry changes this morning, patient denies any palpitations, shortness of breath, increased weakness, chest pain, leg pain. Patient was seen at bedside examined while he was resting in bed. - Review of Systems General: Reports: No Symptoms HEENT: Reports: No Symptoms Pulmonary: Reports: No Symptoms Cardiovascular: Reports: No Symptoms Gastrointestinal: Reports: No Symptoms Genitourinary: Reports: No Symptoms Musculoskeletal: Reports: No Symptoms Skin: Reports: No Symptoms Neurological: Reports: No Symptoms Psychiatric: Reports: No Symptoms - Patient Data Vitals - Most Recent: Last Vital Signs Temp 98.0 F 07/02/20 12:50 Pulse 69 07/02/20 12:50 Resp 16 07/02/20 12:50 BP 101/75 07/02/20 12:50 Pulse Ox 97 07/02/20 10:11 Weight - Most Recent: 86.999 kg I&O - Last 24 Hours: Intake & Output 07/02/20 07/02/20 07/02/20 06:59 14:59 22:59 Intake Total 750 Output Total 2275 Balance -1525 Lab Results Last 24 Hours: Laboratory Results - last 24 hr 07/01/20 07/02/20 07/02/20 Range/Units 15:17 05:50 05:50 WBC 7.31 (4.0-11.0) K/uL RBC 4.25 L (4.50-5.90) M/uL Hgb 13.1 (13.0-17.0) g/dL Hct 41.0 (38.0-50.0) % MCV 96.5 (80.0-98.0) fL MCH 30.8 (27.0-32.0) pg MCHC 32.0 (31.0-37.0) g/dL RDW Std Deviation 50.9 (28.0-62.0) fl RDW Coeff of Mike 15 (11.0-15.0) % Plt Count 186 (150-400) K/uL MPV 9.80 (7.40-12.00) fL Neut % (Auto) 71.4 (48.0-80.0) % Lymph % (Auto) 16.4 (16.0-40.0) % [place] % (Auto) 10.9 (0.0-15.0) % Eos % (Auto) 1.2 (0.0-7.0) % Baso % (Auto) 0.1 (0.0-1.5) % Neut # (Auto) 5.2 (1.4-5.7) K/uL Lymph # (Auto) 1.2 (0.6-2.4) K/uL [place] # (Auto) 0.8 (0.0-0.8) K/uL Eos # (Auto) 0.1 (0.0-0.7) K/uL Baso # (Auto) 0.0 (0.0-0.1) K/uL Nucleated RBC % 0.0 /100WBC Nucleated RBCs # 0 K/uL Sodium 142 (136-148) mmol/L Potassium 2.7 L 2.1 L* (3.5-5.1) mmol/L Chloride 101 (98-107) mmol/L Carbon Dioxide 34.7 H (21.0-32.0) mmol/L BUN 36 H (7.0-18.0) mg/dL Creatinine 1.6 H (0.8-1.3) mg/dL Est Cr Clr Drug Dosing 42.44 mL/min Estimated GFR (MDRD) 42.1 ml/min Glucose 84 (74-106) mg/dL Calcium 9.3 (8.5-10.1) mg/dL Phosphorus 3.3 (2.6-4.7) mg/dL Magnesium 1.9 (1.8-2.4) mg/dL Med Orders - Current: Current Medications Acetaminophen (Tylenol) 650 mg PO Q4H PRN PRN Reason: Pain (Mild 1-3)/fever Last Admin: 06/30/20 15:26 Dose: 650 mg Documented by: Al Hydroxide/Mg Hydroxide (Mag-Al Plus) 5 ml PO Q6H PRN PRN Reason: Heartburn Last Admin: 06/27/20 20:45 Dose: 5 ml Documented by: Albuterol/Ipratropium (Combivent Respimat) 0 gm INH Q4HRRT PRN PRN Reason: Dyspnea Last Admin: 06/29/20 15:18 Dose: 1 puff Documented by: Apixaban (Eliquis) 5 mg PO BID [facility] Last Admin: 07/02/20 08:03 Dose: 5 mg Documented by: Carvedilol (Coreg) 12.5 mg PO BID [facility] Last Admin: 07/02/20 08:11 Dose: Not Given Documented by: Gabapentin (Neurontin) 300 mg PO BEDTIME [facility] Last Admin: 07/01/20 22:33 Dose: 300 mg Documented by: Hydroxyzine HCl (Atarax) 25 mg PO TID PRN PRN Reason: Anxiety Last Admin: 06/29/20 15:17 Dose: 25 mg Documented by: Potassium Chloride 40 meq/ (Sodium Chloride) 270 mls @ 67.5 mls/hr IV ONETIME ONE Stop: 07/02/20 15:59 Last Admin: 07/02/20 12:27 Dose: 67.5 mls/hr Documented by: Levetiracetam (Keppra) 1,000 mg PO BID [facility] Last Admin: 07/02/20 08:03 Dose: 1,000 mg Documented by: Levofloxacin (Levaquin) 750 mg PO Q24H [facility] Stop: 07/04/20 10:01 Levothyroxine Sodium (Levothyroxine) 112 mcg PO ACBRK [facility] Last Admin: 07/02/20 06:42 Dose: 112 mcg Documented by: Levothyroxine Sodium (Levothyroxine) 25 mcg PO ACBREAKFAST [facility] Last Admin: 07/02/20 06:42 Dose: 25 mcg Documented by: Lidocaine (Lidoderm 5%) 700 mg TOP Q24H [facility] Last Admin: 07/01/20 22:33 Dose: 700 mg Documented by: Losartan Potassium (Cozaar) 25 mg PO DAILY [facility] Last Admin: 07/02/20 08:03 Dose: 25 mg Documented by: Melatonin (Melatonin) 18 mg PO BEDTIME [facility] Last Admin: 07/01/20 22:31 Dose: 18 mg Documented by: Metolazone (Zaroxolyn) 5 mg PO TUTHSA@0900 [facility] Eplerenone 50 Mg 1 each PO BID [facility] Last Admin: 07/02/20 12:24 Dose: Not Given Documented by: Quetiapine Fumarate (Seroquel) 25 mg PO BEDTIME [facility] Last Admin: 07/01/20 22:32 Dose: 25 mg Documented by: Sertraline HCl (Zoloft) 50 mg PO DAILY [facility] Last Admin: 07/02/20 08:02 Dose: 50 mg Documented by: Sodium Chloride (Saline Flush) 10 ml FLUSH ASDIRECTED PRN PRN Reason: Keep Vein Open Last Admin: 06/25/20 18:42 Dose: 10 ml Documented by: Sodium Chloride (Saline Flush) 2.5 ml FLUSH ASDIRECTED PRN PRN Reason: Keep Vein Open Last Admin: 06/25/20 18:42 Dose: 2.5 ml Documented by: Torsemide (Demadex) 50 mg PO DAILY [facility] Last Admin: 07/02/20 11:34 Dose: 50 mg Documented by: Discontinued Medications Carvedilol (Coreg) 25 mg PO BID [facility] Last Admin: 06/30/20 09:09 Dose: 25 mg Documented by: Furosemide (Lasix) 40 mg IVPUSH NOW ONE Stop: 06/25/20 19:48 Last Admin: 06/25/20 20:46 Dose: 40 mg Documented by: Furosemide (Lasix) 40 mg IVPUSH BID [facility] Last Admin: 06/28/20 08:57 Dose: 40 mg Documented by: Furosemide (Lasix) 20 mg IVPUSH BID [facility] Last Admin: 06/28/20 11:25 Dose: Not Given Documented by: Furosemide (Lasix) 40 mg IVPUSH BID [facility] Last Admin: 07/02/20 08:04 Dose: Not Given Documented by: Furosemide (Lasix) 40 mg IVPUSH NOW ONE Stop: 06/30/20 13:07 Last Admin: 06/30/20 14:03 Dose: 40 mg Documented by: Furosemide (Lasix) 40 mg IVPUSH NOW ONE Stop: 07/01/20 13:58 Last Admin: 07/01/20 14:09 Dose: Not Given Documented by: Furosemide (Lasix) 20 mg IVPUSH ONETIME ONE Stop: 07/01/20 13:59 Last Admin: 07/01/20 14:08 Dose: 20 mg Documented by: Lactated Ringer's (Ringers, Lactated) 1,000 mls @ 125 mls/hr IV ASDIRECTED [facility] Last Admin: 06/25/20 18:41 Dose: 125 mls/hr Documented by: Potassium Chloride 40 meq/ (Sodium Chloride) 270 mls @ 67.5 mls/hr IV ONETIME O NE Stop: 06/29/20 14:14 Last Admin: 06/29/20 11:07 Dose: 67.5 mls/hr Documented by: Levofloxacin/Dextrose 750 mg/ (Premix) 150 mls @ 100 mls/hr IV Q48H [facility] Last Admin: 07/01/20 10:08 Dose: 100 mls/hr Documented by: Potassium Chloride 60 meq/ (Sodium Chloride) 530 mls @ 88.333 mls/hr IV ONETIME ONE Stop: 07/01/20 15:44 Last Admin: 07/01/20 10:04 Dose: 88.333 mls/hr Documented by: Potassium Chloride/Sodium Chloride (Normal Saline With 40 Meq Kcl) 250 mls @ 250 mls/hr IV ASDIRECTED [facility] Potassium Chloride 40 meq/ (Premix) 100 mls @ 25 mls/hr IV ONETIME ONE Stop: 07/01/20 20:29 Last Admin: 07/01/20 17:05 Dose: 25 mls/hr Documented by: Potassium Chloride 40 meq/ (Sodium Chloride) 270 mls @ 67.5 mls/hr IV 07/02/20@0730 [facility] Stop: 07/02/20 11:29 Last Admin: 07/02/20 08:13 Dose: 67.5 mls/hr Documented by: Lidocaine (Lidoderm 5%) 700 mg TOP DAILY [facility] Last Admin: 06/29/20 10:23 Dose: Not Given Documented by: Losartan Potassium (Cozaar) 100 mg PO DAILY [facility] Last Admin: 06/28/20 08:53 Dose: 100 mg Documented by: Magnesium Oxide (Magnesium Oxide) 400 mg PO ONETIME ONE Stop: 07/02/20 10:58 Last Admin: 07/02/20 11:34 Dose: 400 mg Documented by: Metolazone (Zaroxolyn) 5 mg PO BIDDIURETIC [facility] Last Admin: 07/02/20 08:02 Dose: 5 mg Documented by: Morphine Sulfate (Morphine) 2 mg IVPUSH ONETIME ONE Stop: 06/25/20 19:29 Last Admin: 06/25/20 20:20 Dose: 2 mg Documented by: Oxycodone HCl (Oxycodone) 5 mg PO Q6H PRN PRN Reason: Pain (moderate 4-6) Last Admin: 07/02/20 08:11 Dose: 5 mg Documented by: Potassium Chloride (Potassium Chloride) 40 meq PO ONETIME ONE Stop: 06/27/20 12:37 Last Admin: 06/27/20 16:24 Dose: Not Given Documented by: Potassium Chloride (Potassium Chloride) 40 meq PO ONETIME ONE Stop: 06/27/20 16:16 Last Admin: 06/27/20 16:24 Dose: 40 meq Documented by: Potassium Chloride (Klor-Con M20) 40 meq PO ONETIME ONE Stop: 06/28/20 10:01 Last Admin: 06/28/20 10:53 Dose: 40 meq Documented by: Potassium Chloride (Klor-Con M20) 40 meq PO ONETIME ONE Stop: 06/29/20 10:46 Last Admin: 06/29/20 10:43 Dose: 40 meq Documented by: Potassium Chloride (Klor-Con M20) 40 meq PO ONETIME ONE Stop: 07/01/20 09:31 Last Admin: 07/01/20 10:02 Dose: 40 meq Documented by: Potassium Chloride (Potassium Chloride) 60 meq PO ONETIME ONE Stop: 07/01/20 15:46 Last Admin: 07/01/20 16:31 Dose: 60 meq Documented by: Potassium Chloride (Klor-Con M20) 60 meq PO ONETIME ONE Stop: 07/02/20 06:43 Last Admin: 07/02/20 07:12 Dose: 60 meq Documented by: - Exam Quality Assessment: Supplemental Oxygen, DVT Prophylaxis (History of A. fib therefore on Eliquis) General: Alert, Oriented HEENT: Pupils Equal, Pupils Reactive, EOMI, Mucous Membr. Moist/[place] Neck: Supple, Trachea Midline, No JVD Lungs: Clear to Auscultation, Normal Respiratory Effort Cardiovascular: Regular Rate, Regular Rhythm GI/Abdominal Exam: Normal Bowel Sounds, Soft, Non-Tender, No Organomegaly, No Distention, No Mass Extremities: Normal Inspection, Normal Range of Motion, No Pedal Edema, Normal Capillary Refill Peripheral Pulses: 2+: Radial (L), Radial (R), Dorsalis Pedis (L), Dorsalis Pedi s (R) Skin: Warm, Dry, Intact Wound/Incisions: Healing Well Neurological: No New Focal Deficit Psy/Mental Status: Alert, Normal Affect, Normal Mood Sepsis Event Note - Evaluation Sepsis Screening Result: No Definite Risk - Focused Exam Vital Signs: Vital Signs Temp Pulse Resp BP BP BP Pulse Ox 07/02/20 12:50 98.0 F 69 16 101/75 07/02/20 10:11 70 16 95/67 97 07/02/20 08:03 103/70 07/02/20 07:42 97.7 F 80 16 103/70 97 07/02/20 06:00 07/02/20 04:00 98.2 F 66 18 110/71 97 Pulse Ox 07/02/20 12:50 07/02/20 10:11 07/02/20 08:03 07/02/20 07:42 07/02/20 06:00 97 07/02/20 04:00 - Problem List & Annotations (1) Acute exacerbation of congestive heart failure SNOMED Code(s): 110078684, 27743967510495 Code(s): I50.9 - HEART FAILURE, UNSPECIFIED Status: Acute Qualifiers: Heart failure type: systolic Qualified Code(s): I50.23 - Acute on chronic systolic (congestive) heart failure (2) Acute kidney injury SNOMED Code(s): 26313929, 03384703 Code(s): N17.9 - ACUTE KIDNEY FAILURE, UNSPECIFIED Status: Acute - Problem List Review Problem List Initiated/Reviewed/Updated: Yes - My Orders Last 24 Hours: My Active Orders 07/02/20 12:00 Potassium Chloride 40 meq Sodium Chloride 0.9% [Normal Saline] 250 ml IV ONETIME 07/02/20 15:00 POTASSIUM,K [CHEM] Routine 07/03/20 05:11 MAGNESIUM [CHEM] AM 07/03/20 10:00 levoFLOXacin [Levaquin] 750 mg PO Q24H - Plan Plan:: Plan:: Patient is a alesha 75-year-old gentleman admitted for an acute exacerbation of previously known congestive heart failure and acute on chronic kidney disease with possible pneumonia. 1. Acute exacerbation of congestive heart failure: Improved, previously known ejection fraction of 15%, discontinue Lasix due to significant hypokalemia. Metolazone 5 mg 3 times per week, restart eplerenone 50 twice daily, torsemide 50 daily, fluid restriction of 1.5 L/day, oxygen cho pplementation as needed, with continuous pulse ox. -2D echo ordered, results pending -IS encouraged Dr. Scott has been following, suggested above regimen, feels that the patient will require LTAC/cardiac rehab or inotropic infusions in [place]. Patient is on a transplant candidate 2. Possible pneumonia: chest x-ray shows a possible right lower lobe pneumonia. cont Levaquin, will switch to oral medication 3. Severe hypokalemia: - 2.1 give provided 60 p.o. milliequivalents potassium and 80 IV. Will recheck at 15:00 and supplement as needed. Monitor with morning CMP 3. Acute on chronic kidney disease: -Continues to improve , BUN 36, creatinine 1.6 6 Monitor CMP daily with a.m. labs Avoid nephrotoxic agents 4. History of A. fib: -Stable, no telemetry changes On Eliquis, Continue to monitor on telemetry 5. Sacral ulcer: Improved -Lidocaine patch for 12 hrs -Tagoderm -We will get cushion to help relieve pressure off sacral region 6. Deconditioning: -PT consult, physical Therapy came and worked with patient, he is working really hard and showing significant improvement. -However patient still is quite weak and will need further assistance with strengthening medication adherence therefore would most benefit from a skilled care facility. 7. Past medical history of obstructive sleep apnea, hypertension, hypothyroidism; resume all home medications; Restarted Losartan 8. Disposition: physical therapy and home health, may need to consider home oxygen therapy as needed, close follow-up with Dr. Reveles in cardiology for follow- up and ICD placement. I have seen and evaluated the patient and agree with the residents note unless specified in my note <Zahraa Mcneal - Last Filed: 07/10/20 18:01> - Patient Data Vitals - Most Recent: Last Vital Signs Temp 35.8 C L 07/10/20 12:32 Pulse 106 H 07/10/20 12:32 Resp 16 07/10/20 12:32 BP 112/73 07/10/20 12:32 Pulse Ox 93 L 07/10/20 12:32 I&O - Last 24 Hours: Intake & Output 07/10/20 07/10/20 07/10/20 06:59 14:59 22:59 Intake Total 1000 780 Output Total 1200 400 Balance -200 380 Lab Results Last 24 Hours: Laboratory Results - last 24 hr 07/10/20 07/10/20 Range/Units 04:44 04:44 WBC 6.89 (4.0-11.0) K/uL RBC 4.60 (4.50-5.90) M/uL Hgb 14.1 (13.0-17.0) g/dL Hct 44.1 (38.0-50.0) % MCV 95.9 (80.0-98.0) fL MCH 30.7 (27.0-32.0) pg MCHC 32.0 (31.0-37.0) g/dL RDW Std Deviation 51.3 (28.0-62.0) fl RDW Coeff of Mike 15 (11.0-15.0) % Plt Count 181 (150-400) K/uL MPV 10.60 (7.40-12.00) fL Neut % (Auto) 62.7 (48.0-80.0) % Lymph % (Auto) 28.2 (16.0-40.0) % [place] % (Auto) 6.0 (0.0-15.0) % Eos % (Auto) 2.5 (0.0-7.0) % Baso % (Auto) 0.6 (0.0-1.5) % Neut # (Auto) 4.3 (1.4-5.7) K/uL Lymph # (Auto) 1.9 (0.6-2.4) K/uL [place] # (Auto) 0.4 (0.0-0.8) K/uL Eos # (Auto) 0.2 (0.0-0.7) K/uL Baso # (Auto) 0.0 (0.0-0.1) K/uL Nucleated RBC % 0.0 /100WBC Nucleated RBCs # 0 K/uL Sodium 135 L (136-148) mmol/L Potassium 3.5 (3.5-5.1) mmol/L Chloride 98 (98-107) mmol/L Carbon Dioxide 32.4 H (21.0-32.0) mmol/L BUN 66 H (7.0-18.0) mg/dL Creatinine 2.1 H (0.8-1.3) mg/dL Est Cr Clr Drug Dosing 32.33 mL/min Estimated GFR (MDRD) 30.8 ml/min Glucose 99 (74-106) mg/dL Calcium 9.5 (8.5-10.1) mg/dL Magnesium 1.8 (1.8-2.4) mg/dL Med Orders - Current: Current Medications Discontinued Medications Acetaminophen (Tylenol) 650 mg PO Q4H PRN PRN Reason: Pain (Mild 1-3)/fever Last Admin: 07/03/20 23:45 Dose: 650 mg Documented by: Hydrocodone Bitart/Acetaminophen ([place] 325-5 Mg) 1 tab PO Q8H PRN PRN Reason: Pain Last Admin: 07/09/20 14:10 Dose: 1 tab Documented by: Hydrocodone Bitart/Acetaminophen ([place] 325-5 Mg) 1 tab PO Q4H PRN PRN Reason: Pain (moderate 4-6) Al Hydroxide/Mg Hydroxide (Mag-Al Plus) 5 ml PO Q6H PRN PRN Reason: Heartburn Last Admin: 07/04/20 10:31 Dose: 5 ml Documented by: Albuterol/Ipratropium (Combivent Respimat) 0 gm INH Q4HRRT PRN PRN Reason: Dyspnea Last Admin: 06/29/20 15:18 Dose: 1 puff Documented by: Apixaban (Eliquis) 5 mg PO BID [facility] Last Admin: 07/10/20 08:28 Dose: 5 mg Documented by: Bumetanide (Bumex) 1 mg PO BIDDIURETIC [facility] Bumetanide (Bumex) 2 mg PO BIDDIURETIC [facility] Last Admin: 07/10/20 08:29 Dose: 2 mg Documented by: Bumetanide (Bumex) 2 mg PO ONETIME ONE Stop: 07/10/20 09:26 Last Admin: 07/10/20 10:26 Dose: 2 mg Documented by: Carvedilol (Coreg) 25 mg PO BID [facility] Last Admin: 06/30/20 09:09 Dose: 25 mg Documented by: Carvedilol (Coreg) 12.5 mg PO BID [facility] Last Admin: 07/05/20 08:29 Dose: 12.5 mg Documented by: Carvedilol (Coreg) 12.5 mg PO BID [facility] Last Admin: 07/10/20 08:28 Dose: 12.5 mg Documented by: Furosemide (Lasix) 40 mg IVPUSH NOW ONE Stop: 06/25/20 19:48 Last Admin: 06/25/20 20:46 Dose: 40 mg Documented by: Furosemide (Lasix) 40 mg IVPUSH BID [facility] Last Admin: 06/28/20 08:57 Dose: 40 mg Documented by: Furosemide (Lasix) 20 mg IVPUSH BID [facility] Last Admin: 06/28/20 11:25 Dose: Not Given Documented by: Furosemide (Lasix) 40 mg IVPUSH BID [facility] Last Admin: 07/02/20 08:04 Dose: Not Given Documented by: Furosemide (Lasix) 40 mg IVPUSH NOW ONE Stop: 06/30/20 13:07 Last Admin: 06/30/20 14:03 Dose: 40 mg Documented by: Furosemide (Lasix) 40 mg IVPUSH NOW ONE Stop: 07/01/20 13:58 Last Admin: 07/01/20 14:09 Dose: Not Given Documented by: Furosemide (Lasix) 20 mg IVPUSH ONETIME ONE Stop: 07/01/20 13:59 Last Admin: 07/01/20 14:08 Dose: 20 mg Documented by: Furosemide (Lasix) 40 mg IVPUSH NOW ONE Stop: 07/02/20 17:32 Last Admin: 07/02/20 18:24 Dose: 40 mg Documented by: Furosemide (Lasix) 40 mg IVPUSH NOW ONE Stop: 07/06/20 06:01 Last Admin: 07/06/20 06:05 Dose: 40 mg Documented by: Furosemide (Lasix) 40 mg IVPUSH NOW ONE Stop: 07/05/20 17:39 Last Admin: 07/05/20 18:04 Dose: 40 mg Documented by: Gabapentin (Neurontin) 300 mg PO BEDTIME [facility] Last Admin: 07/09/20 20:15 Dose: 300 mg Documented by: Hydroxyzine HCl (Atarax) 25 mg PO TID PRN PRN Reason: Anxiety Last Admin: 07/10/20 06:38 Dose: 25 mg Documented by: Lactated Ringer's (Ringers, Lactated) 1,000 mls @ 125 mls/hr IV ASDIRECTED [facility] Last Admin: 06/25/20 18:41 Dose: 125 mls/hr Documented by: Potassium Chloride 40 meq/ (Sodium Chloride) 270 mls @ 67.5 mls/hr IV ONETIME ONE Stop: 06/29/20 14:14 Last Admin: 06/29/20 11:07 Dose: 67.5 mls/hr Documented by: Levofloxacin/Dextrose 750 mg/ (Premix) 150 mls @ 100 mls/hr IV Q48H [facility] Last Admin: 07/01/20 10:08 Dose: 100 mls/hr Documented by: Potassium Chloride 60 meq/ (Sodium Chloride) 530 mls @ 88.333 mls/hr IV ONETIME ONE Stop: 07/01/20 15:44 Last Admin: 07/01/20 10:04 Dose: 88.333 mls/hr Documented by: Potassium Chloride/Sodium Chloride (Normal Saline With 40 Meq Kcl) 250 mls @ 250 mls/hr IV ASDIRECTED [facility] Potassium Chloride 40 meq/ (Premix) 100 mls @ 25 mls/hr IV ONETIME ONE Stop: 07/01/20 20:29 Last Admin: 07/01/20 17:05 Dose: 25 mls/hr Documented by: Potassium Chloride 40 meq/ (Sodium Chloride) 270 mls @ 67.5 mls/hr IV 07/02/20@0730 [facility] Stop: 07/02/20 11:29 Last Admin: 07/02/20 08:13 Dose: 67.5 mls/hr Documented by: Potassium Chloride 40 meq/ (Sodium Chloride) 270 mls @ 67.5 mls/hr IV ONETIME ONE Stop: 07/02/20 15:59 Last Admin: 07/02/20 12:27 Dose: 67.5 mls/hr Documented by: Magnesium Sulfate (Magnesium Sulfate In Water Premix) 2 gm in 50 mls @ 25 mls/hr IV NOW ONE Stop: 07/03/20 07:14 Last Admin: 07/03/20 06:23 Dose: 25 mls/hr Documented by: Potassium Chloride 40 meq/ (Sodium Chloride) 270 mls @ 67.5 mls/hr IV ONETIME ONE Stop: 07/03/20 11:59 Last Admin: 07/03/20 08:35 Dose: 67.5 mls/hr Documented by: Potassium Chloride 40 meq/ (Sodium Chloride) 270 mls @ 67.52 mls/hr IV ONETIME ONE Stop: 07/03/20 15:14 Last Admin: 07/03/20 12:15 Dose: Not Given Documented by: Potassium Chloride 40 meq/ (Sodium Chloride) 270 mls @ 67.5 mls/hr IV ONETIME ONE Stop: 07/04/20 12:29 Last Admin: 07/04/20 10:13 Dose: 67.5 mls/hr Documented by: Sodium Chloride (Normal Saline) 500 mls @ 70 mls/hr IV ASDIRECTED ONE Stop: 07/10/20 02:38 Last Admin: 07/09/20 20:22 Dose: 70 mls/hr Documented by: Magnesium Sulfate (Magnesium Sulfate In Water Premix) 2 gm in 50 mls @ 50 mls/hr IV ONETIME ONE Stop: 07/10/20 12:14 Last Admin: 07/10/20 11:24 Dose: 50 mls/hr Documented by: Levetiracetam (Keppra) 1,000 mg PO BID [facility] Last Admin: 07/10/20 08:27 Dose: 1,000 mg Documented by: Levofloxacin (Levaquin) 750 mg PO Q24H [facility] Stop: 07/04/20 10:01 Last Admin: 07/04/20 10:17 Dose: 750 mg Documented by: Levothyroxine Sodium (Levothyroxine) 112 mcg PO ACBRK [facility] Last Admin: 07/10/20 06:38 Dose: 112 mcg Documented by: Levothyroxine Sodium (Levothyroxine) 25 mcg PO ACBREAKFAST [facility] Last Admin: 07/10/20 07:43 Dose: 25 mcg Documented by: Lidocaine (Lidoderm 5%) 700 mg TOP DAILY [facility] Last Admin: 06/29/20 10:23 Dose: Not Given Documented by: Lidocaine (Lidoderm 5%) 700 mg TOP Q24H [facility] Last Admin: 07/03/20 21:52 Dose: 700 mg Documented by: Lidocaine (Lidoderm 5%) 700 mg TRDERM Q24H [facility] Last Admin: 07/04/20 16:27 Dose: Not Given Documented by: Lidocaine (Lidoderm 5%) 700 mg TRDERM Q24H [facility] Last Admin: 07/10/20 03:14 Dose: Not Given Documented by: Lidocaine (Lidoderm 5%) 700 mg TOP Q24H [facility] Last Admin: 07/06/20 14:08 Dose: Not Given Documented by: Losartan Potassium (Cozaar) 100 mg PO DAILY [facility] Last Admin: 06/28/20 08:53 Dose: 100 mg Documented by: Losartan Potassium (Cozaar) 25 mg PO DAILY [facility] Last Admin: 07/10/20 08:28 Dose: 25 mg Documented by: Magnesium Oxide (Magnesium Oxide) 400 mg PO ONETIME ONE Stop: 07/02/20 10:58 Last Admin: 07/02/20 11:34 Dose: 400 mg Documented by: Melatonin (Melatonin) 18 mg PO BEDTIME [facility] Last Admin: 07/09/20 20:24 Dose: 18 mg Documented by: Metolazone (Zaroxolyn) 5 mg PO BIDDIURETIC [facility] Last Admin: 07/02/20 08:02 Dose: 5 mg Documented by: Metolazone (Zaroxolyn) 5 mg PO TUTHSA@0900 [facility] Last Admin: 07/03/20 07:59 Dose: Not Given Documented by: Metolazone (Zaroxolyn) 5 mg PO TUTHSA@0900 [facility] Last Admin: 07/10/20 08:28 Dose: 5 mg Documented by: Miscellaneous Information (Remove Patch) 1 ea TOP Q24H [facility] Last Admin: 07/10/20 13:24 Dose: Not Given Documented by: Morphine Sulfate (Morphine) 2 mg IVPUSH ONETIME ONE Stop: 06/25/20 19:29 Last Admin: 06/25/20 20:20 Dose: 2 mg Documented by: Oxycodone HCl (Oxycodone) 5 mg PO Q6H PRN PRN Reason: Pain (moderate 4-6) Last Admin: 07/02/20 08:11 Dose: 5 mg Documented by: Eplerenone 50 Mg 1 each PO BID [facility] Last Admin: 07/07/20 08:22 Dose: 1 each Documented by: Eplerenone 50mg Tab 0.5 each PO BID [facility] Last Admin: 07/07/20 14:17 Dose: Not Given Documented by: Eplerenone 50mg Tab 0.5 each PO BID [facility] Last Admin: 07/10/20 08:34 Dose: 0.5 each Documented by: Polyethylene Glycol (Miralax) 17 gm PO ONETIME ONE Stop: 07/04/20 16:15 Last Admin: 07/04/20 16:43 Dose: 17 gm Documented by: Potassium Chloride (Potassium Chloride) 40 meq PO ONETIME ONE Stop: 06/27/20 12:37 Last Admin: 06/27/20 16:24 Dose: Not Given Documented by: Potassium Chloride (Potassium Chloride) 40 meq PO ONETIME ONE Stop: 06/27/20 16:16 Last Admin: 06/27/20 16:24 Dose: 40 meq Documented by: Potassium Chloride (Klor-Con M20) 40 meq PO ONETIME ONE Stop: 06/28/20 10:01 Last Admin: 06/28/20 10:53 Dose: 40 meq Documented by: Potassium Chloride (Klor-Con M20) 40 meq PO ONETIME ONE Stop: 06/29/20 10:46 Last Admin: 06/29/20 10:43 Dose: 40 meq Documented by: Potassium Chloride (Klor-Con M20) 40 meq PO ONETIME ONE Stop: 07/01/20 09:31 Last Admin: 07/01/20 10:02 Dose: 40 meq Documented by: Potassium Chloride (Potassium Chloride) 60 meq PO ONETIME ONE Stop: 07/01/20 15:46 Last Admin: 07/01/20 16:31 Dose: 60 meq Documented by: Potassium Chloride (Klor-Con M20) 60 meq PO ONETIME ONE Stop: 07/02/20 06:43 Last Admin: 07/02/20 07:12 Dose: 60 meq Documented by: Potassium Chloride (Klor-Con 10) 60 meq PO ONETIME ONE Stop: 07/02/20 16:15 Last Admin: 07/02/20 17:10 Dose: 60 meq Documented by: Potassium Chloride (Klor-Con 10) 60 meq PO ONETIME ONE Stop: 07/02/20 17:33 Last Admin: 07/02/20 18:24 Dose: 60 meq Documented by: Potassium Chloride (Klor-Con 10) 60 meq PO ONETIME ONE Stop: 07/03/20 05:00 Last Admin: 07/03/20 10:21 Dose: Not Given Documented by: Potassium Chloride (Klor-Con M20) 60 meq PO ONETIME ONE Stop: 07/03/20 06:31 Last Admin: 07/03/20 06:23 Dose: 60 meq Documented by: Potassium Chloride (Klor-Con M20) 60 meq PO ONETIME ONE Stop: 07/03/20 08:31 Last Admin: 07/03/20 08:41 Dose: 60 meq Documented by: Potassium Chloride (Klor-Con 10) 60 meq PO ONETIME ONE Stop: 07/03/20 11:14 Last Admin: 07/03/20 12:14 Dose: Not Given Documented by: Potassium Chloride (Klor-Con 10) 40 meq PO ONETIME ONE Stop: 07/03/20 19:11 Last Admin: 07/03/20 19:22 Dose: 40 meq Documented by: Potassium Chloride (Klor-Con 10) 60 meq PO ONETIME ONE Stop: 07/04/20 08:22 Last Admin: 07/04/20 12:53 Dose: Not Given Documented by: Potassium Chloride (Klor-Con M20) 40 meq PO BID [facility] Last Admin: 07/08/20 08:59 Dose: 40 meq Documented by: Potassium Chloride (Klor-Con M20) 60 meq PO ONETIME ONE Stop: 07/04/20 12:46 Last Admin: 07/04/20 12:54 Dose: 60 meq Documented by: Potassium Chloride (Klor-Con M20) 40 meq PO ONETIME ONE Stop: 07/04/20 17:14 Last Admin: 07/04/20 17:58 Dose: 40 meq Documented by: Potassium Chloride (Klor-Con M20) 40 meq PO ONETIME ONE Stop: 07/06/20 14:21 Last Admin: 07/06/20 16:53 Dose: 40 meq Documented by: Potassium Chloride (Klor-Con M20) 60 meq PO BID [facility] Last Admin: 07/10/20 08:29 Dose: 60 meq Documented by: Potassium Chloride (Klor-Con M20) 20 meq PO ONETIME ONE Stop: 07/08/20 11:41 Last Admin: 07/08/20 12:01 Dose: 20 meq Documented by: Quetiapine Fumarate (Seroquel) 25 mg PO BEDTIME [facility] Last Admin: 07/09/20 20:20 Dose: 25 mg Documented by: Sertraline HCl (Zoloft) 50 mg PO DAILY [facility] Last Admin: 07/10/20 08:28 Dose: 50 mg Documented by: Sodium Chloride (Saline Flush) 10 ml FLUSH ASDIRECTED PRN PRN Reason: Keep Vein Open Last Admin: 06/25/20 18:42 Dose: 10 ml Documented by: Sodium Chloride (Saline Flush) 2.5 ml FLUSH ASDIRECTED PRN PRN Reason: Keep Vein Open Last Admin: 06/25/20 18:42 Dose: 2.5 ml Documented by: Torsemide (Demadex) 50 mg PO DAILY SASHA Last Admin: 07/05/20 08:27 Dose: 50 mg Documented by: Sepsis Event Note - Focused Exam Vital Signs: Vital Signs Temp Pulse Pulse Resp BP BP Pulse Ox 07/10/20 12:32 35.8 C L 106 H 16 112/73 93 L 07/10/20 08:28 80 108/72 07/10/20 08:00 36.6 C 80 18 108/72 95 - Problem List & Annotations (1) Pneumonia SNOMED Code(s): 662694488 Code(s): J18.9 - PNEUMONIA, UNSPECIFIED ORGANISM Status: Acute (2) Acute exacerbation of congestive heart failure SNOMED Code(s): 843129492, 78897448005061 Code(s): I50.9 - HEART FAILURE, UNSPECIFIED Status: Acute Qualifiers: Heart failure type: systolic Qualified Code(s): I50.23 - Acute on chronic systolic (congestive) heart failure (3) Acute kidney injury SNOMED Code(s): 09571556, 00813281 Code(s): N17.9 - ACUTE KIDNEY FAILURE, UNSPECIFIED Status: Acute (4) Frequent falls SNOMED Code(s): 535556526 Code(s): R29.6 - REPEATED FALLS Status: Acute (5) History of atrial fibrillation SNOMED Code(s): 769470702 Code(s): Z86.79 - PERSONAL HISTORY OF OTHER DISEASES OF THE CIRCULATORY SYSTEM Status: Acute (6) Congestive heart failure (CHF) SNOMED Code(s): 43345607 Code(s): I50.9 - HEART FAILURE, UNSPECIFIED Status: Acute - Plan Plan:: ' I have seen and evaluated the patient. I have discussed findings and treatment plan with resident. I agree with the assessment and plan in the following note.
[2020-07-02] MEDS ORDERED: Potassium Chloride 10 MEQ Tab.ER PO ONE ×2 (16:14→17:32)
[2020-07-02] MEDS ORDERED: Furosemide 40 MG/4 ML VIAL IVPUSH ONE (17:31)
[2020-07-02] MEDS: Lidocaine 5% 700 MG Patch TOP SCH (21:08)
[2020-07-02] MEDS: Gabapentin 300 MG Cap PO SCH (21:11)
[2020-07-02] MEDS: Melatonin 3 MG Tab PO SCH (21:11)
[2020-07-02] MEDS: QUEtiapine 25 MG Tab PO SCH (21:11)
[2020-07-03 04:30] LABS: CARBON DIOXIDE,CO2 37.5 mmol/L (21.0-32.0)
[2020-07-03 04:36] LABS: POTASSIUM,K 2.2 mmol/L (3.5-5.1)
[2020-07-03] MEDS ORDERED: Potassium Chloride 10 MEQ Tab.ER PO ONE ×5 (04:59→19:10)
[2020-07-03] MEDS ORDERED: Magnesium Sulfate (4.06 MEQ/ML) 5 GM/10 ML SDV IV ONE (05:00)
[2020-07-03] MEDS ORDERED: Magnesium Sulfate/Water 2 GM/50 ML BAG IV ONE (05:15)
[2020-07-03] MEDS ORDERED: Potassium Chloride 20 MEQ Tab.ER PO ONE ×2 (06:30→08:30)
[2020-07-03] MEDS: Levothyroxine 25 MCG Tab PO SCH (07:32)
[2020-07-03] MEDS: Levothyroxine 112 MCG Tab PO SCH (07:32)
--- NOTE | 2020-07-03 07:46 | CONS ---
DATE OF CONSULTATION: 07/02/2020 DATE OF : 1945 PRIMARY CARE PHYSICIAN: Bryant Mccauley MD REASON FOR CONSULTATION: Heart failure. HISTORY OF PRESENT ILLNESS: This is a 75-year-old male with history of noncompliance; history of severe sleep apnea, using CPAP; history of hypertension; high cholesterol; hypothyroidism; permanent atrial fibrillation; and also nonischemic cardiomyopathy. The patient has been in the hospital at this time because of the shortness of breath and cyanotic looking, and he was found to have decompensated heart failure with a BNP of 2000 with swelling as well as LENO on top of the CKD. His diuretic regimen at home includes torsemide 50 mg once a day. Because of worsening kidney function, I stop his eplerenone, and at that time the creatinine was about 2. His cardiac medication prior to the hospitalization included losartan 100 mg once a day, Coreg 25 mg twice a day, and torsemide 50 mg once a day as well as Eliquis 5 mg twice a day. He has been on this regimen since at least the end of April. He was given the Lasix 40 mg IV twice a day. He seemed to make good progress in terms of increasing the urine output and keep a negative balance. His leg swelling went down. However, his blood pressures has become borderline, and carvedilol has been on hold a few times including losartan. Now, losartan was decreased to 25 mg once a day and metolazone 5 mg was added, and he has made negative balance, at least 2 to 3 L over the past few days. With that, his kidney function has improved to 1.5 to 1.6, seems to be at baseline. His swelling has become improved as well. However, he still is very fatigued, probably most likely due to the heart failure. PAST MEDICAL HISTORY: Includes chronic persistent atrial fibrillation, hypertension, BPH, and nonischemic cardiomyopathy. ALLERGIES: No known drug allergy. CURRENT MEDICATIONS: Include carvedilol down to 12.5 mg twice a day, Eliquis 5 mg twice a day, eplerenone started at 50 mg twice a day, losartan 25 mg once a day, and torsemide line 50 mg once a day as well as the metolazone 5 mg once a day. FAMILY HISTORY: Father had a history of CAD. SOCIAL HISTORY: Occasional alcohol. Nonsmoker. No drug use. PHYSICAL EXAMINATION: VITAL SIGNS: Current blood pressure running between 90 to 100, heart rate of 60 to 70, O2 saturation is 97 on 1.5 L. HEENT: JVD mildly positive. HEART: Totally irregular. Systolic murmur. LUNGS: Bilateral crackles. ABDOMEN: Soft and nontender. Bowel sounds are present. No hepatosplenomegaly. EXTREMITIES: Legs: Trace edema. INVESTIGATION: CBC showed WBC of 7.3, hematocrit of 40, and platelet 186. Sodium 142, potassium 2.5, chloride 101, creatinine 1.6, BUN 36. Troponin was negative. BNP 2325. TSH is 3.9. EKG show atrial fibrillation. QRS complex is 95. Echocardiogram was done at that time, and ejection fraction seemed to be 15% to 20% still. Previous cardiac investigation including left heart catheterization 03/2020. Normal coronary artery. LVEDP 24. Mild MR. LV gram EF 25%. TESSA and cardioversion 04/09/2020, tried 3 attempts, remained in AFib, never converted to sinus rhythm. ASSESSMENT AND PLAN: This is a 75-year-old male with nonischemic cardiomyopathy, chronic persistent atrial fibrillation, hypertension, and hyperaldosteronism, who came in the hospital with decompensated systolic heart failure with acute kidney injury on top of chronic kidney disease. Possibly, he seemed to be improved after aggressive diuresis, and because of a history of hyperaldosteronism and persistent hypokalemia, we will resume his eplerenone 50 mg twice a day; and with the improving kidney functions, we will transition the IV Lasix to torsemide 50 mg once a day along with metolazone 5 mg 3 times a week. I have contacted [facility] in [address] in [place] with Dr. Carlton for possible IV inotrope infusion as an outpatient. If he has improved clinically, he will be transferred to rehab and he probably will need to have the ICD implantation. JOHN / CALVIN /[id number] SELVIN
[2020-07-03] MEDS ORDERED: Potassium Chloride Riders 40 MEQ in Premix Bag 1 BAG IV ONE (07:56)
[2020-07-03] MEDS: Acetaminophen 325 MG Tab PO PRN ×2 (08:25→23:45)
[2020-07-03] MEDS: Apixaban 5 MG Tab PO SCH ×2 (08:26→21:51)
[2020-07-03] MEDS: Carvedilol 25 MG Tab PO SCH ×2 (08:27→21:48)
[2020-07-03] MEDS: Torsemide 20 MG Tab PO SCH (08:29)
[2020-07-03] MEDS: levETIRAcetam 500 MG Tab PO SCH ×2 (08:30→21:51)
[2020-07-03] MEDS: Sertraline 50 MG Tab PO SCH (08:33)
[2020-07-03] MEDS ORDERED: Metolazone 5 MG Tab PO SCH (09:00)
[2020-07-03] MEDS: Levofloxacin 250 MG Tab PO SCH (10:25)
[2020-07-03] MEDS: Losartan 50 MG Tab PO SCH (10:26)
[2020-07-03 12:53] LABS: POTASSIUM,K 3.7 mmol/L (3.5-5.1)
[2020-07-03 16:30] LABS: CARBON DIOXIDE,CO2 38.7 mmol/L (21.0-32.0); POTASSIUM,K 3.5 mmol/L (3.5-5.1)
--- NOTE | 2020-07-03 17:48 | PCM.PN ---
- General Info Date of Service: 07/03/20 Subjective Update: Patient is a 75-year-old female admitted for CHF exacerbation and deconditioning. There were no overnight events, patient states he is feeling tired this morning. Critical hypokalemia, there were no telemetry changes this morning, patient denies any palpitations, shortness of breath, increased weakness, chest pain, leg pain. Patient was seen at bedside examined while he was resting in bed. Functional Status: Reports: Tolerating Diet, Ambulating, Incentive Spirometry - Review of Systems General: Reports: Weakness HEENT: Reports: No Symptoms Pulmonary: Reports: No Symptoms Cardiovascular: Reports: No Symptoms Gastrointestinal: Reports: No Symptoms Genitourinary: Reports: No Symptoms Musculoskeletal: Reports: Back Pain (Improved) Skin: Reports: No Symptoms Neurological: Reports: No Symptoms Psychiatric: Reports: No Symptoms - Patient Data Vitals - Most Recent: Last Vital Signs Temp 97.8 F 07/03/20 16:00 Pulse 78 07/03/20 16:00 Resp 22 H 07/03/20 16:00 BP 100/64 07/03/20 16:00 Pulse Ox 97 07/03/20 16:00 Weight - Most Recent: 181 lb 9 oz I&O - Last 24 Hours: Intake & Output 07/03/20 07/03/20 07/03/20 06:59 14:59 22:59 Intake Total 950 960 Output Total 3020 1220 Balance -2070 -260 Lab Results Last 24 Hours: Laboratory Results - last 24 hr 07/02/20 07/03/20 07/03/20 Range/Units 21:21 04:00 04:00 WBC 6.87 (4.0-11.0) K/uL RBC 4.23 L (4.50-5.90) M/uL Hgb 13.3 (13.0-17.0) g/dL Hct 41.0 (38.0-50.0) % MCV 96.9 (80.0-98.0) fL MCH 31.4 (27.0-32.0) pg MCHC 32.4 (31.0-37.0) g/dL RDW Std Deviation 51.7 (28.0-62.0) fl RDW Coeff of Mike 15 (11.0-15.0) % Plt Count 183 (150-400) K/uL MPV 9.70 (7.40-12.00) fL Neut % (Auto) 66.1 (48.0-80.0) % Lymph % (Auto) 18.9 (16.0-40.0) % [place] % (Auto) 12.4 (0.0-15.0) % Eos % (Auto) 2.3 (0.0-7.0) % Baso % (Auto) 0.3 (0.0-1.5) % Neut # (Auto) 4.5 (1.4-5.7) K/uL Lymph # (Auto) 1.3 (0.6-2.4) K/uL [place] # (Auto) 0.9 H (0.0-0.8) K/uL Eos # (Auto) 0.2 (0.0-0.7) K/uL Baso # (Auto) 0.0 (0.0-0.1) K/uL Nucleated RBC % 0.0 /100WBC Nucleated RBCs # 0 K/uL Sodium 144 (136-148) mmol/L Potassium 3.1 L 2.2 L* (3.5-5.1) mmol/L Chloride 102 (98-107) mmol/L Carbon Dioxide 37.5 H (21.0-32.0) mmol/L BUN 33 H (7.0-18.0) mg/dL Creatinine 1.5 H (0.8-1.3) mg/dL Est Cr Clr Drug Dosing 45.27 mL/min Estimated GFR (MDRD) 45.4 ml/min Glucose 91 (74-106) mg/dL Uric Acid (2.6-7.2) mg/dL Calcium 9.6 (8.5-10.1) mg/dL Magnesium 1.8 (1.8-2.4) mg/dL Total Bilirubin 1.8 H (0.2-1.0) mg/dL AST 20 (15-37) IU/L ALT 15 (14-63) IU/L Alkaline Phosphatase 85 (46-116) U/L Total Protein 7.0 (6.4-8.2) g/dL Albumin 3.1 L (3.4-5.0) g/dL Globulin 3.9 (2.6-4.0) g/dL Albumin/Globulin Ratio 0.8 L (0.9-1.6) 07/03/20 07/03/20 07/03/20 Range/Units 12:24 12:24 16:04 WBC (4.0-11.0) K/uL RBC (4.50-5.90) M/uL Hgb (13.0-17.0) g/dL Hct (38.0-50.0) % MCV (80.0-98.0) fL MCH (27.0-32.0) pg MCHC (31.0-37.0) g/dL RDW Std Deviation (28.0-62.0) fl RDW Coeff of Mike (11.0-15.0) % Plt Count (150-400) K/uL MPV (7.40-12.00) fL Neut % (Auto) (48.0-80.0) % Lymph % (Auto) (16.0-40.0) % [place] % (Auto) (0.0-15.0) % Eos % (Auto) (0.0-7.0) % Baso % (Auto) (0.0-1.5) % Neut # (Auto) (1.4-5.7) K/uL Lymph # (Auto) (0.6-2.4) K/uL [place] # (Auto) (0.0-0.8) K/uL Eos # (Auto) (0.0-0.7) K/uL Baso # (Auto) (0.0-0.1) K/uL Nucleated RBC % /100WBC Nucleated RBCs # K/uL Sodium 143 (136-148) mmol/L Potassium 3.7 3.5 (3.5-5.1) mmol/L Chloride 102 (98-107) mmol/L Carbon Dioxide 38.7 H (21.0-32.0) mmol/L BUN 33 H (7.0-18.0) mg/dL Creatinine 1.7 H (0.8-1.3) mg/dL Est Cr Clr Drug Dosing 39.94 mL/min Estimated GFR (MDRD) 39.3 ml/min Glucose 89 (74-106) mg/dL Uric Acid 12.6 H (2.6-7.2) mg/dL Calcium 9.4 (8.5-10.1) mg/dL Magnesium 2.4 (1.8-2.4) mg/dL Total Bilirubin (0.2-1.0) mg/dL AST (15-37) IU/L ALT (14-63) IU/L Alkaline Phosphatase (46-116) U/L Total Protein (6.4-8.2) g/dL Albumin (3.4-5.0) g/dL Globulin (2.6-4.0) g/dL Albumin/Globulin Ratio (0.9-1.6) Med Orders - Current: Current Medications Acetaminophen (Tylenol) 650 mg PO Q4H PRN PRN Reason: Pain (Mild 1-3)/fever Last Admin: 07/03/20 08:25 Dose: 650 mg Documented by: Al Hydroxide/Mg Hydroxide (Mag-Al Plus) 5 ml PO Q6H PRN PRN Reason: Heartburn Last Admin: 06/27/20 20:45 Dose: 5 ml Documented by: Albuterol/Ipratropium (Combivent Respimat) 0 gm INH Q4HRRT PRN PRN Reason: Dyspnea Last Admin: 06/29/20 15:18 Dose: 1 puff Documented by: Apixaban (Eliquis) 5 mg PO BID [facility] Last Admin: 07/03/20 08:26 Dose: 5 mg Documented by: Carvedilol (Coreg) 12.5 mg PO BID [facility] Last Admin: 07/03/20 08:27 Dose: 12.5 mg Documented by: Gabapentin (Neurontin) 300 mg PO BEDTIME [facility] Last Admin: 07/02/20 21:11 Dose: 300 mg Documented by: Hydroxyzine HCl (Atarax) 25 mg PO TID PRN PRN Reason: Anxiety Last Admin: 06/29/20 15:17 Dose: 25 mg Documented by: Levetiracetam (Keppra) 1,000 mg PO BID [facility] Last Admin: 07/03/20 08:30 Dose: 1,000 mg Documented by: Levofloxacin (Levaquin) 750 mg PO Q24H [facility] Stop: 07/04/20 10:01 Last Admin: 07/03/20 10:25 Dose: 750 mg Documented by: Levothyroxine Sodium (Levothyroxine) 112 mcg PO ACBRK [facility] Last Admin: 07/03/20 07:32 Dose: 112 mcg Documented by: Levothyroxine Sodium (Levothyroxine) 25 mcg PO ACBREAKFAST [facility] Last Admin: 07/03/20 07:32 Dose: 25 mcg Documented by: Lidocaine (Lidoderm 5%) 700 mg TOP Q24H [facility] Last Admin: 07/02/20 21:08 Dose: 700 mg Documented by: Losartan Potassium (Cozaar) 25 mg PO DAILY [facility] Last Admin: 07/03/20 10:26 Dose: 25 mg Documented by: Melatonin (Melatonin) 18 mg PO BEDTIME [facility] Last Admin: 07/02/20 21:11 Dose: 18 mg Documented by: Metolazone (Zaroxolyn) 5 mg PO TUTHSA@0900 [facility] Last Admin: 07/03/20 07:59 Dose: Not Given Documented by: Eplerenone 50 Mg 1 each PO BID [facility] Last Admin: 07/03/20 08:34 Dose: 1 each Documented by: Quetiapine Fumarate (Seroquel) 25 mg PO BEDTIME [facility] Last Admin: 07/02/20 21:11 Dose: 25 mg Documented by: Sertraline HCl (Zoloft) 50 mg PO DAILY [facility] Last Admin: 07/03/20 08:33 Dose: 50 mg Documented by: Sodium Chloride (Saline Flush) 10 ml FLUSH ASDIRECTED PRN PRN Reason: Keep Vein Open Last Admin: 06/25/20 18:42 Dose: 10 ml Documented by: Sodium Chloride (Saline Flush) 2.5 ml FLUSH ASDIRECTED PRN PRN Reason: Keep Vein Open Last Admin: 06/25/20 18:42 Dose: 2.5 ml Documented by: Torsemide (Demadex) 50 mg PO DAILY [facility] Last Admin: 07/03/20 08:29 Dose: 50 mg Documented by: Discontinued Medications Carvedilol (Coreg) 25 mg PO BID [facility] Last Admin: 06/30/20 09:09 Dose: 25 mg Documented by: Furosemide (Lasix) 40 mg IVPUSH NOW ONE Stop: 06/25/20 19:48 Last Admin: 06/25/20 20:46 Dose: 40 mg Documented by: Furosemide (Lasix) 40 mg IVPUSH BID [facility] Last Admin: 06/28/20 08:57 Dose: 40 mg Documented by: Furosemide (Lasix) 20 mg IVPUSH BID [facility] Last Admin: 06/28/20 11:25 Dose: Not Given Documented by: Furosemide (Lasix) 40 mg IVPUSH BID [facility] Last Admin: 07/02/20 08:04 Dose: Not Given Documented by: Furosemide (Lasix) 40 mg IVPUSH NOW ONE Stop: 06/30/20 13:07 Last Admin: 06/30/20 14:03 Dose: 40 mg Documented by: Furosemide (Lasix) 40 mg IVPUSH NOW ONE Stop: 07/01/20 13:58 Last Admin: 07/01/20 14:09 Dose: Not Given Documented by: Furosemide (Lasix) 20 mg IVPUSH ONETIME ONE Stop: 07/01/20 13:59 Last Admin: 07/01/20 14:08 Dose: 20 mg Documented by: Furosemide (Lasix) 40 mg IVPUSH NOW ONE Stop: 07/02/20 17:32 Last Admin: 07/02/20 18:24 Dose: 40 mg Documented by: Lactated Ringer's (Ringers, Lactated) 1,000 mls @ 125 mls[facility] [place] Last Admin: 06/25/20 18:41 Dose: 125 mls/hr Documented by: Potassium Chloride 40 meq/ (Sodium Chloride) 270 mls @ 67.5 mls/hr IV ONETIME ONE Stop: 06/29/20 14:14 Last Admin: 06/29/20 11:07 Dose: 67.5 mls/hr Documented by: Levofloxacin/Dextrose 750 mg/ (Premix) 150 mls @ 100 mls/hr IV Q48H [facility] Last Admin: 07/01/20 10:08 Dose: 100 mls/hr Documented by: Potassium Chloride 60 meq/ (Sodium Chloride) 530 mls @ 88.333 mls/hr IV ONETIME ONE Stop: 07/01/20 15:44 Last Admin: 07/01/20 10:04 Dose: 88.333 mls/hr Documented by: Potassium Chloride/Sodium Chloride (Normal Saline With 40 Meq Kcl) 250 mls @ 250 mls/hr IV ASDIRECTED [facility] Potassium Chloride 40 meq/ (Premix) 100 mls @ 25 mls/hr IV ONETIME ONE Stop: 07/01/20 20:29 Last Admin: 07/01/20 17:05 Dose: 25 mls/hr Documented by: Potassium Chloride 40 meq/ (Sodium Chloride) 270 mls @ 67.5 mls/hr IV 07/02/20@0730 SASHA Stop: 07/02/20 11:29 Last Admin: 07/02/20 08:13 Dose: 67.5 mls/hr Documented by: Potassium Chloride 40 meq/ (Sodium Chloride) 270 mls @ 67.5 mls/hr IV ONETIME ONE Stop: 07/02/20 15:59 Last Admin: 07/02/20 12:27 Dose: 67.5 mls/hr Documented by: Magnesium Sulfate (Magnesium Sulfate In Water Premix) 2 gm in 50 mls @ 25 mls/hr IV NOW ONE Stop: 07/03/20 07:14 Last Admin: 07/03/20 06:23 Dose: 25 mls/hr Documented by: Potassium Chloride 40 meq/ (Sodium Chloride) 270 mls @ 67.5 mls/hr IV ONETIME ONE Stop: 07/03/20 11:59 Last Admin: 07/03/20 08:35 Dose: 67.5 mls/hr Documented by: Potassium Chloride 40 meq/ (Sodium Chloride) 270 mls @ 67.52 mls/hr IV ONETIME ONE Stop: 07/03/20 15:14 Last Admin: 07/03/20 12:15 Dose: Not Given Documented by: Lidocaine (Lidoderm 5%) 700 mg TOP DAILY [facility] Last Admin: 06/29/20 10:23 Dose: Not Given Documented by: Losartan Potassium (Cozaar) 100 mg PO DAILY [facility] Last Admin: 06/28/20 08:53 Dose: 100 mg Documented by: Magnesium Oxide (Magnesium Oxide) 400 mg PO ONETIME ONE Stop: 07/02/20 10:58 Last Admin: 07/02/20 11:34 Dose: 400 mg Documented by: Metolazone (Zaroxolyn) 5 mg PO BIDDIURETIC [facility] Last Admin: 07/02/20 08:02 Dose: 5 mg Documented by: Morphine Sulfate (Morphine) 2 mg IVPUSH ONETIME ONE Stop: 06/25/20 19:29 Last Admin: 06/25/20 20:20 Dose: 2 mg Documented by: Oxycodone HCl (Oxycodone) 5 mg PO Q6H PRN PRN Reason: Pain (moderate 4-6) Last Admin: 07/02/20 08:11 Dose: 5 mg Documented by: Potassium Chloride (Potassium Chloride) 40 meq PO ONETIME ONE Stop: 06/27/20 12:37 Last Admin: 06/27/20 16:24 Dose: Not Given Documented by: Potassium Chloride (Potassium Chloride) 40 meq PO ONETIME ONE Stop: 06/27/20 16:16 Last Admin: 06/27/20 16:24 Dose: 40 meq Documented by: Potassium Chloride (Klor-Con M20) 40 meq PO ONETIME ONE Stop: 06/28/20 10:01 Last Admin: 06/28/20 10:53 Dose: 40 meq Documented by: Potassium Chloride (Klor-Con M20) 40 meq PO ONETIME ONE Stop: 06/29/20 10:46 Last Admin: 06/29/20 10:43 Dose: 40 meq Documented by: Potassium Chloride (Klor-Con M20) 40 meq PO ONETIME ONE Stop: 07/01/20 09:31 Last Admin: 07/01/20 10:02 Dose: 40 meq Documented by: Potassium Chloride (Potassium Chloride) 60 meq PO ONETIME ONE Stop: 07/01/20 15:46 Last Admin: 07/01/20 16:31 Dose: 60 meq Documented by: Potassium Chloride (Klor-Con M20) 60 meq PO ONETIME ONE Stop: 07/02/20 06:43 Last Admin: 07/02/20 07:12 Dose: 60 meq Documented by: Potassium Chloride (Klor-Con 10) 60 meq PO ONETIME ONE Stop: 07/02/20 16:15 Last Admin: 07/02/20 17:10 Dose: 60 meq Documented by: Potassium Chloride (Klor-Con 10) 60 meq PO ONETIME ONE Stop: 07/02/20 17:33 Last Admin: 07/02/20 18:24 Dose: 60 meq Documented by: Potassium Chloride (Klor-Con 10) 60 meq PO ONETIME ONE Stop: 07/03/20 05:00 Last Admin: 07/03/20 10:21 Dose: Not Given Documented by: Potassium Chloride (Klor-Con M20) 60 meq PO ONETIME ONE Stop: 07/03/20 06:31 Last Admin: 07/03/20 06:23 Dose: 60 meq Documented by: Potassium Chloride (Klor-Con M20) 60 meq PO ONETIME ONE Stop: 07/03/20 08:31 Last Admin: 07/03/20 08:41 Dose: 60 meq Documented by: Potassium Chloride (Klor-Con 10) 60 meq PO ONETIME ONE Stop: 07/03/20 11:14 Last Admin: 07/03/20 12:14 Dose: Not Given Documented by: - Exam Quality Assessment: Supplemental Oxygen, DVT Prophylaxis General: Alert, Oriented, Cooperative, No Acute Distress HEENT: Pupils Equal, Pupils Reactive, EOMI, Mucous Membr. Moist/[place] Neck: Supple Lungs: Clear to Auscultation, Normal Respiratory Effort Cardiovascular: Irregular Rhythm (Known A. fib) GI/Abdominal Exam: Normal Bowel Sounds Extremities: Normal Inspection, Normal Range of Motion Peripheral Pulses: 2+: Radial (L), Radial (R), Dorsalis Pedis (L), Dorsalis Pedis (R) Skin: Warm, Dry, Intact Neurological: No New Focal Deficit Psy/Mental Status: Alert, Normal Affect, Normal Mood Sepsis Event Note - Evaluation Sepsis Screening Result: No Definite Risk - Focused Exam Vital Signs: Vital Signs Temp Pulse Pulse Resp BP BP Pulse Ox 07/03/20 16:00 97.8 F 78 22 H 100/64 97 07/03/20 11:36 97.7 F 65 20 107/57 L 96 07/03/20 10:26 100/70 07/03/20 08:27 75 129/71 07/03/20 07:36 96.8 F L 75 22 H 129/71 97 - Problem List & Annotations (1) Acute exacerbation of congestive heart failure SNOMED Code(s): 425332639, 40945311289845 Code(s): I50.9 - HEART FAILURE, UNSPECIFIED Status: Acute Current Visit: Yes Qualifiers: Heart failure type: systolic Qualified Code(s): I50.23 - Acute on chronic systolic (congestive) heart failure (2) Acute kidney injury SNOMED Code(s): 09450524, 39390592 Code(s): N17.9 - ACUTE KIDNEY FAILURE, UNSPECIFIED Status: Acute Current Visit: Yes - Problem List Review Problem List Initiated/Reviewed/Updated: Yes - My Orders Last 24 Hours: My Active Orders 07/03/20 10:00 levoFLOXacin [Levaquin] 750 mg PO Q24H 07/04/20 05:11 CBC WITH AUTO DIFF [HEME] AM CMP [COMPREHENSIVE METABOLIC PN,CMP] [CHEM] AM 07/05/20 05:11 CBC WITH AUTO DIFF [HEME] AM CMP [COMPREHENSIVE METABOLIC PN,CMP] [CHEM] AM 07/06/20 05:11 CBC WITH AUTO DIFF [HEME] AM CMP [COMPREHENSIVE METABOLIC PN,CMP] [CHEM] AM - Plan Plan:: Plan:: Patient is a alesha 75-year-old gentleman admitted for an acute exacerbation of previously known congestive heart failure and acute on chronic kidney disease with possible pneumonia. 1. Acute exacerbation of congestive heart failure: Improved, previously known ejection fraction of 15%, discontinue Lasix due to significant hypokalemia. Metolazone 5 mg 3 times per week, restart eplerenone 50 twice daily, torsemide 50 daily, fluid restriction of 1.5 L/day, oxygen supplementation as needed, with continuous pulse ox. -2D echo completed, results pending -IS encouraged Dr. Scott has been following, suggested above regimen, feels that the patient will require possible cardiac rehab or inotropic infusions in [place] and possible ICD placement. Patient is not a transplant candidate 2. Possible pneumonia: chest x-ray right lower lobe pneumonia. cont Levaquin, p.o. antibiotics 3. Severe hypokalemia: - 2.2 therefore gave 60 p.o. milliequivalents potassium and 40 IV. Will recheck at 15:00 and supplement as needed. Monitor with morning CMP -Patient has stopped taking Lasix and started eplerenone which should help with hyperaldosteronism causing wasting of potassium 3. Acute on chronic kidney disease: -Continues to improve , BUN 33, creatinine 1.5 Monitor CMP daily with a.m. labs Avoid nephrotoxic agents 4. History of A. fib: -Stable, no telemetry changes On Eliquis, Continue to monitor on telemetry 5. Sacral ulcer: Improved -Lidocaine patch for 12 hrs -Tagoderm -We will get cushion to help relieve pressure off sacral region 6. Deconditioning: -PT consult, physical Therapy came and worked with patient, he is working really hard and showing significant improvement. -However patient still is quite weak and will need further assistance with strengthening medication adherence therefore would most benefit from a skilled care facility. 7. Past medical history of obstructive sleep apnea, hypertension, hypothyroidism; resume all home medications; Restarted Losartan 8. Disposition: physical therapy and home health, may need to consider home oxygen therapy as needed, close follow-up with Dr. Reveles in cardiology for follow- up and ICD placement. I have seen and evaluated the patient and agree with the residents note unless specified in my note
[2020-07-03] MEDS: Melatonin 3 MG Tab PO SCH (21:50)
[2020-07-03] MEDS: QUEtiapine 25 MG Tab PO SCH (21:51)
[2020-07-03] MEDS: Gabapentin 300 MG Cap PO SCH (21:51)
[2020-07-03] MEDS: Lidocaine 5% 700 MG Patch TOP SCH (21:52)
[2020-07-04] MEDS ORDERED: Lidocaine 5% 700 MG Patch TRDERM SCH (02:00)
[2020-07-04 05:47] LABS: POTASSIUM,K 2.6 mmol/L (3.5-5.1)
[2020-07-04] MEDS: Levothyroxine 25 MCG Tab PO SCH (06:38)
[2020-07-04] MEDS: Levothyroxine 112 MCG Tab PO SCH (06:38)
[2020-07-04] MEDS ORDERED: Potassium Chloride 10 MEQ Tab.ER PO ONE (08:21)
[2020-07-04] MEDS: Torsemide 20 MG Tab PO SCH (10:05)
[2020-07-04] MEDS: Losartan 50 MG Tab PO SCH (10:14)
[2020-07-04] MEDS: levETIRAcetam 500 MG Tab PO SCH ×2 (10:16→21:13)
[2020-07-04] MEDS: Sertraline 50 MG Tab PO SCH (10:17)
[2020-07-04] MEDS: Levofloxacin 250 MG Tab PO SCH (10:17)
[2020-07-04] MEDS: Apixaban 5 MG Tab PO SCH ×2 (10:17→21:15)
[2020-07-04] MEDS: Carvedilol 25 MG Tab PO SCH ×2 (10:18→21:14)
[2020-07-04] MEDS: Aluminum Hydroxide/Magnesium Hydroxide/Simethicone Susp 30 ML Cup PO PRN (10:31)
[2020-07-04] MEDS ORDERED: Potassium Chloride 20 MEQ Tab.ER PO ONE ×2 (12:45→17:13)
[2020-07-04] MEDS ORDERED: Polyethylene Glycol 3350 Powder 17 GM Packet PO ONE (16:14)
--- NOTE | 2020-07-04 16:46 | PCM.PN ---
- General Info Date of Service: 07/04/20 Admission Dx/Problem (Free Text): Admission Diagnosis/Problem Admission Diagnosis/Problem CHF, Congestive heart failure Subjective Update: Patient is a 75-year-old female admitted for CHF exacerbation, treated for hypokalemia and deconditioning. There were no overnight events, patient states he is feeling tired this morning. Significant hypokalemia, there were no telemetry changes this morning, patient denies any palpitations, shortness of breath, increased weakness, chest pain, leg pain. Patient was seen at bedside examined while he was resting in bed. Functional Status: Reports: Tolerating Diet, Ambulating, Incentive Spirometry - Review of Systems General: Reports: No Symptoms HEENT: Reports: No Symptoms Pulmonary: Reports: No Symptoms Cardiovascular: Reports: No Symptoms Gastrointestinal: Reports: Constipation Genitourinary: Reports: No Symptoms Musculoskeletal: Reports: No Symptoms Skin: Reports: No Symptoms Neurological: Reports: No Symptoms Psychiatric: Reports: No Symptoms - Patient Data Vitals - Most Recent: Last Vital Signs Temp 97.9 F 07/04/20 12:00 Pulse 78 07/04/20 12:00 Resp 18 07/04/20 12:00 BP 118/77 07/04/20 12:00 Pulse Ox 93 L 07/04/20 12:00 Weight - Most Recent: 181 lb 3.2 oz I&O - Last 24 Hours: Intake & Output 07/04/20 07/04/20 07/04/20 06:59 14:59 22:59 Intake Total 750 Output Total 1130 Balance -380 Lab Results Last 24 Hours: Laboratory Results - last 24 hr 07/04/20 07/04/20 07/04/20 Range/Units 04:40 04:40 04:40 WBC 7.10 (4.0-11.0) K/uL RBC 4.17 L (4.50-5.90) M/uL Hgb 12.8 L (13.0-17.0) g/dL Hct 40.8 (38.0-50.0) % MCV 97.8 (80.0-98.0) fL MCH 30.7 (27.0-32.0) pg MCHC 31.4 (31.0-37.0) g/dL RDW Std Deviation 52.7 (28.0-62.0) fl RDW Coeff of Mike 15 (11.0-15.0) % Plt Count 194 (150-400) K/uL MPV 9.60 (7.40-12.00) fL Neut % (Auto) 63.6 (48.0-80.0) % Lymph % (Auto) 23.0 (16.0-40.0) % Isabella % (Auto) 10.8 (0.0-15.0) % Eos % (Auto) 2.0 (0.0-7.0) % Baso % (Auto) 0.6 (0.0-1.5) % Neut # (Auto) 4.5 (1.4-5.7) K/uL Lymph # (Auto) 1.6 (0.6-2.4) K/uL Isabella # (Auto) 0.8 (0.0-0.8) K/uL Eos # (Auto) 0.1 (0.0-0.7) K/uL Baso # (Auto) 0.0 (0.0-0.1) K/uL Nucleated RBC % 0.0 /100WBC Nucleated RBCs # 0 K/uL Sodium 145 (136-148) mmol/L Potassium 2.6 L (3.5-5.1) mmol/L Chloride 101 (98-107) mmol/L Carbon Dioxide 38.0 H (21.0-32.0) mmol/L BUN 32 H (7.0-18.0) mg/dL Creatinine 1.6 H (0.8-1.3) mg/dL Est Cr Clr Drug Dosing 42.44 mL/min Estimated GFR (MDRD) 42.1 ml/min Glucose 97 (74-106) mg/dL Calcium 9.3 (8.5-10.1) mg/dL Magnesium 2.1 (1.8-2.4) mg/dL Total Bilirubin 1.5 H (0.2-1.0) mg/dL AST 14 L (15-37) IU/L ALT 13 L (14-63) IU/L Alkaline Phosphatase 83 (46-116) U/L B-Natriuretic Peptide 2186 H (<100) PG/ML Total Protein 6.7 (6.4-8.2) g/dL Albumin 3.0 L (3.4-5.0) g/dL Globulin 3.7 (2.6-4.0) g/dL Albumin/Globulin Ratio 0.8 L (0.9-1.6) Med Orders - Current: Current Medications Acetaminophen (Tylenol) 650 mg PO Q4H PRN PRN Reason: Pain (Mild 1-3)/fever Last Admin: 07/03/20 23:45 Dose: 650 mg Documented by: Al Hydroxide/Mg Hydroxide (Mag-Al Plus) 5 ml PO Q6H PRN PRN Reason: Heartburn Last Admin: 07/04/20 10:31 Dose: 5 ml Documented by: Albuterol/Ipratropium (Combivent Respimat) 0 gm INH Q4HRRT PRN PRN Reason: Dyspnea Last Admin: 06/29/20 15:18 Dose: 1 puff Documented by: Apixaban (Eliquis) 5 mg PO BID [facility] Last Admin: 07/04/20 10:17 Dose: 5 mg Documented by: Carvedilol (Coreg) 12.5 mg PO BID [facility] Last Admin: 07/04/20 10:18 Dose: 12.5 mg Documented by: Gabapentin (Neurontin) 300 mg PO BEDTIME [facility] Last Admin: 07/03/20 21:51 Dose: 300 mg Documented by: Hydroxyzine HCl (Atarax) 25 mg PO TID PRN PRN Reason: Anxiety Last Admin: 06/29/20 15:17 Dose: 25 mg Documented by: Levetiracetam (Keppra) 1,000 mg PO BID [facility] Last Admin: 07/04/20 10:16 Dose: 1,000 mg Documented by: Levothyroxine Sodium (Levothyroxine) 112 mcg PO ACBRK [facility] Last Admin: 07/04/20 06:38 Dose: 112 mcg Documented by: Levothyroxine Sodium (Levothyroxine) 25 mcg PO ACBREAKFAST [facility] Last Admin: 07/04/20 06:38 Dose: 25 mcg Documented by: Lidocaine (Lidoderm 5%) 700 mg TRDERM Q24H [facility] Lidocaine (Lidoderm 5%) 700 mg TOP Q24H [facility] Losartan Potassium (Cozaar) 25 mg PO DAILY [facility] Last Admin: 07/04/20 10:14 Dose: 25 mg Documented by: Melatonin (Melatonin) 18 mg PO BEDTIME [facility] Last Admin: 07/03/20 21:50 Dose: 18 mg Documented by: Eplerenone 50 Mg 1 each PO BID [facility] Last Admin: 07/04/20 10:19 Dose: 1 each Documented by: Potassium Chloride (Klor-Con M20) 40 meq PO BID [facility] Quetiapine Fumarate (Seroquel) 25 mg PO BEDTIME [facility] Last Admin: 07/03/20 21:51 Dose: 25 mg Documented by: Sertraline HCl (Zoloft) 50 mg PO DAILY [facility] Last Admin: 07/04/20 10:17 Dose: 50 mg Documented by: Sodium Chloride (Saline Flush) 10 ml FLUSH ASDIRECTED PRN PRN Reason: Keep Vein Open Last Admin: 06/25/20 18:42 Dose: 10 ml Documented by: Sodium Chloride (Saline Flush) 2.5 ml FLUSH ASDIRECTED PRN PRN Reason: Keep Vein Open Last Admin: 06/25/20 18:42 Dose: 2.5 ml Documented by: Torsemide (Demadex) 50 mg PO DAILY [facility] Last Admin: 07/04/20 10:05 Dose: 50 mg Documented by: Discontinued Medications Carvedilol (Coreg) 25 mg PO BID [facility] Last Admin: 06/30/20 09:09 Dose: 25 mg Documented by: Furosemide (Lasix) 40 mg IVPUSH NOW ONE Stop: 06/25/20 19:48 Last Admin: 06/25/20 20:46 Dose: 40 mg Documented by: Furosemide (Lasix) 40 mg IVPUSH BID [facility] Last Admin: 06/28/20 08:57 Dose: 40 mg Documented by: Furosemide (Lasix) 20 mg IVPUSH BID [facility] Last Admin: 06/28/20 11:25 Dose: Not Given Documented by: Furosemide (Lasix) 40 mg IVPUSH BID [facility] Last Admin: 07/02/20 08:04 Dose: Not Given Documented by: Furosemide (Lasix) 40 mg IVPUSH NOW ONE Stop: 06/30/20 13:07 Last Admin: 06/30/20 14:03 Dose: 40 mg Documented by: Furosemide (Lasix) 40 mg IVPUSH NOW ONE Stop: 07/01/20 13:58 Last Admin: 07/01/20 14:09 Dose: Not Given Documented by: Furosemide (Lasix) 20 mg IVPUSH ONETIME ONE Stop: 07/01/20 13:59 Last Admin: 07/01/20 14:08 Dose: 20 mg Documented by: Furosemide (Lasix) 40 mg IVPUSH NOW ONE Stop: 07/02/20 17:32 Last Admin: 07/02/20 18:24 Dose: 40 mg Documented by: Lactated Ringer's (Ringers, Lactated) 1,000 mls @ 125 mls/hr IV ASDIRECTED [facility] Last Admin: 06/25/20 18:41 Dose: 125 mls/hr Documented by: Potassium Chloride 40 meq/ (Sodium Chloride) 270 mls @ 67.5 mls/hr IV ONETIME ONE Stop: 06/29/20 14:14 Last Admin: 06/29/20 11:07 Dose: 67.5 mls/hr Documented by: Levofloxacin/Dextrose 750 mg/ (Premix) 150 mls @ 100 mls/hr IV Q48H [facility] Last Admin: 07/01/20 10:08 Dose: 100 mls/hr Documented by: Potassium Chloride 60 meq/ (Sodium Chloride) 530 mls @ 88.333 mls/hr IV ONETIME ONE Stop: 07/01/20 15:44 Last Admin: 07/01/20 10:04 Dose: 88.333 mls/hr Documented by: Potassium Chloride/Sodium Chloride (Normal Saline With 40 Meq Kcl) 250 mls @ 250 mls/hr IV ASDIRECTED [facility] Potassium Chloride 40 meq/ (Premix) 100 mls @ 25 mls/hr IV ONETIME ONE Stop: 07/01/20 20:29 Last Admin: 07/01/20 17:05 Dose: 25 mls/hr Documented by: Potassium Chloride 40 meq/ (Sodium Chloride) 270 mls @ 67.5 mls/hr IV 07/02/20@0730 [facility] Stop: 07/02/20 11:29 Last Admin: 07/02/20 08:13 Dose: 67.5 mls/hr Documented by: Potassium Chloride 40 meq/ (Sodium Chloride) 270 mls @ 67.5 mls/hr IV ONETIME ONE Stop: 07/02/20 15:59 Last Admin: 07/02/20 12:27 Dose: 67.5 mls/hr Documented by: Magnesium Sulfate (Magnesium Sulfate In Water Premix) 2 gm in 50 mls @ 25 mls/hr IV NOW ONE Stop: 07/03/20 07:14 Last Admin: 07/03/20 06:23 Dose: 25 mls/hr Documented by: Potassium Chloride 40 meq/ (Sodium Chloride) 270 mls @ 67.5 mls/hr IV ONETIME ONE Stop: 07/03/20 11:59 Last Admin: 07/03/20 08:35 Dose: 67.5 mls/hr Documented by: Potassium Chloride 40 meq/ (Sodium Chloride) 270 mls @ 67.52 mls/hr IV ONETIME ONE Stop: 07/03/20 15:14 Last Admin: 07/03/20 12:15 Dose: Not Given Documented by: Potassium Chloride 40 meq/ (Sodium Chloride) 270 mls @ 67.5 mls/hr IV ONETIME ONE Stop: 07/04/20 12:29 Last Admin: 07/04/20 10:13 Dose: 67.5 mls/hr Documented by: Levofloxacin (Levaquin) 750 mg PO Q24H [facility] Stop: 07/04/20 10:01 Last Admin: 07/04/20 10:17 Dose: 750 mg Documented by: Lidocaine (Lidoderm 5%) 700 mg TOP DAILY [facility] Last Admin: 06/29/20 10:23 Dose: Not Given Documented by: Lidocaine (Lidoderm 5%) 700 mg TOP Q24H [facility] Last Admin: 07/03/20 21:52 Dose: 700 mg Documented by: Lidocaine (Lidoderm 5%) 700 mg TRDERM Q24H [facility] Last Admin: 07/04/20 16:27 Dose: Not Given Documented by: Losartan Potassium (Cozaar) 100 mg PO DAILY [facility] Last Admin: 06/28/20 08:53 Dose: 100 mg Documented by: Magnesium Oxide (Magnesium Oxide) 400 mg PO ONETIME ONE Stop: 07/02/20 10:58 Last Admin: 07/02/20 11:34 Dose: 400 mg Documented by: Metolazone (Zaroxolyn) 5 mg PO BIDDIURETIC [facility] Last Admin: 07/02/20 08:02 Dose: 5 mg Documented by: Metolazone (Zaroxolyn) 5 mg PO TUTHSA@0900 [facility] Last Admin: 07/03/20 07:59 Dose: Not Given Documented by: Morphine Sulfate (Morphine) 2 mg IVPUSH ONETIME ONE Stop: 06/25/20 19:29 Last Admin: 06/25/20 20:20 Dose: 2 mg Documented by: Oxycodone HCl (Oxycodone) 5 mg PO Q6H PRN PRN Reason: Pain (moderate 4-6) Last Admin: 07/02/20 08:11 Dose: 5 mg Documented by: Polyethylene Glycol (Miralax) 17 gm PO ONETIME ONE Stop: 07/04/20 16:15 Potassium Chloride (Potassium Chloride) 40 meq PO ONETIME ONE Stop: 06/27/20 12:37 Last Admin: 06/27/20 16:24 Dose: Not Given Documented by: Potassium Chloride (Potassium Chloride) 40 meq PO ONETIME ONE Stop: 06/27/20 16:16 Last Admin: 06/27/20 16:24 Dose: 40 meq Documented by: Potassium Chloride (Klor-Con M20) 40 meq PO ONETIME ONE Stop: 06/28/20 10:01 Last Admin: 06/28/20 10:53 Dose: 40 meq Documented by: Potassium Chloride (Klor-Con M20) 40 meq PO ONETIME ONE Stop: 06/29/20 10:46 Last Admin: 06/29/20 10:43 Dose: 40 meq Documented by: Potassium Chloride (Klor-Con M20) 40 meq PO ONETIME ONE Stop: 07/01/20 09:31 Last Admin: 07/01/20 10:02 Dose: 40 meq Documented by: Potassium Chloride (Potassium Chloride) 60 meq PO ONETIME ONE Stop: 07/01/20 15:46 Last Admin: 07/01/20 16:31 Dose: 60 meq Documented by: Potassium Chloride (Klor-Con M20) 60 meq PO ONETIME ONE Stop: 07/02/20 06:43 Last Admin: 07/02/20 07:12 Dose: 60 meq Documented by: Potassium Chloride (Klor-Con 10) 60 meq PO ONETIME ONE Stop: 07/02/20 16:15 Last Admin: 07/02/20 17:10 Dose: 60 meq Documented by: Potassium Chloride (Klor-Con 10) 60 meq PO ONETIME ONE Stop: 07/02/20 17:33 Last Admin: 07/02/20 18:24 Dose: 60 meq Documented by: Potassium Chloride (Klor-Con 10) 60 meq PO ONETIME ONE Stop: 07/03/20 05:00 Last Admin: 07/03/20 10:21 Dose: Not Given Documented by: Potassium Chloride (Klor-Con M20) 60 meq PO ONETIME ONE Stop: 07/03/20 06:31 Last Admin: 07/03/20 06:23 Dose: 60 meq Documented by: Potassium Chloride (Klor-Con M20) 60 meq PO ONETIME ONE Stop: 07/03/20 08:31 Last Admin: 07/03/20 08:41 Dose: 60 meq Documented by: Potassium Chloride (Klor-Con 10) 60 meq PO ONETIME ONE Stop: 07/03/20 11:14 Last Admin: 07/03/20 12:14 Dose: Not Given Documented by: Potassium Chloride (Klor-Con 10) 40 meq PO ONETIME ONE Stop: 07/03/20 19:11 Last Admin: 07/03/20 19:22 Dose: 40 meq Documented by: Potassium Chloride (Klor-Con 10) 60 meq PO ONETIME ONE Stop: 07/04/20 08:22 Last Admin: 07/04/20 12:53 Dose: Not Given Documented by: Potassium Chloride (Klor-Con M20) 60 meq PO ONETIME ONE Stop: 07/04/20 12:46 Last Admin: 07/04/20 12:54 Dose: 60 meq Documented by: - Exam Quality Assessment: Supplemental Oxygen, DVT Prophylaxis, Skin Breakdown General: Alert, Oriented, Cooperative (Tegaderm in place), No Acute Distress HEENT: Pupils Equal, Pupils Reactive, EOMI, Mucous Membr. Moist/Mcbride Neck: Supple, No JVD Lungs: Clear to Auscultation, Normal Respiratory Effort Cardiovascular: Irregular Rhythm (Known A. fib) GI/Abdominal Exam: Normal Bowel Sounds Back Exam: Normal Inspection, Full Range of Motion, Other (Improved sacral ulcer and pain) Extremities: Normal Inspection, Normal Range of Motion, Non-Tender, No Pedal Edema, Normal Capillary Refill Peripheral Pulses: 2+: Radial (L), Radial (R), Posterior Tibial (L), Posterior Tibial (R) Skin: Warm, Dry, Intact Wound/Incisions: Healing Well, Dressing Dry and Intact, No Drainage Neurological: No New Focal Deficit Psy/Mental Status: Alert, Normal Affect, Normal Mood Sepsis Event Note - Evaluation Sepsis Screening Result: No Definite Risk - Focused Exam Vital Signs: Vital Signs Temp Pulse Pulse Resp BP BP Pulse Ox 07/04/20 12:00 97.9 F 78 18 118/77 93 L 07/04/20 10:18 85 122/84 07/04/20 10:14 122/84 07/04/20 08:14 97.9 F 85 16 122/84 96 - Problem List & Annotations (1) Acute exacerbation of congestive heart failure SNOMED Code(s): 412221911, 29998838437003 Code(s): I50.9 - HEART FAILURE, UNSPECIFIED Status: Acute Current Visit: Yes Qualifiers: Heart failure type: systolic Qualified Code(s): I50.23 - Acute on chronic s ystolic (congestive) heart failure (2) Acute kidney injury SNOMED Code(s): 25741423, 22365955 Code(s): N17.9 - ACUTE KIDNEY FAILURE, UNSPECIFIED Status: Acute Current Visit: Yes - Problem List Review Problem List Initiated/Reviewed/Updated: Yes - My Orders Last 24 Hours: My Active Orders 07/04/20 16:22 MAGNESIUM [CHEM] Stat POTASSIUM,K [CHEM] Stat 07/05/20 05:11 CBC WITH AUTO DIFF [HEME] AM CMP [COMPREHENSIVE METABOLIC PN,CMP] [CHEM] AM 07/06/20 05:11 CBC WITH AUTO DIFF [HEME] AM CMP [COMPREHENSIVE METABOLIC PN,CMP] [CHEM] AM - Plan Plan:: Plan:: Patient is a alesha 75-year-old gentleman admitted for an acute exacerbation of previously known congestive heart failure and acute on chronic kidney disease with possible pneumonia. 1. Acute exacerbation of congestive heart failure: Improved, previously known ejection fraction of 15%, discontinue Lasix due to significant hypokalemia. Metolazone 5 mg 3 times per week, restart eplerenone 50 twice daily, torsemide 50 daily, fluid restriction of 1.5 L/day, oxygen supplementation as needed, with continuous pulse ox. -2D echo completed, ejection fraction of 20 to 25% reported We will get BNP today -IS encouraged Dr. Scott has been following, suggested above regimen, feels that the patient will require possible cardiac rehab or inotropic infusions in [place] and possible ICD placement. Patient is not a transplant candidate 2. Severe hypokalemia: - 2.6 therefore gave 60 p.o. milliequivalents potassium and 40 IV. Will recheck at 15:00 and supplement as needed. Will require 40 p.o. twice daily potassium supplementation. Hold metolazone for today Monitor with morning CMP Continue to monitor on telemetry -Patient has stopped taking Lasix and started eplerenone which should help with hyperaldosteronism causing wasting of potassium 3. Acute on chronic kidney disease: -Stable, BUN 3 32, creatinine 1. 1.6 Monitor CMP daily with a.m. labs Avoid nephrotoxic agents 4. History of A. fib: -Stable, no telemetry changes On Eliquis, Continue to monitor on telemetry 5. Sacral ulcer: Improved -Lidocaine patch for 12 hrs -Tagoderm -We will get cushion to help relieve pressure off sacral region 6. Deconditioning: -PT consult, physical Therapy came and worked with patient, he is working really hard and showing significant improvement. -However patient still is quite weak and will need further assistance with strengthening medication adherence therefore would most benefit from a skilled care facility. 7. Constipation: Soft nontender abdomen with normal bowel sounds throat, patient able to pass gas, no nausea/vomiting, provided MiraLAX 1 time 8. Past medical history of obstructive sleep apnea, hypertension, hypothyroidism; resume all home medications; Restarted Losartan 9. Disposition: physical therapy and home health, may need to consider home oxygen therapy as needed, close follow-up with Dr. Reveles in cardiology for follow- up and ICD placement I have seen and evaluated the patient and agree with the residents note unless specified in my note
[2020-07-04 16:59] LABS: POTASSIUM,K 3.2 mmol/L (3.5-5.1)
[2020-07-04] MEDS: Potassium Chloride 20 MEQ Tab.ER PO SCH (21:13)
[2020-07-04] MEDS: Gabapentin 300 MG Cap PO SCH (21:14)
[2020-07-04] MEDS: QUEtiapine 25 MG Tab PO SCH (21:15)
[2020-07-04] MEDS: Melatonin 3 MG Tab PO SCH (21:19)
[2020-07-04 22:55] LABS: CARBON DIOXIDE,CO2 34.1 mmol/L (21.0-32.0); POTASSIUM,K 4.4 mmol/L (3.5-5.1)
[2020-07-05] MEDS: Lidocaine 5% 700 MG Patch TRDERM SCH (03:03)
[2020-07-05 06:21] LABS: CARBON DIOXIDE,CO2 33.5 mmol/L (21.0-32.0); POTASSIUM,K 4.2 mmol/L (3.5-5.1)
[2020-07-05] MEDS: Levothyroxine 112 MCG Tab PO SCH (07:01)
[2020-07-05] MEDS: Levothyroxine 25 MCG Tab PO SCH (07:02)
[2020-07-05] MEDS: Potassium Chloride 20 MEQ Tab.ER PO SCH ×2 (08:25→21:48)
[2020-07-05] MEDS: Apixaban 5 MG Tab PO SCH ×2 (08:26→21:50)
[2020-07-05] MEDS: Sertraline 50 MG Tab PO SCH (08:26)
[2020-07-05] MEDS: levETIRAcetam 500 MG Tab PO SCH ×2 (08:26→21:49)
[2020-07-05] MEDS: Torsemide 20 MG Tab PO SCH (08:27)
[2020-07-05] MEDS: Losartan 50 MG Tab PO SCH (08:28)
[2020-07-05] MEDS: Carvedilol 25 MG Tab PO SCH (08:29)
[2020-07-05] MEDS: hydrOXYzine HCl 25 MG Tab PO PRN (10:12)
[2020-07-05] MEDS: Metolazone 5 MG Tab PO SCH (11:16)
[2020-07-05] MEDS: Lidocaine 5% 700 MG Patch TOP SCH (14:36)
--- NOTE | 2020-07-05 16:44 | PCM.PN ---
- General Info Date of Service: 07/05/20 Admission Dx/Problem (Free Text): Admission Diagnosis/Problem Admission Diagnosis/Problem CHF, Congestive heart failure Subjective Update: Patient is a 75-year-old female admitted for CHF exacerbation, treated for hypokalemia and deconditioning. There were no overnight events, patient states he is feeling tired this morning. Significant hypokalemia, there were no telemetry changes this morning, patient denies any palpitations, shortness of breath, increased weakness, chest pain, leg pain. Patient was seen at bedside examined while he was resting in bed. Functional Status: Reports: Tolerating Diet, Ambulating, Incentive Spirometry - Review of Systems General: Reports: No Symptoms HEENT: Reports: No Symptoms Pulmonary: Reports: No Symptoms Cardiovascular: Reports: No Symptoms Gastrointestinal: Reports: No Symptoms Genitourinary: Reports: No Symptoms Musculoskeletal: Reports: No Symptoms Skin: Reports: No Symptoms Neurological: Reports: No Symptoms Psychiatric: Reports: No Symptoms - Patient Data Vitals - Most Recent: Last Vital Signs Temp 97.2 F 07/05/20 15:54 Pulse 88 07/05/20 15:54 Resp 16 07/05/20 15:54 BP 96/67 07/05/20 15:54 Pulse Ox 95 07/05/20 15:54 Weight - Most Recent: 184 lb 14.4 oz I&O - Last 24 Hours: Intake & Output 07/05/20 07/05/20 07/05/20 06:59 14:59 22:59 Intake Total 550 550 Output Total 475 661 Balance 75 -111 Lab Results Last 24 Hours: Laboratory Results - last 24 hr 07/04/20 07/04/20 07/05/20 Range/Units 16:38 22:23 05:10 WBC 8.24 (4.0-11.0) K/uL RBC 4.49 L (4.50-5.90) M/uL Hgb 13.9 (13.0-17.0) g/dL Hct 44.0 (38.0-50.0) % MCV 98.0 (80.0-98.0) fL MCH 31.0 (27.0-32.0) pg MCHC 31.6 (31.0-37.0) g/dL RDW Std Deviation 52.8 (28.0-62.0) fl RDW Coeff of Mike 15 (11.0-15.0) % Plt Count 206 (150-400) K/uL MPV 10.00 (7.40-12.00) fL Neut % (Auto) 64.5 (48.0-80.0) % Lymph % (Auto) 24.0 (16.0-40.0) % [place] % (Auto) 9.2 (0.0-15.0) % Eos % (Auto) 1.7 (0.0-7.0) % Baso % (Auto) 0.6 (0.0-1.5) % Neut # (Auto) 5.3 (1.4-5.7) K/uL Lymph # (Auto) 2.0 (0.6-2.4) K/uL [place] # (Auto) 0.8 (0.0-0.8) K/uL Eos # (Auto) 0.1 (0.0-0.7) K/uL Baso # (Auto) 0.1 (0.0-0.1) K/uL Nucleated RBC % 0.0 /100WBC Nucleated RBCs # 0 K/uL Sodium 140 (136-148) mmol/L Potassium 3.2 L 4.4 (3.5-5.1) mmol/L Chloride 101 (98-107) mmol/L Carbon Dioxide 34.1 H (21.0-32.0) mmol/L BUN 34 H (7.0-18.0) mg/dL Creatinine 1.8 H (0.8-1.3) mg/dL Est Cr Clr Drug Dosing 37.72 mL/min Estimated GFR (MDRD) 36.8 ml/min Glucose 127 H (74-106) mg/dL Calcium 9.3 (8.5-10.1) mg/dL Magnesium 2.1 2.0 (1.8-2.4) mg/dL Total Bilirubin (0.2-1.0) mg/dL AST (15-37) IU/L ALT (14-63) IU/L Alkaline Phosphatase (46-116) U/L Total Protein (6.4-8.2) g/dL Albumin (3.4-5.0) g/dL Globulin (2.6-4.0) g/dL Albumin/Globulin Ratio (0.9-1.6) 12/31/20 12/31/20 Range/Units 05:10 15:04 WBC (4.0-11.0) K/uL RBC (4.50-5.90) M/uL Hgb (13.0-17.0) g/dL Hct (38.0-50.0) % MCV (80.0-98.0) fL MCH (27.0-32.0) pg MCHC (31.0-37.0) g/dL RDW Std Deviation (28.0-62.0) fl RDW Coeff of Mike (11.0-15.0) % Plt Count (150-400) K/uL MPV (7.40-12.00) fL Neut % (Auto) (48.0-80.0) % Lymph % (Auto) (16.0-40.0) % [place] % (Auto) (0.0-15.0) % Eos % (Auto) (0.0-7.0) % Baso % (Auto) (0.0-1.5) % Neut # (Auto) (1.4-5.7) K/uL Lymph # (Auto) (0.6-2.4) K/uL [place] # (Auto) (0.0-0.8) K/uL Eos # (Auto) (0.0-0.7) K/uL Baso # (Auto) (0.0-0.1) K/uL Nucleated RBC % /100WBC Nucleated RBCs # K/uL Sodium 142 (136-148) mmol/L Potassium 4.2 4.0 (3.5-5.1) mmol/L Chloride 102 (98-107) mmol/L Carbon Dioxide 33.5 H (21.0-32.0) mmol/L BUN 35 H (7.0-18.0) mg/dL Creatinine 1.9 H (0.8-1.3) mg/dL Est Cr Clr Drug Dosing 35.74 mL/min Estimated GFR (MDRD) 34.5 ml/min Glucose 97 (74-106) mg/dL Calcium 9.6 (8.5-10.1) mg/dL Magnesium (1.8-2.4) mg/dL Total Bilirubin 1.5 H (0.2-1.0) mg/dL AST 19 (15-37) IU/L ALT 13 L (14-63) IU/L Alkaline Phosphatase 92 (46-116) U/L Total Protein 7.1 (6.4-8.2) g/dL Albumin 3.1 L (3.4-5.0) g/dL Globulin 4.0 (2.6-4.0) g/dL Albumin/Globulin Ratio 0.8 L (0.9-1.6) Med Orders - Current: Current Medications Acetaminophen (Tylenol) 650 mg PO Q4H PRN PRN Reason: Pain (Mild 1-3)/fever Last Admin: 07/03/20 23:45 Dose: 650 mg Documented by: Al Hydroxide/Mg Hydroxide (Mag-Al Plus) 5 ml PO Q6H PRN PRN Reason: Heartburn Last Admin: 07/04/20 10:31 Dose: 5 ml Documented by: Albuterol/Ipratropium (Combivent Respimat) 0 gm INH Q4HRRT PRN PRN Reason: Dyspnea Last Admin: 06/29/20 15:18 Dose: 1 puff Documented by: Apixaban (Eliquis) 5 mg PO BID [facility] Last Admin: 07/05/20 08:26 Dose: 5 mg Documented by: Carvedilol (Coreg) 12.5 mg PO BID [facility] Gabapentin (Neurontin) 300 mg PO BEDTIME [facility] Last Admin: 07/04/20 21:14 Dose: 300 mg Documented by: Hydroxyzine HCl (Atarax) 25 mg PO TID PRN PRN Reason: Anxiety Last Admin: 07/05/20 10:12 Dose: 25 mg Documented by: Levetiracetam (Keppra) 1,000 mg PO BID [facility] Last Admin: 07/05/20 08:26 Dose: 1,000 mg Documented by: Levothyroxine Sodium (Levothyroxine) 112 mcg PO ACBRK [facility] Last Admin: 07/05/20 07:01 Dose: 112 mcg Documented by: Levothyroxine Sodium (Levothyroxine) 25 mcg PO ACBREAKFAST [facility] Last Admin: 07/05/20 07:02 Dose: 25 mcg Documented by: Lidocaine (Lidoderm 5%) 700 mg TRDERM Q24H [facility] Last Admin: 07/05/20 03:03 Dose: Not Given Documented by: Lidocaine (Lidoderm 5%) 700 mg TOP Q24H [facility] Last Admin: 07/05/20 14:36 Dose: Not Given Documented by: Losartan Potassium (Cozaar) 25 mg PO DAILY [facility] Last Admin: 07/05/20 08:28 Dose: 25 mg Documented by: Melatonin (Melatonin) 18 mg PO BEDTIME [facility] Last Admin: 07/04/20 21:19 Dose: 18 mg Documented by: Metolazone (Zaroxolyn) 5 mg PO TUTHSA@0900 [facility] Last Admin: 07/05/20 11:16 Dose: 5 mg Documented by: Eplerenone 50 Mg 1 each PO BID [facility] Last Admin: 07/05/20 09:24 Dose: 1 each Documented by: Potassium Chloride (Klor-Con M20) 40 meq PO BID [facility] Last Admin: 07/05/20 08:25 Dose: 40 meq Documented by: Quetiapine Fumarate (Seroquel) 25 mg PO BEDTIME [facility] Last Admin: 07/04/20 21:15 Dose: 25 mg Documented by: Sertraline HCl (Zoloft) 50 mg PO DAILY [facility] Last Admin: 07/05/20 08:26 Dose: 50 mg Documented by: Sodium Chloride (Saline Flush) 10 ml FLUSH ASDIRECTED PRN PRN Reason: Keep Vein Open Last Admin: 06/25/20 18:42 Dose: 10 ml Documented by: Sodium Chloride (Saline Flush) 2.5 ml FLUSH ASDIRECTED PRN PRN Reason: Keep Vein Open Last Admin: 06/25/20 18:42 Dose: 2.5 ml Documented by: Torsemide (Demadex) 50 mg PO DAILY [facility] Last Admin: 07/05/20 08:27 Dose: 50 mg Documented by: Discontinued Medications Carvedilol (Coreg) 25 mg PO BID [facility] Last Admin: 06/30/20 09:09 Dose: 25 mg Documented by: Carvedilol (Coreg) 12.5 mg PO BID [facility] Last Admin: 07/05/20 08:29 Dose: 12.5 mg Documented by: Furosemide (Lasix) 40 mg IVPUSH NOW ONE Stop: 06/25/20 19:48 Last Admin: 06/25/20 20:46 Dose: 40 mg Documented by: Furosemide (Lasix) 40 mg IVPUSH BID [facility] Last Admin: 06/28/20 08:57 Dose: 40 mg Documented by: Furosemide (Lasix) 20 mg IVPUSH BID [facility] Last Admin: 06/28/20 11:25 Dose: Not Given Documented by: Furosemide (Lasix) 40 mg IVPUSH BID [facility] Last Admin: 07/02/20 08:04 Dose: Not Given Documented by: Furosemide (Lasix) 40 mg IVPUSH NOW ONE Stop: 06/30/20 13:07 Last Admin: 06/30/20 14:03 Dose: 40 mg Documented by: Furosemide (Lasix) 40 mg IVPUSH NOW ONE Stop: 07/01/20 13:58 Last Admin: 07/01/20 14:09 Dose: Not Given Documented by: Furosemide (Lasix) 20 mg IVPUSH ONETIME ONE Stop: 07/01/20 13:59 Last Admin: 07/01/20 14:08 Dose: 20 mg Documented by: Furosemide (Lasix) 40 mg IVPUSH NOW ONE Stop: 07/02/20 17:32 Last Admin: 07/02/20 18:24 Dose: 40 mg Documented by: Lactated Ringer's (Ringers, Lactated) 1,000 mls @ 125 mls/hr IV ASDIRECTED [facility] Last Admin: 06/25/20 18:41 Dose: 125 mls/hr Documented by: Potassium Chloride 40 meq/ (Sodium Chloride) 270 mls @ 67.5 mls/hr IV ONETIME ONE Stop: 06/29/20 14:14 Last Admin: 06/29/20 11:07 Dose: 67.5 mls/hr Documented by: Levofloxacin/Dextrose 750 mg/ (Premix) 150 mls @ 100 mls/hr IV Q48H [facility] Last Admin: 07/01/20 10:08 Dose: 100 mls/hr Documented by: Potassium Chloride 60 meq/ (Sodium Chloride) 530 mls @ 88.333 mls/hr IV ONETIME ONE Stop: 07/01/20 15:44 Last Admin: 07/01/20 10:04 Dose: 88.333 mls/hr Documented by: Potassium Chloride/Sodium Chloride (Normal Saline With 40 Meq Kcl) 250 mls @ 250 mls/hr IV ASDIRECTED [facility] Potassium Chloride 40 meq/ (Premix) 100 mls @ 25 mls/hr IV ONETIME ONE Stop: 07/01/20 20:29 Last Admin: 07/01/20 17:05 Dose: 25 mls/hr Documented by: Potassium Chloride 40 meq/ (Sodium Chloride) 270 mls @ 67.5 mls/hr IV 07/02/20@0730 [facility] Stop: 07/02/20 11:29 Last Admin: 07/02/20 08:13 Dose: 67.5 mls/hr Documented by: Potassium Chloride 40 meq/ (Sodium Chloride) 270 mls @ 67.5 mls/hr IV ONETIME ONE Stop: 07/02/20 15:59 Last Admin: 07/02/20 12:27 Dose: 67.5 mls/hr Documented by: Magnesium Sulfate (Magnesium Sulfate In Water Premix) 2 gm in 50 mls @ 25 mls/hr IV NOW ONE Stop: 07/03/20 07:14 Last Admin: 07/03/20 06:23 Dose: 25 mls/hr Documented by: Potassium Chloride 40 meq/ (Sodium Chloride) 270 mls @ 67.5 mls/hr IV ONETIME ONE Stop: 07/03/20 11:59 Last Admin: 07/03/20 08:35 Dose: 67.5 mls/hr Documented by: Potassium Chloride 40 meq/ (Sodium Chloride) 270 mls @ 67.52 mls/hr IV ONETIME ONE Stop: 07/03/20 15:14 Last Admin: 07/03/20 12:15 Dose: Not Given Documented by: Potassium Chloride 40 meq/ (Sodium Chloride) 270 mls @ 67.5 mls/hr IV ONETIME ONE Stop: 07/04/20 12:29 Last Admin: 07/04/20 10:13 Dose: 67.5 mls/hr Documented by: Levofloxacin (Levaquin) 750 mg PO Q24H [facility] Stop: 07/04/20 10:01 Last Admin: 07/04/20 10:17 Dose: 750 mg Documented by: Lidocaine (Lidoderm 5%) 700 mg TOP DAILY [facility] Last Admin: 06/29/20 10:23 Dose: Not Given Documented by: Lidocaine (Lidoderm 5%) 700 mg TOP Q24H [facility] Last Admin: 07/03/20 21:52 Dose: 700 mg Documented by: Lidocaine (Lidoderm 5%) 700 mg TRDERM Q24H [facility] Last Admin: 07/04/20 16:27 Dose: Not Given Documented by: Losartan Potassium (Cozaar) 100 mg PO DAILY [facility] Last Admin: 06/28/20 08:53 Dose: 100 mg Documented by: Magnesium Oxide (Magnesium Oxide) 400 mg PO ONETIME ONE Stop: 07/02/20 10:58 Last Admin: 07/02/20 11:34 Dose: 400 mg Documented by: Metolazone (Zaroxolyn) 5 mg PO BIDDIURETIC [facility] Last Admin: 07/02/20 08:02 Dose: 5 mg Documented by: Metolazone (Zaroxolyn) 5 mg PO TUTHSA@0900 [facility] Last Admin: 07/03/20 07:59 Dose: Not Given Documented by: Morphine Sulfate (Morphine) 2 mg IVPUSH ONETIME ONE Stop: 06/25/20 19:29 Last Admin: 06/25/20 20:20 Dose: 2 mg Documented by: Oxycodone HCl (Oxycodone) 5 mg PO Q6H PRN PRN Reason: Pain (moderate 4-6) Last Admin: 07/02/20 08:11 Dose: 5 mg Documented by: Polyethylene Glycol (Miralax) 17 gm PO ONETIME ONE Stop: 07/04/20 16:15 Last Admin: 07/04/20 16:43 Dose: 17 gm Documented by: Potassium Chloride (Potassium Chloride) 40 meq PO ONETIME ONE Stop: 06/27/20 12:37 Last Admin: 06/27/20 16:24 Dose: Not Given Documented by: Potassium Chloride (Potassium Chloride) 40 meq PO ONETIME ONE Stop: 06/27/20 16:16 Last Admin: 06/27/20 16:24 Dose: 40 meq Documented by: Potassium Chloride (Klor-Con M20) 40 meq PO ONETIME ONE Stop: 06/28/20 10:01 Last Admin: 06/28/20 10:53 Dose: 40 meq Documented by: Potassium Chloride (Klor-Con M20) 40 meq PO ONETIME ONE Stop: 06/29/20 10:46 Last Admin: 06/29/20 10:43 Dose: 40 meq Documented by: Potassium Chloride (Klor-Con M20) 40 meq PO ONETIME ONE Stop: 07/01/20 09:31 Last Admin: 07/01/20 10:02 Dose: 40 meq Documented by: Potassium Chloride (Potassium Chloride) 60 meq PO ONETIME ONE Stop: 07/01/20 15:46 Last Admin: 07/01/20 16:31 Dose: 60 meq Documented by: Potassium Chloride (Klor-Con M20) 60 meq PO ONETIME ONE Stop: 07/02/20 06:43 Last Admin: 07/02/20 07:12 Dose: 60 meq Documented by: Potassium Chloride (Klor-Con 10) 60 meq PO ONETIME ONE Stop: 07/02/20 16:15 Last Admin: 07/02/20 17:10 Dose: 60 meq Documented by: Potassium Chloride (Klor-Con 10) 60 meq PO ONETIME ONE Stop: 07/02/20 17:33 Last Admin: 07/02/20 18:24 Dose: 60 meq Documented by: Potassium Chloride (Klor-Con 10) 60 meq PO ONETIME ONE Stop: 07/03/20 05:00 Last Admin: 07/03/20 10:21 Dose: Not Given Documented by: Potassium Chloride (Klor-Con M20) 60 meq PO ONETIME ONE Stop: 07/03/20 06:31 Last Admin: 07/03/20 06:23 Dose: 60 meq Documented by: Potassium Chloride (Klor-Con M20) 60 meq PO ONETIME ONE Stop: 07/03/20 08:31 Last Admin: 07/03/20 08:41 Dose: 60 meq Documented by: Potassium Chloride (Klor-Con 10) 60 meq PO ONETIME ONE Stop: 07/03/20 11:14 Last Admin: 07/03/20 12:14 Dose: Not Given Documented by: Potassium Chloride (Klor-Con 10) 40 meq PO ONETIME ONE Stop: 07/03/20 19:11 Last Admin: 07/03/20 19:22 Dose: 40 meq Documented by: Potassium Chloride (Klor-Con 10) 60 meq PO ONETIME ONE Stop: 07/04/20 08:22 Last Admin: 07/04/20 12:53 Dose: Not Given Documented by: Potassium Chloride (Klor-Con M20) 60 meq PO ONETIME ONE Stop: 07/04/20 12:46 Last Admin: 07/04/20 12:54 Dose: 60 meq Documented by: Potassium Chloride (Klor-Con M20) 40 meq PO ONETIME ONE Stop: 07/04/20 17:14 Last Admin: 07/04/20 17:58 Dose: 40 meq Documented by: - Exam Quality Assessment: Supplemental Oxygen, DVT Prophylaxis, Skin Breakdown General: Alert, Oriented HEENT: Pupils Equal, Pupils Reactive, EOMI, Mucous Membr. Moist/[place] Neck: Supple, No JVD Lungs: Clear to Auscultation, Normal Respiratory Effort Cardiovascular: Irregular Rhythm GI/Abdominal Exam: Normal Bowel Sounds, Soft, Non-Tender, No Organomegaly, No Distention, No Mass, Pelvis Stable Extremities: Normal Inspection, Normal Range of Motion, Non-Tender, No Pedal Edema, Normal Capillary Refill Peripheral Pulses: 2+: Radial (L), Radial (R), Dorsalis Pedis (L), Dorsalis Pedis (R) Skin: Warm, Dry, Intact Wound/Incisions: Healing Well, Dressing Dry and Intact Neurological: No New Focal Deficit Psy/Mental Status: Alert, Normal Affect, Normal Mood Sepsis Event Note - Evaluation Sepsis Screening Result: No Definite Risk - Focused Exam Vital Signs: Vital Signs Temp Pulse Pulse Resp BP BP Pulse Ox 07/05/20 15:54 97.2 F 88 16 96/67 95 07/05/20 11:14 97.0 F 82 18 105/77 97 07/05/20 08:33 98.0 F 86 16 103/68 96 07/05/20 08:29 86 103/68 07/05/20 08:28 103/68 - Problem List & Annotations (1) Acute exacerbation of congestive heart failure SNOMED Code(s): 153555081, 42802324228248 Code(s): I50.9 - HEART FAILURE, UNSPECIFIED Status: Acute Current Visit: Yes Qualifiers: Heart failure type: systolic Qualified Code(s): I50.23 - Acute on chronic systolic (congestive) heart failure (2) Acute kidney injury SNOMED Code(s): 91141266, 29361555 Code(s): N17.9 - ACUTE KIDNEY FAILURE, UNSPECIFIED Status: Acute Current Visit: Yes - Problem List Review Problem List Initiated/Reviewed/Updated: Yes - My Orders Last 24 Hours: My Active Orders 07/06/20 05:11 CBC WITH AUTO DIFF [HEME] AM CMP [COMPREHENSIVE METABOLIC PN,CMP] [CHEM] AM - Plan Plan:: Plan:: Patient is a alesha 75-year-old gentleman admitted for an acute exacerbation of previously known congestive heart failure and acute on chronic kidney disease with possible pneumonia. 1. Acute exacerbation of congestive heart failure: Improved, previously known ejection fraction of 15%, discontinue Lasix due to significant hypokalemia. Metolazone 5 mg 3 times per week, restart eplerenone 50 twice daily, torsemide 50 daily, fluid restriction of 1.5 L/day, oxygen supplementation as needed, with continuous pulse ox. -2D echo completed, indicated ejection fraction of 20 to 25% reported Improved [id number] from 2324June 25, 2020 -IS encouraged Dr. Scott has been following, suggested above regimen, feels that the patient will require possible cardiac rehab or inotropic infusions in [place] and possible ICD placement. Patient is not a transplant candidate 2. Severe hypokalemia: -Resolved, will continue to trend and decide if we need to send home patient on p.o. daily supplementation Monitor with morning CMP Continue to monitor on telemetry: No changes noted -Patient has stopped taking Lasix and started eplerenone which should help with hyperaldosteronism that was likely causing wasting of potassium 3. Acute on chronic kidney disease: -Stable, BUN 35, creatinine 1.9, mild increase likely due to reintroducing metolazone Monitor CMP daily with a.m. labs Avoid nephrotoxic agents 4. History of A. fib: -Stable, no telemetry changes On Eliquis, Continue to monitor on telemetry 5. Sacral ulcer: Improved -Lidocaine patch for 12 hrs -Tagoderm -We will get cushion to help relieve pressure off sacral region 6. Deconditioning: -PT consult, physical Therapy came and worked with patient, he is working really hard and showing significant improvement. -However patient still is quite weak and will need further assistance with strengthening medication adherence therefore would most benefit from a skilled care facility. 7. Constipation: Soft nontender abdomen with normal bowel sounds throat, patient able to pass gas, no nausea/vomiting, provided MiraLAX 1 time 8. Past medical history of obstructive sleep apnea, hypertension, hypothyroidism; resume all home medications; Restarted Losartan 9. Disposition: physical therapy and home health, may need to consider home oxygen therapy as needed, close follow-up with Dr. Reveles in cardiology for follow- up and ICD placement I have seen and evaluated the patient and agree with the residents note unless specified in my note
[2020-07-05] MEDS ORDERED: Furosemide 40 MG/4 ML VIAL IVPUSH ONE (17:38)
--- NOTE | 2020-07-05 18:29 | PCM.PN ---
- General Info Date of Service: 07/05/20 Admission Dx/Problem (Free Text): 75M history of nonischemic cardiomyopathy chronic persistent atrial fibrillation, failed attempted cardioversion, hyperaldosteronism, CKD baseline creatinine 1.3-1.8 with decompensated systolic heart failure Subjective Update: felt well. Functional Status: Reports: Pain Controlled - Review of Systems General: Reports: Weakness, Fatigue HEENT: Reports: No Symptoms Pulmonary: Reports: Shortness of Breath Cardiovascular: Reports: No Symptoms Gastrointestinal: Reports: No Symptoms Genitourinary: Reports: No Symptoms, Incontinence Musculoskeletal: Reports: No Symptoms Skin: Reports: No Symptoms Neurological: Reports: No Symptoms Psychiatric: Reports: No Symptoms - Patient Data Vitals - Most Recent: Last Vital Signs Temp 97.2 F 07/05/20 15:54 Pulse 88 07/05/20 15:54 Resp 16 07/05/20 15:54 BP 96/67 07/05/20 15:54 Pulse Ox 95 07/05/20 15:54 Weight - Most Recent: 184 lb 14.4 oz I&O - Last 24 Hours: Intake & Output 07/05/20 07/05/20 07/05/20 06:59 14:59 22:59 Intake Total 550 550 Output Total 475 661 Balance 75 -111 Lab Results Last 24 Hours: Laboratory Results - last 24 hr 07/04/20 07/05/20 07/05/20 Range/Units 22:23 05:10 05:10 WBC 8.24 (4.0-11.0) K/uL RBC 4.49 L (4.50-5.90) M/uL Hgb 13.9 (13.0-17.0) g/dL Hct 44.0 (38.0-50.0) % MCV 98.0 (80.0-98.0) fL MCH 31.0 (27.0-32.0) pg MCHC 31.6 (31.0-37.0) g/dL RDW Std Deviation 52.8 (28.0-62.0) fl RDW Coeff of Mike 15 (11.0-15.0) % Plt Count 206 (150-400) K/uL MPV 10.00 (7.40-12.00) fL Neut % (Auto) 64.5 (48.0-80.0) % Lymph % (Auto) 24.0 (16.0-40.0) % Creek % (Auto) 9.2 (0.0-15.0) % Eos % (Auto) 1.7 (0.0-7.0) % Baso % (Auto) 0.6 (0.0-1.5) % Neut # (Auto) 5.3 (1.4-5.7) K/uL Lymph # (Auto) 2.0 (0.6-2.4) K/uL Creek # (Auto) 0.8 (0.0-0.8) K/uL Eos # (Auto) 0.1 (0.0-0.7) K/uL Baso # (Auto) 0.1 (0.0-0.1) K/uL Nucleated RBC % 0.0 /100WBC Nucleated RBCs # 0 K/uL Sodium 140 142 (136-148) mmol/L Potassium 4.4 4.2 (3.5-5.1) mmol/L Chloride 101 102 (98-107) mmol/L Carbon Dioxide 34.1 H 33.5 H (21.0-32.0) mmol/L BUN 34 H 35 H (7.0-18.0) mg/dL Creatinine 1.8 H 1.9 H (0.8-1.3) mg/dL Est Cr Clr Drug Dosing 37.72 35.74 mL/min Estimated GFR (MDRD) 36.8 34.5 ml/min Glucose 127 H 97 (74-106) mg/dL Calcium 9.3 9.6 (8.5-10.1) mg/dL Magnesium 2.0 (1.8-2.4) mg/dL Total Bilirubin 1.5 H (0.2-1.0) mg/dL AST 19 (15-37) IU/L ALT 13 L (14-63) IU/L Alkaline Phosphatase 92 (46-116) U/L Total Protein 7.1 (6.4-8.2) g/dL Albumin 3.1 L (3.4-5.0) g/dL Globulin 4.0 (2.6-4.0) g/dL Albumin/Globulin Ratio 0.8 L (0.9-1.6) 07/05/20 Range/Units 15:04 WBC (4.0-11.0) K/uL RBC (4.50-5.90) M/uL Hgb (13.0-17.0) g/dL Hct (38.0-50.0) % MCV (80.0-98.0) fL MCH (27.0-32.0) pg MCHC (31.0-37.0) g/dL RDW Std Deviation (28.0-62.0) fl RDW Coeff of Mike (11.0-15.0) % Plt Count (150-400) K/uL MPV (7.40-12.00) fL Neut % (Auto) (48.0-80.0) % Lymph % (Auto) (16.0-40.0) % Creek % (Auto) (0.0-15.0) % Eos % (Auto) (0.0-7.0) % Baso % (Auto) (0.0-1.5) % Neut # (Auto) (1.4-5.7) K/uL Lymph # (Auto) (0.6-2.4) K/uL Creek # (Auto) (0.0-0.8) K/uL Eos # (Auto) (0.0-0.7) K/uL Baso # (Auto) (0.0-0.1) K/uL Nucleated RBC % /100WBC Nucleated RBCs # K/uL Sodium (136-148) mmol/L Potassium 4.0 (3.5-5.1) mmol/L Chloride (98-107) mmol/L Carbon Dioxide (21.0-32.0) mmol/L BUN (7.0-18.0) mg/dL Creatinine (0.8-1.3) mg/dL Est Cr Clr Drug Dosing mL/min Estimated GFR (MDRD) ml/min Glucose (74-106) mg/dL Calcium (8.5-10.1) mg/dL Magnesium (1.8-2.4) mg/dL Total Bilirubin (0.2-1.0) mg/dL AST (15-37) IU/L ALT (14-63) IU/L Alkaline Phosphatase (46-116) U/L Total Protein (6.4-8.2) g/dL Albumin (3.4-5.0) g/dL Globulin (2.6-4.0) g/dL Albumin/Globulin Ratio (0.9-1.6) Med Orders - Current: Current Medications Acetaminophen (Tylenol) 650 mg PO Q4H PRN PRN Reason: Pain (Mild 1-3)/fever Last Admin: 07/03/20 23:45 Dose: 650 mg Documented by: Al Hydroxide/Mg Hydroxide (Mag-Al Plus) 5 ml PO Q6H PRN PRN Reason: Heartburn Last Admin: 07/04/20 10:31 Dose: 5 ml Documented by: Albuterol/Ipratropium (Combivent Respimat) 0 gm INH Q4HRRT PRN PRN Reason: Dyspnea Last Admin: 06/29/20 15:18 Dose: 1 puff Documented by: Apixaban (Eliquis) 5 mg PO BID SASHA Last Admin: 07/05/20 08:26 Dose: 5 mg Documented by: Bumetanide (Bumex) 1 mg PO BIDDIURETIC SASHA Carvedilol (Coreg) 12.5 mg PO BID SASHA Furosemide (Lasix) 40 mg IVPUSH NOW ONE Stop: 07/06/20 06:01 Gabapentin (Neurontin) 300 mg PO BEDTIME SASHA Last Admin: 07/04/20 21:14 Dose: 300 mg Documented by: Hydroxyzine HCl (Atarax) 25 mg PO TID PRN PRN Reason: Anxiety Last Admin: 07/05/20 10:12 Dose: 25 mg Documented by: Levetiracetam (Keppra) 1,000 mg PO BID SASHA Last Admin: 07/05/20 08:26 Dose: 1,000 mg Documented by: Levothyroxine Sodium (Levothyroxine) 112 mcg PO ACBRK SASHA Last Admin: 07/05/20 07:01 Dose: 112 mcg Documented by: Levothyroxine Sodium (Levothyroxine) 25 mcg PO ACBREAKFAST COUNTS INCLUDE 234 BEDS AT THE [facility] Last Admin: 07/05/20 07:02 Dose: 25 mcg Documented by: Lidocaine (Lidoderm 5%) 700 mg TRDERM Q24H SASHA Last Admin: 07/05/20 03:03 Dose: Not Given Documented by: Lidocaine (Lidoderm 5%) 700 mg TOP Q24H COUNTS INCLUDE 234 BEDS AT THE [facility] Last Admin: 07/05/20 14:36 Dose: Not Given Documented by: Losartan Potassium (Cozaar) 25 mg PO DAILY COUNTS INCLUDE 234 BEDS AT THE [facility] Last Admin: 07/05/20 08:28 Dose: 25 mg Documented by: Melatonin (Melatonin) 18 mg PO BEDTIME COUNTS INCLUDE 234 BEDS AT THE [facility] Last Admin: 07/04/20 21:19 Dose: 18 mg Documented by: Metolazone (Zaroxolyn) 5 mg PO TUTHSA@0900 COUNTS INCLUDE 234 BEDS AT THE [facility] Last Admin: 07/05/20 11:16 Dose: 5 mg Documented by: Eplerenone 50 Mg 1 each PO BID COUNTS INCLUDE 234 BEDS AT THE [facility] Last Admin: 07/05/20 09:24 Dose: 1 each Documented by: Potassium Chloride (Klor-Con M20) 40 meq PO BID COUNTS INCLUDE 234 BEDS AT THE [facility] Last Admin: 07/05/20 08:25 Dose: 40 meq Documented by: Quetiapine Fumarate (Seroquel) 25 mg PO BEDTIME COUNTS INCLUDE 234 BEDS AT THE [facility] Last Admin: 07/04/20 21:15 Dose: 25 mg Documented by: Sertraline HCl (Zoloft) 50 mg PO DAILY COUNTS INCLUDE 234 BEDS AT THE [facility] Last Admin: 07/05/20 08:26 Dose: 50 mg Documented by: Sodium Chloride (Saline Flush) 10 ml FLUSH ASDIRECTED PRN PRN Reason: Keep Vein Open Last Admin: 06/25/20 18:42 Dose: 10 ml Documented by: Sodium Chloride (Saline Flush) 2.5 ml FLUSH ASDIRECTED PRN PRN Reason: Keep Vein Open Last Admin: 06/25/20 18:42 Dose: 2.5 ml Documented by: Discontinued Medications Carvedilol (Coreg) 25 mg PO BID COUNTS INCLUDE 234 BEDS AT THE [facility] Last Admin: 06/30/20 09:09 Dose: 25 mg Documented by: Carvedilol (Coreg) 12.5 mg PO BID COUNTS INCLUDE 234 BEDS AT THE [facility] Last Admin: 07/05/20 08:29 Dose: 12.5 mg Documented by: Furosemide (Lasix) 40 mg IVPUSH NOW ONE Stop: 06/25/20 19:48 Last Admin: 06/25/20 20:46 Dose: 40 mg Documented by: Furosemide (Lasix) 40 mg IVPUSH BID COUNTS INCLUDE 234 BEDS AT THE [facility] Last Admin: 06/28/20 08:57 Dose: 40 mg Documented by: Furosemide (Lasix) 20 mg IVPUSH BID COUNTS INCLUDE 234 BEDS AT THE [facility] Last Admin: 06/28/20 11:25 Dose: Not Given Documented by: Furosemide (Lasix) 40 mg IVPUSH BID COUNTS INCLUDE 234 BEDS AT THE [facility] Last Admin: 07/02/20 08:04 Dose: Not Given Documented by: Furosemide (Lasix) 40 mg IVPUSH NOW ONE Stop: 06/30/20 13:07 Last Admin: 06/30/20 14:03 Dose: 40 mg Documented by: Furosemide (Lasix) 40 mg IVPUSH NOW ONE Stop: 07/01/20 13:58 Last Admin: 07/01/20 14:09 Dose: Not Given Documented by: Furosemide (Lasix) 20 mg IVPUSH ONETIME ONE Stop: 07/01/20 13:59 Last Admin: 07/01/20 14:08 Dose: 20 mg Documented by: Furosemide (Lasix) 40 mg IVPUSH NOW ONE Stop: 07/02/20 17:32 Last Admin: 07/02/20 18:24 Dose: 40 mg Documented by: Furosemide (Lasix) 40 mg IVPUSH NOW ONE Stop: 07/05/20 17:39 Last Admin: 07/05/20 18:04 Dose: 40 mg Documented by: Lactated Ringer's (Ringers, Lactated) 1,000 mls @ 125 mls/hr IV ASDIRECTED COUNTS INCLUDE 234 BEDS AT THE [facility] Last Admin: 06/25/20 18:41 Dose: 125 mls/hr Documented by: Potassium Chloride 40 meq/ (Sodium Chloride) 270 mls @ 67.5 mls/hr IV ONETIME ONE Stop: 06/29/20 14:14 Last Admin: 06/29/20 11:07 Dose: 67.5 mls/hr Documented by: Levofloxacin/Dextrose 750 mg/ (Premix) 150 mls @ 100 mls/hr IV Q48H COUNTS INCLUDE 234 BEDS AT THE [facility] Last Admin: 07/01/20 10:08 Dose: 100 mls/hr Documented by: Potassium Chloride 60 meq/ (Sodium Chloride) 530 mls @ 88.333 mls/hr IV ONETIME ONE Stop: 07/01/20 15:44 Last Admin: 07/01/20 10:04 Dose: 88.333 mls/hr Documented by: Potassium Chloride/Sodium Chloride (Normal Saline With 40 Meq Kcl) 250 mls @ 250 mls/hr IV ASDIRECTED COUNTS INCLUDE 234 BEDS AT THE [facility] Potassium Chloride 40 meq/ (Premix) 100 mls @ 25 mls/hr IV ONETIME ONE Stop: 07/01/20 20:29 Last Admin: 07/01/20 17:05 Dose: 25 mls/hr Documented by: Potassium Chloride 40 meq/ (Sodium Chloride) 270 mls @ 67.5 mls/hr IV 07/02/20@0730 SASHA Stop: 07/02/20 11:29 Last Admin: 07/02/20 08:13 Dose: 67.5 mls/hr Documented by: Potassium Chloride 40 meq/ (Sodium Chloride) 270 mls @ 67.5 mls/hr IV ONETIME ONE Stop: 07/02/20 15:59 Last Admin: 07/02/20 12:27 Dose: 67.5 mls/hr Documented by: Magnesium Sulfate (Magnesium Sulfate In Water Premix) 2 gm in 50 mls @ 25 mls/hr IV NOW ONE Stop: 07/03/20 07:14 Last Admin: 07/03/20 06:23 Dose: 25 mls/hr Documented by: Potassium Chloride 40 meq/ (Sodium Chloride) 270 mls @ 67.5 mls/hr IV ONETIME ONE Stop: 07/03/20 11:59 Last Admin: 07/03/20 08:35 Dose: 67.5 mls/hr Documented by: Potassium Chloride 40 meq/ (Sodium Chloride) 270 mls @ 67.52 mls/hr IV ONETIME ONE Stop: 07/03/20 15:14 Last Admin: 07/03/20 12:15 Dose: Not Given Documented by: Potassium Chloride 40 meq/ (Sodium Chloride) 270 mls @ 67.5 mls/hr IV ONETIME ONE Stop: 07/04/20 12:29 Last Admin: 07/04/20 10:13 Dose: 67.5 mls/hr Documented by: Levofloxacin (Levaquin) 750 mg PO Q24H COUNTS INCLUDE 234 BEDS AT THE [facility] Stop: 07/04/20 10:01 Last Admin: 07/04/20 10:17 Dose: 750 mg Documented by: Lidocaine (Lidoderm 5%) 700 mg TOP DAILY SASHA Last Admin: 06/29/20 10:23 Dose: Not Given Documented by: Lidocaine (Lidoderm 5%) 700 mg TOP Q24H COUNTS INCLUDE 234 BEDS AT [facility] Last Admin: 07/03/20 21:52 Dose: 700 mg Documented by: Lidocaine (Lidoderm 5%) 700 mg TRDERM Q24H COUNTS INCLUDE 234 BEDS AT [facility] Last Admin: 07/04/20 16:27 Dose: Not Given Documented by: Losartan Potassium (Cozaar) 100 mg PO DAILY COUNTS INCLUDE 234 BEDS AT [facility] Last Admin: 06/28/20 08:53 Dose: 100 mg Documented by: Magnesium Oxide (Magnesium Oxide) 400 mg PO ONETIME ONE Stop: 07/02/20 10:58 Last Admin: 07/02/20 11:34 Dose: 400 mg Documented by: Metolazone (Zaroxolyn) 5 mg PO BIDDIURETIC COUNTS INCLUDE 234 BEDS AT [facility] Last Admin: 07/02/20 08:02 Dose: 5 mg Documented by: Metolazone (Zaroxolyn) 5 mg PO TUTHSA@0900 COUNTS INCLUDE 234 BEDS AT [facility] Last Admin: 07/03/20 07:59 Dose: Not Given Documented by: Morphine Sulfate (Morphine) 2 mg IVPUSH ONETIME ONE Stop: 06/25/20 19:29 Last Admin: 06/25/20 20:20 Dose: 2 mg Documented by: Oxycodone HCl (Oxycodone) 5 mg PO Q6H PRN PRN Reason: Pain (moderate 4-6) Last Admin: 07/02/20 08:11 Dose: 5 mg Documented by: Polyethylene Glycol (Miralax) 17 gm PO ONETIME ONE Stop: 07/04/20 16:15 Last Admin: 07/04/20 16:43 Dose: 17 gm Documented by: Potassium Chloride (Potassium Chloride) 40 meq PO ONETIME ONE Stop: 06/27/20 12:37 Last Admin: 06/27/20 16:24 Dose: Not Given Documented by: Potassium Chloride (Potassium Chloride) 40 meq PO ONETIME ONE Stop: 06/27/20 16:16 Last Admin: 06/27/20 16:24 Dose: 40 meq Documented by: Potassium Chloride (Klor-Con M20) 40 meq PO ONETIME ONE Stop: 06/28/20 10:01 Last Admin: 06/28/20 10:53 Dose: 40 meq Documented by: Potassium Chloride (Klor-Con M20) 40 meq PO ONETIME ONE Stop: 06/29/20 10:46 Last Admin: 06/29/20 10:43 Dose: 40 meq Documented by: Potassium Chloride (Klor-Con M20) 40 meq PO ONETIME ONE Stop: 07/01/20 09:31 Last Admin: 07/01/20 10:02 Dose: 40 meq Documented by: Potassium Chloride (Potassium Chloride) 60 meq PO ONETIME ONE Stop: 07/01/20 15:46 Last Admin: 07/01/20 16:31 Dose: 60 meq Documented by: Potassium Chloride (Klor-Con M20) 60 meq PO ONETIME ONE Stop: 07/02/20 06:43 Last Admin: 07/02/20 07:12 Dose: 60 meq Documented by: Potassium Chloride (Klor-Con 10) 60 meq PO ONETIME ONE Stop: 07/02/20 16:15 Last Admin: 07/02/20 17:10 Dose: 60 meq Documented by: Potassium Chloride (Klor-Con 10) 60 meq PO ONETIME ONE Stop: 07/02/20 17:33 Last Admin: 07/02/20 18:24 Dose: 60 meq Documented by: Potassium Chloride (Klor-Con 10) 60 meq PO ONETIME ONE Stop: 07/03/20 05:00 Last Admin: 07/03/20 10:21 Dose: Not Given Documented by: Potassium Chloride (Klor-Con M20) 60 meq PO ONETIME ONE Stop: 07/03/20 06:31 Last Admin: 07/03/20 06:23 Dose: 60 meq Documented by: Potassium Chloride (Klor-Con M20) 60 meq PO ONETIME ONE Stop: 07/03/20 08:31 Last Admin: 07/03/20 08:41 Dose: 60 meq Documented by: Potassium Chloride (Klor-Con 10) 60 meq PO ONETIME ONE Stop: 07/03/20 11:14 Last Admin: 07/03/20 12:14 Dose: Not Given Documented by: Potassium Chloride (Klor-Con 10) 40 meq PO ONETIME ONE Stop: 07/03/20 19:11 Last Admin: 07/03/20 19:22 Dose: 40 meq Documented by: Potassium Chloride (Klor-Con 10) 60 meq PO ONETIME ONE Stop: 07/04/20 08:22 Last Admin: 07/04/20 12:53 Dose: Not Given Documented by: Potassium Chloride (Klor-Con M20) 60 meq PO ONETIME ONE Stop: 07/04/20 12:46 Last Admin: 07/04/20 12:54 Dose: 60 meq Documented by: Potassium Chloride (Klor-Con M20) 40 meq PO ONETIME ONE Stop: 07/04/20 17:14 Last Admin: 07/04/20 17:58 Dose: 40 meq Documented by: Torsemide (Demadex) 50 mg PO DAILY SASHA Last Admin: 07/05/20 08:27 Dose: 50 mg Documented by: - Exam General: Alert, Oriented HEENT: Pupils Equal Neck: JVD Lungs: Rales Cardiovascular: Irregular Rhythm. No: Tachycardia GI/Abdominal Exam: Normal Bowel Sounds (Male) Exam: No Hernia Extremities: Pedal Edema Sepsis Event Note - Evaluation Sepsis Screening Result: No Definite Risk - Focused Exam Vital Signs: Vital Signs Temp Pulse Pulse Resp BP BP Pulse Ox 07/05/20 15:54 97.2 F 88 16 96/67 95 07/05/20 11:14 97.0 F 82 18 105/77 97 07/05/20 08:33 98.0 F 86 16 103/68 96 07/05/20 08:29 86 103/68 07/05/20 08:28 103/68 - Problem List Review Problem List Initiated/Reviewed/Updated: Yes - My Orders Last 24 Hours: My Active Orders 07/06/20 06:00 Furosemide [Lasix] 40 mg IVPUSH NOW ONE 07/06/20 08:00 Bumetanide [Bumex] 1 mg PO BIDDIURETIC - Plan Plan:: Plan:: 75M history of nonischemic cardiomyopathy chronic persistent atrial fibrillation, failed attempted cardioversion, hyperaldosteronism, CKD baseline creatinine 1.3-1.8 with decompensated systolic heart failure 1. Decompensated systolic heart failure, ejection fraction 20% I have sent a referral as an outpatient for heart failure clinic for possible chronic IV inotropic infusion, as well as defibrillator implantation and A. fib management Now he has been on torsemide 50 mg since yesterday along with eplerenone 50 mg twice a day his potassium seem to improve significantly after eplerenone However the urine output seem to be decreasing and his creatinine levels seem to rise as well, we need to be more aggressive in terms of diuresing we will change torsemide to Bumex 2 mg twice a day along with metolazone 5 mg 3 times a week. I do feel that his kidney function is improving when the diuresing him. 2. Hyperaldosteronism today he only required potassium 40 mg and his potassium level is 4, after eplerenone started we will continue eplerenone 50 mg twice a day 3. Chronic persistent atrial fibrillation now rate is well controlled, we tried cardioversion 3 times back in April 2020, however at that time he never converted, at that time I did not start him on amiodarone. Most likely rate control approach probably the best served for him, however after discussion with [facility] in [place] in [facility], AV keisha ablation with a MD [facility] can be considered, his QRS complex is less than 120, or antiarrhythmic drug agent followed by cardioversion. He will be transferred to the long-term rehab for physical therapy.
[2020-07-05] MEDS: Carvedilol 12.5 MG Tab PO SCH (21:46)
[2020-07-05] MEDS: QUEtiapine 25 MG Tab PO SCH (21:48)
[2020-07-05] MEDS: Gabapentin 300 MG Cap PO SCH (21:48)
[2020-07-05] MEDS: Melatonin 3 MG Tab PO SCH (21:50)
[2020-07-06] MEDS: Lidocaine 5% 700 MG Patch TRDERM SCH (01:42)
[2020-07-06] MEDS ORDERED: Furosemide 40 MG/4 ML VIAL IVPUSH ONE (06:00)
[2020-07-06] MEDS: Levothyroxine 25 MCG Tab PO SCH (06:32)
[2020-07-06] MEDS: Levothyroxine 112 MCG Tab PO SCH (06:33)
[2020-07-06 06:55] LABS: CARBON DIOXIDE,CO2 33.9 mmol/L (21.0-32.0); POTASSIUM,K 3.6 mmol/L (3.5-5.1)
[2020-07-06] MEDS ORDERED: Bumetanide 1 MG Tab PO SCH (08:00)
[2020-07-06] MEDS: Carvedilol 12.5 MG Tab PO SCH ×3 (08:29→21:59)
[2020-07-06] MEDS: Losartan 50 MG Tab PO SCH ×2 (08:29→09:57)
[2020-07-06] MEDS: levETIRAcetam 500 MG Tab PO SCH ×2 (08:30→21:50)
[2020-07-06] MEDS: Bumetanide 1 MG Tab PO SCH ×2 (08:30→14:02)
[2020-07-06] MEDS: Sertraline 50 MG Tab PO SCH (08:30)
[2020-07-06] MEDS: Potassium Chloride 20 MEQ Tab.ER PO SCH ×2 (08:30→21:49)
[2020-07-06] MEDS: Apixaban 5 MG Tab PO SCH ×2 (08:30→21:50)
[2020-07-06] MEDS: hydrOXYzine HCl 25 MG Tab PO PRN ×2 (10:32→21:52)
[2020-07-06] MEDS: Lidocaine 5% 700 MG Patch TOP SCH (14:08)
[2020-07-06] MEDS ORDERED: Potassium Chloride 20 MEQ Tab.ER PO ONE (14:20)
--- NOTE | 2020-07-06 14:23 | PCM.PN ---
- General Info Date of Service: 07/06/20 - Review of Systems Systems Review Comment:: feeling better - Patient Data Vitals - Most Recent: Last Vital Signs Temp 36.3 C 07/06/20 14:07 Pulse 85 07/06/20 14:07 Resp 16 07/06/20 14:07 BP 103/73 07/06/20 14:07 Pulse Ox 95 07/06/20 14:07 Weight - Most Recent: 84.1 kg I&O - Last 24 Hours: Intake & Output 07/05/20 07/06/20 07/06/20 22:59 06:59 14:59 Intake Total 550 450 Output Total 661 575 Balance -111 -125 Lab Results Last 24 Hours: Laboratory Results - last 24 hr 07/05/20 07/06/20 07/06/20 Range/Units 15:04 05:30 05:30 WBC 7.16 (4.0-11.0) K/uL RBC 4.44 L (4.50-5.90) M/uL Hgb 13.6 (13.0-17.0) g/dL Hct 43.6 (38.0-50.0) % MCV 98.2 H (80.0-98.0) fL MCH 30.6 (27.0-32.0) pg MCHC 31.2 (31.0-37.0) g/dL RDW Std Deviation 52.7 (28.0-62.0) fl RDW Coeff of Mike 15 (11.0-15.0) % Plt Count 208 (150-400) K/uL MPV 10.20 (7.40-12.00) fL Neut % (Auto) 60.6 (48.0-80.0) % Lymph % (Auto) 28.4 (16.0-40.0) % [place] % (Auto) 7.7 (0.0-15.0) % Eos % (Auto) 2.7 (0.0-7.0) % Baso % (Auto) 0.6 (0.0-1.5) % Neut # (Auto) 4.4 (1.4-5.7) K/uL Lymph # (Auto) 2.0 (0.6-2.4) K/uL [place] # (Auto) 0.6 (0.0-0.8) K/uL Eos # (Auto) 0.2 (0.0-0.7) K/uL Baso # (Auto) 0.0 (0.0-0.1) K/uL Nucleated RBC % 0.0 /100WBC Nucleated RBCs # 0 K/uL Sodium 142 (136-148) mmol/L Potassium 4.0 3.6 (3.5-5.1) mmol/L Chloride 100 (98-107) mmol/L Carbon Dioxide 33.9 H (21.0-32.0) mmol/L BUN 42 H (7.0-18.0) mg/dL Creatinine 2.0 H (0.8-1.3) mg/dL Est Cr Clr Drug Dosing 33.95 mL/min Estimated GFR (MDRD) 32.6 ml/min Glucose 91 (74-106) mg/dL Calcium 9.5 (8.5-10.1) mg/dL Total Bilirubin 1.2 H (0.2-1.0) mg/dL AST 22 (15-37) IU/L ALT 14 (14-63) IU/L Alkaline Phosphatase 87 (46-116) U/L Total Protein 7.0 (6.4-8.2) g/dL Albumin 3.1 L (3.4-5.0) g/dL Globulin 3.9 (2.6-4.0) g/dL Albumin/Globulin Ratio 0.8 L (0.9-1.6) Med Orders - Current: Current Medications Acetaminophen (Tylenol) 650 mg PO Q4H PRN PRN Reason: Pain (Mild 1-3)/fever Last Admin: 07/03/20 23:45 Dose: 650 mg Documented by: Al Hydroxide/Mg Hydroxide (Mag-Al Plus) 5 ml PO Q6H PRN PRN Reason: Heartburn Last Admin: 07/04/20 10:31 Dose: 5 ml Documented by: Albuterol/Ipratropium (Combivent Respimat) 0 gm INH Q4HRRT PRN PRN Reason: Dyspnea Last Admin: 06/29/20 15:18 Dose: 1 puff Documented by: Apixaban (Eliquis) 5 mg PO BID SASHA Last Admin: 07/06/20 08:30 Dose: 5 mg Documented by: Bumetanide (Bumex) 2 mg PO BIDDIURETIC [facility] Last Admin: 07/06/20 14:02 Dose: 2 mg Documented by: Carvedilol (Coreg) 12.5 mg PO BID [facility] Last Admin: 07/06/20 09:56 Dose: 12.5 mg Documented by: Gabapentin (Neurontin) 300 mg PO BEDTIME [facility] Last Admin: 07/05/20 21:48 Dose: 300 mg Documented by: Hydroxyzine HCl (Atarax) 25 mg PO TID PRN PRN Reason: Anxiety Last Admin: 07/06/20 10:32 Dose: 25 mg Documented by: Levetiracetam (Keppra) 1,000 mg PO BID [facility] Last Admin: 07/06/20 08:30 Dose: 1,000 mg Documented by: Levothyroxine Sodium (Levothyroxine) 112 mcg PO ACBRK [facility] Last Admin: 07/06/20 06:33 Dose: 112 mcg Documented by: Levothyroxine Sodium (Levothyroxine) 25 mcg PO ACBREAKFAST [facility] Last Admin: 07/06/20 06:32 Dose: 25 mcg Documented by: Lidocaine (Lidoderm 5%) 700 mg TRDERM Q24H [facility] Last Admin: 07/06/20 01:42 Dose: Not Given Documented by: Lidocaine (Lidoderm 5%) 700 mg TOP Q24H [facility] Last Admin: 07/06/20 14:08 Dose: Not Given Documented by: Losartan Potassium (Cozaar) 25 mg PO DAILY [facility] Last Admin: 07/06/20 09:57 Dose: 25 mg Documented by: Melatonin (Melatonin) 18 mg PO BEDTIME [facility] Last Admin: 07/05/20 21:50 Dose: 18 mg Documented by: Metolazone (Zaroxolyn) 5 mg PO TUTHSA@0900 [facility] Last Admin: 07/05/20 11:16 Dose: 5 mg Documented by: Eplerenone 50 Mg 1 each PO BID [facility] Last Admin: 07/06/20 08:33 Dose: 1 each Documented by: Potassium Chloride (Klor-Con M20) 40 meq PO BID [facility] Last Admin: 07/06/20 08:30 Dose: 40 meq Documented by: Potassium Chloride (Klor-Con M20) 40 meq PO ONETIME ONE Stop: 07/06/20 14:21 Quetiapine Fumarate (Seroquel) 25 mg PO BEDTIME [facility] Last Admin: 07/05/20 21:48 Dose: 25 mg Documented by: Sertraline HCl (Zoloft) 50 mg PO DAILY [facility] Last Admin: 07/06/20 08:30 Dose: 50 mg Documented by: Sodium Chloride (Saline Flush) 10 ml FLUSH ASDIRECTED PRN PRN Reason: Keep Vein Open Last Admin: 06/25/20 18:42 Dose: 10 ml Documented by: Sodium Chloride (Saline Flush) 2.5 ml FLUSH ASDIRECTED PRN PRN Reason: Keep Vein Open Last Admin: 06/25/20 18:42 Dose: 2.5 ml Documented by: Discontinued Medications Bumetanide (Bumex) 1 mg PO BIDDIURETIC SASHA Carvedilol (Coreg) 25 mg PO BID [facility] Last Admin: 06/30/20 09:09 Dose: 25 mg Documented by: Carvedilol (Coreg) 12.5 mg PO BID [facility] Last Admin: 07/05/20 08:29 Dose: 12.5 mg Documented by: Furosemide (Lasix) 40 mg IVPUSH NOW ONE Stop: 06/25/20 19:48 Last Admin: 06/25/20 20:46 Dose: 40 mg Documented by: Furosemide (Lasix) 40 mg IVPUSH BID [facility] Last Admin: 06/28/20 08:57 Dose: 40 mg Documented by: Furosemide (Lasix) 20 mg IVPUSH BID [facility] Last Admin: 06/28/20 11:25 Dose: Not Given Documented by: Furosemide (Lasix) 40 mg IVPUSH BID [facility] Last Admin: 07/02/20 08:04 Dose: Not Given Documented by: Furosemide (Lasix) 40 mg IVPUSH NOW ONE Stop: 06/30/20 13:07 Last Admin: 06/30/20 14:03 Dose: 40 mg Documented by: Furosemide (Lasix) 40 mg IVPUSH NOW ONE Stop: 07/01/20 13:58 Last Admin: 07/01/20 14:09 Dose: Not Given Documented by: Furosemide (Lasix) 20 mg IVPUSH ONETIME ONE Stop: 07/01/20 13:59 Last Admin: 07/01/20 14:08 Dose: 20 mg Documented by: Furosemide (Lasix) 40 mg IVPUSH NOW ONE Stop: 07/02/20 17:32 Last Admin: 07/02/20 18:24 Dose: 40 mg Documented by: Furosemide (Lasix) 40 mg IVPUSH NOW ONE Stop: 07/06/20 06:01 Last Admin: 07/06/20 06:05 Dose: 40 mg Documented by: Furosemide (Lasix) 40 mg IVPUSH NOW ONE Stop: 07/05/20 17:39 Last Admin: 07/05/20 18:04 Dose: 40 mg Documented by: Lactated Ringer's (Ringers, Lactated) 1,000 mls @ 125 mls/hr IV ASDIRECTED [facility] Last Admin: 06/25/20 18:41 Dose: 125 mls/hr Documented by: Potassium Chloride 40 meq/ (Sodium Chloride) 270 mls @ 67.5 mls/hr IV ONETIME ONE Stop: 06/29/20 14:14 Last Admin: 06/29/20 11:07 Dose: 67.5 mls/hr Documented by: Levofloxacin/Dextrose 750 mg/ (Premix) 150 mls @ 100 mls/hr IV Q48H [facility] Last Admin: 07/01/20 10:08 Dose: 100 mls/hr Documented by: Potassium Chloride 60 meq/ (Sodium Chloride) 530 mls @ 88.333 mls/hr IV ONETIME ONE Stop: 07/01/20 15:44 Last Admin: 07/01/20 10:04 Dose: 88.333 mls/hr Documented by: Potassium Chloride/Sodium Chloride (Normal Saline With 40 Meq Kcl) 250 mls @ 250 mls/hr IV ASDIRECTED [facility] Potassium Chloride 40 meq/ (Premix) 100 mls @ 25 mls/hr IV ONETIME ONE Stop: 07/01/20 20:29 Last Admin: 07/01/20 17:05 Dose: 25 mls/hr Documented by: Potassium Chloride 40 meq/ (Sodium Chloride) 270 mls @ 67.5 mls/hr IV 07/02/20@0730 [facility] Stop: 07/02/20 11:29 Last Admin: 07/02/20 08:13 Dose: 67.5 mls/hr Documented by: Potassium Chloride 40 meq/ (Sodium Chloride) 270 mls @ 67.5 mls/hr IV ONETIME ONE Stop: 07/02/20 15:59 Last Admin: 07/02/20 12:27 Dose: 67.5 mls/hr Documented by: Magnesium Sulfate (Magnesium Sulfate In Water Premix) 2 gm in 50 mls @ 25 mls/hr IV NOW ONE Stop: 07/03/20 07:14 Last Admin: 07/03/20 06:23 Dose: 25 mls/hr Documented by: Potassium Chloride 40 meq/ (Sodium Chloride) 270 mls @ 67.5 mls/hr IV ONETIME ONE Stop: 07/03/20 11:59 Last Admin: 07/03/20 08:35 Dose: 67.5 mls/hr Documented by: Potassium Chloride 40 meq/ (Sodium Chloride) 270 mls @ 67.52 mls/hr IV ONETIME ONE Stop: 07/03/20 15:14 Last Admin: 07/03/20 12:15 Dose: Not Given Documented by: Potassium Chloride 40 meq/ (Sodium Chloride) 270 mls @ 67.5 mls/hr IV ONETIME ONE Stop: 07/04/20 12:29 Last Admin: 07/04/20 10:13 Dose: 67.5 mls/hr Documented by: Levofloxacin (Levaquin) 750 mg PO Q24H [facility] Stop: 07/04/20 10:01 Last Admin: 07/04/20 10:17 Dose: 750 mg Documented by: Lidocaine (Lidoderm 5%) 700 mg TOP DAILY [facility] Last Admin: 06/29/20 10:23 Dose: Not Given Documented by: Lidocaine (Lidoderm 5%) 700 mg TOP Q24H [facility] Last Admin: 07/03/20 21:52 Dose: 700 mg Documented by: Lidocaine (Lidoderm 5%) 700 mg TRDERM Q24H [facility] Last Admin: 07/04/20 16:27 Dose: Not Given Documented by: Losartan Potassium (Cozaar) 100 mg PO DAILY [facility] Last Admin: 06/28/20 08:53 Dose: 100 mg Documented by: Magnesium Oxide (Magnesium Oxide) 400 mg PO ONETIME ONE Stop: 07/02/20 10:58 Last Admin: 07/02/20 11:34 Dose: 400 mg Documented by: Metolazone (Zaroxolyn) 5 mg PO BIDDIURETIC [facility] Last Admin: 07/02/20 08:02 Dose: 5 mg Documented by: Metolazone (Zaroxolyn) 5 mg PO TUTHSA@0900 [facility] Last Admin: 07/03/20 07:59 Dose: Not Given Documented by: Morphine Sulfate (Morphine) 2 mg IVPUSH ONETIME ONE Stop: 06/25/20 19:29 Last Admin: 06/25/20 20:20 Dose: 2 mg Documented by: Oxycodone HCl (Oxycodone) 5 mg PO Q6H PRN PRN Reason: Pain (moderate 4-6) Last Admin: 07/02/20 08:11 Dose: 5 mg Documented by: Polyethylene Glycol (Miralax) 17 gm PO ONETIME ONE Stop: 07/04/20 16:15 Last Admin: 07/04/20 16:43 Dose: 17 gm Documented by: Potassium Chloride (Potassium Chloride) 40 meq PO ONETIME ONE Stop: 06/27/20 12:37 Last Admin: 06/27/20 16:24 Dose: Not Given Documented by: Potassium Chloride (Potassium Chloride) 40 meq PO ONETIME ONE Stop: 06/27/20 16:16 Last Admin: 06/27/20 16:24 Dose: 40 meq Documented by: Potassium Chloride (Klor-Con M20) 40 meq PO ONETIME ONE Stop: 06/28/20 10:01 Last Admin: 06/28/20 10:53 Dose: 40 meq Documented by: Potassium Chloride (Klor-Con M20) 40 meq PO ONETIME ONE Stop: 06/29/20 10:46 Last Admin: 06/29/20 10:43 Dose: 40 meq Documented by: Potassium Chloride (Klor-Con M20) 40 meq PO ONETIME ONE Stop: 07/01/20 09:31 Last Admin: 07/01/20 10:02 Dose: 40 meq Documented by: Potassium Chloride (Potassium Chloride) 60 meq PO ONETIME ONE Stop: 07/01/20 15:46 Last Admin: 07/01/20 16:31 Dose: 60 meq Documented by: Potassium Chloride (Klor-Con M20) 60 meq PO ONETIME ONE Stop: 07/02/20 06:43 Last Admin: 07/02/20 07:12 Dose: 60 meq Documented by: Potassium Chloride (Klor-Con 10) 60 meq PO ONETIME ONE Stop: 07/02/20 16:15 Last Admin: 07/02/20 17:10 Dose: 60 meq Documented by: Potassium Chloride (Klor-Con 10) 60 meq PO ONETIME ONE Stop: 07/02/20 17:33 Last Admin: 07/02/20 18:24 Dose: 60 meq Documented by: Potassium Chloride (Klor-Con 10) 60 meq PO ONETIME ONE Stop: 07/03/20 05:00 Last Admin: 07/03/20 10:21 Dose: Not Given Documented by: Potassium Chloride (Klor-Con M20) 60 meq PO ONETIME ONE Stop: 07/03/20 06:31 Last Admin: 07/03/20 06:23 Dose: 60 meq Documented by: Potassium Chloride (Klor-Con M20) 60 meq PO ONETIME ONE Stop: 07/03/20 08:31 Last Admin: 07/03/20 08:41 Dose: 60 meq Documented by: Potassium Chloride (Klor-Con 10) 60 meq PO ONETIME ONE Stop: 07/03/20 11:14 Last Admin: 07/03/20 12:14 Dose: Not Given Documented by: Potassium Chloride (Klor-Con 10) 40 meq PO ONETIME ONE Stop: 07/03/20 19:11 Last Admin: 07/03/20 19:22 Dose: 40 meq Documented by: Potassium Chloride (Klor-Con 10) 60 meq PO ONETIME ONE Stop: 07/04/20 08:22 Last Admin: 07/04/20 12:53 Dose: Not Given Documented by: Potassium Chloride (Klor-Con M20) 60 meq PO ONETIME ONE Stop: 07/04/20 12:46 Last Admin: 07/04/20 12:54 Dose: 60 meq Documented by: Potassium Chloride (Klor-Con M20) 40 meq PO ONETIME ONE Stop: 07/04/20 17:14 Last Admin: 07/04/20 17:58 Dose: 40 meq Documented by: Torsemide (Demadex) 50 mg PO DAILY [facility] Last Admin: 07/05/20 08:27 Dose: 50 mg Documented by: - Exam General: Alert, Oriented Neck: Supple Lungs: Clear to Auscultation, Normal Respiratory Effort Cardiovascular: Regular Rate, Regular Rhythm GI/Abdominal Exam: Soft, Non-Tender, No Distention Extremities: Non-Tender, No Pedal Edema Skin: Warm, Dry, Intact Neurological: No New Focal Deficit Sepsis Event Note - Evaluation Sepsis Screening Result: No Definite Risk - Focused Exam Vital Signs: Vital Signs Temp Pulse Pulse Resp BP BP Pulse Ox 07/06/20 14:07 36.3 C 85 16 103/73 95 07/06/20 12:04 36.3 C 84 16 113/77 98 07/06/20 10:36 95 07/06/20 09:57 113/74 07/06/20 09:56 80 113/74 07/06/20 09:55 80 113/74 07/06/20 09:00 07/06/20 08:29 100/60 07/06/20 08:20 36.3 C 93 16 100/60 97 07/06/20 04:00 36.1 C 99 16 109/71 99 Pulse Ox 07/06/20 14:07 07/06/20 12:04 07/06/20 10:36 07/06/20 09:57 07/06/20 09:56 07/06/20 09:55 07/06/20 09:00 97 07/06/20 08:29 07/06/20 08:20 07/06/20 04:00 - Problem List Review Problem List Initiated/Reviewed/Updated: Yes - My Orders Last 24 Hours: My Active Orders 07/06/20 14:20 Potassium Chloride [Klor-Con M20] 40 meq PO ONETIME ONE 07/07/20 05:11 BASIC METABOLIC PANEL,BMP [CHEM] AM CBC WITH AUTO DIFF [HEME] AM MAGNESIUM [CHEM] AM 07/08/20 05:11 BASIC METABOLIC PANEL,BMP [CHEM] AM CBC WITH AUTO DIFF [HEME] AM MAGNESIUM [CHEM] AM 07/09/20 05:11 BASIC METABOLIC PANEL,BMP [CHEM] AM CBC WITH AUTO DIFF [HEME] AM MAGNESIUM [CHEM] AM 07/10/20 05:11 BASIC METABOLIC PANEL,BMP [CHEM] AM CBC WITH AUTO DIFF [HEME] AM MAGNESIUM [CHEM] AM - Plan Plan:: Plan:: Patient is [id number] gentleman admitted for an acute exacerbation of previously known congestive heart failure and acute on chronic kidney disease with possible pneumonia. 1. Acute exacerbation of congestive heart failure: trying to find a stable oral diuretic regiment, which has been complicated by hypokalemia/hyperaldosteronism, resumed eplerenone, Will continue bumex, 3xweek metolazone. Dr. Delgado recommended restarting IV lasix. patient may eventually need chronic IV inotropic infusion and pacer/defibrillation placement 3. Acute on chronic kidney disease: -Stable, creatinine 2.0, Monitor CMP daily with a.m. labs Avoid nephrotoxic agents 4. History of A. fib: -Stable, no telemetry changes On Eliquis, Continue to monitor on telemetry 5. Sacral ulcer: Improved -Lidocaine patch for 12 hrs -Tagoderm -We will get cushion to help relieve pressure off sacral region 6. Deconditioning: -PT consult, physical Therapy came and worked with patient, he is working really hard and showing significant improvement. -However patient still is quite weak and will need further assistance with strengthening medication adherence therefore would most benefit from a skilled care facility. 7. Constipation: Soft nontender abdomen with normal bowel sounds throat, patient able to pass gas, no nausea/vomiting, provided MiraLAX 1 time 8. Past medical history of obstructive sleep apnea, hypertension, hypothyroidism; continue home medications; 9. Disposition: likely to SNF when bed available
[2020-07-06] MEDS: Gabapentin 300 MG Cap PO SCH (21:48)
[2020-07-06] MEDS: Melatonin 3 MG Tab PO SCH (21:50)
[2020-07-06] MEDS: QUEtiapine 25 MG Tab PO SCH (21:51)
[2020-07-07] MEDS: Lidocaine 5% 700 MG Patch TRDERM SCH (03:29)
[2020-07-07 06:47] LABS: CARBON DIOXIDE,CO2 33.2 mmol/L (21.0-32.0)
[2020-07-07] MEDS: Levothyroxine 25 MCG Tab PO SCH (07:48)
[2020-07-07] MEDS: Levothyroxine 112 MCG Tab PO SCH (07:48)
[2020-07-07] MEDS: Bumetanide 1 MG Tab PO SCH ×2 (07:48→13:08)
[2020-07-07] MEDS: Losartan 50 MG Tab PO SCH (08:20)
[2020-07-07] MEDS: Apixaban 5 MG Tab PO SCH ×2 (08:20→20:32)
[2020-07-07] MEDS: Metolazone 5 MG Tab PO SCH (08:20)
[2020-07-07] MEDS: levETIRAcetam 500 MG Tab PO SCH ×2 (08:21→20:32)
[2020-07-07] MEDS: Sertraline 50 MG Tab PO SCH (08:21)
[2020-07-07] MEDS: Carvedilol 12.5 MG Tab PO SCH ×2 (08:21→20:39)
[2020-07-07] MEDS: Potassium Chloride 20 MEQ Tab.ER PO SCH ×2 (08:22→20:30)
--- NOTE | 2020-07-07 09:33 | PCM.PN ---
- General Info Date of Service: 07/07/20 Admission Dx/Problem (Free Text): 75M history of nonischemic cardiomyopathy chronic persistent atrial fibrillation, failed attempted cardioversion, hyperaldosteronism, CKD baseline creatinine 1.3-1.8 with decompensated systolic heart failure Subjective Update: Patient is a 75-year-old gentleman admitted for CHF exacerbation with recurrent hypokalemia secondary to medical therapy. There were no overnight events. Patient states that he feels better, there is no swelling in the legs at this time, back feels better. Patient denies any shortness of breath, currently is breathing comfortably on room air. Functional Status: Reports: Tolerating Diet, Ambulating, Incentive Spirometry - Review of Systems General: Reports: No Symptoms HEENT: Reports: No Symptoms Pulmonary: Reports: No Symptoms Cardiovascular: Reports: No Symptoms Gastrointestinal: Reports: No Symptoms Genitourinary: Reports: No Symptoms Musculoskeletal: Reports: No Symptoms Skin: Reports: No Symptoms Neurological: Reports: No Symptoms Psychiatric: Reports: No Symptoms - Patient Data Vitals - Most Recent: Last Vital Signs Temp 96.9 F 07/07/20 08:00 Pulse 96 07/07/20 08:21 Resp 19 07/07/20 08:00 BP 113/82 07/07/20 08:21 Pulse Ox 93 L 07/07/20 08:00 Weight - Most Recent: 183 lb 6.793 oz I&O - Last 24 Hours: Intake & Output 07/06/20 07/07/20 07/07/20 22:59 06:59 14:59 Intake Total 420 450 Output Total 1360 650 Balance -940 -200 Lab Results Last 24 Hours: Laboratory Results - last 24 hr 07/07/20 07/07/20 Range/Units 05:55 05:55 WBC 7.64 (4.0-11.0) K/uL RBC 4.85 (4.50-5.90) M/uL Hgb 14.8 (13.0-17.0) g/dL Hct 47.4 (38.0-50.0) % MCV 97.7 (80.0-98.0) fL MCH 30.5 (27.0-32.0) pg MCHC 31.2 (31.0-37.0) g/dL RDW Std Deviation 52.1 (28.0-62.0) fl RDW Coeff of Mike 15 (11.0-15.0) % Plt Count 197 (150-400) K/uL MPV 10.40 (7.40-12.00) fL Neut % (Auto) 68.7 (48.0-80.0) % Lymph % (Auto) 22.1 (16.0-40.0) % [place] % (Auto) 7.3 (0.0-15.0) % Eos % (Auto) 1.4 (0.0-7.0) % Baso % (Auto) 0.5 (0.0-1.5) % Neut # (Auto) 5.2 (1.4-5.7) K/uL Lymph # (Auto) 1.7 (0.6-2.4) K/uL [place] # (Auto) 0.6 (0.0-0.8) K/uL Eos # (Auto) 0.1 (0.0-0.7) K/uL Baso # (Auto) 0.0 (0.0-0.1) K/uL Nucleated RBC % 0.0 /100WBC Nucleated RBCs # 0 K/uL Sodium 140 (136-148) mmol/L Potassium 4.0 (3.5-5.1) mmol/L Chloride 99 (98-107) mmol/L Carbon Dioxide 33.2 H (21.0-32.0) mmol/L BUN 47 H (7.0-18.0) mg/dL Creatinine 2.2 H (0.8-1.3) mg/dL Est Cr Clr Drug Dosing 30.86 mL/min Estimated GFR (MDRD) 29.2 ml/min Glucose 102 (74-106) mg/dL Calcium 9.7 (8.5-10.1) mg/dL Magnesium 2.1 (1.8-2.4) mg/dL Med Orders - Current: Current Medications Acetaminophen (Tylenol) 650 mg PO Q4H PRN PRN Reason: Pain (Mild 1-3)/fever Last Admin: 07/03/20 23:45 Dose: 650 mg Documented by: Al Hydroxide/Mg Hydroxide (Mag-Al Plus) 5 ml PO Q6H PRN PRN Reason: Heartburn Last Admin: 07/04/20 10:31 Dose: 5 ml Documented by: Albuterol/Ipratropium (Combivent Respimat) 0 gm INH Q4HRRT PRN PRN Reason: Dyspnea Last Admin: 06/29/20 15:18 Dose: 1 puff Documented by: Apixaban (Eliquis) 5 mg PO BID [facility] Last Admin: 07/07/20 08:20 Dose: 5 mg Documented by: Bumetanide (Bumex) 2 mg PO BIDDIURETIC [facility] Last Admin: 07/07/20 07:48 Dose: 2 mg Documented by: Carvedilol (Coreg) 12.5 mg PO BID [facility] Last Admin: 07/07/20 08:21 Dose: 12.5 mg Documented by: Gabapentin (Neurontin) 300 mg PO BEDTIME [facility] Last Admin: 07/06/20 21:48 Dose: 300 mg Documented by: Hydroxyzine HCl (Atarax) 25 mg PO TID PRN PRN Reason: Anxiety Last Admin: 07/06/20 21:52 Dose: 25 mg Documented by: Levetiracetam (Keppra) 1,000 mg PO BID [facility] Last Admin: 07/07/20 08:21 Dose: 1,000 mg Documented by: Levothyroxine Sodium (Levothyroxine) 112 mcg PO ACBRK [facility] Last Admin: 07/07/20 07:48 Dose: 112 mcg Documented by: Levothyroxine Sodium (Levothyroxine) 25 mcg PO ACBREAKFAST [facility] Last Admin: 07/07/20 07:48 Dose: 25 mcg Documented by: Lidocaine (Lidoderm 5%) 700 mg TRDERM Q24H [facility] Last Admin: 07/07/20 03:29 Dose: Not Given Documented by: Lidocaine (Lidoderm 5%) 700 mg TOP Q24H [facility] Last Admin: 07/06/20 14:08 Dose: Not Given Documented by: Losartan Potassium (Cozaar) 25 mg PO DAILY [facility] Last Admin: 07/07/20 08:20 Dose: 25 mg Documented by: Melatonin (Melatonin) 18 mg PO BEDTIME [facility] Last Admin: 07/06/20 21:50 Dose: 18 mg Documented by: Metolazone (Zaroxolyn) 5 mg PO TUTHSA@0900 [facility] Last Admin: 07/07/20 08:20 Dose: 5 mg Documented by: Eplerenone 50 Mg 1 each PO BID [facility] Last Admin: 07/07/20 08:22 Dose: 1 each Documented by: Potassium Chloride (Klor-Con M20) 40 meq PO BID [facility] Last Admin: 07/07/20 08:22 Dose: 40 meq Documented by: Quetiapine Fumarate (Seroquel) 25 mg PO BEDTIME [facility] Last Admin: 07/06/20 21:51 Dose: 25 mg Documented by: Sertraline HCl (Zoloft) 50 mg PO DAILY [facility] Last Admin: 07/07/20 08:21 Dose: 50 mg Documented by: Sodium Chloride (Saline Flush) 10 ml FLUSH ASDIRECTED PRN PRN Reason: Keep Vein Open Last Admin: 06/25/20 18:42 Dose: 10 ml Documented by: Sodium Chloride (Saline Flush) 2.5 ml FLUSH ASDIRECTED PRN PRN Reason: Keep Vein Open Last Admin: 06/25/20 18:42 Dose: 2.5 ml Documented by: Discontinued Medications Bumetanide (Bumex) 1 mg PO BIDDIURETIC [facility] Carvedilol (Coreg) 25 mg PO BID [facility] Last Admin: 06/30/20 09:09 Dose: 25 mg Documented by: Carvedilol (Coreg) 12.5 mg PO BID [facility] Last Admin: 07/05/20 08:29 Dose: 12.5 mg Documented by: Furosemide (Lasix) 40 mg IVPUSH NOW ONE Stop: 06/25/20 19:48 Last Admin: 06/25/20 20:46 Dose: 40 mg Documented by: Furosemide (Lasix) 40 mg IVPUSH BID [facility] Last Admin: 06/28/20 08:57 Dose: 40 mg Documented by: Furosemide (Lasix) 20 mg IVPUSH BID [facility] Last Admin: 06/28/20 11:25 Dose: Not Given Documented by: Furosemide (Lasix) 40 mg IVPUSH BID [facility] Last Admin: 07/02/20 08:04 Dose: Not Given Documented by: Furosemide (Lasix) 40 mg IVPUSH NOW ONE Stop: 06/30/20 13:07 Last Admin: 06/30/20 14:03 Dose: 40 mg Documented by: Furosemide (Lasix) 40 mg IVPUSH NOW ONE Stop: 07/01/20 13:58 Last Admin: 07/01/20 14:09 Dose: Not Given Documented by: Furosemide (Lasix) 20 mg IVPUSH ONETIME ONE Stop: 07/01/20 13:59 Last Admin: 07/01/20 14:08 Dose: 20 mg Documented by: Furosemide (Lasix) 40 mg IVPUSH NOW ONE Stop: 07/02/20 17:32 Last Admin: 07/02/20 18:24 Dose: 40 mg Documented by: Furosemide (Lasix) 40 mg IVPUSH NOW ONE Stop: 07/06/20 06:01 Last Admin: 07/06/20 06:05 Dose: 40 mg Documented by: Furosemide (Lasix) 40 mg IVPUSH NOW ONE Stop: 07/05/20 17:39 Last Admin: 07/05/20 18:04 Dose: 40 mg Documented by: Lactated Ringer's (Ringers, Lactated) 1,000 mls @ 125 mls/hr IV ASDIRECTED [facility] Last Admin: 06/25/20 18:41 Dose: 125 mls/hr Documented by: Potassium Chloride 40 meq/ (Sodium Chloride) 270 mls @ 67.5 mls/hr IV ONETIME ONE Stop: 06/29/20 14:14 Last Admin: 06/29/20 11:07 Dose: 67.5 mls/hr Documented by: Levofloxacin/Dextrose 750 mg/ (Premix) 150 mls @ 100 mls/hr IV Q48H [facility] Last Admin: 07/01/20 10:08 Dose: 100 mls/hr Documented by: Potassium Chloride 60 meq/ (Sodium Chloride) 530 mls @ 88.333 mls/hr IV ONETIME ONE Stop: 07/01/20 15:44 Last Admin: 07/01/20 10:04 Dose: 88.333 mls/hr Documented by: Potassium Chloride/Sodium Chloride (Normal Saline With 40 Meq Kcl) 250 mls @ 250 mls/hr IV ASDIRECTED [facility] Potassium Chloride 40 meq/ (Premix) 100 mls @ 25 mls/hr IV ONETIME ONE Stop: 07/01/20 20:29 Last Admin: 07/01/20 17:05 Dose: 25 mls/hr Documented by: Potassium Chloride 40 meq/ (Sodium Chloride) 270 mls @ 67.5 mls/hr IV 07/02/20@0730 [facility] Stop: 07/02/20 11:29 Last Admin: 07/02/20 08:13 Dose: 67.5 mls/hr Documented by: Potassium Chloride 40 meq/ (Sodium Chloride) 270 mls @ 67.5 mls/hr IV ONETIME ONE Stop: 07/02/20 15:59 Last Admin: 07/02/20 12:27 Dose: 67.5 mls/hr Documented by: Magnesium Sulfate (Magnesium Sulfate In Water Premix) 2 gm in 50 mls @ 25 mls/hr IV NOW ONE Stop: 07/03/20 07:14 Last Admin: 07/03/20 06:23 Dose: 25 mls/hr Documented by: Potassium Chloride 40 meq/ (Sodium Chloride) 270 mls @ 67.5 mls/hr IV ONETIME ONE Stop: 07/03/20 11:59 Last Admin: 07/03/20 08:35 Dose: 67.5 mls/hr Documented by: Potassium Chloride 40 meq/ (Sodium Chloride) 270 mls @ 67.52 mls/hr IV ONETIME ONE Stop: 07/03/20 15:14 Last Admin: 07/03/20 12:15 Dose: Not Given Documented by: Potassium Chloride 40 meq/ (Sodium Chloride) 270 mls @ 67.5 mls/hr IV ONETIME ONE Stop: 07/04/20 12:29 Last Admin: 07/04/20 10:13 Dose: 67.5 mls/hr Documented by: Levofloxacin (Levaquin) 750 mg PO Q24H [facility] Stop: 07/04/20 10:01 Last Admin: 07/04/20 10:17 Dose: 750 mg Documented by: Lidocaine (Lidoderm 5%) 700 mg TOP DAILY [facility] Last Admin: 06/29/20 10:23 Dose: Not Given Documented by: Lidocaine (Lidoderm 5%) 700 mg TOP Q24H [facility] Last Admin: 07/03/20 21:52 Dose: 700 mg Documented by: Lidocaine (Lidoderm 5%) 700 mg TRDERM Q24H [facility] Last Admin: 07/04/20 16:27 Dose: Not Given Documented by: Losartan Potassium (Cozaar) 100 mg PO DAILY [facility] Last Admin: 06/28/20 08:53 Dose: 100 mg Documented by: Magnesium Oxide (Magnesium Oxide) 400 mg PO ONETIME ONE Stop: 07/02/20 10:58 Last Admin: 07/02/20 11:34 Dose: 400 mg Documented by: Metolazone (Zaroxolyn) 5 mg PO BIDDIURETIC [facility] Last Admin: 07/02/20 08:02 Dose: 5 mg Documented by: Metolazone (Zaroxolyn) 5 mg PO TUTHSA@0900 [facility] Last Admin: 07/03/20 07:59 Dose: Not Given Documented by: Morphine Sulfate (Morphine) 2 mg IVPUSH ONETIME ONE Stop: 06/25/20 19:29 Last Admin: 06/25/20 20:20 Dose: 2 mg Documented by: Oxycodone HCl (Oxycodone) 5 mg PO Q6H PRN PRN Reason: Pain (moderate 4-6) Last Admin: 07/02/20 08:11 Dose: 5 mg Documented by: Polyethylene Glycol (Miralax) 17 gm PO ONETIME ONE Stop: 07/04/20 16:15 Last Admin: 07/04/20 16:43 Dose: 17 gm Documented by: Potassium Chloride (Potassium Chloride) 40 meq PO ONETIME ONE Stop: 06/27/20 12:37 Last Admin: 06/27/20 16:24 Dose: Not Given Documented by: Potassium Chloride (Potassium Chloride) 40 meq PO ONETIME ONE Stop: 06/27/20 16:16 Last Admin: 06/27/20 16:24 Dose: 40 meq Documented by: Potassium Chloride (Klor-Con M20) 40 meq PO ONETIME ONE Stop: 06/28/20 10:01 Last Admin: 06/28/20 10:53 Dose: 40 meq Documented by: Potassium Chloride (Klor-Con M20) 40 meq PO ONETIME ONE Stop: 06/29/20 10:46 Last Admin: 06/29/20 10:43 Dose: 40 meq Documented by: Potassium Chloride (Klor-Con M20) 40 meq PO ONETIME ONE Stop: 07/01/20 09:31 Last Admin: 07/01/20 10:02 Dose: 40 meq Documented by: Potassium Chloride (Potassium Chloride) 60 meq PO ONETIME ONE Stop: 07/01/20 15:46 Last Admin: 07/01/20 16:31 Dose: 60 meq Documented by: Potassium Chloride (Klor-Con M20) 60 meq PO ONETIME ONE Stop: 07/02/20 06:43 Last Admin: 07/02/20 07:12 Dose: 60 meq Documented by: Potassium Chloride (Klor-Con 10) 60 meq PO ONETIME ONE Stop: 07/02/20 16:15 Last Admin: 07/02/20 17:10 Dose: 60 meq Documented by: Potassium Chloride (Klor-Con 10) 60 meq PO ONETIME ONE Stop: 07/02/20 17:33 Last Admin: 07/02/20 18:24 Dose: 60 meq Documented by: Potassium Chloride (Klor-Con 10) 60 meq PO ONETIME ONE Stop: 07/03/20 05:00 Last Admin: 07/03/20 10:21 Dose: Not Given Documented by: Potassium Chloride (Klor-Con M20) 60 meq PO ONETIME ONE Stop: 07/03/20 06:31 Last Admin: 07/03/20 06:23 Dose: 60 meq Documented by: Potassium Chloride (Klor-Con M20) 60 meq PO ONETIME ONE Stop: 07/03/20 08:31 Last Admin: 07/03/20 08:41 Dose: 60 meq Documented by: Potassium Chloride (Klor-Con 10) 60 meq PO ONETIME ONE Stop: 07/03/20 11:14 Last Admin: 07/03/20 12:14 Dose: Not Given Documented by: Potassium Chloride (Klor-Con 10) 40 meq PO ONETIME ONE Stop: 07/03/20 19:11 Last Admin: 07/03/20 19:22 Dose: 40 meq Documented by: Potassium Chloride (Klor-Con 10) 60 meq PO ONETIME ONE Stop: 07/04/20 08:22 Last Admin: 07/04/20 12:53 Dose: Not Given Documented by: Potassium Chloride (Klor-Con M20) 60 meq PO ONETIME ONE Stop: 07/04/20 12:46 Last Admin: 07/04/20 12:54 Dose: 60 meq Documented by: Potassium Chloride (Klor-Con M20) 40 meq PO ONETIME ONE Stop: 07/04/20 17:14 Last Admin: 07/04/20 17:58 Dose: 40 meq Documented by: Potassium Chloride (Klor-Con M20) 40 meq PO ONETIME ONE Stop: 07/06/20 14:21 Last Admin: 07/06/20 16:53 Dose: 40 meq Documented by: Torsemide (Demadex) 50 mg PO DAILY [facility] Last Admin: 07/05/20 08:27 Dose: 50 mg Documented by: - Exam Quality Assessment: DVT Prophylaxis General: Alert, Oriented, Cooperative, No Acute Distress HEENT: Pupils Equal, Pupils Reactive, EOMI, Mucous Membr. Moist/[place] Neck: Supple, No JVD Lungs: Clear to Auscultation, Normal Respiratory Effort Cardiovascular: Regular Rate, Regular Rhythm GI/Abdominal Exam: Normal Bowel Sounds, Soft, Non-Tender, No Organomegaly, No Distention Back Exam: Normal Inspection, Full Range of Motion, Other (Improved sacral ulcer, patient denies pain) Extremities: Normal Inspection, Normal Range of Motion, Non-Tender, No Pedal Edema, Normal Capillary Refill Peripheral Pulses: 2+: Radial (L), Radial (R), Dorsalis Pedis (L), Dorsalis Pedis (R) Skin: Warm, Dry, Intact Wound/Incisions: Healing Well Neurological: No New Focal Deficit Psy/Mental Status: Alert, Normal Affect, Normal Mood Sepsis Event Note - Evaluation Sepsis Screening Result: No Definite Risk - Focused Exam Vital Signs: Vital Signs Temp Pulse Pulse Resp BP BP Pulse Ox 07/07/20 08:21 96 113/82 07/07/20 08:20 113/82 07/07/20 08:00 96.9 F 96 19 113/82 93 L 07/07/20 04:00 98.3 F 95 18 117/83 96 07/07/20 00:00 96.8 F L 68 18 113/56 L 95 07/06/20 21:59 65 104/68 - Problem List & Annotations (1) Acute exacerbation of congestive heart failure SNOMED Code(s): 831006280, 56134150028221 Code(s): I50.9 - HEART FAILURE, UNSPECIFIED Status: Acute Current Visit: Yes Qualifiers: Heart failure type: systolic Qualified Code(s): I50.23 - Acute on chronic systolic (congestive) heart failure (2) Acute kidney injury SNOMED Code(s): 88191599, 18999351 Code(s): N17.9 - ACUTE KIDNEY FAILURE, UNSPECIFIED Status: Acute Current Visit: Yes - Problem List Review Problem List Initiated/Reviewed/Updated: Yes - Plan Plan:: Plan:: Patient is [id number] gentleman admitted for an acute exacerbation of previously known congestive heart failure and acute on chronic kidney disease with possible pneumonia. 1. Acute exacerbation of congestive heart failure: trying to find a stable oral diuretic regiment, which has been complicated by hypokalemia/hyperaldosteronism, resumed eplerenone, Will continue bumex, 3xweek metolazone. Dr. Delgado recommended restarting IV lasix. patient may eventually need chronic IV inotropic infusion and pacer/defibrillation placement 3. Acute on chronic kidney disease: -Stable, creatinine 2. 2 Monitor CMP daily with a.m. labs Avoid nephrotoxic agents May consider 250 cc normal saline rehydration, well maintaining overall negative fluid balance to prevent pulmonary edema, pedal edema 4. History of A. fib: -Stable, no telemetry changes noted On Eliquis, Continue to monitor on telemetry 5. Sacral ulcer: Improved -Lidocaine patch for 12 hrs -Tagoderm -We will get cushion to help relieve pressure off sacral region 6. Deconditioning: -PT consult, physical Therapy came and worked with patient, he is working really hard and showing significant improvement. -However patient still is quite weak and will need further assistance with strengthening medication adherence therefore would most benefit from a skilled care facility. 7. Constipation: Soft nontender abdomen with normal bowel sounds throat, patient able to pass gas, no nausea/vomiting, provided MiraLAX 1 time 8. Past medical history of obstructive sleep apnea, hypertension, hypothyroidism; continue home medications; 9. Disposition: likely to SNF when bed available
[2020-07-07] MEDS: Gabapentin 300 MG Cap PO SCH (20:30)
[2020-07-07] MEDS: QUEtiapine 25 MG Tab PO SCH (20:30)
[2020-07-07] MEDS: Melatonin 3 MG Tab PO SCH (20:31)
[2020-07-08] MEDS: Lidocaine 5% 700 MG Patch TRDERM SCH (02:46)
[2020-07-08 06:22] LABS: CARBON DIOXIDE,CO2 33.2 mmol/L (21.0-32.0); POTASSIUM,K 3.3 mmol/L (3.5-5.1)
[2020-07-08] MEDS: Levothyroxine 112 MCG Tab PO SCH (07:49)
[2020-07-08] MEDS: Levothyroxine 25 MCG Tab PO SCH (07:49)
[2020-07-08] MEDS: Bumetanide 1 MG Tab PO SCH ×2 (07:49→14:28)
[2020-07-08] MEDS ORDERED: Potassium Chloride 10 MEQ Tab.ER PO ONE (08:29)
[2020-07-08] MEDS: Losartan 50 MG Tab PO SCH (08:50)
[2020-07-08] MEDS: Carvedilol 12.5 MG Tab PO SCH ×2 (08:50→23:02)
[2020-07-08] MEDS: Apixaban 5 MG Tab PO SCH ×2 (08:52→23:02)
[2020-07-08] MEDS: Sertraline 50 MG Tab PO SCH (08:52)
[2020-07-08] MEDS: levETIRAcetam 500 MG Tab PO SCH ×2 (08:52→23:03)
[2020-07-08] MEDS: Potassium Chloride 20 MEQ Tab.ER PO SCH ×2 (08:59→23:02)
--- NOTE | 2020-07-08 09:05 | PCM.PN ---
- General Info Date of Service: 07/08/20 Admission Dx/Problem (Free Text): 75M history of nonischemic cardiomyopathy chronic persistent atrial fibrillation, failed attempted cardioversion, hyperaldosteronism, CKD baseline creatinine 1.3-1.8 with decompensated systolic heart failure Subjective Update: Patient is a 75-year-old gentleman admitted for CHF exacerbation with recurrent hypokalemia secondary to medical therapy. There were no overnight events. Patient states that he feels better, there is no swelling in the legs at this time, back feels better. Patient denies any shortness of breath, currently is breathing comfortably on room air. Functional Status: Reports: Tolerating Diet, Ambulating - Review of Systems General: Reports: No Symptoms HEENT: Reports: No Symptoms Pulmonary: Reports: No Symptoms Cardiovascular: Reports: No Symptoms Gastrointestinal: Reports: No Symptoms Genitourinary: Reports: No Symptoms Musculoskeletal: Reports: No Symptoms Skin: Reports: No Symptoms Neurological: Reports: No Symptoms Psychiatric: Reports: No Symptoms - Patient Data Vitals - Most Recent: Last Vital Signs Temp 96.3 F L 07/08/20 07:47 Pulse 88 07/08/20 08:50 Resp 16 07/08/20 07:47 BP 112/97 H 07/08/20 08:50 Pulse Ox 96 07/08/20 07:47 Weight - Most Recent: 183 lb 6.793 oz I&O - Last 24 Hours: Intake & Output 07/07/20 07/08/20 07/08/20 22:59 06:59 14:59 Intake Total 540 600 240 Output Total 850 820 Balance -310 -220 240 Lab Results Last 24 Hours: Laboratory Results - last 24 hr 07/08/20 07/08/20 Range/Units 05:49 05:49 WBC 7.70 (4.0-11.0) K/uL RBC 4.66 (4.50-5.90) M/uL Hgb 14.2 (13.0-17.0) g/dL Hct 44.9 (38.0-50.0) % MCV 96.4 (80.0-98.0) fL MCH 30.5 (27.0-32.0) pg MCHC 31.6 (31.0-37.0) g/dL RDW Std Deviation 51.2 (28.0-62.0) fl RDW Coeff of Mike 15 (11.0-15.0) % Plt Count 184 (150-400) K/uL MPV 10.30 (7.40-12.00) fL Neut % (Auto) 64.0 (48.0-80.0) % Lymph % (Auto) 25.5 (16.0-40.0) % [place] % (Auto) 7.5 (0.0-15.0) % Eos % (Auto) 2.6 (0.0-7.0) % Baso % (Auto) 0.4 (0.0-1.5) % Neut # (Auto) 4.9 (1.4-5.7) K/uL Lymph # (Auto) 2.0 (0.6-2.4) K/uL [place] # (Auto) 0.6 (0.0-0.8) K/uL Eos # (Auto) 0.2 (0.0-0.7) K/uL Baso # (Auto) 0.0 (0.0-0.1) K/uL Nucleated RBC % 0.0 /100WBC Nucleated RBCs # 0 K/uL Sodium 140 (136-148) mmol/L Potassium 3.3 L (3.5-5.1) mmol/L Chloride 100 (98-107) mmol/L Carbon Dioxide 33.2 H (21.0-32.0) mmol/L BUN 57 H (7.0-18.0) mg/dL Creatinine 2.2 H (0.8-1.3) mg/dL Est Cr Clr Drug Dosing 30.86 mL/min Estimated GFR (MDRD) 29.2 ml/min Glucose 108 H (74-106) mg/dL Calcium 9.5 (8.5-10.1) mg/dL Magnesium 2.0 (1.8-2.4) mg/dL Med Orders - Current: Current Medications Acetaminophen (Tylenol) 650 mg PO Q4H PRN PRN Reason: Pain (Mild 1-3)/fever Last Admin: 07/03/20 23:45 Dose: 650 mg Documented by: Al Hydroxide/Mg Hydroxide (Mag-Al Plus) 5 ml PO Q6H PRN PRN Reason: Heartburn Last Admin: 07/04/20 10:31 Dose: 5 ml Documented by: Albuterol/Ipratropium (Combivent Respimat) 0 gm INH Q4HRRT PRN PRN Reason: Dyspnea Last Admin: 06/29/20 15:18 Dose: 1 puff Documented by: Apixaban (Eliquis) 5 mg PO BID COUNTS INCLUDE 234 BEDS AT THE [facility] Last Admin: 07/08/20 08:52 Dose: 5 mg Documented by: Bumetanide (Bumex) 2 mg PO BIDDIURETIC COUNTS INCLUDE 234 BEDS AT THE [facility] Last Admin: 07/08/20 07:49 Dose: 2 mg Documented by: Carvedilol (Coreg) 12.5 mg PO BID COUNTS INCLUDE 234 BEDS AT THE [facility] Last Admin: 07/08/20 08:50 Dose: 12.5 mg Documented by: Gabapentin (Neurontin) 300 mg PO BEDTIME COUNTS INCLUDE 234 BEDS AT THE [facility] Last Admin: 07/07/20 20:30 Dose: 300 mg Documented by: Hydroxyzine HCl (Atarax) 25 mg PO TID PRN PRN Reason: Anxiety Last Admin: 07/06/20 21:52 Dose: 25 mg Documented by: Levetiracetam (Keppra) 1,000 mg PO BID COUNTS INCLUDE 234 BEDS AT THE [facility] Last Admin: 07/08/20 08:52 Dose: 1,000 mg Documented by: Levothyroxine Sodium (Levothyroxine) 112 mcg PO ACBRK COUNTS INCLUDE 234 BEDS AT THE [facility] Last Admin: 07/08/20 07:49 Dose: 112 mcg Documented by: Levothyroxine Sodium (Levothyroxine) 25 mcg PO ACBREAKFAST COUNTS INCLUDE 234 BEDS AT THE [facility] Last Admin: 07/08/20 07:49 Dose: 25 mcg Documented by: Lidocaine (Lidoderm 5%) 700 mg TRDERM Q24H COUNTS INCLUDE 234 BEDS AT THE [facility] Last Admin: 07/08/20 02:46 Dose: Not Given Documented by: Losartan Potassium (Cozaar) 25 mg PO DAILY COUNTS INCLUDE 234 BEDS AT [facility] Last Admin: 07/08/20 08:50 Dose: 25 mg Documented by: Melatonin (Melatonin) 18 mg PO BEDTIME COUNTS INCLUDE 234 BEDS AT THE [facility] Last Admin: 07/07/20 20:31 Dose: 18 mg Documented by: Metolazone (Zaroxolyn) 5 mg PO TUTHSA@0900 COUNTS INCLUDE 234 BEDS AT [facility] Last Admin: 07/07/20 08:20 Dose: 5 mg Documented by: Miscellaneous Information (Remove Patch) 1 ea TOP Q24H COUNTS INCLUDE 234 BEDS AT THE [facility] Last Admin: 07/07/20 13:08 Dose: Not Given Documented by: Eplerenone 50mg Tab 0.5 each PO BID COUNTS INCLUDE 234 BEDS AT [facility] Last Admin: 07/08/20 08:52 Dose: 0.5 each Documented by: Potassium Chloride (Klor-Con M20) 40 meq PO BID COUNTS INCLUDE 234 BEDS AT [facility] Last Admin: 07/07/20 20:30 Dose: 40 meq Documented by: Quetiapine Fumarate (Seroquel) 25 mg PO BEDTIME COUNTS INCLUDE 234 BEDS AT [facility] Last Admin: 07/07/20 20:30 Dose: 25 mg Documented by: Sertraline HCl (Zoloft) 50 mg PO DAILY COUNTS INCLUDE 234 BEDS AT [facility] Last Admin: 07/08/20 08:52 Dose: 50 mg Documented by: Sodium Chloride (Saline Flush) 10 ml FLUSH ASDIRECTED PRN PRN Reason: Keep Vein Open Last Admin: 06/25/20 18:42 Dose: 10 ml Documented by: Sodium Chloride (Saline Flush) 2.5 ml FLUSH ASDIRECTED PRN PRN Reason: Keep Vein Open Last Admin: 06/25/20 18:42 Dose: 2.5 ml Documented by: Discontinued Medications Bumetanide (Bumex) 1 mg PO BIDDIURETIC COUNTS INCLUDE 234 BEDS AT THE [facility] Carvedilol (Coreg) 25 mg PO BID COUNTS INCLUDE 234 BEDS AT [facility] Last Admin: 06/30/20 09:09 Dose: 25 mg Documented by: Carvedilol (Coreg) 12.5 mg PO BID COUNTS INCLUDE 234 BEDS AT [facility] Last Admin: 07/05/20 08:29 Dose: 12.5 mg Documented by: Furosemide (Lasix) 40 mg IVPUSH NOW ONE Stop: 06/25/20 19:48 Last Admin: 06/25/20 20:46 Dose: 40 mg Documented by: Furosemide (Lasix) 40 mg IVPUSH BID COUNTS INCLUDE 234 BEDS AT THE [facility] Last Admin: 06/28/20 08:57 Dose: 40 mg Documented by: Furosemide (Lasix) 20 mg IVPUSH BID COUNTS INCLUDE 234 BEDS AT [facility] Last Admin: 06/28/20 11:25 Dose: Not Given Documented by: Furosemide (Lasix) 40 mg IVPUSH BID COUNTS INCLUDE 234 BEDS AT [facility] Last Admin: 07/02/20 08:04 Dose: Not Given Documented by: Furosemide (Lasix) 40 mg IVPUSH NOW ONE Stop: 06/30/20 13:07 Last Admin: 06/30/20 14:03 Dose: 40 mg Documented by: Furosemide (Lasix) 40 mg IVPUSH NOW ONE Stop: 07/01/20 13:58 Last Admin: 07/01/20 14:09 Dose: Not Given Documented by: Furosemide (Lasix) 20 mg IVPUSH ONETIME ONE Stop: 07/01/20 13:59 Last Admin: 07/01/20 14:08 Dose: 20 mg Documented by: Furosemide (Lasix) 40 mg IVPUSH NOW ONE Stop: 07/02/20 17:32 Last Admin: 07/02/20 18:24 Dose: 40 mg Documented by: Furosemide (Lasix) 40 mg IVPUSH NOW ONE Stop: 07/06/20 06:01 Last Admin: 07/06/20 06:05 Dose: 40 mg Documented by: Furosemide (Lasix) 40 mg IVPUSH NOW ONE Stop: 07/05/20 17:39 Last Admin: 07/05/20 18:04 Dose: 40 mg Documented by: Lactated Ringer's (Ringers, Lactated) 1,000 mls @ 125 mls/hr IV ASDIRECTED COUNTS INCLUDE 234 BEDS AT THE [facility] Last Admin: 06/25/20 18:41 Dose: 125 mls/hr Documented by: Potassium Chloride 40 meq/ (Sodium Chloride) 270 mls @ 67.5 mls/hr IV ONETIME ONE Stop: 06/29/20 14:14 Last Admin: 06/29/20 11:07 Dose: 67.5 mls/hr Documented by: Levofloxacin/Dextrose 750 mg/ (Premix) 150 mls @ 100 mls/hr IV Q48H COUNTS INCLUDE 234 BEDS AT THE [facility] Last Admin: 07/01/20 10:08 Dose: 100 mls/hr Documented by: Potassium Chloride 60 meq/ (Sodium Chloride) 530 mls @ 88.333 mls/hr IV ONETIME ONE Stop: 07/01/20 15:44 Last Admin: 07/01/20 10:04 Dose: 88.333 mls/hr Documented by: Potassium Chloride/Sodium Chloride (Normal Saline With 40 Meq Kcl) 250 mls @ 250 mls/hr IV ASDIRECTED COUNTS INCLUDE 234 BEDS AT THE [facility] Potassium Chloride 40 meq/ (Premix) 100 mls @ 25 mls/hr IV ONETIME ONE Stop: 07/01/20 20:29 Last Admin: 07/01/20 17:05 Dose: 25 mls/hr Documented by: Potassium Chloride 40 meq/ (Sodium Chloride) 270 mls @ 67.5 mls/hr IV 07/02/20@0730 COUNTS INCLUDE 234 BEDS AT THE [facility] Stop: 07/02/20 11:29 Last Admin: 07/02/20 08:13 Dose: 67.5 mls/hr Documented by: Potassium Chloride 40 meq/ (Sodium Chloride) 270 mls @ 67.5 mls/hr IV ONETIME ONE Stop: 07/02/20 15:59 Last Admin: 07/02/20 12:27 Dose: 67.5 mls/hr Documented by: Magnesium Sulfate (Magnesium Sulfate In Water Premix) 2 gm in 50 mls @ 25 mls/hr IV NOW ONE Stop: 07/03/20 07:14 Last Admin: 07/03/20 06:23 Dose: 25 mls/hr Documented by: Potassium Chloride 40 meq/ (Sodium Chloride) 270 mls @ 67.5 mls/hr IV ONETIME ONE Stop: 07/03/20 11:59 Last Admin: 07/03/20 08:35 Dose: 67.5 mls/hr Documented by: Potassium Chloride 40 meq/ (Sodium Chloride) 270 mls @ 67.52 mls/hr IV ONETIME ONE Stop: 07/03/20 15:14 Last Admin: 07/03/20 12:15 Dose: Not Given Documented by: Potassium Chloride 40 meq/ (Sodium Chloride) 270 mls @ 67.5 mls/hr IV ONETIME ONE Stop: 07/04/20 12:29 Last Admin: 07/04/20 10:13 Dose: 67.5 mls/hr Documented by: Levofloxacin (Levaquin) 750 mg PO Q24H COUNTS INCLUDE 234 BEDS AT [facility] Stop: 07/04/20 10:01 Last Admin: 07/04/20 10:17 Dose: 750 mg Documented by: Lidocaine (Lidoderm 5%) 700 mg TOP DAILY COUNTS INCLUDE 234 BEDS AT [facility] Last Admin: 06/29/20 10:23 Dose: Not Given Documented by: Lidocaine (Lidoderm 5%) 700 mg TOP Q24H COUNTS INCLUDE 234 BEDS AT [facility] Last Admin: 07/03/20 21:52 Dose: 700 mg Documented by: Lidocaine (Lidoderm 5%) 700 mg TRDERM Q24H COUNTS INCLUDE 234 BEDS AT [facility] Last Admin: 07/04/20 16:27 Dose: Not Given Documented by: Lidocaine (Lidoderm 5%) 700 mg TOP Q24H COUNTS INCLUDE 234 BEDS AT [facility] Last Admin: 07/06/20 14:08 Dose: Not Given Documented by: Losartan Potassium (Cozaar) 100 mg PO DAILY COUNTS INCLUDE 234 BEDS AT [facility] Last Admin: 06/28/20 08:53 Dose: 100 mg Documented by: Magnesium Oxide (Magnesium Oxide) 400 mg PO ONETIME ONE Stop: 07/02/20 10:58 Last Admin: 07/02/20 11:34 Dose: 400 mg Documented by: Metolazone (Zaroxolyn) 5 mg PO BIDDIURETIC COUNTS INCLUDE 234 BEDS AT [facility] Last Admin: 07/02/20 08:02 Dose: 5 mg Documented by: Metolazone (Zaroxolyn) 5 mg PO TUTHSA@0900 COUNTS INCLUDE 234 BEDS AT [facility] Last Admin: 07/03/20 07:59 Dose: Not Given Documented by: Morphine Sulfate (Morphine) 2 mg IVPUSH ONETIME ONE Stop: 06/25/20 19:29 Last Admin: 06/25/20 20:20 Dose: 2 mg Documented by: Oxycodone HCl (Oxycodone) 5 mg PO Q6H PRN PRN Reason: Pain (moderate 4-6) Last Admin: 07/02/20 08:11 Dose: 5 mg Documented by: Eplerenone 50 Mg 1 each PO BID COUNTS INCLUDE 234 BEDS AT [facility] Last Admin: 07/07/20 08:22 Dose: 1 each Documented by: Eplerenone 50mg Tab 0.5 each PO BID COUNTS INCLUDE 234 BEDS AT [facility] Last Admin: 07/07/20 14:17 Dose: Not Given Documented by: Polyethylene Glycol (Miralax) 17 gm PO ONETIME ONE Stop: 07/04/20 16:15 Last Admin: 07/04/20 16:43 Dose: 17 gm Documented by: Potassium Chloride (Potassium Chloride) 40 meq PO ONETIME ONE Stop: 06/27/20 12:37 Last Admin: 06/27/20 16:24 Dose: Not Given Documented by: Potassium Chloride (Potassium Chloride) 40 meq PO ONETIME ONE Stop: 06/27/20 16:16 Last Admin: 06/27/20 16:24 Dose: 40 meq Documented by: Potassium Chloride (Klor-Con M20) 40 meq PO ONETIME ONE Stop: 06/28/20 10:01 Last Admin: 06/28/20 10:53 Dose: 40 meq Documented by: Potassium Chloride (Klor-Con M20) 40 meq PO ONETIME ONE Stop: 06/29/20 10:46 Last Admin: 06/29/20 10:43 Dose: 40 meq Documented by: Potassium Chloride (Klor-Con M20) 40 meq PO ONETIME ONE Stop: 07/01/20 09:31 Last Admin: 07/01/20 10:02 Dose: 40 meq Documented by: Potassium Chloride (Potassium Chloride) 60 meq PO ONETIME ONE Stop: 07/01/20 15:46 Last Admin: 07/01/20 16:31 Dose: 60 meq Documented by: Potassium Chloride (Klor-Con M20) 60 meq PO ONETIME ONE Stop: 07/02/20 06:43 Last Admin: 07/02/20 07:12 Dose: 60 meq Documented by: Potassium Chloride (Klor-Con 10) 60 meq PO ONETIME ONE Stop: 07/02/20 16:15 Last Admin: 07/02/20 17:10 Dose: 60 meq Documented by: Potassium Chloride (Klor-Con 10) 60 meq PO ONETIME ONE Stop: 07/02/20 17:33 Last Admin: 07/02/20 18:24 Dose: 60 meq Documented by: Potassium Chloride (Klor-Con 10) 60 meq PO ONETIME ONE Stop: 07/03/20 05:00 Last Admin: 07/03/20 10:21 Dose: Not Given Documented by: Potassium Chloride (Klor-Con M20) 60 meq PO ONETIME ONE Stop: 07/03/20 06:31 Last Admin: 07/03/20 06:23 Dose: 60 meq Documented by: Potassium Chloride (Klor-Con M20) 60 meq PO ONETIME ONE Stop: 07/03/20 08:31 Last Admin: 07/03/20 08:41 Dose: 60 meq Documented by: Potassium Chloride (Klor-Con 10) 60 meq PO ONETIME ONE Stop: 07/03/20 11:14 Last Admin: 07/03/20 12:14 Dose: Not Given Documented by: Potassium Chloride (Klor-Con 10) 40 meq PO ONETIME ONE Stop: 07/03/20 19:11 Last Admin: 07/03/20 19:22 Dose: 40 meq Documented by: Potassium Chloride (Klor-Con 10) 60 meq PO ONETIME ONE Stop: 07/04/20 08:22 Last Admin: 07/04/20 12:53 Dose: Not Given Documented by: Potassium Chloride (Klor-Con M20) 60 meq PO ONETIME ONE Stop: 07/04/20 12:46 Last Admin: 07/04/20 12:54 Dose: 60 meq Documented by: Potassium Chloride (Klor-Con M20) 40 meq PO ONETIME ONE Stop: 07/04/20 17:14 Last Admin: 07/04/20 17:58 Dose: 40 meq Documented by: Potassium Chloride (Klor-Con M20) 40 meq PO ONETIME ONE Stop: 07/06/20 14:21 Last Admin: 07/06/20 16:53 Dose: 40 meq Documented by: Torsemide (Demadex) 50 mg PO DAILY SASHA Last Admin: 07/05/20 08:27 Dose: 50 mg Documented by: - Exam Quality Assessment: DVT Prophylaxis General: Alert, Oriented HEENT: Pupils Equal, Pupils Reactive, EOMI, Mucous Membr. Moist/[place] Neck: Supple, No JVD Lungs: Clear to Auscultation, Normal Respiratory Effort Cardiovascular: Regular Rate, Regular Rhythm GI/Abdominal Exam: Normal Bowel Sounds, Soft, Non-Tender, No Organomegaly, No Distention Back Exam: Normal Inspection, Full Range of Motion Extremities: Normal Inspection, Normal Range of Motion, Non-Tender, No Pedal Edema, Normal Capillary Refill Peripheral Pulses: 2+: Radial (L), Radial (R), Dorsalis Pedis (L), Dorsalis Pedis (R) Skin: Warm, Dry, Intact Wound/Incisions: Healing Well Neurological: No New Focal Deficit Psy/Mental Status: Alert, Normal Affect, Normal Mood Sepsis Event Note - Evaluation Sepsis Screening Result: No Definite Risk - Focused Exam Vital Signs: Vital Signs Temp Pulse Pulse Resp BP BP Pulse Ox 07/08/20 08:50 88 112/97 H 07/08/20 07:47 96.3 F L 74 16 112/97 H 96 07/08/20 04:00 97.6 F 70 18 111/69 96 07/08/20 00:00 97.0 F 64 14 114/74 95 - Problem List & Annotations (1) Acute exacerbation of congestive heart failure SNOMED Code(s): 079434141, 19818494907052 Code(s): I50.9 - HEART FAILURE, UNSPECIFIED Status: Acute Current Visit: Yes Qualifiers: Heart failure type: systolic Qualified Code(s): I50.23 - Acute on chronic systolic (congestive) heart failure (2) Acute kidney injury SNOMED Code(s): 23171129, 84980943 Code(s): N17.9 - ACUTE KIDNEY FAILURE, UNSPECIFIED Status: Acute Current Visit: Yes - Problem List Review Problem List Initiated/Reviewed/Updated: Yes - My Orders Last 24 Hours: My Active Orders 07/08/20 09:00 Patient's Own Medication [Ptom] 0.5 each PO BID 07/08/20 12:00 Communication Order [RC] DAILY 07/08/20 15:00 POTASSIUM,K [CHEM] Routine - Plan Plan:: Plan:: Patient is [id number] gentleman admitted for an acute exacerbation of previously known congestive heart failure and acute on chronic kidney disease. 1. Acute exacerbation of congestive heart failure: trying to establish a appropriate oral diuretic regimen, which has been complicated by hypokalemia/hyperaldosteronism, Adjusted to 25 mg twice daily eplerenone, based on kidney function Per Dr. Scott's recommendations we continue with bumex, 3xweek metolazone and newly adjusted 25 mg eplerenone twice daily. Patient will likely need need chronic IV inotropic infusion and pacer/defibrillation placement 3. Acute on chronic kidney disease: -Stable, BUN 57, creatinine 2. 2 Monitor CMP daily with a.m. labs Avoid nephrotoxic agents Consider 250 cc normal saline 4. History of A. fib: -Stable, no telemetry changes noted On Eliquis, Continue to monitor on telemetry 5. Sacral ulcer: Improved -Lidocaine patch for 12 hrs -Tagoderm -We will get cushion to help relieve pressure off sacral region 6. Deconditioning: -Continue to work with physical therapy. -Patient is slowly showing improvement as he is quite motivated. Waiting for SNF bed availability to assist with strengthening, medication adherence. 7. Constipation: Resolved, continue with MiraLAX 1 time daily 8. Past medical history of obstructive sleep apnea, hypertension, hypothyroidism; continue home medications;
[2020-07-08] MEDS ORDERED: Potassium Chloride 20 MEQ Tab.ER PO ONE (11:40)
[2020-07-08] MEDS: Gabapentin 300 MG Cap PO SCH (23:02)
[2020-07-08] MEDS: QUEtiapine 25 MG Tab PO SCH (23:03)
[2020-07-08] MEDS: Melatonin 3 MG Tab PO SCH (23:06)
[2020-07-09] MEDS: Lidocaine 5% 700 MG Patch TRDERM SCH (01:04)
[2020-07-09 06:06] LABS: CARBON DIOXIDE,CO2 32.2 mmol/L (21.0-32.0); POTASSIUM,K 3.8 mmol/L (3.5-5.1)
[2020-07-09] MEDS: Levothyroxine 25 MCG Tab PO SCH (06:51)
[2020-07-09] MEDS: Levothyroxine 112 MCG Tab PO SCH (06:52)
[2020-07-09] MEDS: hydrOXYzine HCl 25 MG Tab PO PRN (06:52)
[2020-07-09] MEDS: Potassium Chloride 20 MEQ Tab.ER PO SCH ×2 (09:37→20:15)
[2020-07-09] MEDS: Sertraline 50 MG Tab PO SCH (09:37)
[2020-07-09] MEDS: Apixaban 5 MG Tab PO SCH ×2 (09:37→20:15)
[2020-07-09] MEDS: Bumetanide 1 MG Tab PO SCH ×2 (09:37→14:11)
[2020-07-09] MEDS: levETIRAcetam 500 MG Tab PO SCH ×2 (09:37→20:28)
[2020-07-09] MEDS ORDERED: Acetaminophen/HYDROcodone 325-5 MG Tab PO PRN ×2 (11:24→11:53)
--- NOTE | 2020-07-09 11:41 | ECHO ---
EXAM DATE: 06/25/20 PATIENT'S AGE: 75 The ECHO report has been scanned into [facility] and can be seen in this patient's EMR (Electronic Medical Record) under the REPORTS section. The report has also been scanned into PACS. SELVIN
--- NOTE | 2020-07-09 12:49 | PCM.PN ---
- General Info Date of Service: 07/09/20 Admission Dx/Problem (Free Text): 75M history of nonischemic cardiomyopathy chronic persistent atrial fibrillation, failed attempted cardioversion, hyperaldosteronism, CKD baseline creatinine 1.3-1.8 with decompensated systolic heart failure Subjective Update: Patient is a 75-year-old gentleman admitted for CHF exacerbation. There were no overnight events. Patient states that he feels better, there is no swelling in the legs at this time, back feels better. Patient denies any shortness of breath, currently is breathing comfortably on room air. Does complain of some shoulder pain related to previous shoulder injury. - Review of Systems General: Reports: No Symptoms HEENT: Reports: No Symptoms Pulmonary: Reports: No Symptoms Cardiovascular: Reports: No Symptoms Gastrointestinal: Reports: No Symptoms Genitourinary: Reports: No Symptoms Musculoskeletal: Reports: Joint Pain (Right shoulder pain) Skin: Reports: No Symptoms Neurological: Reports: No Symptoms Psychiatric: Reports: No Symptoms - Patient Data Vitals - Most Recent: Last Vital Signs Temp 96.6 F L 07/09/20 12:00 Pulse 83 07/09/20 12:00 Resp 16 07/09/20 12:00 BP 92/68 07/09/20 12:00 Pulse Ox 94 L 07/09/20 12:00 Weight - Most Recent: 182 lb 12.211 oz I&O - Last 24 Hours: Intake & Output 07/08/20 07/09/20 07/09/20 22:59 06:59 14:59 Intake Total 480 780 Output Total 800 100 Balance -320 680 Lab Results Last 24 Hours: Laboratory Results - last 24 hr 07/08/20 07/09/20 07/09/20 Range/Units 15:03 05:30 05:30 WBC 7.65 (4.0-11.0) K/uL RBC 4.64 (4.50-5.90) M/uL Hgb 14.2 (13.0-17.0) g/dL Hct 44.7 (38.0-50.0) % MCV 96.3 (80.0-98.0) fL MCH 30.6 (27.0-32.0) pg MCHC 31.8 (31.0-37.0) g/dL RDW Std Deviation 51.5 (28.0-62.0) fl RDW Coeff of Mike 15 (11.0-15.0) % Plt Count 184 (150-400) K/uL MPV 10.90 (7.40-12.00) fL Neut % (Auto) 63.7 (48.0-80.0) % Lymph % (Auto) 26.9 (16.0-40.0) % [place] % (Auto) 6.9 (0.0-15.0) % Eos % (Auto) 2.1 (0.0-7.0) % Baso % (Auto) 0.4 (0.0-1.5) % Neut # (Auto) 4.9 (1.4-5.7) K/uL Lymph # (Auto) 2.1 (0.6-2.4) K/uL [place] # (Auto) 0.5 (0.0-0.8) K/uL Eos # (Auto) 0.2 (0.0-0.7) K/uL Baso # (Auto) 0.0 (0.0-0.1) K/uL Nucleated RBC % 0.0 /100WBC Nucleated RBCs # 0 K/uL Sodium 140 (136-148) mmol/L Potassium 3.3 L 3.8 (3.5-5.1) mmol/L Chloride 100 (98-107) mmol/L Carbon Dioxide 32.2 H (21.0-32.0) mmol/L BUN 63 H (7.0-18.0) mg/dL Creatinine 2.2 H (0.8-1.3) mg/dL Est Cr Clr Drug Dosing 30.86 mL/min Estimated GFR (MDRD) 29.2 ml/min Glucose 88 (74-106) mg/dL Calcium 9.7 (8.5-10.1) mg/dL Magnesium 1.9 (1.8-2.4) mg/dL Med Orders - Current: Current Medications Acetaminophen (Tylenol) 650 mg PO Q4H PRN PRN Reason: Pain (Mild 1-3)/fever Last Admin: 07/03/20 23:45 Dose: 650 mg Documented by: Hydrocodone Bitart/Acetaminophen ([place] 325-5 Mg) 1 tab PO Q8H PRN PRN Reason: Pain Al Hydroxide/Mg Hydroxide (Mag-Al Plus) 5 ml PO Q6H PRN PRN Reason: Heartburn Last Admin: 07/04/20 10:31 Dose: 5 ml Documented by: Albuterol/Ipratropium (Combivent Respimat) 0 gm INH Q4HRRT PRN PRN Reason: Dyspnea Last Admin: 06/29/20 15:18 Dose: 1 puff Documented by: Apixaban (Eliquis) 5 mg PO BID [facility] Last Admin: 07/09/20 09:37 Dose: 5 mg Documented by: Bumetanide (Bumex) 2 mg PO BIDDIURETIC [facility] Last Admin: 07/09/20 09:37 Dose: 2 mg Documented by: Carvedilol (Coreg) 12.5 mg PO BID [facility] Last Admin: 07/08/20 23:02 Dose: 12.5 mg Documented by: Gabapentin (Neurontin) 300 mg PO BEDTIME [facility] Last Admin: 07/08/20 23:02 Dose: 300 mg Documented by: Hydroxyzine HCl (Atarax) 25 mg PO TID PRN PRN Reason: Anxiety Last Admin: 07/09/20 06:52 Dose: 25 mg Documented by: Levetiracetam (Keppra) 1,000 mg PO BID [facility] Last Admin: 07/09/20 09:37 Dose: 1,000 mg Documented by: Levothyroxine Sodium (Levothyroxine) 112 mcg PO ACBRK [facility] Last Admin: 07/09/20 06:52 Dose: 112 mcg Documented by: Levothyroxine Sodium (Levothyroxine) 25 mcg PO ACBREAKFAST [facility] Last Admin: 07/09/20 06:51 Dose: 25 mcg Documented by: Lidocaine (Lidoderm 5%) 700 mg TRDERM Q24H [facility] Last Admin: 07/09/20 01:04 Dose: Not Given Documented by: Losartan Potassium (Cozaar) 25 mg PO DAILY [facility] Last Admin: 07/08/20 08:50 Dose: 25 mg Documented by: Melatonin (Melatonin) 18 mg PO BEDTIME [facility] Last Admin: 07/08/20 23:06 Dose: 18 mg Documented by: Metolazone (Zaroxolyn) 5 mg PO TUTHSA@0900 [facility] Last Admin: 07/07/20 08:20 Dose: 5 mg Documented by: Miscellaneous Information (Remove Patch) 1 ea TOP Q24H [facility] Last Admin: 07/08/20 12:02 Dose: Not Given Documented by: Eplerenone 50mg Tab 0.5 each PO BID [facility] Last Admin: 07/09/20 09:38 Dose: 0.5 each Documented by: Potassium Chloride (Klor-Con M20) 60 meq PO BID [facility] Last Admin: 07/09/20 09:37 Dose: 60 meq Documented by: Quetiapine Fumarate (Seroquel) 25 mg PO BEDTIME [facility] Last Admin: 07/08/20 23:03 Dose: 25 mg Documented by: Sertraline HCl (Zoloft) 50 mg PO DAILY [facility] Last Admin: 07/09/20 09:37 Dose: 50 mg Documented by: Sodium Chloride (Saline Flush) 10 ml FLUSH ASDIRECTED PRN PRN Reason: Keep Vein Open Last Admin: 06/25/20 18:42 Dose: 10 ml Documented by: Sodium Chloride (Saline Flush) 2.5 ml FLUSH ASDIRECTED PRN PRN Reason: Keep Vein Open Last Admin: 06/25/20 18:42 Dose: 2.5 ml Documented by: Discontinued Medications Hydrocodone Bitart/Acetaminophen ([place] 325-5 Mg) 1 tab PO Q4H PRN PRN Reason: Pain (moderate 4-6) Bumetanide (Bumex) 1 mg PO BIDDIURETIC [facility] Carvedilol (Coreg) 25 mg PO BID [facility] Last Admin: 06/30/20 09:09 Dose: 25 mg Documented by: Carvedilol (Coreg) 12.5 mg PO BID [facility] Last Admin: 07/05/20 08:29 Dose: 12.5 mg Documented by: Furosemide (Lasix) 40 mg IVPUSH NOW ONE Stop: 06/25/20 19:48 Last Admin: 06/25/20 20:46 Dose: 40 mg Documented by: Furosemide (Lasix) 40 mg IVPUSH BID [facility] Last Admin: 06/28/20 08:57 Dose: 40 mg Documented by: Furosemide (Lasix) 20 mg IVPUSH BID [facility] Last Admin: 06/28/20 11:25 Dose: Not Given Documented by: Furosemide (Lasix) 40 mg IVPUSH BID [facility] Last Admin: 07/02/20 08:04 Dose: Not Given Documented by: Furosemide (Lasix) 40 mg IVPUSH NOW ONE Stop: 06/30/20 13:07 Last Admin: 06/30/20 14:03 Dose: 40 mg Documented by: Furosemide (Lasix) 40 mg IVPUSH NOW ONE Stop: 07/01/20 13:58 Last Admin: 07/01/20 14:09 Dose: Not Given Documented by: Furosemide (Lasix) 20 mg IVPUSH ONETIME ONE Stop: 07/01/20 13:59 Last Admin: 07/01/20 14:08 Dose: 20 mg Documented by: Furosemide (Lasix) 40 mg IVPUSH NOW ONE Stop: 07/02/20 17:32 Last Admin: 07/02/20 18:24 Dose: 40 mg Documented by: Furosemide (Lasix) 40 mg IVPUSH NOW ONE Stop: 07/06/20 06:01 Last Admin: 07/06/20 06:05 Dose: 40 mg Documented by: Furosemide (Lasix) 40 mg IVPUSH NOW ONE Stop: 07/05/20 17:39 Last Admin: 07/05/20 18:04 Dose: 40 mg Documented by: Lactated Ringer's (Ringers, Lactated) 1,000 mls @ 125 mls/hr IV ASDIRECTED [facility] Last Admin: 06/25/20 18:41 Dose: 125 mls/hr Documented by: Potassium Chloride 40 meq/ (Sodium Chloride) 270 mls @ 67.5 mls/hr IV ONETIME ONE Stop: 06/29/20 14:14 Last Admin: 06/29/20 11:07 Dose: 67.5 mls/hr Documented by: Levofloxacin/Dextrose 750 mg/ (Premix) 150 mls @ 100 mls/hr IV Q48H [facility] Last Admin: 07/01/20 10:08 Dose: 100 mls/hr Documented by: Potassium Chloride 60 meq/ (Sodium Chloride) 530 mls @ 88.333 mls/hr IV ONETIME ONE Stop: 07/01/20 15:44 Last Admin: 07/01/20 10:04 Dose: 88.333 mls/hr Documented by: Potassium Chloride/Sodium Chloride (Normal Saline With 40 Meq Kcl) 250 mls @ 250 mls/hr IV ASDIRECTED [facility] Potassium Chloride 40 meq/ (Premix) 100 mls @ 25 mls/hr IV ONETIME ONE Stop: 07/01/20 20:29 Last Admin: 07/01/20 17:05 Dose: 25 mls/hr Documented by: Potassium Chloride 40 meq/ (Sodium Chloride) 270 mls @ 67.5 mls/hr IV 07/02/20@0730 [facility] Stop: 07/02/20 11:29 Last Admin: 07/02/20 08:13 Dose: 67.5 mls/hr Documented by: Potassium Chloride 40 meq/ (Sodium Chloride) 270 mls @ 67.5 mls/hr IV ONETIME ONE Stop: 07/02/20 15:59 Last Admin: 07/02/20 12:27 Dose: 67.5 mls/hr Documented by: Magnesium Sulfate (Magnesium Sulfate In Water Premix) 2 gm in 50 mls @ 25 mls/hr IV NOW ONE Stop: 07/03/20 07:14 Last Admin: 07/03/20 06:23 Dose: 25 mls/hr Documented by: Potassium Chloride 40 meq/ (Sodium Chloride) 270 mls @ 67.5 mls/hr IV ONETIME ONE Stop: 07/03/20 11:59 Last Admin: 07/03/20 08:35 Dose: 67.5 mls/hr Documented by: Potassium Chloride 40 meq/ (Sodium Chloride) 270 mls @ 67.52 mls/hr IV ONETIME ONE Stop: 07/03/20 15:14 Last Admin: 07/03/20 12:15 Dose: Not Given Documented by: Potassium Chloride 40 meq/ (Sodium Chloride) 270 mls @ 67.5 mls/hr IV ONETIME ONE Stop: 07/04/20 12:29 Last Admin: 07/04/20 10:13 Dose: 67.5 mls/hr Documented by: Levofloxacin (Levaquin) 750 mg PO Q24H [facility] Stop: 07/04/20 10:01 Last Admin: 07/04/20 10:17 Dose: 750 mg Documented by: Lidocaine (Lidoderm 5%) 700 mg TOP DAILY [facility] Last Admin: 06/29/20 10:23 Dose: Not Given Documented by: Lidocaine (Lidoderm 5%) 700 mg TOP Q24H [facility] Last Admin: 07/03/20 21:52 Dose: 700 mg Documented by: Lidocaine (Lidoderm 5%) 700 mg TRDERM Q24H [facility] Last Admin: 07/04/20 16:27 Dose: Not Given Documented by: Lidocaine (Lidoderm 5%) 700 mg TOP Q24H [facility] Last Admin: 07/06/20 14:08 Dose: Not Given Documented by: Losartan Potassium (Cozaar) 100 mg PO DAILY [facility] Last Admin: 06/28/20 08:53 Dose: 100 mg Documented by: Magnesium Oxide (Magnesium Oxide) 400 mg PO ONETIME ONE Stop: 07/02/20 10:58 Last Admin: 07/02/20 11:34 Dose: 400 mg Documented by: Metolazone (Zaroxolyn) 5 mg PO BIDDIURETIC [facility] Last Admin: 07/02/20 08:02 Dose: 5 mg Documented by: Metolazone (Zaroxolyn) 5 mg PO TUTHSA@0900 [facility] Last Admin: 07/03/20 07:59 Dose: Not Given Documented by: Morphine Sulfate (Morphine) 2 mg IVPUSH ONETIME ONE Stop: 06/25/20 19:29 Last Admin: 06/25/20 20:20 Dose: 2 mg Documented by: Oxycodone HCl (Oxycodone) 5 mg PO Q6H PRN PRN Reason: Pain (moderate 4-6) Last Admin: 07/02/20 08:11 Dose: 5 mg Documented by: Eplerenone 50 Mg 1 each PO BID [facility] Last Admin: 07/07/20 08:22 Dose: 1 each Documented by: Eplerenone 50mg Tab 0.5 each PO BID [facility] Last Admin: 07/07/20 14:17 Dose: Not Given Documented by: Polyethylene Glycol (Miralax) 17 gm PO ONETIME ONE Stop: 07/04/20 16:15 Last Admin: 07/04/20 16:43 Dose: 17 gm Documented by: Potassium Chloride (Potassium Chloride) 40 meq PO ONETIME ONE Stop: 06/27/20 12:37 Last Admin: 06/27/20 16:24 Dose: Not Given Documented by: Potassium Chloride (Potassium Chloride) 40 meq PO ONETIME ONE Stop: 06/27/20 16:16 Last Admin: 06/27/20 16:24 Dose: 40 meq Documented by: Potassium Chloride (Klor-Con M20) 40 meq PO ONETIME ONE Stop: 06/28/20 10:01 Last Admin: 06/28/20 10:53 Dose: 40 meq Documented by: Potassium Chloride (Klor-Con M20) 40 meq PO ONETIME ONE Stop: 06/29/20 10:46 Last Admin: 06/29/20 10:43 Dose: 40 meq Documented by: Potassium Chloride (Klor-Con M20) 40 meq PO ONETIME ONE Stop: 07/01/20 09:31 Last Admin: 07/01/20 10:02 Dose: 40 meq Documented by: Potassium Chloride (Potassium Chloride) 60 meq PO ONETIME ONE Stop: 07/01/20 15:46 Last Admin: 07/01/20 16:31 Dose: 60 meq Documented by: Potassium Chloride (Klor-Con M20) 60 meq PO ONETIME ONE Stop: 07/02/20 06:43 Last Admin: 07/02/20 07:12 Dose: 60 meq Documented by: Potassium Chloride (Klor-Con 10) 60 meq PO ONETIME ONE Stop: 07/02/20 16:15 Last Admin: 07/02/20 17:10 Dose: 60 meq Documented by: Potassium Chloride (Klor-Con 10) 60 meq PO ONETIME ONE Stop: 07/02/20 17:33 Last Admin: 07/02/20 18:24 Dose: 60 meq Documented by: Potassium Chloride (Klor-Con 10) 60 meq PO ONETIME ONE Stop: 07/03/20 05:00 Last Admin: 07/03/20 10:21 Dose: Not Given Documented by: Potassium Chloride (Klor-Con M20) 60 meq PO ONETIME ONE Stop: 07/03/20 06:31 Last Admin: 07/03/20 06:23 Dose: 60 meq Documented by: Potassium Chloride (Klor-Con M20) 60 meq PO ONETIME ONE Stop: 07/03/20 08:31 Last Admin: 07/03/20 08:41 Dose: 60 meq Documented by: Potassium Chloride (Klor-Con 10) 60 meq PO ONETIME ONE Stop: 07/03/20 11:14 Last Admin: 07/03/20 12:14 Dose: Not Given Documented by: Potassium Chloride (Klor-Con 10) 40 meq PO ONETIME ONE Stop: 07/03/20 19:11 Last Admin: 07/03/20 19:22 Dose: 40 meq Documented by: Potassium Chloride (Klor-Con 10) 60 meq PO ONETIME ONE Stop: 07/04/20 08:22 Last Admin: 07/04/20 12:53 Dose: Not Given Documented by: Potassium Chloride (Klor-Con M20) 40 meq PO BID [facility] Last Admin: 07/08/20 08:59 Dose: 40 meq Documented by: Potassium Chloride (Klor-Con M20) 60 meq PO ONETIME ONE Stop: 07/04/20 12:46 Last Admin: 07/04/20 12:54 Dose: 60 meq Documented by: Potassium Chloride (Klor-Con M20) 40 meq PO ONETIME ONE Stop: 07/04/20 17:14 Last Admin: 07/04/20 17:58 Dose: 40 meq Documented by: Potassium Chloride (Klor-Con M20) 40 meq PO ONETIME ONE Stop: 07/06/20 14:21 Last Admin: 07/06/20 16:53 Dose: 40 meq Documented by: Potassium Chloride (Klor-Con M20) 20 meq PO ONETIME ONE Stop: 07/08/20 11:41 Last Admin: 07/08/20 12:01 Dose: 20 meq Documented by: Torsemide (Demadex) 50 mg PO DAILY [facility] Last Admin: 07/05/20 08:27 Dose: 50 mg Documented by: - Exam Quality Assessment: DVT Prophylaxis General: Alert, Oriented, Cooperative, No Acute Distress HEENT: Pupils Equal, Pupils Reactive, EOMI, Mucous Membr. Moist/[place] Neck: Supple, No JVD Lungs: Clear to Auscultation, Normal Respiratory Effort Cardiovascular: Irregular Rhythm GI/Abdominal Exam: Normal Bowel Sounds, Soft, Non-Tender, No Organomegaly, No Distention, No Mass Extremities: Normal Inspection, Normal Range of Motion, Non-Tender, No Pedal Edema, Normal Capillary Refill, Other (Right shoulder pain due to previous rotator cuff injury from a fall last July 2019) Sepsis Event Note - Evaluation Sepsis Screening Result: No Definite Risk - Focused Exam Vital Signs: Vital Signs Temp Pulse Resp BP Pulse Ox 07/09/20 12:00 96.6 F L 83 16 92/68 94 L 07/09/20 09:32 97.9 F 76 16 99/65 96 07/09/20 04:00 98.2 F 94 16 111/75 96 - Problem List & Annotations (1) Acute exacerbation of congestive heart failure SNOMED Code(s): 858223501, 47554160142945 Code(s): I50.9 - HEART FAILURE, UNSPECIFIED Status: Acute Current Visit: Yes Qualifiers: Heart failure type: systolic Qualified Code(s): I50.23 - Acute on chronic systolic (congestive) heart failure (2) Acute kidney injury SNOMED Code(s): 98826264, 57001722 Code(s): N17.9 - ACUTE KIDNEY FAILURE, UNSPECIFIED Status: Acute Current Visit: Yes - Problem List Review Problem List Initiated/Reviewed/Updated: Yes - My Orders Last 24 Hours: My Active Orders 07/08/20 12:00 Communication Order [RC] DAILY 07/08/20 21:00 Potassium Chloride [Klor-Con M20] 60 meq PO BID 07/09/20 11:55 Consult to Home Health [CONS] Routine - Plan Plan:: Plan:: Patient is [id number] gentleman admitted for an acute exacerbation of previously known congestive heart failure and acute on chronic kidney disease. 1. Acute exacerbation of congestive heart failure: trying to establish a appropriate oral diuretic regimen, which has been complicated by hypokalemia/hyperaldosteronism, Adjusted to 25 mg twice daily eplerenone, based on kidney function Per Dr. Scott's recommendations we continue with bumex, 3xweek metolazone and newly adjusted 25 mg eplerenone twice daily. We will further discuss with Dr. Scott official plan prior to discharge Patient will likely need need chronic IV inotropic infusion and pacer/defibrillation placement To prevent hypokalemia which is now resolved, will continue with 60 p.o. twice daily with current regimen above 3. Acute on chronic kidney disease: - BUN 63, creatinine 2. 2 Monitor CMP daily with a.m. labs Avoid nephrotoxic agents 4. History of A. fib: -Stable, no telemetry changes noted On Eliquis, Continue to monitor on telemetry 5. Rt. Shoulder Pain: Hydrocodone 5-325 mg every 4 hours as needed 6. Deconditioning: -Continue to work with physical therapy. Home health consulted -Patient is slowly showing improvement as he is quite motivated. 7. Past medical history of obstructive sleep apnea, hypertension, hypothyroidism; continue home medications;
[2020-07-09] MEDS: Carvedilol 12.5 MG Tab PO SCH ×2 (14:12→20:19)
[2020-07-09] MEDS: Losartan 50 MG Tab PO SCH (15:53)
[2020-07-09] MEDS ORDERED: Sodium Chloride 0.9% 500 ML IV ONE (19:30)
[2020-07-09] MEDS: Gabapentin 300 MG Cap PO SCH (20:15)
[2020-07-09] MEDS: QUEtiapine 25 MG Tab PO SCH (20:20)
[2020-07-09] MEDS: Melatonin 3 MG Tab PO SCH (20:24)
[2020-07-10] MEDS: Lidocaine 5% 700 MG Patch TRDERM SCH (03:14)
[2020-07-10 05:17] LABS: CARBON DIOXIDE,CO2 32.4 mmol/L (21.0-32.0); POTASSIUM,K 3.5 mmol/L (3.5-5.1)
[2020-07-10] MEDS: Levothyroxine 112 MCG Tab PO SCH (06:38)
[2020-07-10] MEDS: hydrOXYzine HCl 25 MG Tab PO PRN (06:38)
[2020-07-10] MEDS: Levothyroxine 25 MCG Tab PO SCH (07:43)
[2020-07-10] MEDS: levETIRAcetam 500 MG Tab PO SCH (08:27)
[2020-07-10] MEDS: Sertraline 50 MG Tab PO SCH (08:28)
[2020-07-10] MEDS: Apixaban 5 MG Tab PO SCH (08:28)
[2020-07-10] MEDS: Losartan 50 MG Tab PO SCH (08:28)
[2020-07-10] MEDS: Carvedilol 12.5 MG Tab PO SCH (08:28)
[2020-07-10] MEDS: Metolazone 5 MG Tab PO SCH (08:28)
[2020-07-10] MEDS: Bumetanide 1 MG Tab PO SCH (08:29)
[2020-07-10] MEDS: Potassium Chloride 20 MEQ Tab.ER PO SCH (08:29)
[2020-07-10] MEDS ORDERED: Bumetanide 1 MG Tab PO ONE (09:25)
--- NOTE | 2020-07-10 09:25 | PCM.DCSUM1 ---
Discharge Summary - Hospital Course Brief History: 75-year-old male with past medical history of congestive heart failure with EF of 15%., atrial fibrillation on Eliquis, CAT on CPAP, hypertension, hypothyroidism who presents with several days worsening of shortness of breath. Patient reports increasing leg swelling and orthopnea. Today his noted his lips were blue and she called Dr. Delgado who told them to go to the ED. In the ED he was noted to require 5 L NC to keep sats above 90%. Labs work showed a Creatinine of 2.4 and BNP of 2325 which is elevated from 1300 last month. Diagnosis: Stroke: No - Discharge Data Discharge Date: 07/10/20 Discharge Disposition: Home, W Home Health Agency 06 Condition: Stable - Referral to Home Health Date of Face to Face Encounter: 07/10/20 Reason for Homebound Status: Unable to ambulate less than 20 feet before becoming short of breath Primary Care Physician: Bryant Mccauley MD Skilled Need: Need for skilled service: RN to monitor: Medication education Tiki any changes in medications, assessment of effectiveness of medication changes, assessment of sacral wound healing and dressing changes. Physical therapy: Same strengthening due to weakness from recent hospitalization, deconditioning due to disease process, gait instability and high risk fall. - Discharge Diagnosis/Problem(s) (1) Acute exacerbation of congestive heart failure SNOMED Code(s): 642652788, [id number] ICD Code: I50.9 - HEART FAILURE, UNSPECIFIED Status: Acute Current Visit: Yes Qualifiers: Heart failure type: systolic Qualified Code(s): I50.23 - Acute on chronic systolic (congestive) heart failure (2) Acute kidney injury SNOMED Code(s): 75174115, 23340242 ICD Code: N17.9 - ACUTE KIDNEY FAILURE, UNSPECIFIED Status: Acute Current Visit: Yes - Patient Summary/Data Consults: Consultations 06/27/20 10:20 Consult to Physical Therapy [PT Evaluation and Treatment] [CONS] Urgent 07/02/20 10:52 Consult to Case Management/Merchandising Coordinator [CONS] Routine 07/09/20 11:55 Consult to Home Health [CONS] Routine Hospital Course: Patient was admitted with shortness of breath secondary to CHF exacerbation with some signs of cyanosis in his lips and fingertips. Patient was put on supplemental oxygen given appropriate cardiac medications to help remove excess fluid from his lungs and legs. Patient has been closely monitored we have tweaked his home medication regimen. Previously the challenge was keeping up with his potassium while diuresing patient appropriately. Establish overall appropriate regimen, patient has been breathing comfortably on room air for several days as well as working with physical therapy to recondition himself. [facility] was contacted for possible transfer upon discharge however application is still pending therefore in the interim patient will go home with home health to effectively help with medication education, assessing its effectiveness, as well as providing strengthening of his physical therapy. - Patient Instructions Diet: Heart Healthy Diet Activity: As Tolerated Showering/Bathing: May Shower - Discharge Plan *PRESCRIPTION DRUG MONITORING PROGRAM REVIEWED*: Not Applicable *COPY OF PRESCRIPTION DRUG MONITORING REPORT IN PATIENT DOC: Not Applicable Prescriptions/Med Rec: Bumetanide [Bumex] 2 mg PO DAILY 30 Days #30 tab RX: Losartan [Cozaar] 25 mg PO DAILY 30 Days #15 tablet RX: Potassium Chloride [Klor-Con M20] 60 meq PO BID 30 Days #90 tab.er RX: Levothyroxine 25 mcg PO ACBREAKFAST 30 Days #30 tablet RX: Lidocaine 5% [Lidoderm 5%] 700 mg TRDERM Q24H 15 Days #15 patch RX: Patient's Own Medication [Ptom] 0.5 each PO BID 30 Days #30 each RX: metOLazone [Zaroxolyn] 5 mg PO TUTHSA@0900 30 Days #12 tablet Home Medications: Home Meds RX: Levothyroxine 137 mcg PO DAILY 01/09/18 [History] RX: Melatonin 20 mg PO BEDTIME 01/09/18 [History] RX: Terazosin HCl [Terazosin] 10 mg PO DAILY 01/09/18 [History] RX: levETIRAcetam [Spritam] 1,000 mg PO BID 01/09/18 [History] RX: Gabapentin [Neurontin] 300 mg PO BEDTIME 02/03/20 [History] RX: Apixaban [Eliquis] 5 mg PO BID #60 tablet 02/05/20 [Rx] RX: Potassium Chloride [Klor-Con M20] 20 meq PO BID 90 Days #180 tab.er 03/14/20 [Rx] RX: Losartan [Cozaar] 100 mg PO DAILY 06/26/20 [History] RX: QUEtiapine [SEROquel] 25 mg PO BEDTIME 06/26/20 [History] RX: Sertraline [Zoloft] 50 mg PO DAILY 06/26/20 [History] RX: Torsemide 50 mg PO DAILY 06/26/20 [History] RX: carvediloL [Carvedilol] 25 mg PO BID 06/26/20 [History] RX: hydrOXYzine HCL [hydrOXYzine] 25 mg PO TID PRN 06/26/20 [History] RX: levETIRAcetam [Keppra] 1,000 mg PO BID 06/26/20 [History] RX: Eplerenone [Inspra] 25 mg PO BID 07/07/20 [History] Bumetanide [Bumex] 2 mg PO DAILY 30 Days #30 tab 07/10/20 [Rx] RX: Acetaminophen [Tylenol] 650 mg PO Q4H PRN tablet 07/10/20 [Rx] RX: Acetaminophen/HYDROcodone [[place] 325-5 MG] 1 tab PO Q8H PRN tablet 07/10/20 [Rx] RX: Levothyroxine 25 mcg PO ACBREAKFAST 30 Days #30 tablet 07/10/20 [Rx] RX: Lidocaine 5% [Lidoderm 5%] 700 mg TRDERM Q24H 15 Days #15 patch 07/10/20 [Rx] RX: Losartan [Cozaar] 25 mg PO DAILY 30 Days #15 tablet 07/10/20 [Rx] RX: Patient's Own Medication [Ptom] 0.5 each PO BID 30 Days #30 each 07/10/20 [Rx] RX: Potassium Chloride [Klor-Con M20] 60 meq PO BID 30 Days #90 tab.er 07/10/20 [Rx] RX: metOLazone [Zaroxolyn] 5 mg PO TUTHSA@0900 30 Days #12 tablet 07/10/20 [Rx] Oxygen Therapy Mode: Room Air Patient Handouts: Shortness of Breath, Adult, [id number], Weakness, [id number] Referrals: Chyna Woody MD [Physician] - 07/16/20 2:00 pm (Please arrive 15mins early, bring ID, insurance info and own mask.) Bryant Mccauley MD [Primary Care Provider] - 07/19/20 12:30 pm - Discharge Summary/Plan Comment DC Time >30 min.: No Discharge Summary/Plan Comment: Patient is to follow-up with Dr. Scott in cardiology closely as well as his PCP to ensure that he continues to follow appropriate regimen and continues to tolerate it well. We will also have assessment of CMP to recheck his potassium levels. Furthermore Dr. Scott has arranged for referral for possible inotropic infusions which he can further discuss on follow-up. Home health will also be involved with ensuring medication adherence and providing physical therapy for strengthening. - Patient Data Vitals - Most Recent: Last Vital Signs Temp 97.8 F 07/10/20 08:00 Pulse 80 07/10/20 08:28 Resp 18 07/10/20 08:00 BP 108/72 07/10/20 08:28 Pulse Ox 95 07/10/20 08:00 Weight - Most Recent: 181 lb 7.047 oz I&O - Last 24 hours: Intake & Output 07/09/20 07/10/20 07/10/20 22:59 06:59 14:59 Intake Total 480 1000 Output Total 675 1200 Balance -195 -200 Lab Results - Last 24 hrs: Laboratory Results - last 24 hr 07/09/20 07/10/20 07/10/20 Range/Units 05:30 04:44 04:44 WBC 6.89 (4.0-11.0) K/uL RBC 4.60 (4.50-5.90) M/uL Hgb 14.1 (13.0-17.0) g/dL Hct 44.1 (38.0-50.0) % MCV 95.9 (80.0-98.0) fL MCH 30.7 (27.0-32.0) pg MCHC 32.0 (31.0-37.0) g/dL RDW Std Deviation 51.3 (28.0-62.0) fl RDW Coeff of Mike 15 (11.0-15.0) % Plt Count 181 (150-400) K/uL MPV 10.60 (7.40-12.00) fL Neut % (Auto) 62.7 (48.0-80.0) % Lymph % (Auto) 28.2 (16.0-40.0) % [place] % (Auto) 6.0 (0.0-15.0) % Eos % (Auto) 2.5 (0.0-7.0) % Baso % (Auto) 0.6 (0.0-1.5) % Neut # (Auto) 4.3 (1.4-5.7) K/uL Lymph # (Auto) 1.9 (0.6-2.4) K/uL [place] # (Auto) 0.4 (0.0-0.8) K/uL Eos # (Auto) 0.2 (0.0-0.7) K/uL Baso # (Auto) 0.0 (0.0-0.1) K/uL Nucleated RBC % 0.0 /100WBC Nucleated RBCs # 0 K/uL Sodium 135 L (136-148) mmol/L Potassium 3.5 (3.5-5.1) mmol/L Chloride 98 (98-107) mmol/L Carbon Dioxide 32.4 H (21.0-32.0) mmol/L BUN 66 H (7.0-18.0) mg/dL Creatinine 2.1 H (0.8-1.3) mg/dL Est Cr Clr Drug Dosing 32.33 mL/min Estimated GFR (MDRD) 30.8 ml/min Glucose 99 (74-106) mg/dL Calcium 9.5 (8.5-10.1) mg/dL Magnesium 1.8 (1.8-2.4) mg/dL B-Natriuretic Peptide 2360 H (<100) PG/ML Med Orders - Current: Current Medications Acetaminophen (Tylenol) 650 mg PO Q4H PRN PRN Reason: Pain (Mild 1-3)/fever Last Admin: 07/03/20 23:45 Dose: 650 mg Documented by: Hydrocodone Bitart/Acetaminophen ([place] 325-5 Mg) 1 tab PO Q8H PRN PRN Reason: Pain Last Admin: 07/09/20 14:10 Dose: 1 tab Documented by: Al Hydroxide/Mg Hydroxide (Mag-Al Plus) 5 ml PO Q6H PRN PRN Reason: Heartburn Last Admin: 07/04/20 10:31 Dose: 5 ml Documented by: Albuterol/Ipratropium (Combivent Respimat) 0 gm INH Q4HRRT PRN PRN Reason: Dyspnea Last Admin: 06/29/20 15:18 Dose: 1 puff Documented by: Apixaban (Eliquis) 5 mg PO BID [facility] Last Admin: 07/10/20 08:28 Dose: 5 mg Documented by: Bumetanide (Bumex) 2 mg PO BIDDIURETIC [facility] Last Admin: 07/10/20 08:29 Dose: 2 mg Documented by: Carvedilol (Coreg) 12.5 mg PO BID [facility] Last Admin: 07/10/20 08:28 Dose: 12.5 mg Documented by: Gabapentin (Neurontin) 300 mg PO BEDTIME [facility] Last Admin: 07/09/20 20:15 Dose: 300 mg Documented by: Hydroxyzine HCl (Atarax) 25 mg PO TID PRN PRN Reason: Anxiety Last Admin: 07/10/20 06:38 Dose: 25 mg Documented by: Levetiracetam (Keppra) 1,000 mg PO BID [facility] Last Admin: 07/10/20 08:27 Dose: 1,000 mg Documented by: Levothyroxine Sodium (Levothyroxine) 112 mcg PO ACBRK [facility] Last Admin: 07/10/20 06:38 Dose: 112 mcg Documented by: Levothyroxine Sodium (Levothyroxine) 25 mcg PO ACBREAKFAST [facility] Last Admin: 07/10/20 07:43 Dose: 25 mcg Documented by: Lidocaine (Lidoderm 5%) 700 mg TRDERM Q24H [facility] Last Admin: 07/10/20 03:14 Dose: Not Given Documented by: Losartan Potassium (Cozaar) 25 mg PO DAILY [facility] Last Admin: 07/10/20 08:28 Dose: 25 mg Documented by: Melatonin (Melatonin) 18 mg PO BEDTIME [facility] Last Admin: 07/09/20 20:24 Dose: 18 mg Documented by: Metolazone (Zaroxolyn) 5 mg PO TUTHSA@0900 [facility] Last Admin: 07/10/20 08:28 Dose: 5 mg Documented by: Miscellaneous Information (Remove Patch) 1 ea TOP Q24H [facility] Last Admin: 07/09/20 14:15 Dose: Not Given Documented by: Eplerenone 50mg Tab 0.5 each PO BID [facility] Last Admin: 07/10/20 08:34 Dose: 0.5 each Documented by: Potassium Chloride (Klor-Con M20) 60 meq PO BID [facility] Last Admin: 07/10/20 08:29 Dose: 60 meq Documented by: Quetiapine Fumarate (Seroquel) 25 mg PO BEDTIME [facility] Last Admin: 07/09/20 20:20 Dose: 25 mg Documented by: Sertraline HCl (Zoloft) 50 mg PO DAILY [facility] Last Admin: 07/10/20 08:28 Dose: 50 mg Documented by: Sodium Chloride (Saline Flush) 10 ml FLUSH ASDIRECTED PRN PRN Reason: Keep Vein Open Last Admin: 06/25/20 18:42 Dose: 10 ml Documented by: Sodium Chloride (Saline Flush) 2.5 ml FLUSH ASDIRECTED PRN PRN Reason: Keep Vein Open Last Admin: 06/25/20 18:42 Dose: 2.5 ml Documented by: Discontinued Medications Hydrocodone Bitart/Acetaminophen ([place] 325-5 Mg) 1 tab PO Q4H PRN PRN Reason: Pain (moderate 4-6) Bumetanide (Bumex) 1 mg PO BIDDIURETIC [facility] Carvedilol (Coreg) 25 mg PO BID [facility] Last Admin: 06/30/20 09:09 Dose: 25 mg Documented by: Carvedilol (Coreg) 12.5 mg PO BID [facility] Last Admin: 07/05/20 08:29 Dose: 12.5 mg Documented by: Furosemide (Lasix) 40 mg IVPUSH NOW ONE Stop: 06/25/20 19:48 Last Admin: 06/25/20 20:46 Dose: 40 mg Documented by: Furosemide (Lasix) 40 mg IVPUSH BID [facility] Last Admin: 06/28/20 08:57 Dose: 40 mg Documented by: Furosemide (Lasix) 20 mg IVPUSH BID [facility] Last Admin: 06/28/20 11:25 Dose: Not Given Documented by: Furosemide (Lasix) 40 mg IVPUSH BID [facility] Last Admin: 07/02/20 08:04 Dose: Not Given Documented by: Furosemide (Lasix) 40 mg IVPUSH NOW ONE Stop: 06/30/20 13:07 Last Admin: 06/30/20 14:03 Dose: 40 mg Documented by: Furosemide (Lasix) 40 mg IVPUSH NOW ONE Stop: 07/01/20 13:58 Last Admin: 07/01/20 14:09 Dose: Not Given Documented by: Furosemide (Lasix) 20 mg IVPUSH ONETIME ONE Stop: 07/01/20 13:59 Last Admin: 07/01/20 14:08 Dose: 20 mg Documented by: Furosemide (Lasix) 40 mg IVPUSH NOW ONE Stop: 07/02/20 17:32 Last Admin: 07/02/20 18:24 Dose: 40 mg Documented by: Furosemide (Lasix) 40 mg IVPUSH NOW ONE Stop: 07/06/20 06:01 Last Admin: 07/06/20 06:05 Dose: 40 mg Documented by: Furosemide (Lasix) 40 mg IVPUSH NOW ONE Stop: 07/05/20 17:39 Last Admin: 07/05/20 18:04 Dose: 40 mg Documented by: Lactated Ringer's (Ringers, Lactated) 1,000 mls @ 125 mls/hr IV ASDIRECTED [facility] Last Admin: 06/25/20 18:41 Dose: 125 mls/hr Documented by: Potassium Chloride 40 meq/ (Sodium Chloride) 270 mls @ 67.5 mls/hr IV ONETIME ONE Stop: 06/29/20 14:14 Last Admin: 06/29/20 11:07 Dose: 67.5 mls/hr Documented by: Levofloxacin/Dextrose 750 mg/ (Premix) 150 mls @ 100 mls/hr IV Q48H [facility] Last Admin: 07/01/20 10:08 Dose: 100 mls/hr Documented by: Potassium Chloride 60 meq/ (Sodium Chloride) 530 mls @ 88.333 mls/hr IV ONETIME ONE Stop: 07/01/20 15:44 Last Admin: 07/01/20 10:04 Dose: 88.333 mls/hr Documented by: Potassium Chloride/Sodium Chloride (Normal Saline With 40 Meq Kcl) 250 mls @ 250 mls/hr IV ASDIRECTED [facility] Potassium Chloride 40 meq/ (Premix) 100 mls @ 25 mls/hr IV ONETIME ONE Stop: 07/01/20 20:29 Last Admin: 07/01/20 17:05 Dose: 25 mls/hr Documented by: Potassium Chloride 40 meq/ (Sodium Chloride) 270 mls @ 67.5 mls/hr IV 07/02/20@0730 [facility] Stop: 07/02/20 11:29 Last Admin: 07/02/20 08:13 Dose: 67.5 mls/hr Documented by: Potassium Chloride 40 meq/ (Sodium Chloride) 270 mls @ 67.5 mls/hr IV ONETIME ONE Stop: 07/02/20 15:59 Last Admin: 07/02/20 12:27 Dose: 67.5 mls/hr Documented by: Magnesium Sulfate (Magnesium Sulfate In Water Premix) 2 gm in 50 mls @ 25 mls/hr IV NOW ONE Stop: 07/03/20 07:14 Last Admin: 07/03/20 06:23 Dose: 25 mls/hr Documented by: Potassium Chloride 40 meq/ (Sodium Chloride) 270 mls @ 67.5 mls/hr IV ONETIME ONE Stop: 07/03/20 11:59 Last Admin: 07/03/20 08:35 Dose: 67.5 mls/hr Documented by: Potassium Chloride 40 meq/ (Sodium Chloride) 270 mls @ 67.52 mls/hr IV ONETIME ONE Stop: 07/03/20 15:14 Last Admin: 07/03/20 12:15 Dose: Not Given Documented by: Potassium Chloride 40 meq/ (Sodium Chloride) 270 mls @ 67.5 mls/hr IV ONETIME ONE Stop: 07/04/20 12:29 Last Admin: 07/04/20 10:13 Dose: 67.5 mls/hr Documented by: Sodium Chloride (Normal Saline) 500 mls @ 70 mls/hr IV ASDIRECTED ONE Stop: 07/10/20 02:38 Last Admin: 07/09/20 20:22 Dose: 70 mls/hr Documented by: Levofloxacin (Levaquin) 750 mg PO Q24H [facility] Stop: 07/04/20 10:01 Last Admin: 07/04/20 10:17 Dose: 750 mg Documented by: Lidocaine (Lidoderm 5%) 700 mg TOP DAILY [facility] Last Admin: 06/29/20 10:23 Dose: Not Given Documented by: Lidocaine (Lidoderm 5%) 700 mg TOP Q24H [facility] Last Admin: 07/03/20 21:52 Dose: 700 mg Documented by: Lidocaine (Lidoderm 5%) 700 mg TRDERM Q24H [facility] Last Admin: 07/04/20 16:27 Dose: Not Given Documented by: Lidocaine (Lidoderm 5%) 700 mg TOP Q24H [facility] Last Admin: 07/06/20 14:08 Dose: Not Given Documented by: Losartan Potassium (Cozaar) 100 mg PO DAILY [facility] Last Admin: 06/28/20 08:53 Dose: 100 mg Documented by: Magnesium Oxide (Magnesium Oxide) 400 mg PO ONETIME ONE Stop: 07/02/20 10:58 Last Admin: 07/02/20 11:34 Dose: 400 mg Documented by: Metolazone (Zaroxolyn) 5 mg PO BIDDIURETIC [facility] Last Admin: 07/02/20 08:02 Dose: 5 mg Documented by: Metolazone (Zaroxolyn) 5 mg PO TUTHSA@0900 [facility] Last Admin: 07/03/20 07:59 Dose: Not Given Documented by: Morphine Sulfate (Morphine) 2 mg IVPUSH ONETIME ONE Stop: 06/25/20 19:29 Last Admin: 06/25/20 20:20 Dose: 2 mg Documented by: Oxycodone HCl (Oxycodone) 5 mg PO Q6H PRN PRN Reason: Pain (moderate 4-6) Last Admin: 07/02/20 08:11 Dose: 5 mg Documented by: Eplerenone 50 Mg 1 each PO BID [facility] Last Admin: 07/07/20 08:22 Dose: 1 each Documented by: Eplerenone 50mg Tab 0.5 each PO BID [facility] Last Admin: 07/07/20 14:17 Dose: Not Given Documented by: Polyethylene Glycol (Miralax) 17 gm PO ONETIME ONE Stop: 07/04/20 16:15 Last Admin: 07/04/20 16:43 Dose: 17 gm Documented by: Potassium Chloride (Potassium Chloride) 40 meq PO ONETIME ONE Stop: 06/27/20 12:37 Last Admin: 06/27/20 16:24 Dose: Not Given Documented by: Potassium Chloride (Potassium Chloride) 40 meq PO ONETIME ONE Stop: 06/27/20 16:16 Last Admin: 06/27/20 16:24 Dose: 40 meq Documented by: Potassium Chloride (Klor-Con M20) 40 meq PO ONETIME ONE Stop: 06/28/20 10:01 Last Admin: 06/28/20 10:53 Dose: 40 meq Documented by: Potassium Chloride (Klor-Con M20) 40 meq PO ONETIME ONE Stop: 06/29/20 10:46 Last Admin: 06/29/20 10:43 Dose: 40 meq Documented by: Potassium Chloride (Klor-Con M20) 40 meq PO ONETIME ONE Stop: 07/01/20 09:31 Last Admin: 07/01/20 10:02 Dose: 40 meq Documented by: Potassium Chloride (Potassium Chloride) 60 meq PO ONETIME ONE Stop: 07/01/20 15:46 Last Admin: 07/01/20 16:31 Dose: 60 meq Documented by: Potassium Chloride (Klor-Con M20) 60 meq PO ONETIME ONE Stop: 07/02/20 06:43 Last Admin: 07/02/20 07:12 Dose: 60 meq Documented by: Potassium Chloride (Klor-Con 10) 60 meq PO ONETIME ONE Stop: 07/02/20 16:15 Last Admin: 07/02/20 17:10 Dose: 60 meq Documented by: Potassium Chloride (Klor-Con 10) 60 meq PO ONETIME ONE Stop: 07/02/20 17:33 Last Admin: 07/02/20 18:24 Dose: 60 meq Documented by: Potassium Chloride (Klor-Con 10) 60 meq PO ONETIME ONE Stop: 07/03/20 05:00 Last Admin: 07/03/20 10:21 Dose: Not Given Documented by: Potassium Chloride (Klor-Con M20) 60 meq PO ONETIME ONE Stop: 07/03/20 06:31 Last Admin: 07/03/20 06:23 Dose: 60 meq Documented by: Potassium Chloride (Klor-Con M20) 60 meq PO ONETIME ONE Stop: 07/03/20 08:31 Last Admin: 07/03/20 08:41 Dose: 60 meq Documented by: Potassium Chloride (Klor-Con 10) 60 meq PO ONETIME ONE Stop: 07/03/20 11:14 Last Admin: 07/03/20 12:14 Dose: Not Given Documented by: Potassium Chloride (Klor-Con 10) 40 meq PO ONETIME ONE Stop: 07/03/20 19:11 Last Admin: 07/03/20 19:22 Dose: 40 meq Documented by: Potassium Chloride (Klor-Con 10) 60 meq PO ONETIME ONE Stop: 07/04/20 08:22 Last Admin: 07/04/20 12:53 Dose: Not Given Documented by: Potassium Chloride (Klor-Con M20) 40 meq PO BID [facility] Last Admin: 07/08/20 08:59 Dose: 40 meq Documented by: Potassium Chloride (Klor-Con M20) 60 meq PO ONETIME ONE Stop: 07/04/20 12:46 Last Admin: 07/04/20 12:54 Dose: 60 meq Documented by: Potassium Chloride (Klor-Con M20) 40 meq PO ONETIME ONE Stop: 07/04/20 17:14 Last Admin: 07/04/20 17:58 Dose: 40 meq Documented by: Potassium Chloride (Klor-Con M20) 40 meq PO ONETIME ONE Stop: 07/06/20 14:21 Last Admin: 07/06/20 16:53 Dose: 40 meq Documented by: Potassium Chloride (Klor-Con M20) 20 meq PO ONETIME ONE Stop: 07/08/20 11:41 Last Admin: 07/08/20 12:01 Dose: 20 meq Documented by: Torsemide (Demadex) 50 mg PO DAILY [facility] Last Admin: 07/05/20 08:27 Dose: 50 mg Documented by:
[2020-07-10] MEDS ORDERED: Magnesium Sulfate/Water 2 GM/50 ML BAG IV ONE (11:15)
[2020-07-10 12:33] VITALS: BP 112/73; PULSE 106
== END 2020-07-10 13:55 | disposition home health service (06) | DRG 291 ==
LOC: MW.ED 18:04 → MW.MS 20:30
PROVIDERS: ADMIT Internal Medicine; ATTEND Internal Medicine
DX: I13.0 Hypertensive heart and chronic kidney disease with heart failure and stage 1 through stage 4 chronic kidney disease, or unspecified chronic kidney disease (principal); N17.9 Acute kidney failure, unspecified; I48.91 Unspecified atrial fibrillation; R29.6 Repeated falls; G47.30 Sleep apnea, unspecified; I50.23 Acute on chronic systolic (congestive) heart failure; I48.21 Permanent atrial fibrillation; I11.0 Hypertensive heart disease with heart failure; Z79.890 Hormone replacement therapy; Z79.899 Other long term (current) drug therapy; Z20.828 Contact with and (suspected) exposure to other viral communicable diseases; Z79.01 Long term (current) use of anticoagulants; G47.33 Obstructive sleep apnea (adult) (pediatric); E03.9 Hypothyroidism, unspecified; R23.0 Cyanosis; E78.5 Hyperlipidemia, unspecified; N40.0 Benign prostatic hyperplasia without lower urinary tract symptoms; G40.909 Epilepsy, unspecified, not intractable, without status epilepticus; N18.9 Chronic kidney disease, unspecified; Z91.14 Patient's other noncompliance with medication regimen; I42.8 Other cardiomyopathies; E87.6 Hypokalemia; L89.159 Pressure ulcer of sacral region, unspecified stage; K59.00 Constipation, unspecified; Z20.822 Contact with and (suspected) exposure to COVID-19
CPT/HCPCS: 36415; 70450; 71045; 71250; 72125; 72170; 80053; 83605; 83880; 84484; 85025; 93005; 96374; 99285; J2270; J7120; U0002; 80048; 81003; 83735; 84100; 84132; 84550; 93306; 97110-GP; 97162-GP; 97530-GP; A9270-GY; J1940; J1956; J3475; J3480; J7030; J7040; J7050

== ENCOUNTER 2020-07-10 15:50 | Emergency (ER) | payer MEDICARE ==
--- NOTE | 2020-07-10 16:08 | EDM.PDOC ---
ED HPI GENERAL MEDICAL PROBLEM - General Chief Complaint: Trauma Stated Complaint: Head injury Time Seen by Provider: 07/10/20 16:02 Source of Information: Reports: Patient History Limitations: Reports: No Limitations - History of Present Illness INITIAL COMMENTS - FREE TEXT/NARRATIVE: Patient is a 75-year-old male who presents today for head injury. Patient states that he slipped on ice landed on the back of his head. Patient denies any LOC. Patient currently on complains of pain to his neck. Patient denies any pain to his extremities nausea vomiting or other complaints. neck/r shoulder Pain Score (Numeric/FACES): 9 - Related Data Allergies Allergy/AdvReac Type Severity Reaction Status Date / Time No Known Allergies Allergy Verified 06/25/20 23:33 Home Meds: Home Meds Levothyroxine 137 mcg PO DAILY 01/09/18 [History] Melatonin 20 mg PO BEDTIME 01/09/18 [History] Terazosin HCl [Terazosin] 10 mg PO DAILY 01/09/18 [History] Gabapentin [Neurontin] 300 mg PO BEDTIME 02/03/20 [History] Apixaban [Eliquis] 5 mg PO BID #60 tablet 02/05/20 [Rx] Potassium Chloride [Klor-Con M20] 20 meq PO BID 90 Days #180 tab.er 03/14/20 [Rx] Losartan [Cozaar] 100 mg PO DAILY 06/26/20 [History] QUEtiapine [SEROquel] 25 mg PO BEDTIME 06/26/20 [History] Sertraline [Zoloft] 50 mg PO DAILY 06/26/20 [History] carvediloL [Carvedilol] 25 mg PO BID 06/26/20 [History] hydrOXYzine HCL [hydrOXYzine] 25 mg PO TID PRN 06/26/20 [History] levETIRAcetam [Keppra] 1,000 mg PO BID 06/26/20 [History] Eplerenone [Inspra] 25 mg PO BID 07/07/20 [History] Acetaminophen [Tylenol] 650 mg PO Q4H PRN tablet 07/10/20 [Rx] Acetaminophen/HYDROcodone [Howard 325-5 MG] 1 tab PO Q8H PRN tablet 07/10/20 [Rx] Bumetanide [Bumex] 2 mg PO DAILY 30 Days #30 tab 07/10/20 [Rx] Levothyroxine 25 mcg PO ACBREAKFAST 30 Days #30 tablet 07/10/20 [Rx] Lidocaine 5% [Lidoderm 5%] 700 mg TRDERM Q24H 15 Days #15 patch 07/10/20 [Rx] Losartan [Cozaar] 25 mg PO DAILY 30 Days #15 tablet 07/10/20 [Rx] Patient's Own Medication [Ptom] 0.5 each PO BID 30 Days #30 each 07/10/20 [Rx] Potassium Chloride [Klor-Con M20] 60 meq PO BID 30 Days #90 tab.er 07/10/20 [Rx] metOLazone [Zaroxolyn] 5 mg PO TUTHSA@0900 30 Days #12 tablet 07/10/20 [Rx] Past Medical History HEENT History: Reports: None Cardiovascular History: Reports: Afib, Heart Failure, High Cholesterol, Hypertension Respiratory History: Reports: Sleep Apnea Other Respiratory History: CPAP Gastrointestinal History: Reports: None Genitourinary History: Reports: BPH Musculoskeletal History: Reports: None Neurological History: Reports: Seizure Psychiatric History: Reports: None Endocrine/Metabolic History: Reports: Hypothyroidism Insulin Pump Model and Retail Loss Prevention Investigator: None Hematologic History: Reports: None Immunologic History: Reports: None Oncologic (Cancer) History: Reports: None Dermatologic History: Reports: None - Infectious Disease History Infectious Disease History: Reports: None - Past Surgical History Head Surgeries/Procedures: Reports: None HEENT Surgical History: Reports: None Cardiovascular Surgical History: Reports: None Respiratory Surgical History: Reports: None GI Surgical History: Reports: Hernia Repair/Other Male Surgical History: Reports: None Endocrine Surgical History: Reports: None Neurological Surgical History: Reports: None Musculoskeletal Surgical History: Reports: Other (See Below) Other Musculoskeletal Surgeries/Procedures:: neck fusion Oncologic Surgical History: Reports: None Dermatological Surgical History: Reports: None Social & Family History - Family History Family Medical History: No Pertinent Family History - Caffeine Use Caffeine Use: Reports: Coffee ED ROS GENERAL - Review of Systems Review Of Systems: See Below Constitutional: Reports: No Symptoms HEENT: Reports: Other (head injury) Respiratory: Reports: No Symptoms Cardiovascular: Reports: No Symptoms Endocrine: Reports: No Symptoms GI/Abdominal: Reports: No Symptoms : Reports: No Symptoms Musculoskeletal: Reports: No Symptoms Skin: Reports: No Symptoms Neurological: Reports: No Symptoms Psychiatric: Reports: No Symptoms Hematologic/Lymphatic: Reports: No Symptoms Immunologic: Reports: No Symptoms ED EXAM, HEAD INJURY - Physical Exam Exam: See Below Exam Limited By: No Limitations General Appearance: Alert, WD/WN, No Apparent Distress Head: Atraumatic Eyes: Bilateral Eye: EOMI, PERRL Neck: Normal Alignment, Tenderness Respiratory: No Respiratory Distress, Lungs Clear, Normal Breath Sounds Cardiovascular: Regular Rate, Rhythm GI/Abdominal Exam: Normal Bowel Sounds, Soft, Non-Tender Back Exam: Vertebral Tenderness Neurologic: Alert, Normal Mood/Affect, Oriented x 3 Course - Vital Signs Last Recorded V/S: Last Vital Signs Temp 97.6 F 07/10/20 15:57 Pulse 73 07/10/20 18:02 Resp 18 07/10/20 15:57 BP 122/81 07/10/20 18:02 Pulse Ox 92 L 07/10/20 17:12 - Orders/Labs/Meds Orders: Active Orders 24 hr Category Date Time Status COVID-19/FLU A+B [MOLEC] Stat Lab 07/10/20 17:32 Ordered Labs: Laboratory Tests 07/10/20 07/10/20 07/10/20 Range/Units 16:00 16:38 16:38 WBC 7.99 (4.0-11.0) K/uL RBC 4.90 (4.50-5.90) M/uL Hgb 15.3 (13.0-17.0) g/dL Hct 47.6 (38.0-50.0) % MCV 97.1 (80.0-98.0) fL MCH 31.2 (27.0-32.0) pg MCHC 32.1 (31.0-37.0) g/dL RDW Std Deviation 52.1 (28.0-62.0) fl RDW Coeff of Mike 15 (11.0-15.0) % Plt Count 206 (150-400) K/uL MPV 11.50 (7.40-12.00) fL Neut % (Auto) 71.3 (48.0-80.0) % Lymph % (Auto) 20.5 (16.0-40.0) % Glascock % (Auto) 5.9 (0.0-15.0) % Eos % (Auto) 1.8 (0.0-7.0) % Baso % (Auto) 0.5 (0.0-1.5) % Neut # (Auto) 5.7 (1.4-5.7) K/uL Lymph # (Auto) 1.6 (0.6-2.4) K/uL Glascock # (Auto) 0.5 (0.0-0.8) K/uL Eos # (Auto) 0.1 (0.0-0.7) K/uL Baso # (Auto) 0.0 (0.0-0.1) K/uL Nucleated RBC % 0.0 /100WBC Nucleated RBCs # 0 K/uL INR 1.70 APTT 31.2 (18.6-31.3) SEC Sodium 140 (136-148) mmol/L Potassium 3.9 (3.5-5.1) mmol/L Chloride 99 (98-107) mmol/L Carbon Dioxide 29.6 (21.0-32.0) mmol/L BUN 70 H (7.0-18.0) mg/dL Creatinine 2.3 H (0.8-1.3) mg/dL Est Cr Clr Drug Dosing TNP Estimated GFR (MDRD) 27.7 ml/min Glucose 148 H (74-106) mg/dL Calcium 9.6 (8.5-10.1) mg/dL Total Bilirubin 1.0 (0.2-1.0) mg/dL AST 27 (15-37) IU/L ALT 14 (14-63) IU/L Alkaline Phosphatase 103 (46-116) U/L Total Protein 7.6 (6.4-8.2) g/dL Albumin 3.4 (3.4-5.0) g/dL Globulin 4.2 H (2.6-4.0) g/dL Albumin/Globulin Ratio 0.8 L (0.9-1.6) Ethyl Alcohol 3 mg/dL Meds: Medications Discontinued Medications Generic Name Dose Route Start Last Admin Trade Name Freq PRN Reason Stop Dose Admin Carvedilol 25 mg 07/10/20 17:35 07/10/20 18:02 Coreg PO 07/10/20 17:36 25 mg ONETIME ONE Administration Fentanyl 25 mcg 07/10/20 16:51 01/05/21 17:14 Fentanyl IVPUSH 07/10/20 16:52 25 mcg ONETIME ONE Administration Ondansetron HCl 4 mg 07/10/20 16:51 07/10/20 17:15 Zofran IVPUSH 07/10/20 16:52 4 mg ONETIME ONE Administration - Re-Assessments/Exams Free Text/Narrative Re-Assessment/Exam: 07/10/20 18:10 Spoke to the hospitalist team that admitted patient and we have discussion with patient's patient does have some home services coming that can help and assist patient at home as well as her continue to be taken for the paperwork the patient can do outpatient rehab they are all agreeable to take patient home and patient self is comfortable patient will be discharged. Departure - Departure Time of Disposition: 18:11 Disposition: Home, Self-Care 01 Condition: Good Clinical Impression: Fall - Discharge Information *PRESCRIPTION DRUG MONITORING PROGRAM REVIEWED*: Not Applicable *COPY OF PRESCRIPTION DRUG MONITORING REPORT IN PATIENT DOC: Not Applicable Forms: ED Department Discharge Additional Instructions: The following information is given to patients seen in the emergency department who are being discharged to home. This information is to outline your options for follow-up care. We provide all patients seen in our emergency department with a follow-up referral. The need for follow-up, as well as the timing and circumstances, are variable depending upon the specifics of your emergency department visit. If you don't have a primary care physician on staff, we will provide you with a referral. We always advise you to contact your personal physician following an emergency department visit to inform them of the circumstance of the visit and for follow-up with them and/or the need for any referrals to a consulting specialist. The emergency department will also refer you to a specialist when appropriate. This referral assures that you have the opportunity for follow-up care with a specialist. All of these measure are taken in an effort to provide you with optimal care, which includes your follow-up. Under all circumstances we always encourage you to contact your private physician who remains a resource for coordinating your care. When calling for follow-up care, please make the office aware that this follow-up is from your recent emergency room visit. If for any reason you are refused follow-up, please contact the [facility] Emergency Department at and asked to speak to the emergency department charge nurse. Please follow up with your primary care physician. If you do not have a primary care physician, see below: [facility] [address] [place] [address] [facility] [address] [place], [place] [id number] Please follow-up with your primary care physician if you have any more complaints or concerns please return to the emergency department. Sepsis Event Note (ED) - Focused Exam Vital Signs: Vital Signs Temp Pulse Pulse Resp BP BP Pulse Ox 07/10/20 18:02 73 122/81 07/10/20 17:12 84 111/73 92 L 07/10/20 16:57 104 H 117/85 99 07/10/20 16:42 129 H 119/82 96 07/10/20 16:27 72 123/81 94 L 07/10/20 16:12 111 H 117/84 97 07/10/20 15:57 97.6 F 60 18 125/88 95 - My Orders Last 24 Hours: My Active Orders 07/10/20 17:32 COVID-19/FLU A+B [MOLEC] Stat - Assessment/Plan Last 24 Hours: My Active Orders 07/10/20 17:32 COVID-19/FLU A+B [MOLEC] Stat Assessment:: Patient is a 75-year-old male sent today for head injury. Patient slipped and hit the back of his head. Patient had no LOC but does have some neck pain and tenderness will obtain head and C-spine and reassess.
--- NOTE | 2020-07-10 16:45 | CT ---
INDICATION: S/P FALL. PT ON BLOOD THINNERS CT HEAD WITHOUT CONTRAST TECHNIQUE: Multiple axial CT images were performed through the head without intravenous contrast administration. COMPARISON: 06/25/[address] FINDINGS: No acute intracranial hemorrhage is identified. No extra-axial collections are evident and there is no mass effect or midline shift. There is mild diffuse age-related brain atrophy. Ventricular size and configuration are within normal limits for the patient`s age. Sumner-white differentiation is within normal limits. There is unchanged patchy hypodensity in the periventricular white matter, a nonspecific finding which most likely reflects chronic small vessel ischemic change. Intracranial atherosclerotic vascular calcifications are noted. Osseous structures are within normal limits and no fractures are seen. Included portions of the paranasal sinuses and mastoid air cells are normally aerated. IMPRESSION: 1. No acute intracranial abnormality identified. 2. Mild age-related brain atrophy, white matter hypodensity consistent with chronic small vessel ischemic change, and intracranial atherosclerotic vascular calcifications. EDILBERTO YOUSIF MD [employer] Dictated by: Davian Yousif MD @ 07/10/2020 16:43:40 (Electronically Signed)
[2020-07-10] MEDS ORDERED: fentaNYL 50 MCG/ML SDV IVPUSH ONE (16:51)
[2020-07-10] MEDS ORDERED: Ondansetron 4 MG/2 ML SDV IVPUSH ONE (16:51)
[2020-07-10 17:11] LABS: BLOOD UREA NITROGEN,BUN 70 mg/dL (7.0-18.0); CARBON DIOXIDE,CO2 29.6 mmol/L (21.0-32.0); CHLORIDE,CL 99 mmol/L (98-107); GLUCOSE RANDOM 148 mg/dL (74-106); POTASSIUM,K 3.9 mmol/L (3.5-5.1); SODIUM,NA 140 mmol/L (136-148)
--- NOTE | 2020-07-10 17:24 | CT ---
INDICATION: S/P FALL. PT ON BLOOD THINNERS CT CERVICAL SPINE WITHOUT CONTRAST TECHNIQUE: Multidetector axial CT imaging was performed through the cervical spine, without contrast. Sagittal and coronal reconstructions were generated. COMPARISON: 06/25/[address] FINDINGS: No acute fractures are identified. There is unchanged chronic osseous fusion across the C5-6 disc space and probable fusion across the C6-7 disc space. Multilevel degenerative change is noted in the cervical spine, including diffuse degenerative disc disease and scattered facet joint degenerative changes. Osseous alignment is within normal limits and no subluxation is seen. Prevertebral soft tissues are unremarkable. Included portions of the airway and lung apices are within normal limits. IMPRESSION: 1. No fracture, subluxation, or other acute finding identified. 2. Cervical spondylosis and chronic-appearing disc space fusion, as noted above. EDILBERTO YOUSIF MD [employer] [facility] Dictated by Davian Yousif MD @ 07/10/2020 5:16:57 PM Dictated by: Davian Yousif MD @ 07/10/2020 17:24:15 (Electronically Signed)
[2020-07-10] MEDS ORDERED: Carvedilol 25 MG Tab PO ONE (17:35)
[2020-07-10 18:43] VITALS: BP 98/62; PULSE 123
[2020-07-10 18:51] LABS: CORONAVIRUS COVID-19 NAA NEGATIVE (NEGATIVE); INFLUENZA A NAA NEGATIVE (NEGATIVE); INFLUENZA B NAA NEGATIVE (NEGATIVE)
== END 2020-07-10 18:40 | disposition home or self-care (01) ==
LOC: MW.ED 15:50
DX: S09.90XA Unspecified injury of head, initial encounter (principal); M25.511 Pain in right shoulder; M54.2 Cervicalgia; I11.0 Hypertensive heart disease with heart failure; I50.9 Heart failure, unspecified; I48.91 Unspecified atrial fibrillation; E03.9 Hypothyroidism, unspecified; R56.9 Unspecified convulsions; Z79.899 Other long term (current) drug therapy; Z79.01 Long term (current) use of anticoagulants; Z20.822 Contact with and (suspected) exposure to COVID-19; W00.0XXA Fall on same level due to ice and snow, initial encounter
CPT/HCPCS: 0240U; 36415; 70450; 72125; 80053; 80179; 85025; 85610; 85730; 96374; 96375; 99284; A9270; J2405; J3010

== ENCOUNTER 2020-07-12 03:10 | Emergency (ER) | payer MEDICARE ==
[2020-07-12 03:25] VITALS: BP 93/64; PULSE 79
[2020-07-12] MEDS: Sodium Chloride 0.9% 1,000 ML IV ONE (03:40)
[2020-07-12] MEDS: Morphine 2 MG/ML SYRINGE IVPUSH ONE (03:59)
[2020-07-12] MEDS: Ondansetron 4 MG/2 ML SDV IVPUSH ONE (03:59)
--- NOTE | 2020-07-12 04:01 | CT ---
INDICATION: Status post fall with head and neck pain. COMPARISON: 07/10/2020 TECHNIQUE: CT examination of the head was performed with 3 mm thick axial, sagittal, and coronal sections without intravenous contrast. Images were obtained from the vertex of the skull through the skull base, and I examined the images with the brain and bone windows. Please note that all CT scans at this facility use dose modulation, iterative reconstruction, and/or weight-based dosing when appropriate to reduce radiation dose to as low as reasonably achievable. FINDINGS: There is new moderate swelling of the left nasal and left superior periorbital region. There is no sign of any associated fracture of the nasal bone or the left superior orbital rim. The brain is normal in appearance for the patient`s age on today`s study, with no sign of mass lesion, mass effect, hemorrhage, or edema. There is stable moderate dilatation of the ventricles and sulci representing age-appropriate atrophy. There is stable moderate periventricular and subcortical white matter hypodensity representing age-appropriate small vessel ischemia. 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 The visualized paranasal sinuses and mastoids are clear. The osseous structures are normal in their appearance with no sign of abnormality in the skull base or calvarium. IMPRESSION: New moderate swelling of the left nasal and left superior periorbital region. No sign of any associated fracture of the nasal bone or the left superior orbital rim. No sign of closed head injury. Stable moderate, age-appropriate atrophy and moderate, age-appropriate small-vessel ischemic change. Please note that all CT scans at this facility use dose modulation, iterative reconstruction, and/or weight-based dosing when appropriate to reduce radiation dose to as low as reasonably achievable. Dictated by Joshua Moura MD @ Jul 12 2020 3:56AM Signed by Dr. Joshua Moura @ Jul 12 2020 4:00AM
--- NOTE | 2020-07-12 04:05 | CT ---
INDICATION: Status post fall with head and neck pain. COMPARISON: 07/10/2020 TECHNIQUE: CT examination of the cervical spine is performed without contrast using spiral technique. 2 mm thick axial, sagittal and coronal reconstructions were made. Please note that all CT scans at this facility use dose modulation, iterative reconstruction, and/or weight-based dosing when appropriate to reduce radiation dose to as low as reasonably achievable. FINDINGS: : There is stable appearance of the fusion from C5 through T1 with solid osseous fusion in anatomic alignment. There is no change in prominent C3-4 and C4-5 disc degenerative disease. Prominent disc degenerative disease is again seen at T2-3 and T3-4. There is no sign of fracture of the vertebral bodies or posterior elements. There is no sign of prevertebral soft tissue swelling. The airway structures are normal in appearance. The visualized skull base is normal in appearance. The visualized inferior brain is normal in appearance for the patient`s age. The apices of the lungs are clear. IMPRESSION: No sign of acute osseous injury to the cervical spine. Stable fusion from C5 through T1 in anatomic alignment. Stable prominent disc degenerative disease at C3-4, C4-5, T2-3, and T3-4. Please note that all CT scans at this facility use dose modulation, iterative reconstruction, and/or weight-based dosing when appropriate to reduce radiation dose to as low as reasonably achievable. Dictated by Joshua Moura MD @ Jul 12 2020 4:00AM Signed by Dr. Joshua Moura @ Jul 12 2020 4:04AM
--- NOTE | 2020-07-12 04:24 | EDM.PDOC ---
ED HPI GENERAL MEDICAL PROBLEM - General Chief Complaint: Trauma Stated Complaint: AMB. Time Seen by Provider: 07/12/20 03:57 - History of Present Illness INITIAL COMMENTS - FREE TEXT/NARRATIVE: HISTORY AND PHYSICAL: History of present illness: This is a 75-year-old gentleman with history significant for atrial fibrillation and is currently on Eliquis presents to the ER today secondary to falling down on his way to bed today and hitting his head. Patient denies any loss of consciousness. Patient reports his fall was secondary to shuffling gait secondary to chronic lower extremity swelling. Patient denies any dizziness, presyncope or syncopal episode. Upon arrival to the ED patient has complaints of his neck and shoulders which he reports is chronic. Patient currently has bilateral Lidoderm patches on both shoulders. Patient reports that he has had fusion to his neck. Patient is not complaining of any pain or discomfort around his scalp. Patient has no other complaints at this time. Patient has no pain to his hips or pelvis. Patient is able to move his upper extremities without any change from his baseline discomfort. Patient denies any recent fevers, shakes, chills, nausea, vomiting, diarrhea, dysuria, frequency, urgency, chest pain, shortness of breath. Patient was recently discharged from the hospital after being admitted for approximately 1 to 2 weeks secondary to a fall. Patient was brought into the ER today by EMS with a significant amount of coaxing because the patient did not want to come to the ER but he does not want to be admitted to the hospital. Patient reports that he feels extremely safe going home at this time and does not wish admission to the hospital for any reason currently. Review of systems: As per history of present illness and below otherwise all systems reviewed and negative. Past medical history: As per history of present illness and as reviewed below otherwise noncontributory. Surgical history: As per history of present illness and as reviewed below otherwise noncontributory. Social history: No reported history of drug or alcohol abuse. Family history: As per history of present illness and as reviewed below otherwise noncontributory. Physical exam: HEENT: Atraumatic, normocephalic, pupils reactive, negative for conjunctival pallor or scleral icterus, mucous membranes moist, throat clear, neck supple, nontender, trachea midline. Lungs: Clear to auscultation, breath sounds equal bilaterally, chest nontender. Heart: Irregularly irregular at a rate of 65 Abdomen: Soft, nondistended, nontender. Negative for masses or hepatosplenomegaly. Negative for costovertebral tenderness. Pelvis: Stable nontender. Genitourinary: Deferred. Rectal: Deferred. Extremities: Atraumatic, negative for cords or calf pain. Neurovascular unremarkable. Chronic bilateral brawny edema Neuro: Awake, alert, oriented. Cranial nerves II through XII unremarkable. Cerebellum unremarkable. Motor and sensory unremarkable throughout. Exam nonfocal. Patient has no C-spine T-spine or L-spine tenderness to palpation. Patient has no left upper or right upper quadrant tenderness to palpation. Patient has no crepitus to palpation to the anterior chest wall. Patient is neurologically intact. Patient does not present with any signs or or symptoms that would be consistent with acute intracranial, intra-abdominal, intrathoracic, or long bone injury. All long bones have been palpated and range of motion been performed and there is no evidence of any acute pathology. Tenderness to palpation to his bilateral shoulders and neck. Diagnostics: CT head/C-spine without evidence of any acute fracture, bleed or process. EKG: As interpreted by ER physician: Jessica: Nonspecific ST-T wave abnormalities Normal axis No evidence of ST elevation [place] Atrial fibrillation with a heart rate of 71 Therapeutics: Morphine 2 mg IV given secondary to pain to his shoulders and neck which she reports is chronic. Assessment and plan: This is a 75-year-old gentleman who presents ER today as a trauma code secondary to a fall while on [employer]. Patient's CT scan of his head and C-spine are unremarkable. Patient has been given a dose of morphine here in the ED and will be stable for discharge home. Given patient's age, the option of admission was deferred to the patient however the patient is adamant about not wanting to be admitted to the hospital. I will respect the patient's autonomy at this time and will discharge him to home. Patient currently lives with his who assists with his care. Reassessment at the time of disposition demonstrates that the patient is in no acute distress. The patient has remained stable throughout the entire ED visit and is without objective evidence for acute process requiring urgent intervention or hospitalization. The patient is stable for discharge, counseling is provided as documented above, discussed symptomatic treatment and specific conditions for return. I have spoken with the patient/caregiver and discussed todays findings, in addition to providing specific details for the plan of care. Questions are answered and there is agreement with the plan. Definitive disposition and diagnosis as appropriate pending reevaluation and review of above. head area Pain Score (Numeric/FACES): 7 - Related Data Allergies Allergy/AdvReac Type Severity Reaction Status Date / Time No Known Allergies Allergy Verified 07/12/20 03:17 Home Meds: Home Meds Levothyroxine 137 mcg PO DAILY 01/09/18 [History] Melatonin 20 mg PO BEDTIME 01/09/18 [History] Terazosin HCl [Terazosin] 10 mg PO DAILY 01/09/18 [History] Gabapentin [Neurontin] 300 mg PO BEDTIME 02/03/20 [History] Apixaban [Eliquis] 5 mg PO BID #60 tablet 02/05/20 [Rx] Potassium Chloride [Klor-Con M20] 20 meq PO BID 90 Days #180 tab.er 03/14/20 [Rx] Losartan [Cozaar] 100 mg PO DAILY 06/26/20 [History] QUEtiapine [SEROquel] 25 mg PO BEDTIME 06/26/20 [History] Sertraline [Zoloft] 50 mg PO DAILY 06/26/20 [History] carvediloL [Carvedilol] 25 mg PO BID 06/26/20 [History] hydrOXYzine HCL [hydrOXYzine] 25 mg PO TID PRN 06/26/20 [History] levETIRAcetam [Keppra] 1,000 mg PO BID 06/26/20 [History] Eplerenone [Inspra] 25 mg PO BID 07/07/20 [History] Acetaminophen [Tylenol] 650 mg PO Q4H PRN tablet 07/10/20 [Rx] Acetaminophen/HYDROcodone [[place] 325-5 MG] 1 tab PO Q8H PRN tablet 07/10/20 [Rx] Bumetanide [Bumex] 2 mg PO DAILY 30 Days #30 tab 07/10/20 [Rx] Levothyroxine 25 mcg PO ACBREAKFAST 30 Days #30 tablet 07/10/20 [Rx] Lidocaine 5% [Lidoderm 5%] 700 mg TRDERM Q24H 15 Days #15 patch 07/10/20 [Rx] Losartan [Cozaar] 25 mg PO DAILY 30 Days #15 tablet 07/10/20 [Rx] Patient's Own Medication [Ptom] 0.5 each PO BID 30 Days #30 each 07/10/20 [Rx] Potassium Chloride [Klor-Con M20] 60 meq PO BID 30 Days #90 tab.er 07/10/20 [Rx] metOLazone [Zaroxolyn] 5 mg PO TUTHSA@0900 30 Days #12 tablet 07/10/20 [Rx] Past Medical History HEENT History: Reports: None Cardiovascular History: Reports: Afib, Heart Failure, High Cholesterol, Hypertension Respiratory History: Reports: Sleep Apnea Other Respiratory History: CPAP Gastrointestinal History: Reports: None Genitourinary History: Reports: BPH Musculoskeletal History: Reports: None Neurological History: Reports: Seizure Psychiatric History: Reports: None Endocrine/Metabolic History: Reports: Hypothyroidism Insulin Pump Model and Center Line Cutter Operator: None Hematologic History: Reports: None Immunologic History: Reports: None Oncologic (Cancer) History: Reports: None Dermatologic History: Reports: None - Infectious Disease History Infectious Disease History: Reports: None - Past Surgical History Head Surgeries/Procedures: Reports: None HEENT Surgical History: Reports: None Cardiovascular Surgical History: Reports: None Respiratory Surgical History: Reports: None GI Surgical History: Reports: Hernia Repair/Other Male Surgical History: Reports: None Endocrine Surgical History: Reports: None Neurological Surgical History: Reports: None Musculoskeletal Surgical History: Reports: Other (See Below) Other Musculoskeletal Surgeries/Procedures:: neck fusion Oncologic Surgical History: Reports: None Dermatological Surgical History: Reports: None Social & Family History - Family History Family Medical History: No Pertinent Family History - Tobacco Use Tobacco Use Status *Q: Never Tobacco User - Caffeine Use Caffeine Use: Reports: None - Recreational Drug Use Recreational Drug Use: No Review of Systems - Review of Systems Review Of Systems: See Below ED EXAM, GENERAL - Physical Exam Exam: See Below #1 Interpretation EKG Interpretation Comments: EKG: As interpreted by ER physician: Jessica: Nonspecific ST-T wave abnormalities Normal axis No evidence of ST elevation [place] Atrial fibrillation with a heart rate of 71 Course - Vital Signs Last Recorded V/S: Last Vital Signs Temp 97 F 07/12/20 03:10 Pulse 79 07/12/20 03:10 Resp 18 07/12/20 03:10 BP 93/64 07/12/20 03:10 Pulse Ox 97 07/12/20 03:10 - Orders/Labs/Meds Orders: Active Orders 24 hr Category Date Time Status Sodium Chloride 0.9% [Normal Saline] 1,000 ml Med 07/12/20 03:40 Active IV .BOLUS Medication Orders Sodium Chloride (Normal Saline) 1,000 mls @ 999 mls/hr IV .BOLUS ONE Stop: 07/12/20 04:40 Last Admin: 07/12/20 03:40 Dose: 999 mls/hr Documented by: HARISH Meds: Medications Generic Name Dose Route Start Last Admin Trade Name Freq PRN Reason Stop Dose Admin Sodium Chloride 1,000 mls @ 999 mls/hr 07/12/20 03:40 07/12/20 03:40 Normal Saline IV 07/12/20 04:40 999 mls/hr .BOLUS ONE Administration Discontinued Medications Generic Name Dose Route Start Last Admin Trade Name Freq PRN Reason Stop Dose Admin Morphine Sulfate 2 mg 07/12/20 03:50 07/12/20 03:59 Morphine IVPUSH 07/12/20 03:51 2 mg ONETIME ONE Administration Ondansetron HCl 4 mg 07/12/20 03:52 07/12/20 03:59 Zofran IVPUSH 07/12/20 03:53 4 mg ONETIME ONE Administration Departure - Departure Time of Disposition: 04:24 Disposition: Home, Self-Care 01 Condition: Good Clinical Impression: Fall in elderly patient, Chronic neck pain, Anticoagulated by anticoagulation treatment Strain of neck muscle Qualifiers: Encounter type: initial encounter Qualified Code(s): S16.1XXA - Strain of muscle, fascia and tendon at neck level, initial encounter Head injury Qualifiers: Encounter type: initial encounter Qualified Code(s): S09.90XA - Unspecified injury of head, initial encounter Atrial fibrillation Qualifiers: Atrial fibrillation type: longstanding persistent Qualified Code(s): I48.11 - Longstanding persistent atrial fibrillation - Discharge Information Instructions: Fall Prevention in the Home, Adult, [id number], Chronic Pain, Adult, Cervical Sprain Referrals: PCP,None [Primary Care Provider] - Additional Instructions: Your seen and evaluated in the ER today secondary to a fall and head injury. Your CT scan of your head and C-spine does not show any acute injury to your brain or neck. Please be careful in your home and take your time walking. Please make an appointment to see your family doctor within the week for reevaluation. The following information is given to patients seen in the emergency department who are being discharged to home. This information is to outline your options for follow-up care. We provide all patients seen in our emergency department with a follow-up referral. The need for follow-up, as well as the timing and circumstances, are variable depending upon the specifics of your emergency department visit. If you don't have a primary care physician on staff, we will provide you with a referral. We always advise you to contact your personal physician following an emergency department visit to inform them of the circumstance of the visit and for follow-up with them and/or the need for any referrals to a consulting specialist. The emergency department will also refer you to a specialist when appropriate. This referral assures that you have the opportunity for follow-up care with a specialist. All of these measure are taken in an effort to provide you with optimal care, which includes your follow-up. Under all circumstances we always encourage you to contact your private physician who remains a resource for coordinating your care. When calling for follow-up care, please make the office aware that this follow-up is from your recent emergency room visit. If for any reason you are refused follow-up, please contact the [facility] Emergency Department at and asked to speak to the emergency department charge nurse. [facility] - Primary Care [address] [place] [id number] [place] [address] Sepsis Event Note (ED) - Evaluation Sepsis Screening Result: No Definite Risk - Focused Exam Vital Signs: Vital Signs Temp Pulse Resp BP Pulse Ox 07/12/20 03:10 97 F 79 18 93/64 97 - My Orders Last 24 Hours: My Active Orders 07/12/20 03:40 Sodium Chloride 0.9% [Normal Saline] 1,000 ml IV .BOLUS - Assessment/Plan Last 24 Hours: My Active Orders 07/12/20 03:40 Sodium Chloride 0.9% [Normal Saline] 1,000 ml IV .BOLUS
== END 2020-07-12 04:58 | disposition home or self-care (01) ==
LOC: MW.ED 03:10
DX: S09.90XA Unspecified injury of head, initial encounter (principal); S16.1XXA Strain of muscle, fascia and tendon at neck level, initial encounter; I48.11 Longstanding persistent atrial fibrillation; I11.0 Hypertensive heart disease with heart failure; I50.9 Heart failure, unspecified; E03.9 Hypothyroidism, unspecified; Z79.01 Long term (current) use of anticoagulants; Z79.899 Other long term (current) drug therapy; W01.10XA Fall on same level from slipping, tripping and stumbling with subsequent striking against unspecified object, initial encounter
CPT/HCPCS: 70450; 72125; 96374; 96375; 99284; J2270; J2405; J7030

== ENCOUNTER 2020-07-12 17:06 | Inpatient (IN) | payer MEDICARE ==
--- NOTE | 2020-07-12 17:34 | EDM.PDOC ---
<MartinIsrael - Last Filed: 07/12/20 17:29> ED HPI GENERAL MEDICAL PROBLEM - General Chief Complaint: Neurological Problem Stated Complaint: EMS ARRIVAL Time Seen by Provider: 07/12/20 17:10 Source of Information: Reports: Patient History Limitations: Reports: No Limitations - History of Present Illness INITIAL COMMENTS - FREE TEXT/NARRATIVE: Brought in by EMS after his called and stated the patient was unresponsive H&P did not oppose p.o. EMS got the patient was sleepy but had a pulse and was breathing. Patient here is awake and answering some questions but not sure what happened to him. Patient complaining of some pain to his right rotator cuff from past injury but has no other complaints. - Related Data Allergies Allergy/AdvReac Type Severity Reaction Status Date / Time No Known Allergies Allergy Verified 07/12/20 17:32 Home Meds: Home Meds Levothyroxine 137 mcg PO DAILY 01/09/18 [History] Melatonin 20 mg PO BEDTIME 01/09/18 [History] Terazosin HCl [Terazosin] 10 mg PO DAILY 01/09/18 [History] Gabapentin [Neurontin] 300 mg PO BEDTIME 02/03/20 [History] Apixaban [Eliquis] 5 mg PO BID #60 tablet 02/05/20 [Rx] Potassium Chloride [Klor-Con M20] 20 meq PO BID 90 Days #180 tab.er 03/14/20 [Rx] Losartan [Cozaar] 100 mg PO DAILY 06/26/20 [History] QUEtiapine [SEROquel] 25 mg PO BEDTIME 06/26/20 [History] Sertraline [Zoloft] 50 mg PO DAILY 06/26/20 [History] carvediloL [Carvedilol] 25 mg PO BID 06/26/20 [History] hydrOXYzine HCL [hydrOXYzine] 25 mg PO TID PRN 06/26/20 [History] levETIRAcetam [Keppra] 1,000 mg PO BID 06/26/20 [History] Eplerenone [Inspra] 25 mg PO BID 07/07/20 [History] Acetaminophen [Tylenol] 650 mg PO Q4H PRN tablet 07/10/20 [Rx] Acetaminophen/HYDROcodone [[place] 325-5 MG] 1 tab PO Q8H PRN tablet 07/10/20 [Rx] Bumetanide [Bumex] 2 mg PO DAILY 30 Days #30 tab 07/10/20 [Rx] Levothyroxine 25 mcg PO ACBREAKFAST 30 Days #30 tablet 07/10/20 [Rx] Lidocaine 5% [Lidoderm 5%] 700 mg TRDERM Q24H 15 Days #15 patch 07/10/20 [Rx] Losartan [Cozaar] 25 mg PO DAILY 30 Days #15 tablet 07/10/20 [Rx] Patient's Own Medication [Ptom] 0.5 each PO BID 30 Days #30 each 07/10/20 [Rx] Potassium Chloride [Klor-Con M20] 60 meq PO BID 30 Days #90 tab.er 07/10/20 [Rx] metOLazone [Zaroxolyn] 5 mg PO TUTHSA@0900 30 Days #12 tablet 07/10/20 [Rx] Past Medical History HEENT History: Reports: None Cardiovascular History: Reports: Afib, Heart Failure, High Cholesterol, Hypertension Respiratory History: Reports: Sleep Apnea Other Respiratory History: CPAP Gastrointestinal History: Reports: None Genitourinary History: Reports: BPH Musculoskeletal History: Reports: None Neurological History: Reports: Seizure Psychiatric History: Reports: None Endocrine/Metabolic History: Reports: Hypothyroidism Insulin Pump Model and Rn Rehabilitation: None Hematologic History: Reports: None Immunologic History: Reports: None Oncologic (Cancer) History: Reports: None Dermatologic History: Reports: None - Infectious Disease History Infectious Disease History: Reports: None - Past Surgical History Head Surgeries/Procedures: Reports: None HEENT Surgical History: Reports: None Cardiovascular Surgical History: Reports: None Respiratory Surgical History: Reports: None GI Surgical History: Reports: Hernia Repair/Other Male Surgical History: Reports: None Endocrine Surgical History: Reports: None Neurological Surgical History: Reports: None Musculoskeletal Surgical History: Reports: Other (See Below) Other Musculoskeletal Surgeries/Procedures:: neck fusion Oncologic Surgical History: Reports: None Dermatological Surgical History: Reports: None Social & Family History - Family History Family Medical History: No Pertinent Family History - Caffeine Use Caffeine Use: Reports: None ED ROS GENERAL - Review of Systems Review Of Systems: Unable To Obtain Reason Not Obtained: ams ED EXAM, GENERAL - Physical Exam Exam: See Below Exam Limited By: Altered Mental Status General Appearance: Alert Eye Exam: Bilateral Eye: EOMI, PERRL Respiratory/Chest: No Respiratory Distress, Lungs Clear Cardiovascular: Regular Rate, Rhythm GI/Abdominal: Normal Bowel Sounds, Soft, Non-Tender Neurological: Alert, Oriented #1 Interpretation EKG Date: 07/12/20 Time: 16:57 Rhythm: A-Fib Rate (Beats/Min): 73 QRS: LBBB Departure - Departure Disposition: Admitted As Inpatient 64 Clinical Impression: Syncope, Hypokalemia, Weakness, Fall in elderly patient, Self-care deficit - Discharge Information Forms: ED Department Discharge - Assessment/Plan Assessment:: Patient is a 75-year-old male who brought in today by us after his states that he was unresponsive. We will try to locate his and obtain more information. <Johnny Lopez - Last Filed: 07/12/20 20:35> ED HPI GENERAL MEDICAL PROBLEM - History of Present Illness INITIAL COMMENTS - FREE TEXT/NARRATIVE: 8:33 PM: Case discussed with Dr. Bruno who is agreed with plan for admission for further evaluation of patient's hypokalemia, generalized weakness, syncopal episode, and multiple falls over the last couple days. Patient does not appear to be safe at home at this time given his multiple falls, his weakness and his hypokalemia. Patient will have his hypokalemia repleted here in the ED and will be further evaluated as an inpatient. right shoulder Pain Score (Numeric/FACES): 8 Course - Vital Signs Last Recorded V/S: Last Vital Signs Temp 98 F 07/12/20 17:06 Pulse 79 07/12/20 19:49 Resp 16 07/12/20 19:49 BP 97/62 07/12/20 19:49 Pulse Ox 91 L 07/12/20 19:49 - Orders/Labs/Meds Orders: Active Orders 24 hr Category Date Time Status Patient Status [ADT] Routine ADT 07/12/20 19:58 Active EKG Documentation Completion [RC] STAT Care 07/12/20 17:29 Active CORONAVIRUS COVID-19 QUINTIN [MOLEC] Stat Lab 07/12/20 19:49 Ordered Labs: Laboratory Tests 07/12/20 07/12/20 07/12/20 Range/Units 17:23 18:00 18:00 WBC 6.76 (4.0-11.0) K/uL RBC 4.57 (4.50-5.90) M/uL Hgb 14.0 (13.0-17.0) g/dL Hct 44.4 (38.0-50.0) % MCV 97.2 (80.0-98.0) fL MCH 30.6 (27.0-32.0) pg MCHC 31.5 (31.0-37.0) g/dL RDW Std Deviation 50.9 (28.0-62.0) fl RDW Coeff of Mike 14 (11.0-15.0) % Plt Count 189 (150-400) K/uL MPV 10.40 (7.40-12.00) fL Neut % (Auto) 78.1 (48.0-80.0) % Lymph % (Auto) 11.5 L (16.0-40.0) % [place] % (Auto) 8.1 (0.0-15.0) % Eos % (Auto) 2.2 (0.0-7.0) % Baso % (Auto) 0.1 (0.0-1.5) % Neut # (Auto) 5.3 (1.4-5.7) K/uL Lymph # (Auto) 0.8 (0.6-2.4) K/uL [place] # (Auto) 0.6 (0.0-0.8) K/uL Eos # (Auto) 0.2 (0.0-0.7) K/uL Baso # (Auto) 0.0 (0.0-0.1) K/uL Nucleated RBC % 0.0 /100WBC Nucleated RBCs # 0 K/uL Lactate 1.5 (0.20-2.00) mmol/L Sodium (136-148) mmol/L Potassium (3.5-5.1) mmol/L Chloride (98-107) mmol/L Carbon Dioxide (21.0-32.0) mmol/L BUN (7.0-18.0) mg/dL Creatinine (0.8-1.3) mg/dL Est Cr Clr Drug Dosing mL/min Estimated GFR (MDRD) ml/min Glucose (74-106) mg/dL Calcium (8.5-10.1) mg/dL Phosphorus (2.6-4.7) mg/dL Magnesium (1.8-2.4) mg/dL Total Bilirubin (0.2-1.0) mg/dL AST (15-37) IU/L ALT (14-63) IU/L Alkaline Phosphatase (46-116) U/L Troponin I (0.000-0.056) ng/mL Total Protein (6.4-8.2) g/dL Albumin (3.4-5.0) g/dL Globulin (2.6-4.0) g/dL Albumin/Globulin Ratio (0.9-1.6) Lipase (73-393) U/L Urine Color YELLOW Urine Appearance CLEAR Urine pH 6.5 (5.0-8.0) Ur Specific [place] 1.015 (1.001-1.035) Urine Protein NEGATIVE (NEGATIVE) mg/dL Urine Glucose (UA) NEGATIVE (NEGATIVE) mg/dL Urine Ketones NEGATIVE (NEGATIVE) mg/dL Urine Occult Blood NEGATIVE (NEGATIVE) Urine Nitrite NEGATIVE (NEGATIVE) Urine Bilirubin NEGATIVE (NEGATIVE) Urine Urobilinogen 0.2 (<2.0) EU/dL Ur Leukocyte Esterase NEGATIVE (NEGATIVE) 07/12/20 Range/Units 18:00 WBC (4.0-11.0) K/uL RBC (4.50-5.90) M/uL Hgb (13.0-17.0) g/dL Hct (38.0-50.0) % MCV (80.0-98.0) fL MCH (27.0-32.0) pg MCHC (31.0-37.0) g/dL RDW Std Deviation (28.0-62.0) fl RDW Coeff of Mike (11.0-15.0) % Plt Count (150-400) K/uL MPV (7.40-12.00) fL Neut % (Auto) (48.0-80.0) % Lymph % (Auto) (16.0-40.0) % [place] % (Auto) (0.0-15.0) % Eos % (Auto) (0.0-7.0) % Baso % (Auto) (0.0-1.5) % Neut # (Auto) (1.4-5.7) K/uL Lymph # (Auto) (0.6-2.4) K/uL [place] # (Auto) (0.0-0.8) K/uL Eos # (Auto) (0.0-0.7) K/uL Baso # (Auto) (0.0-0.1) K/uL Nucleated RBC % /100WBC Nucleated RBCs # K/uL Lactate (0.20-2.00) mmol/L Sodium 148 (136-148) mmol/L Potassium 2.8 L (3.5-5.1) mmol/L Chloride 101 (98-107) mmol/L Carbon Dioxide 40.3 H (21.0-32.0) mmol/L BUN 65 H (7.0-18.0) mg/dL Creatinine 2.1 H (0.8-1.3) mg/dL Est Cr Clr Drug Dosing 32.33 mL/min Estimated GFR (MDRD) 30.8 ml/min Glucose 115 H (74-106) mg/dL Calcium 9.4 (8.5-10.1) mg/dL Phosphorus 4.3 (2.6-4.7) mg/dL Magnesium 2.1 (1.8-2.4) mg/dL Total Bilirubin 1.3 H (0.2-1.0) mg/dL AST 27 (15-37) IU/L ALT 18 (14-63) IU/L Alkaline Phosphatase 104 (46-116) U/L Troponin I < 0.050 (0.000-0.056) ng/mL Total Protein 7.4 (6.4-8.2) g/dL Albumin 3.3 L (3.4-5.0) g/dL Globulin 4.1 H (2.6-4.0) g/dL Albumin/Globulin Ratio 0.8 L (0.9-1.6) Lipase 497 H (73-393) U/L Urine Color Urine Appearance Urine pH (5.0-8.0) Ur Specific [place] (1.001-1.035) Urine Protein (NEGATIVE) mg/dL Urine Glucose (UA) (NEGATIVE) mg/dL Urine Ketones (NEGATIVE) mg/dL Urine Occult Blood (NEGATIVE) Urine Nitrite (NEGATIVE) Urine Bilirubin (NEGATIVE) Urine Urobilinogen (<2.0) EU/dL Ur Leukocyte Esterase (NEGATIVE) Meds: Medications Discontinued Medications Generic Name Dose Route Start Last Admin Trade Name Freq PRN Reason Stop Dose Admin Oxycodone/Acetaminophen 1 tab 07/12/20 18:51 07/12/20 19:03 Percocet 325-5 Mg PO 07/12/20 18:52 1 tab ONETIME ONE Administration Potassium Chloride 20 meq 07/12/20 18:52 07/12/20 19:02 Potassium Chloride Solution PO 07/12/20 18:53 Not Given ONETIME ONE Potassium Chloride 40 meq 07/12/20 18:59 07/12/20 19:03 Potassium Chloride PO 07/12/20 19:00 Not Given ONETIME ONE Potassium Chloride Confirm 07/12/20 18:59 07/12/20 19:03 Potassium Chloride Administered 07/12/20 19:00 Not Given Dose 40 meq .ROUTE .STK-MED ONE Potassium Chloride 40 meq 07/12/20 19:08 07/12/20 19:09 Klor-Con M20 PO 07/12/20 19:09 40 meq ONETIME ONE Administration Potassium Chloride Confirm 07/12/20 19:08 07/12/20 19:21 Klor-Con M20 Administered 07/12/20 19:09 Not Given Dose 40 meq .ROUTE .STK-MED ONE Departure - Departure Time of Disposition: 20:34 Condition: Good Sepsis Event Note (ED) - Focused Exam Vital Signs: Vital Signs Temp Pulse Resp BP Pulse Ox 07/12/20 19:49 79 16 97/62 91 L 07/12/20 18:02 65 16 108/72 93 L 07/12/20 17:06 98 F 80 14 113/67 90 L - My Orders Last 24 Hours: My Active Orders 07/12/20 19:49 CORONAVIRUS COVID-19 QUINTIN [MOLEC] Stat 07/12/20 19:58 Patient Status [ADT] Routine - Assessment/Plan Last 24 Hours: My Active Orders 07/12/20 19:49 CORONAVIRUS COVID-19 QUINTIN [MOLEC] Stat 07/12/20 19:58 Patient Status [ADT] Routine
--- NOTE | 2020-07-12 18:09 | CR ---
INDICATION: Altered mental status TECHNIQUE: Portable upright AP view of the chest COMPARISON: AP chest radiograph 07/09/2019 FINDINGS: The lungs are clear. There is no sizable pleural effusion or pneumothorax. The cardiomediastinal silhouette is stable. The visualized osseous structures are unremarkable. IMPRESSION: No acute intrathoracic process. Dictated by Amos Mcelroy MD @ Jul 12 2020 6:05PM Signed by Dr. Amos Mcelroy @ Jul 12 2020 6:07PM
[2020-07-12 18:37] LABS: BLOOD UREA NITROGEN,BUN 65 mg/dL (7.0-18.0); CARBON DIOXIDE,CO2 40.3 mmol/L (21.0-32.0); CHLORIDE,CL 101 mmol/L (98-107); GLUCOSE RANDOM 115 mg/dL (74-106); LIPASE 497 U/L (73-393); POTASSIUM,K 2.8 mmol/L (3.5-5.1); SODIUM,NA 148 mmol/L (136-148)
[2020-07-12] MEDS ORDERED: Potassium Chloride 10% 20 MEQ/15 ML Soln 15 ML UD Cup PO ONE ×2 (18:51→18:52)
[2020-07-12] MEDS ORDERED: Acetaminophen/oxyCODONE 325-5 MG Tab PO ONE (18:51)
[2020-07-12] MEDS ORDERED: Potassium Chloride 10% 20 MEQ/15 ML Soln 30 ML UD Cup ONE (18:59)
[2020-07-12] MEDS ORDERED: Potassium Chloride 10% 20 MEQ/15 ML Soln 30 ML UD Cup PO ONE ×2 (18:59→20:48)
[2020-07-12] MEDS ORDERED: Potassium Chloride 20 MEQ Tab.ER ONE (19:08)
[2020-07-12] MEDS ORDERED: Potassium Chloride 20 MEQ Tab.ER PO ONE ×2 (19:08→22:52)
[2020-07-12] MEDS ORDERED: Albuterol/Ipratropium 3.0-0.5 MG/3 ML Neb Soln NEB PRN (20:44)
[2020-07-12] MEDS ORDERED: Sodium Chloride 0.9% 1,000 ML IV SCH (20:45)
[2020-07-12] MEDS ORDERED: POTASSIUM CHLORIDE RIDERS IV ONE (20:50)
--- NOTE | 2020-07-12 20:55 | PCM.HP.2 ---
H&P History of Present Illness - General Date of Service: 07/12/20 Admit Problem/Dx: Admission Diagnosis/Problem Admission Diagnosis/Problem Syncope - History of Present Illness Initial Comments - Free Text/Narative: 75-year-old male with past medical history of congestive heart failure with EF of 15%, atrial fibrillation on Eliquis, severe CAT on CPAP, hypertension, hypothyroidism, high cholesterol who was bough to ER via EMS due to "unresponsiveness" at home. Accordingt o ER reports, his found him diff icult to arouse/unresponsive so she called EMS. EMS stated he was breathing and had pulse when they arrived. In the ER patient was more awake and alert. According to the patient he was laying on his flaquita watching some tv and he probably drifted off. He doesn't remember how he got to the ER. Patient has visited ER 2 times since discharged due to recurrent falls and weakness but wasn't agreeable for admission. Patient was recently discharged from hospital after being treated for acute over chronic HF. Patient went home till his insurance got approved to get accepted at [facility]. Patient denied chest pain, N/V, syncope, palpitations, seizure, SOB, cough, fever. neurological deficits. Patient was found t have low potassium and received oral potassium, troponin was negative, EKG unremarkable for ACS, Xray of chest showed no infectious process. Patient was admitted for further management. right shoulder Pain Score (Numeric/FACES): 8 - Related Data Allergies/Adverse Reactions: Allergies Allergy/AdvReac Type Severity Reaction Status Date / Time No Known Allergies Allergy Verified 07/12/20 17:32 Home Medications: Home Meds Levothyroxine 137 mcg PO DAILY 01/09/18 [History] Melatonin 20 mg PO BEDTIME 01/09/18 [History] Terazosin HCl [Terazosin] 10 mg PO DAILY 01/09/18 [History] Gabapentin [Neurontin] 300 mg PO BEDTIME 02/03/20 [History] Apixaban [Eliquis] 5 mg PO BID #60 tablet 02/05/20 [Rx] Potassium Chloride [Klor-Con M20] 20 meq PO BID 90 Days #180 tab.er 03/14/20 [Rx] Losartan [Cozaar] 100 mg PO DAILY 06/26/20 [History] QUEtiapine [SEROquel] 25 mg PO BEDTIME 06/26/20 [History] Sertraline [Zoloft] 50 mg PO DAILY 06/26/20 [History] carvediloL [Carvedilol] 25 mg PO BID 06/26/20 [History] hydrOXYzine HCL [hydrOXYzine] 25 mg PO TID PRN 06/26/20 [History] levETIRAcetam [Keppra] 1,000 mg PO BID 06/26/20 [History] Eplerenone [Inspra] 25 mg PO BID 07/07/20 [History] Acetaminophen [Tylenol] 650 mg PO Q4H PRN tablet 07/10/20 [Rx] Acetaminophen/HYDROcodone [Steuben 325-5 MG] 1 tab PO Q8H PRN tablet 07/10/20 [Rx] Bumetanide [Bumex] 2 mg PO DAILY 30 Days #30 tab 07/10/20 [Rx] Levothyroxine 25 mcg PO ACBREAKFAST 30 Days #30 tablet 07/10/20 [Rx] Lidocaine 5% [Lidoderm 5%] 700 mg TRDERM Q24H 15 Days #15 patch 07/10/20 [Rx] Losartan [Cozaar] 25 mg PO DAILY 30 Days #15 tablet 07/10/20 [Rx] Patient's Own Medication [Ptom] 0.5 each PO BID 30 Days #30 each 07/10/20 [Rx] Potassium Chloride [Klor-Con M20] 60 meq PO BID 30 Days #90 tab.er 07/10/20 [Rx] metOLazone [Zaroxolyn] 5 mg PO TUTHSA@0900 30 Days #12 tablet 07/10/20 [Rx] Past Medical History HEENT History: Reports: None Cardiovascular History: Reports: Afib, Heart Failure, High Cholesterol, Hypertension Respiratory History: Reports: Sleep Apnea Other Respiratory History: CPAP Gastrointestinal History: Reports: None Genitourinary History: Reports: BPH Musculoskeletal History: Reports: None Neurological History: Reports: Seizure Psychiatric History: Reports: None Endocrine/Metabolic History: Reports: Hypothyroidism Insulin Pump Model and Communications Maintainer: None Hematologic History: Reports: None Immunologic History: Reports: None Oncologic (Cancer) History: Reports: None Dermatologic History: Reports: None - Infectious Disease History Infectious Disease History: Reports: Shingles - Past Surgical History Head Surgeries/Procedures: Reports: None HEENT Surgical History: Reports: None Cardiovascular Surgical History: Reports: None Respiratory Surgical History: Reports: None GI Surgical History: Reports: Hernia Repair/Other Male Surgical History: Reports: None Endocrine Surgical History: Reports: None Neurological Surgical History: Reports: None Musculoskeletal Surgical History: Reports: Other (See Below) Other Musculoskeletal Surgeries/Procedures:: neck fusion Oncologic Surgical History: Reports: None Dermatological Surgical History: Reports: None Social & Family History - Family History Family Medical History: No Pertinent Family History - Caffeine Use Caffeine Use: Reports: None - Recreational Drug Use Recreational Drug Use: No H&P Review of Systems - Review of Systems: Review Of Systems: See Below General: Reports: Malaise, Weakness, Fatigue. Denies: Fever, Chills Pulmonary: Denies: Shortness of Breath, Wheezing, Pleuritic Chest Pain Cardiovascular: Reports: Dyspnea on Exertion. Denies: Chest Pain, Palpitations, Orthopnea, PND Gastrointestinal: Denies: Abdominal Pain, Anorexia, Black Stool, Vomiting Genitourinary: Denies: Frequency, Burning Musculoskeletal: Reports: Shoulder Pain, Arm Pain, Back Pain, Muscle Pain Skin: Denies: Jaundice, Mottled Psychiatric: Denies: Depression, Mood Lability, Hallucinations Neurological: Denies: Dizziness, Headache, Numbness, Paresthesia Hematologic/Lymphatic: Denies: Easy Bleeding, Swollen Glands Exam - Exam Exam: See Below - Vital Signs Vital Signs: Last Vital Signs Temp 36.6 C 07/12/20 17:06 Pulse 79 07/12/20 19:49 Resp 16 07/12/20 19:49 BP 97/62 07/12/20 19:49 Pulse Ox 91 L 07/12/20 19:49 Weight: 83.007 kg - Exam General: Alert, Oriented Neck: Supple Lungs: Clear to Auscultation, Normal Respiratory Effort Cardiovascular: Regular Rate, Irregular Rhythm, Systolic Murmur GI/Abdominal Exam: Normal Bowel Sounds, Soft, Non-Tender Extremities: Normal Inspection, Pedal Edema (1+) - Patient Data Lab Results Last 24 hrs: Laboratory Results - last 24 hr 07/12/20 07/12/20 07/12/20 Range/Units 17:23 18:00 18:00 WBC 6.76 (4.0-11.0) K/uL RBC 4.57 (4.50-5.90) M/uL Hgb 14.0 (13.0-17.0) g/dL Hct 44.4 (38.0-50.0) % MCV 97.2 (80.0-98.0) fL MCH 30.6 (27.0-32.0) pg MCHC 31.5 (31.0-37.0) g/dL RDW Std Deviation 50.9 (28.0-62.0) fl RDW Coeff of Mike 14 (11.0-15.0) % Plt Count 189 (150-400) K/uL MPV 10.40 (7.40-12.00) fL Neut % (Auto) 78.1 (48.0-80.0) % Lymph % (Auto) 11.5 L (16.0-40.0) % Prentiss % (Auto) 8.1 (0.0-15.0) % Eos % (Auto) 2.2 (0.0-7.0) % Baso % (Auto) 0.1 (0.0-1.5) % Neut # (Auto) 5.3 (1.4-5.7) K/uL Lymph # (Auto) 0.8 (0.6-2.4) K/uL Prentiss # (Auto) 0.6 (0.0-0.8) K/uL Eos # (Auto) 0.2 (0.0-0.7) K/uL Baso # (Auto) 0.0 (0.0-0.1) K/uL Nucleated RBC % 0.0 /100WBC Nucleated RBCs # 0 K/uL Lactate 1.5 (0.20-2.00) mmol/L Sodium (136-148) mmol/L Potassium (3.5-5.1) mmol/L Chloride (98-107) mmol/L Carbon Dioxide (21.0-32.0) mmol/L BUN (7.0-18.0) mg/dL Creatinine (0.8-1.3) mg/dL Est Cr Clr Drug Dosing mL/min Estimated GFR (MDRD) ml/min Glucose (74-106) mg/dL Calcium (8.5-10.1) mg/dL Phosphorus (2.6-4.7) mg/dL Magnesium (1.8-2.4) mg/dL Total Bilirubin (0.2-1.0) mg/dL AST (15-37) IU/L ALT (14-63) IU/L Alkaline Phosphatase (46-116) U/L Troponin I (0.000-0.056) ng/mL Total Protein (6.4-8.2) g/dL Albumin (3.4-5.0) g/dL Globulin (2.6-4.0) g/dL Albumin/Globulin Ratio (0.9-1.6) Lipase (73-393) U/L Urine Color YELLOW Urine Appearance CLEAR Urine pH 6.5 (5.0-8.0) Ur Specific [place] 1.015 (1.001-1.035) Urine Protein NEGATIVE (NEGATIVE) mg/dL Urine Glucose (UA) NEGATIVE (NEGATIVE) mg/dL Urine Ketones NEGATIVE (NEGATIVE) mg/dL Urine Occult Blood NEGATIVE (NEGATIVE) Urine Nitrite NEGATIVE (NEGATIVE) Urine Bilirubin NEGATIVE (NEGATIVE) Urine Urobilinogen 0.2 (<2.0) EU/dL Ur Leukocyte Esterase NEGATIVE (NEGATIVE) SARS-CoV-2 RNA (QUINTIN) (NEGATIVE) 07/12/20 07/12/20 Range/Units 18:00 19:39 WBC (4.0-11.0) K/uL RBC (4.50-5.90) M/uL Hgb (13.0-17.0) g/dL Hct (38.0-50.0) % MCV (80.0-98.0) fL MCH (27.0-32.0) pg MCHC (31.0-37.0) g/dL RDW Std Deviation (28.0-62.0) fl RDW Coeff of Mike (11.0-15.0) % Plt Count (150-400) K/uL MPV (7.40-12.00) fL Neut % (Auto) (48.0-80.0) % Lymph % (Auto) (16.0-40.0) % Prentiss % (Auto) (0.0-15.0) % Eos % (Auto) (0.0-7.0) % Baso % (Auto) (0.0-1.5) % Neut # (Auto) (1.4-5.7) K/uL Lymph # (Auto) (0.6-2.4) K/uL Prentiss # (Auto) (0.0-0.8) K/uL Eos # (Auto) (0.0-0.7) K/uL Baso # (Auto) (0.0-0.1) K/uL Nucleated RBC % /100WBC Nucleated RBCs # K/uL Lactate (0.20-2.00) mmol/L Sodium 148 (136-148) mmol/L Potassium 2.8 L (3.5-5.1) mmol/L Chloride 101 (98-107) mmol/L Carbon Dioxide 40.3 H (21.0-32.0) mmol/L BUN 65 H (7.0-18.0) mg/dL Creatinine 2.1 H (0.8-1.3) mg/dL Est Cr Clr Drug Dosing 32.33 mL/min Estimated GFR (MDRD) 30.8 ml/min Glucose 115 H (74-106) mg/dL Calcium 9.4 (8.5-10.1) mg/dL Phosphorus 4.3 (2.6-4.7) mg/dL Magnesium 2.1 (1.8-2.4) mg/dL Total Bilirubin 1.3 H (0.2-1.0) mg/dL AST 27 (15-37) IU/L ALT 18 (14-63) IU/L Alkaline Phosphatase 104 (46-116) U/L Troponin I < 0.050 (0.000-0.056) ng/mL Total Protein 7.4 (6.4-8.2) g/dL Albumin 3.3 L (3.4-5.0) g/dL Globulin 4.1 H (2.6-4.0) g/dL Albumin/Globulin Ratio 0.8 L (0.9-1.6) Lipase 497 H (73-393) U/L Urine Color Urine Appearance Urine pH (5.0-8.0) Ur Specific [place] (1.001-1.035) Urine Protein (NEGATIVE) mg/dL Urine Glucose (UA) (NEGATIVE) mg/dL Urine Ketones (NEGATIVE) mg/dL Urine Occult Blood (NEGATIVE) Urine Nitrite (NEGATIVE) Urine Bilirubin (NEGATIVE) Urine Urobilinogen (<2.0) EU/dL Ur Leukocyte Esterase (NEGATIVE) SARS-CoV-2 RNA (QUINTIN) NEGATIVE (NEGATIVE) Result Diagrams: 07/12/20 18:00 07/12/20 18:00 Sepsis Event Note - Evaluation Sepsis Screening Result: No Definite Risk - Focused Exam Vital Signs: Vital Signs Temp Pulse Resp BP Pulse Ox 07/12/20 19:49 79 16 97/62 91 L 07/12/20 18:02 65 16 108/72 93 L 07/12/20 17:06 36.6 C 80 14 113/67 90 L - Problem List (1) Fall in elderly patient SNOMED Code(s): 320637218 ICD Code: R29.6 - REPEATED FALLS Status: Acute Current Visit: Yes (2) Hypokalemia SNOMED Code(s): 88135858 ICD Code: E87.6 - HYPOKALEMIA Status: Acute Current Visit: Yes (3) Self-care deficit SNOMED Code(s): 011007831 ICD Code: Z78.9 - OTHER SPECIFIED HEALTH STATUS Status: Acute Current Visit: Yes (4) Syncope SNOMED Code(s): 958215370 ICD Code: R55 - SYNCOPE AND COLLAPSE Status: Acute Current Visit: Yes (5) Weakness SNOMED Code(s): 73986097 ICD Code: R53.1 - WEAKNESS Status: Acute Current Visit: Yes (6) Acute kidney injury SNOMED Code(s): 49038949, 67471360 ICD Code: N17.9 - ACUTE KIDNEY FAILURE, UNSPECIFIED Status: Acute Current Visit: No (7) Anticoagulated by anticoagulation treatment SNOMED Code(s): 582751326, 784770713 ICD Code: Z79.01 - PROSTHODONTIST (CURRENT) USE OF ANTICOAGULANTS Status: Acute Current Visit: No (8) Atrial fibrillation SNOMED Code(s): 51777536 ICD Code: I48.91 - UNSPECIFIED ATRIAL FIBRILLATION Status: Acute Current Visit: No Qualifiers: Atrial fibrillation type: longstanding persistent Qualified Code(s): I48.11 - Longstanding persistent atrial fibrillation (9) Chronic neck pain SNOMED Code(s): 2582272782545 ICD Code: M54.2 - CERVICALGIA; G89.29 - OTHER CHRONIC PAIN Status: Acute Current Visit: No (10) Congestive heart failure (CHF) SNOMED Code(s): 73899926 ICD Code: I50.9 - HEART FAILURE, UNSPECIFIED Status: Acute Current Visit: No (11) Frequent falls SNOMED Code(s): 746922995 ICD Code: R29.6 - REPEATED FALLS Status: Acute Current Visit: No (12) CAT (obstructive sleep apnea) SNOMED Code(s): 24236133 ICD Code: G47.33 - OBSTRUCTIVE SLEEP APNEA (ADULT) (PEDIATRIC) Status: Acute Current Visit: No Problem List Initiated/Reviewed/Updated: Yes Orders Last 24hrs: Active Orders 24 hr Category Date Time Status Patient Status [ADT] Routine ADT 07/12/20 19:58 Active Ambulate [RC] ASDIRECTED Care 07/12/20 20:44 Ordered Antiembolic Devices [RC] PER UNIT ROUTINE Care 07/12/20 20:45 Ordered EKG Documentation Completion [RC] STAT Care 07/12/20 17:29 Active Oxygen Therapy [RC] PRN Care 07/12/20 20:44 Ordered Pulse Oximetry [RC] PRN Care 07/12/20 20:45 Ordered RT Aerosol Therapy [RC] ASDIRECTED Care 07/12/20 20:46 Ordered VTE/DVT Education [RC] PER UNIT ROUTINE Care 07/12/20 20:44 Ordered Vital Signs [RC] Q4H Care 07/12/20 20:44 Ordered Heart Healthy Diet [DIET] Diet 07/12/20 Breakfast Ordered TROPONIN I [CHEM] Q6H Lab 07/12/20 20:44 Ordered TROPONIN I [CHEM] Q6H Lab 07/13/20 02:44 Ordered Albuterol/Ipratropium [DuoNeb 3.0-0.5 MG/3 ML] Med 07/12/20 20:44 Ordered 3 ml NEB Q4HRRT PRN Sequential Compression Device [OM.PC] Per Unit Routine Oth 07/12/20 20:45 Ordered Resuscitation Status Routine Resus Stat 07/12/20 20:44 Ordered Medication Orders Albuterol/Ipratropium (Duoneb 3.0-0.5 Mg/3 Ml) 3 ml NEB Q4HRRT PRN PRN Reason: Shortness Of Breath/wheezing Assessment/Plan Comment:: 75 y/o M admitted for hypokalemia, frequent falls, possible syncope Replete potassium aggressively, recheck in AM Trend Troponin, 1st set normal Restart home meds as appropriate Patient isnt safe to be at home, he already had 3 ER visits in last few days Consult PT consult SW for placement, patient states his has been "filling the paper work" for insurance to get to rehab. Dispo: awaiting placement
[2020-07-12] MEDS ORDERED: Ondansetron 4 MG/2 ML SDV IVPUSH PRN (20:58)
[2020-07-12] MEDS ORDERED: Acetaminophen/HYDROcodone 325-5 MG Tab PO PRN (21:07)
[2020-07-12] MEDS ORDERED: Lidocaine 5% 700 MG Patch TRDERM SCH (21:15)
[2020-07-12] MEDS: Carvedilol 25 MG Tab PO SCH (22:38)
[2020-07-12] MEDS ORDERED: Potassium Chloride Riders 40 MEQ in Premix Bag 1 BAG IV ONE (23:12)
[2020-07-13 06:03] LABS: CARBON DIOXIDE,CO2 36.3 mmol/L (21.0-32.0); POTASSIUM,K 3.2 mmol/L (3.5-5.1)
[2020-07-13] MEDS ORDERED: Potassium Chloride 20 MEQ Tab.ER PO ONE (07:56)
[2020-07-13] MEDS ORDERED: Furosemide 40 MG Tab PO SCH (08:00)
[2020-07-13] MEDS: Carvedilol 25 MG Tab PO SCH (08:37)
[2020-07-13] MEDS ORDERED: Eplerenone [Inspra] 25 MG PO SCH (09:00)
[2020-07-13] MEDS ORDERED: Bumetanide 1 MG Tab PO SCH (09:00)
[2020-07-13] MEDS ORDERED: levETIRAcetam 500 MG Tab PO SCH (09:00)
[2020-07-13] MEDS ORDERED: Carvedilol 25 MG Tab PO SCH (09:00)
[2020-07-13] MEDS ORDERED: Sertraline 50 MG Tab PO SCH (09:00)
[2020-07-13] MEDS ORDERED: Apixaban 5 MG Tab PO SCH (09:00)
--- NOTE | 2020-07-13 09:26 | PCM.PN ---
- General Info Date of Service: 07/13/20 Admission Dx/Problem (Free Text): Admission Diagnosis/Problem Admission Diagnosis/Problem Syncope Subjective Update: Feeling improved today, no chest pain or SOB. NO palpitations. reports edema to lower legs is stable. Feels constipated. Functional Status: Reports: Pain Controlled, Tolerating Diet, Ambulating, Urinating - Review of Systems General: Reports: No Symptoms. Denies: Fatigue, Malaise HEENT: Reports: No Symptoms. Denies: Headaches, Visual Changes Pulmonary: Denies: Shortness of Breath Cardiovascular: Reports: Dyspnea on Exertion, Edema. Denies: Chest Pain, Palpitations Gastrointestinal: Reports: No Symptoms. Denies: Abdominal Pain, Nausea, Vomiting Genitourinary: Reports: No Symptoms. Denies: Dysuria, Frequency, Burning Musculoskeletal: Reports: No Symptoms Skin: Reports: No Symptoms Neurological: Reports: No Symptoms. Denies: Confusion Psychiatric: Reports: No Symptoms - Patient Data Vitals - Most Recent: Last Vital Signs Temp 98.4 F 07/13/20 07:30 Pulse 70 07/13/20 08:37 Resp 18 07/13/20 07:30 BP 96/66 07/13/20 08:37 Pulse Ox 97 07/13/20 07:30 Weight - Most Recent: 81.284 kg I&O - Last 24 Hours: Intake & Output 07/12/20 07/13/20 07/13/20 22:59 06:59 14:59 Intake Total 570 Output Total 625 Balance -55 Lab Results Last 24 Hours: Laboratory Results - last 24 hr 07/12/20 07/12/20 07/12/20 Range/Units 17:23 18:00 18:00 WBC 6.76 (4.0-11.0) K/uL RBC 4.57 (4.50-5.90) M/uL Hgb 14.0 (13.0-17.0) g/dL Hct 44.4 (38.0-50.0) % MCV 97.2 (80.0-98.0) fL MCH 30.6 (27.0-32.0) pg MCHC 31.5 (31.0-37.0) g/dL RDW Std Deviation 50.9 (28.0-62.0) fl RDW Coeff of Mike 14 (11.0-15.0) % Plt Count 189 (150-400) K/uL MPV 10.40 (7.40-12.00) fL Neut % (Auto) 78.1 (48.0-80.0) % Lymph % (Auto) 11.5 L (16.0-40.0) % [place] % (Auto) 8.1 (0.0-15.0) % Eos % (Auto) 2.2 (0.0-7.0) % Baso % (Auto) 0.1 (0.0-1.5) % Neut # (Auto) 5.3 (1.4-5.7) K/uL Lymph # (Auto) 0.8 (0.6-2.4) K/uL [place] # (Auto) 0.6 (0.0-0.8) K/uL Eos # (Auto) 0.2 (0.0-0.7) K/uL Baso # (Auto) 0.0 (0.0-0.1) K/uL Nucleated RBC % 0.0 /100WBC Nucleated RBCs # 0 K/uL Lactate 1.5 (0.20-2.00) mmol/L Sodium (136-148) mmol/L Potassium (3.5-5.1) mmol/L Chloride (98-107) mmol/L Carbon Dioxide (21.0-32.0) mmol/L BUN (7.0-18.0) mg/dL Creatinine (0.8-1.3) mg/dL Est Cr Clr Drug Dosing mL/min Estimated GFR (MDRD) ml/min Glucose (74-106) mg/dL Calcium (8.5-10.1) mg/dL Phosphorus (2.6-4.7) mg/dL Magnesium (1.8-2.4) mg/dL Total Bilirubin (0.2-1.0) mg/dL AST (15-37) IU/L ALT (14-63) IU/L Alkaline Phosphatase (46-116) U/L Troponin I (0.000-0.056) ng/mL Total Protein (6.4-8.2) g/dL Albumin (3.4-5.0) g/dL Globulin (2.6-4.0) g/dL Albumin/Globulin Ratio (0.9-1.6) Lipase (73-393) U/L Urine Color YELLOW Urine Appearance CLEAR Urine pH 6.5 (5.0-8.0) Ur Specific [place] 1.015 (1.001-1.035) Urine Protein NEGATIVE (NEGATIVE) mg/dL Urine Glucose (UA) NEGATIVE (NEGATIVE) mg/dL Urine Ketones NEGATIVE (NEGATIVE) mg/dL Urine Occult Blood NEGATIVE (NEGATIVE) Urine Nitrite NEGATIVE (NEGATIVE) Urine Bilirubin NEGATIVE (NEGATIVE) Urine Urobilinogen 0.2 (<2.0) EU/dL Ur Leukocyte Esterase NEGATIVE (NEGATIVE) SARS-CoV-2 RNA (QUINTIN) (NEGATIVE) 07/12/20 07/12/20 07/12/20 Range/Units 18:00 19:39 21:02 WBC (4.0-11.0) K/uL RBC (4.50-5.90) M/uL Hgb (13.0-17.0) g/dL Hct (38.0-50.0) % MCV (80.0-98.0) fL MCH (27.0-32.0) pg MCHC (31.0-37.0) g/dL RDW Std Deviation (28.0-62.0) fl RDW Coeff of Mike (11.0-15.0) % Plt Count (150-400) K/uL MPV (7.40-12.00) fL Neut % (Auto) (48.0-80.0) % Lymph % (Auto) (16.0-40.0) % [place] % (Auto) (0.0-15.0) % Eos % (Auto) (0.0-7.0) % Baso % (Auto) (0.0-1.5) % Neut # (Auto) (1.4-5.7) K/uL Lymph # (Auto) (0.6-2.4) K/uL [place] # (Auto) (0.0-0.8) K/uL Eos # (Auto) (0.0-0.7) K/uL Baso # (Auto) (0.0-0.1) K/uL Nucleated RBC % /100WBC Nucleated RBCs # K/uL Lactate (0.20-2.00) mmol/L Sodium 148 (136-148) mmol/L Potassium 2.8 L (3.5-5.1) mmol/L Chloride 101 (98-107) mmol/L Carbon Dioxide 40.3 H (21.0-32.0) mmol/L BUN 65 H (7.0-18.0) mg/dL Creatinine 2.1 H (0.8-1.3) mg/dL Est Cr Clr Drug Dosing 32.33 mL/min Estimated GFR (MDRD) 30.8 ml/min Glucose 115 H (74-106) mg/dL Calcium 9.4 (8.5-10.1) mg/dL Phosphorus 4.3 (2.6-4.7) mg/dL Magnesium 2.1 (1.8-2.4) mg/dL Total Bilirubin 1.3 H (0.2-1.0) mg/dL AST 27 (15-37) IU/L ALT 18 (14-63) IU/L Alkaline Phosphatase 104 (46-116) U/L Troponin I < 0.050 < 0.050 (0.000-0.056) ng/mL Total Protein 7.4 (6.4-8.2) g/dL Albumin 3.3 L (3.4-5.0) g/dL Globulin 4.1 H (2.6-4.0) g/dL Albumin/Globulin Ratio 0.8 L (0.9-1.6) Lipase 497 H (73-393) U/L Urine Color Urine Appearance Urine pH (5.0-8.0) Ur Specific [place] (1.001-1.035) Urine Protein (NEGATIVE) mg/dL Urine Glucose (UA) (NEGATIVE) mg/dL Urine Ketones (NEGATIVE) mg/dL Urine Occult Blood (NEGATIVE) Urine Nitrite (NEGATIVE) Urine Bilirubin (NEGATIVE) Urine Urobilinogen (<2.0) EU/dL Ur Leukocyte Esterase (NEGATIVE) SARS-CoV-2 RNA (QUINTIN) NEGATIVE (NEGATIVE) 07/13/20 07/13/20 07/13/20 Range/Units 02:38 05:05 05:05 WBC 6.36 (4.0-11.0) K/uL RBC 4.28 L (4.50-5.90) M/uL Hgb 13.0 (13.0-17.0) g/dL Hct 41.2 (38.0-50.0) % MCV 96.3 (80.0-98.0) fL MCH 30.4 (27.0-32.0) pg MCHC 31.6 (31.0-37.0) g/dL RDW Std Deviation 50.4 (28.0-62.0) fl RDW Coeff of Mike 14 (11.0-15.0) % Plt Count 196 (150-400) K/uL MPV 10.50 (7.40-12.00) fL Neut % (Auto) 70.4 (48.0-80.0) % Lymph % (Auto) 17.6 (16.0-40.0) % [place] % (Auto) 9.1 (0.0-15.0) % Eos % (Auto) 2.4 (0.0-7.0) % Baso % (Auto) 0.5 (0.0-1.5) % Neut # (Auto) 4.5 (1.4-5.7) K/uL Lymph # (Auto) 1.1 (0.6-2.4) K/uL [place] # (Auto) 0.6 (0.0-0.8) K/uL Eos # (Auto) 0.2 (0.0-0.7) K/uL Baso # (Auto) 0.0 (0.0-0.1) K/uL Nucleated RBC % 0.0 /100WBC Nucleated RBCs # 0 K/uL Lactate (0.20-2.00) mmol/L Sodium 146 (136-148) mmol/L Potassium 3.2 L (3.5-5.1) mmol/L Chloride 102 (98-107) mmol/L Carbon Dioxide 36.3 H (21.0-32.0) mmol/L BUN 64 H (7.0-18.0) mg/dL Creatinine 2.1 H (0.8-1.3) mg/dL Est Cr Clr Drug Dosing 32.33 mL/min Estimated GFR (MDRD) 30.8 ml/min Glucose 86 (74-106) mg/dL Calcium 9.0 (8.5-10.1) mg/dL Phosphorus 4.6 (2.6-4.7) mg/dL Magnesium 2.1 (1.8-2.4) mg/dL Total Bilirubin (0.2-1.0) mg/dL AST (15-37) IU/L ALT (14-63) IU/L Alkaline Phosphatase (46-116) U/L Troponin I < 0.050 (0.000-0.056) ng/mL Total Protein (6.4-8.2) g/dL Albumin (3.4-5.0) g/dL Globulin (2.6-4.0) g/dL Albumin/Globulin Ratio (0.9-1.6) Lipase (73-393) U/L Urine Color Urine Appearance Urine pH (5.0-8.0) Ur Specific [place] (1.001-1.035) Urine Protein (NEGATIVE) mg/dL Urine Glucose (UA) (NEGATIVE) mg/dL Urine Ketones (NEGATIVE) mg/dL Urine Occult Blood (NEGATIVE) Urine Nitrite (NEGATIVE) Urine Bilirubin (NEGATIVE) Urine Urobilinogen (<2.0) EU/dL Ur Leukocyte Esterase (NEGATIVE) SARS-CoV-2 RNA (QUINTIN) (NEGATIVE) Med Orders - Current: Current Medications Hydrocodone Bitart/Acetaminophen ([place]utton 325-5 Mg) 1 tab PO Q8H PRN PRN Reason: Pain Last Admin: 07/13/20 06:25 Dose: 1 tab Documented by: Albuterol/Ipratropium (Duoneb 3.0-0.5 Mg/3 Ml) 3 ml NEB Q4HRRT PRN PRN Reason: Shortness Of Breath/wheezing Apixaban (Eliquis) 5 mg PO BID [facility] Last Admin: 07/13/20 08:36 Dose: 5 mg Documented by: Bumetanide (Bumex) 2 mg PO DAILY [facility] Last Admin: 07/13/20 08:36 Dose: 2 mg Documented by: Carvedilol (Coreg) 25 mg PO BID [facility] Last Admin: 07/13/20 08:37 Dose: 25 mg Documented by: Levetiracetam (Keppra) 1,000 mg PO BID [facility] Last Admin: 07/13/20 08:36 Dose: 1,000 mg Documented by: Lidocaine (Lidoderm 5%) 700 mg TRDERM Q24H [facility] Last Admin: 07/12/20 22:39 Dose: 700 mg Documented by: Metolazone (Zaroxolyn) 5 mg PO TUTHSA@0900 [facility] Ondansetron HCl (Zofran) 4 mg IVPUSH Q6H PRN PRN Reason: Nausea/Vomiting Eplerenone [Inspra] (25 Mg) 0.5 each PO BID [facility] Last Admin: 07/13/20 08:40 Dose: Not Given Documented by: Quetiapine Fumarate (Seroquel) 25 mg PO BEDTIME [facility] Sertraline HCl (Zoloft) 50 mg PO DAILY [facility] Last Admin: 07/13/20 08:36 Dose: 50 mg Documented by: Discontinued Medications Carvedilol (Coreg) 25 mg PO BID [facility] Furosemide (Lasix) 40 mg PO BIDDIURETIC [facility] Sodium Chloride (Normal Saline) 1,000 mls @ 100 mls/hr IV ASDIRECTED [facility] Last Admin: 07/12/20 20:42 Dose: 100 mls/hr Documented by: Potassium Chloride 40 meq/ (Premix) 0 mls @ 25 mls/hr IV ONETIME ONE Stop: 07/12/20 20:51 Last Admin: 07/12/20 23:38 Dose: Not Given Documented by: Potassium Chloride 40 meq/ (Premix) 100 mls @ 25 mls/hr IV ONETIME ONE Stop: 07/13/20 03:11 Last Admin: 07/12/20 23:26 Dose: 25 mls/hr Documented by: Oxycodone/Acetaminophen (Percocet 325-5 Mg) 1 tab PO ONETIME ONE Stop: 07/12/20 18:52 Last Admin: 07/12/20 19:03 Dose: 1 tab Documented by: Potassium Chloride (Potassium Chloride Solution) 20 meq PO ONETIME ONE Stop: 07/12/20 18:53 Last Admin: 07/12/20 19:02 Dose: Not Given Documented by: Potassium Chloride (Potassium Chloride) 40 meq PO ONETIME ONE Stop: 07/12/20 19:00 Last Admin: 07/12/20 19:03 Dose: Not Given Documented by: Potassium Chloride (Potassium Chloride) Confirm Administered Dose 40 meq .ROUTE .STK-MED ONE Stop: 07/12/20 19:00 Last Admin: 07/12/20 19:03 Dose: Not Given Documented by: Potassium Chloride (Klor-Con M20) 40 meq PO ONETIME ONE Stop: 07/12/20 19:09 Last Admin: 07/12/20 19:09 Dose: 40 meq Documented by: Potassium Chloride (Klor-Con M20) Confirm Administered Dose 40 meq .ROUTE .STK- MED ONE Stop: 07/12/20 19:09 Last Admin: 07/12/20 19:21 Dose: Not Given Documented by: Potassium Chloride (Potassium Chloride) 40 meq PO ONETIME ONE Stop: 07/12/20 20:49 Last Admin: 07/12/20 23:38 Dose: Not Given Documented by: Potassium Chloride (Klor-Con M20) 40 meq PO ONETIME ONE Stop: 07/12/20 22:53 Last Admin: 07/12/20 23:26 Dose: 40 meq Documented by: Potassium Chloride (Klor-Con M20) 40 meq PO ONETIME ONE Stop: 07/13/20 07:57 Last Admin: 07/13/20 08:36 Dose: 40 meq Documented by: - Exam General: Alert, Oriented, Cooperative, No Acute Distress Lungs: Normal Respiratory Effort, Decreased Breath Sounds Cardiovascular: Regular Rate, Regular Rhythm GI/Abdominal Exam: Normal Bowel Sounds, Soft, Non-Tender Extremities: Normal Inspection, Normal Range of Motion, Non-Tender, Pedal Edema (+1 pitting edmea bilaterally) Wound/Incisions: Other (abrasion to R bowen). No: Erythema Neurological: No New Focal Deficit Psy/Mental Status: Alert, Normal Affect, Normal Mood Sepsis Event Note - Evaluation Sepsis Screening Result: No Definite Risk - Focused Exam Vital Signs: Vital Signs Temp Pulse Pulse Resp BP BP Pulse Ox 07/13/20 08:37 70 96/66 07/13/20 07:30 98.4 F 70 18 96/66 97 07/13/20 04:07 98.2 F 73 16 94/64 97 07/13/20 00:45 95/55 L 07/13/20 00:20 97.8 F 73 18 93 L 07/12/20 22:38 64 95/63 07/12/20 22:00 98 07/12/20 21:38 97.8 F 62 18 95/63 97 - Problem List & Annotations (1) Fall in elderly patient SNOMED Code(s): 502976899 Code(s): R29.6 - REPEATED FALLS Status: Acute Current Visit: Yes (2) Hypokalemia SNOMED Code(s): 23621952 Code(s): E87.6 - HYPOKALEMIA Status: Acute Current Visit: Yes (3) Self-care deficit SNOMED Code(s): 394206600 Code(s): Z78.9 - OTHER SPECIFIED HEALTH STATUS Status: Acute Current Visit: Yes (4) Syncope SNOMED Code(s): 466365806 Code(s): R55 - SYNCOPE AND COLLAPSE Status: Acute Current Visit: Yes (5) Weakness SNOMED Code(s): 70431216 Code(s): R53.1 - WEAKNESS Status: Acute Current Visit: Yes (6) Anticoagulated by anticoagulation treatment SNOMED Code(s): 522866060, 880831874 Code(s): Z79.01 - SHELTER (CURRENT) USE OF ANTICOAGULANTS Status: Chronic Current Visit: No (7) Atrial fibrillation SNOMED Code(s): 05439885 Code(s): I48.91 - UNSPECIFIED ATRIAL FIBRILLATION Status: Chronic Current Visit: No Qualifiers: Atrial fibrillation type: longstanding persistent Qualified Code(s): I48.11 - Longstanding persistent atrial fibrillation (8) Congestive heart failure (CHF) SNOMED Code(s): 97278833 Code(s): I50.9 - HEART FAILURE, UNSPECIFIED Status: Chronic Current Visit: No Qualifiers: Heart failure type: systolic Heart failure chronicity: chronic Qualified Code(s): I50.22 - Chronic systolic (congestive) heart failure (9) CAT (obstructive sleep apnea) SNOMED Code(s): 48948765 Code(s): G47.33 - OBSTRUCTIVE SLEEP APNEA (ADULT) (PEDIATRIC) Status: Chronic Current Visit: No (10) Hypertension SNOMED Code(s): 01688397 Code(s): I10 - ESSENTIAL (PRIMARY) HYPERTENSION Status: Chronic Current Visit: Yes Qualifiers: Hypertension type: essential hypertension Qualified Code(s): I10 - Essential (primary) hypertension (11) HLD (hyperlipidemia) SNOMED Code(s): 64198387 Code(s): E78.5 - HYPERLIPIDEMIA, UNSPECIFIED Status: Chronic Current Visit: Yes (12) Hypothyroidism SNOMED Code(s): 09331507 Code(s): E03.9 - HYPOTHYROIDISM, UNSPECIFIED Status: Chronic Current Visit: Yes (13) CAT on CPAP SNOMED Code(s): 89802686 Code(s): G47.33 - OBSTRUCTIVE SLEEP APNEA (ADULT) (PEDIATRIC); Z99.89 - DEPENDENCE ON OTHER ENABLING MACHINES AND DEVICES Status: Acute Current Visit: Yes (14) BPH (benign prostatic hyperplasia) SNOMED Code(s): 331119713 Code(s): N40.0 - BENIGN PROSTATIC HYPERPLASIA WITHOUT LOWER URINRY TRACT SYMP Status: Chronic Current Visit: Yes (15) Primary hyperaldosteronism Status: Chronic Current Visit: Yes (16) Cardiomyopathy SNOMED Code(s): 98952026 Code(s): I42.9 - CARDIOMYOPATHY, UNSPECIFIED Status: Chronic Current Visit: Yes (17) Seizure disorder SNOMED Code(s): 470914904 Code(s): G40.909 - EPILEPSY, UNSP, NOT INTRACTABLE, WITHOUT STATUS EPILEPTICUS Status: Chronic Current Visit: Yes - Problem List Review Problem List Initiated/Reviewed/Updated: Yes - My Orders Last 24 Hours: My Active Orders 07/13/20 09:00 Bumetanide [Bumex] 2 mg PO DAILY - Plan Plan:: 75 y/o M admitted for hypokalemia, frequent falls, possible syncope 1. Falls at home/self care deficit -Has had significant falls since discharge -Patient has acute on chronic deconditioning -PT to evaluate and treat -Arranging placement at this time 2. Hypokalemia -Likely secondary to diuretic use -Improved today to 3.2 -Continue potassium 40 mEq p.o. twice daily -Monitor other electrolytes daily and replete as necessary 3. Possible syncope -Monitor on telemetry -No events overnight. -Troponins negative 4. Cardiomyopathy/CHF -Monitor on telemetry for arrhythmias -Restart Bumex 2 mg daily as well as metolazone every other day 5 mg -Strict I's and O's, daily weight, 1.5 fluid restriction and heart healthy diet, low sodium -Continue eplerenone 25 mg twice daily, Coreg 25 mg twice daily -Continue losartan 25 mg daily - Continue eplerenone 25 mg BID 5. HTN/A. fib -Continue losartan and Coreg as above -Continue Eliquis twice daily -Monitor on telemetry -Monitor electrolytes daily 6. CAT on CPAP - is bringing CPAP today 7. Seizure disorder: -We will check Keppra level -Continue Keppra per home dosing 8. Hypothyroidism - Continue levothyroxine VTE prophylaxis: Eliquis CODE STATUS: Full code Dispo: pending placement
[2020-07-13] MEDS ORDERED: Bisacodyl 10 MG Supp RECTAL PRN (09:36)
[2020-07-13] MEDS ORDERED: Docusate Sodium 100 MG Cap PO SCH (09:45)
[2020-07-13] MEDS ORDERED: hydrOXYzine HCl 25 MG Tab PO PRN (11:49)
--- NOTE | 2020-07-13 16:39 | PCM.DCSUM1 ---
Discharge Summary - Hospital Course Free Text/Narrative:: 75-year-old male with past medical history of congestive heart failure with EF of 15%, atrial fibrillation on Eliquis, severe CAT on CPAP, hypertension, hypothyroidism, high cholesterol who was bough to ER via EMS due to "unresponsiveness" at home. According o ER reports, his found him difficult to arouse/unresponsive so she called EMS. EMS stated he was breathing and had pulse when they arrived. In the ER patient was more awake and alert. According to the patient he was laying on his flaquita watching some tv and he probably drifted off. He doesn't remember how he got to the ER. Patient has visited ER 2 times since discharged due to recurrent falls and weakness but wasn't agreeable for admission. Patient was recently discharged from hospital after being treated for acute over chronic HF. Patient went home till his insurance got approved to get accepted at a [facility]. Patient denied chest pain, N/V, syncope, palpitations, seizure, SOB, cough, fever. neurological deficits. Patient was found to have low potassium and received oral potassium, troponin was negative, EKG unremarkable for ACS, Xray of chest showed no infectious process. Patient was admitted for further management of his symptoms and arrange patients placement in a rehabilitation facility given his is unable to manage patient at home. Patient was monitored on telemetry, troponin were trended which were negative, his potassium was repleted aggressively,, Patient had no further symptoms but continued to be weak. While patients transfer to a rehabilitation facility was in process, patients mule rider in [facility] was contacted who recommended transferring patient for possible ICD placement and Inotropic infusion (which is not available at our facility). Patient was transferred to [facility] for further higher level of care. - Discharge Data Discharge Date: 07/13/20 Discharge Disposition: Home, Self-Care 01 Condition: Good - Referral to Home Health Primary Care Physician: PCP None - Discharge Diagnosis/Problem(s) (1) Fall in elderly patient SNOMED Code(s): 941932498 ICD Code: R29.6 - REPEATED FALLS Status: Acute Current Visit: Yes (2) Hypokalemia SNOMED Code(s): 00974932 ICD Code: E87.6 - HYPOKALEMIA Status: Acute Current Visit: Yes (3) Self-care deficit SNOMED Code(s): 079848618 ICD Code: Z78.9 - OTHER SPECIFIED HEALTH STATUS Status: Acute Current Visit: Yes (4) Syncope SNOMED Code(s): 497083379 ICD Code: R55 - SYNCOPE AND COLLAPSE Status: Acute Current Visit: Yes (5) Weakness SNOMED Code(s): 86977623 ICD Code: R53.1 - WEAKNESS Status: Acute Current Visit: Yes (6) Acute kidney injury SNOMED Code(s): 34502631, 06908969 ICD Code: N17.9 - ACUTE KIDNEY FAILURE, UNSPECIFIED Status: Acute Current Visit: No (7) Anticoagulated by anticoagulation treatment SNOMED Code(s): 382268332, 660321313 ICD Code: Z79.01 - PENITENTIARY (CURRENT) USE OF ANTICOAGULANTS Status: Chronic Current Visit: No (8) Atrial fibrillation SNOMED Code(s): 11490523 ICD Code: I48.91 - UNSPECIFIED ATRIAL FIBRILLATION Status: Chronic Current Visit: No Qualifiers: Atrial fibrillation type: longstanding persistent Qualified Code(s): I48.11 - Longstanding persistent atrial fibrillation (9) Chronic neck pain SNOMED Code(s): 9788946784015 ICD Code: M54.2 - CERVICALGIA; G89.29 - OTHER CHRONIC PAIN Status: Acute Current Visit: No (10) Congestive heart failure (CHF) SNOMED Code(s): 87182964 ICD Code: I50.9 - HEART FAILURE, UNSPECIFIED Status: Chronic Current Visit: No Qualifiers: Heart failure type: systolic Heart failure chronicity: chronic Qualified Code(s): I50.22 - Chronic systolic (congestive) heart failure (11) Frequent falls SNOMED Code(s): 405458998 ICD Code: R29.6 - REPEATED FALLS Status: Acute Current Visit: No (12) CAT (obstructive sleep apnea) SNOMED Code(s): 60087668 ICD Code: G47.33 - OBSTRUCTIVE SLEEP APNEA (ADULT) (PEDIATRIC) Status: Chronic Current Visit: No - Patient Summary/Data Consults: Consultations 07/12/20 21:21 Consult to Physical Therapy [PT Evaluation and Treatment] [CONS] Stat - Discharge Plan Home Medications: Home Meds Levothyroxine 137 mcg PO DAILY 01/09/18 [History] Melatonin 20 mg PO BEDTIME 01/09/18 [History] Terazosin HCl [Terazosin] 10 mg PO DAILY 01/09/18 [History] Gabapentin [Neurontin] 300 mg PO BEDTIME 02/03/20 [History] Apixaban [Eliquis] 5 mg PO BID #60 tablet 02/05/20 [Rx] QUEtiapine [SEROquel] 25 mg PO BEDTIME 06/26/20 [History] Sertraline [Zoloft] 50 mg PO DAILY 06/26/20 [History] carvediloL [Carvedilol] 25 mg PO BID 06/26/20 [History] hydrOXYzine HCL [hydrOXYzine] 25 mg PO TID PRN 06/26/20 [History] levETIRAcetam [Keppra] 1,000 mg PO BID 06/26/20 [History] Eplerenone [Inspra] 25 mg PO BID 07/07/20 [History] Acetaminophen [Tylenol] 650 mg PO Q4H PRN tablet 07/10/20 [Rx] Acetaminophen/HYDROcodone [[place]ord 325-5 MG] 1 tab PO Q8H PRN tablet 07/10/20 [Rx] Bumetanide [Bumex] 2 mg PO DAILY 30 Days #30 tab 07/10/20 [Rx] Levothyroxine 25 mcg PO ACBREAKFAST 30 Days #30 tablet 07/10/20 [Rx] Lidocaine 5% [Lidoderm 5%] 700 mg TRDERM Q24H 15 Days #15 patch 07/10/20 [Rx] Losartan [Cozaar] 25 mg PO DAILY 30 Days #15 tablet 07/10/20 [Rx] Potassium Chloride [Klor-Con M20] 60 meq PO BID 30 Days #90 tab.er 07/10/20 [Rx] metOLazone [Zaroxolyn] 5 mg PO TUTHSA@0900 30 Days #12 tablet 07/10/20 [Rx] Patient Handouts: Syncope, [id number] Referrals: Chyna Woody MD [Physician] - 07/16/20 2:00 pm Bryant Mccauley MD [Ordering Only Provider] - 07/19/20 12:30 pm - Discharge Summary/Plan Comment DC Time >30 min.: Yes (arranging transfer) - Patient Data Vitals - Most Recent: Last Vital Signs Temp 36.5 C 07/13/20 16:00 Pulse 97 07/13/20 16:00 Resp 18 07/13/20 16:00 BP 102/70 07/13/20 16:00 Pulse Ox 97 07/13/20 16:00 Weight - Most Recent: 81.284 kg I&O - Last 24 hours: Intake & Output 07/13/20 07/13/20 07/13/20 06:59 14:59 22:59 Intake Total 570 Output Total 625 Balance -55 Lab Results - Last 24 hrs: Laboratory Results - last 24 hr 07/12/20 07/12/20 07/12/20 Range/Units 17:23 18:00 18:00 WBC 6.76 (4.0-11.0) K/uL RBC 4.57 (4.50-5.90) M/uL Hgb 14.0 (13.0-17.0) g/dL Hct 44.4 (38.0-50.0) % MCV 97.2 (80.0-98.0) fL MCH 30.6 (27.0-32.0) pg MCHC 31.5 (31.0-37.0) g/dL RDW Std Deviation 50.9 (28.0-62.0) fl RDW Coeff of Mike 14 (11.0-15.0) % Plt Count 189 (150-400) K/uL MPV 10.40 (7.40-12.00) fL Neut % (Auto) 78.1 (48.0-80.0) % Lymph % (Auto) 11.5 L (16.0-40.0) % [place] % (Auto) 8.1 (0.0-15.0) % Eos % (Auto) 2.2 (0.0-7.0) % Baso % (Auto) 0.1 (0.0-1.5) % Neut # (Auto) 5.3 (1.4-5.7) K/uL Lymph # (Auto) 0.8 (0.6-2.4) K/uL [place] # (Auto) 0.6 (0.0-0.8) K/uL Eos # (Auto) 0.2 (0.0-0.7) K/uL Baso # (Auto) 0.0 (0.0-0.1) K/uL Nucleated RBC % 0.0 /100WBC Nucleated RBCs # 0 K/uL Lactate 1.5 (0.20-2.00) mmol/L Sodium (136-148) mmol/L Potassium (3.5-5.1) mmol/L Chloride (98-107) mmol/L Carbon Dioxide (21.0-32.0) mmol/L BUN (7.0-18.0) mg/dL Creatinine (0.8-1.3) mg/dL Est Cr Clr Drug Dosing mL/min Estimated GFR (MDRD) ml/min Glucose (74-106) mg/dL Calcium (8.5-10.1) mg/dL Phosphorus (2.6-4.7) mg/dL Magnesium (1.8-2.4) mg/dL Total Bilirubin (0.2-1.0) mg/dL AST (15-37) IU/L ALT (14-63) IU/L Alkaline Phosphatase (46-116) U/L Troponin I (0.000-0.056) ng/mL Total Protein (6.4-8.2) g/dL Albumin (3.4-5.0) g/dL Globulin (2.6-4.0) g/dL Albumin/Globulin Ratio (0.9-1.6) Lipase (73-393) U/L Urine Color YELLOW Urine Appearance CLEAR Urine pH 6.5 (5.0-8.0) Ur Specific Zill[place] 1.015 (1.001-1.035) Urine Protein NEGATIVE (NEGATIVE) mg/dL Urine Glucose (UA) NEGATIVE (NEGATIVE) mg/dL Urine Ketones NEGATIVE (NEGATIVE) mg/dL Urine Occult Blood NEGATIVE (NEGATIVE) Urine Nitrite NEGATIVE (NEGATIVE) Urine Bilirubin NEGATIVE (NEGATIVE) Urine Urobilinogen 0.2 (<2.0) EU/dL Ur Leukocyte Esterase NEGATIVE (NEGATIVE) SARS-CoV-2 RNA (QUINTIN) (NEGATIVE) 07/12/20 07/12/20 07/12/20 Range/Units 18:00 19:39 21:02 WBC (4.0-11.0) K/uL RBC (4.50-5.90) M/uL Hgb (13.0-17.0) g/dL Hct (38.0-50.0) % MCV (80.0-98.0) fL MCH (27.0-32.0) pg MCHC (31.0-37.0) g/dL RDW Std Deviation (28.0-62.0) fl RDW Coeff of Mike (11.0-15.0) % Plt Count (150-400) K/uL MPV (7.40-12.00) fL Neut % (Auto) (48.0-80.0) % Lymph % (Auto) (16.0-40.0) % [place] % (Auto) (0.0-15.0) % Eos % (Auto) (0.0-7.0) % Baso % (Auto) (0.0-1.5) % Neut # (Auto) (1.4-5.7) K/uL Lymph # (Auto) (0.6-2.4) K/uL [place] # (Auto) (0.0-0.8) K/uL Eos # (Auto) (0.0-0.7) K/uL Baso # (Auto) (0.0-0.1) K/uL Nucleated RBC % /100WBC Nucleated RBCs # K/uL Lactate (0.20-2.00) mmol/L Sodium 148 (136-148) mmol/L Potassium 2.8 L (3.5-5.1) mmol/L Chloride 101 (98-107) mmol/L Carbon Dioxide 40.3 H (21.0-32.0) mmol/L BUN 65 H (7.0-18.0) mg/dL Creatinine 2.1 H (0.8-1.3) mg/dL Est Cr Clr Drug Dosing 32.33 mL/min Estimated GFR (MDRD) 30.8 ml/min Glucose 115 H (74-106) mg/dL Calcium 9.4 (8.5-10.1) mg/dL Phosphorus 4.3 (2.6-4.7) mg/dL Magnesium 2.1 (1.8-2.4) mg/dL Total Bilirubin 1.3 H (0.2-1.0) mg/dL AST 27 (15-37) IU/L ALT 18 (14-63) IU/L Alkaline Phosphatase 104 (46-116) U/L Troponin I < 0.050 < 0.050 (0.000-0.056) ng/mL Total Protein 7.4 (6.4-8.2) g/dL Albumin 3.3 L (3.4-5.0) g/dL Globulin 4.1 H (2.6-4.0) g/dL Albumin/Globulin Ratio 0.8 L (0.9-1.6) Lipase 497 H (73-393) U/L Urine Color Urine Appearance Urine pH (5.0-8.0) Ur Specific [place] (1.001-1.035) Urine Protein (NEGATIVE) mg/dL Urine Glucose (UA) (NEGATIVE) mg/dL Urine Ketones (NEGATIVE) mg/dL Urine Occult Blood (NEGATIVE) Urine Nitrite (NEGATIVE) Urine Bilirubin (NEGATIVE) Urine Urobilinogen (<2.0) EU/dL Ur Leukocyte Esterase (NEGATIVE) SARS-CoV-2 RNA (QUINTIN) NEGATIVE (NEGATIVE) 07/13/20 07/13/20 07/13/20 Range/Units 02:38 05:05 05:05 WBC 6.36 (4.0-11.0) K/uL RBC 4.28 L (4.50-5.90) M/uL Hgb 13.0 (13.0-17.0) g/dL Hct 41.2 (38.0-50.0) % MCV 96.3 (80.0-98.0) fL MCH 30.4 (27.0-32.0) pg MCHC 31.6 (31.0-37.0) g/dL RDW Std Deviation 50.4 (28.0-62.0) fl RDW Coeff of Mike 14 (11.0-15.0) % Plt Count 196 (150-400) K/uL MPV 10.50 (7.40-12.00) fL Neut % (Auto) 70.4 (48.0-80.0) % Lymph % (Auto) 17.6 (16.0-40.0) % [place] % (Auto) 9.1 (0.0-15.0) % Eos % (Auto) 2.4 (0.0-7.0) % Baso % (Auto) 0.5 (0.0-1.5) % Neut # (Auto) 4.5 (1.4-5.7) K/uL Lymph # (Auto) 1.1 (0.6-2.4) K/uL [place] # (Auto) 0.6 (0.0-0.8) K/uL Eos # (Auto) 0.2 (0.0-0.7) K/uL Baso # (Auto) 0.0 (0.0-0.1) K/uL Nucleated RBC % 0.0 /100WBC Nucleated RBCs # 0 K/uL Lactate (0.20-2.00) mmol/L Sodium 146 (136-148) mmol/L Potassium 3.2 L (3.5-5.1) mmol/L Chloride 102 (98-107) mmol/L Carbon Dioxide 36.3 H (21.0-32.0) mmol/L BUN 64 H (7.0-18.0) mg/dL Creatinine 2.1 H (0.8-1.3) mg/dL Est Cr Clr Drug Dosing 32.33 mL/min Estimated GFR (MDRD) 30.8 ml/min Glucose 86 (74-106) mg/dL Calcium 9.0 (8.5-10.1) mg/dL Phosphorus 4.6 (2.6-4.7) mg/dL Magnesium 2.1 (1.8-2.4) mg/dL Total Bilirubin (0.2-1.0) mg/dL AST (15-37) IU/L ALT (14-63) IU/L Alkaline Phosphatase (46-116) U/L Troponin I < 0.050 (0.000-0.056) ng/mL Total Protein (6.4-8.2) g/dL Albumin (3.4-5.0) g/dL Globulin (2.6-4.0) g/dL Albumin/Globulin Ratio (0.9-1.6) Lipase (73-393) U/L Urine Color Urine Appearance Urine pH (5.0-8.0) Ur Specific [place] (1.001-1.035) Urine Protein (NEGATIVE) mg/dL Urine Glucose (UA) (NEGATIVE) mg/dL Urine Ketones (NEGATIVE) mg/dL Urine Occult Blood (NEGATIVE) Urine Nitrite (NEGATIVE) Urine Bilirubin (NEGATIVE) Urine Urobilinogen (<2.0) EU/dL Ur Leukocyte Esterase (NEGATIVE) SARS-CoV-2 RNA (QUINTIN) (NEGATIVE) Med Orders - Current: Current Medications Hydrocodone Bitart/Acetaminophen (Will[place]ord 325-5 Mg) 1 tab PO Q8H PRN PRN Reason: Pain Last Admin: 07/13/20 06:25 Dose: 1 tab Documented by: Albuterol/Ipratropium (Duoneb 3.0-0.5 Mg/3 Ml) 3 ml NEB Q4HRRT PRN PRN Reason: Shortness Of Breath/wheezing Apixaban (Eliquis) 5 mg PO BID [facility] Last Admin: 07/13/20 08:36 Dose: 5 mg Documented by: Bisacodyl (Dulcolax) 10 mg RECTAL DAILY PRN PRN Reason: Constipation Bumetanide (Bumex) 2 mg PO DAILY [facility] Last Admin: 07/13/20 08:36 Dose: 2 mg Documented by: Carvedilol (Coreg) 25 mg PO BID [facility] Last Admin: 07/13/20 08:37 Dose: 25 mg Documented by: Docusate Sodium (Colace) 100 mg PO BID [facility] Last Admin: 07/13/20 10:19 Dose: 100 mg Documented by: Gabapentin (Neurontin) 300 mg PO BEDTIME [facility] Hydroxyzine HCl (Atarax) 25 mg PO TID PRN PRN Reason: Anxiety Levetiracetam (Keppra) 1,000 mg PO BID [facility] Last Admin: 07/13/20 08:36 Dose: 1,000 mg Documented by: Levothyroxine Sodium (Levothyroxine) 25 mcg PO ACBREAKFAST [facility] Levothyroxine Sodium (Levothyroxine) 137 mcg PO DAILY [facility] Lidocaine (Lidoderm 5%) 700 mg TRDERM Q24H [facility] Last Admin: 07/12/20 22:39 Dose: 700 mg Documented by: Losartan Potassium (Cozaar) 25 mg PO DAILY [facility] Metolazone (Zaroxolyn) 5 mg PO TUTHSA@0900 [facility] Ondansetron HCl (Zofran) 4 mg IVPUSH Q6H PRN PRN Reason: Nausea/Vomiting Eplerenone [Inspra] (25 Mg) 0.5 each PO BID [facility] Last Admin: 07/13/20 08:40 Dose: Not Given Documented by: Potassium Chloride (Klor-Con M20) 40 meq PO BID [facility] Quetiapine Fumarate (Seroquel) 25 mg PO BEDTIME [facility] Sertraline HCl (Zoloft) 50 mg PO DAILY [facility] Last Admin: 07/13/20 08:36 Dose: 50 mg Documented by: Terazosin HCl (Hytrin) 10 mg PO DAILY [facility] Discontinued Medications Carvedilol (Coreg) 25 mg PO BID [facility] Furosemide (Lasix) 40 mg PO BIDDIURETIC [facility] Sodium Chloride (Normal Saline) 1,000 mls @ 100 mls/hr IV ASDIRECTED [facility] Last Admin: 07/12/20 20:42 Dose: 100 mls/hr Documented by: Potassium Chloride 40 meq/ (Premix) 0 mls @ 25 mls/hr IV ONETIME ONE Stop: 07/12/20 20:51 Last Admin: 07/12/20 23:38 Dose: Not Given Documented by: Potassium Chloride 40 meq/ (Premix) 100 mls @ 25 mls/hr IV ONETIME ONE Stop: 07/13/20 03:11 Last Admin: 07/12/20 23:26 Dose: 25 mls/hr Documented by: Oxycodone/Acetaminophen (Percocet 325-5 Mg) 1 tab PO ONETIME ONE Stop: 07/12/20 18:52 Last Admin: 07/12/20 19:03 Dose: 1 tab Documented by: Potassium Chloride (Potassium Chloride Solution) 20 meq PO ONETIME ONE Stop: 07/12/20 18:53 Last Admin: 07/12/20 19:02 Dose: Not Given Documented by: Potassium Chloride (Potassium Chloride) 40 meq PO ONETIME ONE Stop: 07/12/20 19:00 Last Admin: 07/12/20 19:03 Dose: Not Given Documented by: Potassium Chloride (Potassium Chloride) Confirm Administered Dose 40 meq .ROUTE .STK-MED ONE Stop: 07/12/20 19:00 Last Admin: 07/12/20 19:03 Dose: Not Given Documented by: Potassium Chloride (Klor-Con M20) 40 meq PO ONETIME ONE Stop: 07/12/20 19:09 Last Admin: 07/12/20 19:09 Dose: 40 meq Documented by: Potassium Chloride (Klor-Con M20) Confirm Administered Dose 40 meq .ROUTE .STK- MED ONE Stop: 07/12/20 19:09 Last Admin: 07/12/20 19:21 Dose: Not Given Documented by: Potassium Chloride (Potassium Chloride) 40 meq PO ONETIME ONE Stop: 07/12/20 20:49 Last Admin: 07/12/20 23:38 Dose: Not Given Documented by: Potassium Chloride (Klor-Con M20) 40 meq PO ONETIME ONE Stop: 07/12/20 22:53 Last Admin: 07/12/20 23:26 Dose: 40 meq Documented by: Potassium Chloride (Klor-Con M20) 40 meq PO ONETIME ONE Stop: 07/13/20 07:57 Last Admin: 07/13/20 08:36 Dose: 40 meq Documented by:
[2020-07-13 18:44] VITALS: BP 108/67; PULSE 81
[2020-07-13] MEDS ORDERED: Potassium Chloride 20 MEQ Tab.ER PO SCH (21:00)
[2020-07-13] MEDS ORDERED: QUEtiapine 25 MG Tab PO SCH (21:00)
[2020-07-13] MEDS ORDERED: Gabapentin 300 MG Cap PO SCH (21:00)
[2020-07-14] MEDS ORDERED: Levothyroxine 25 MCG Tab PO SCH (07:30)
[2020-07-14] MEDS ORDERED: Metolazone 5 MG Tab PO SCH (09:00)
[2020-07-14] MEDS ORDERED: Losartan 50 MG Tab PO SCH (09:00)
[2020-07-14] MEDS ORDERED: Levothyroxine 112 MCG Tab PO SCH (09:00)
[2020-07-14] MEDS ORDERED: Terazosin 5 MG Cap PO SCH (09:00)
== END 2020-07-13 18:15 | DRG 641 ==
LOC: MW.ED 17:06 → MW.MS 19:58
PROVIDERS: ADMIT Student in an Organized Health Care Education/Training Program; ATTEND Student in an Organized Health Care Education/Training Program
DX: E87.6 Hypokalemia (principal); R53.1 Weakness; Z91.81 History of falling; I48.91 Unspecified atrial fibrillation; G47.30 Sleep apnea, unspecified; N17.9 Acute kidney failure, unspecified; I48.11 Longstanding persistent atrial fibrillation; I50.22 Chronic systolic (congestive) heart failure; I42.9 Cardiomyopathy, unspecified; E03.9 Hypothyroidism, unspecified; I11.0 Hypertensive heart disease with heart failure; Z20.822 Contact with and (suspected) exposure to COVID-19; E78.00 Pure hypercholesterolemia, unspecified; R55 Syncope and collapse; M54.2 Cervicalgia; G89.29 Other chronic pain; R29.6 Repeated falls; G47.33 Obstructive sleep apnea (adult) (pediatric); G40.909 Epilepsy, unspecified, not intractable, without status epilepticus; N40.0 Benign prostatic hyperplasia without lower urinary tract symptoms; Z79.890 Hormone replacement therapy; Z79.899 Other long term (current) drug therapy; Z78.9 Other specified health status; Z79.01 Long term (current) use of anticoagulants
CPT/HCPCS: 36415; 71045; 80053; 81003; 83605; 83690; 83735; 84100; 84484; 85025; 93005; 99285; A9270 ×2; U0002; 80048; 80177; 93010; 94660; 99283; J2405; J3480; J7030